=== PATIENT | male | born 1940 | race Caucasian/White ===

== ENCOUNTER 2018-11-28 15:11 | Inpatient (IN) | payer OTHER, BC ==
--- OUTSIDE RECORDS SUMMARY | 2018-11-28 15:14 | XMS REPORT ---
:1940 Author Organization [facility] Address [address] [place] [address] Care Team Providers Name Role Phone Unavailable Unavailable Unavailable Problems This patient has no known problems. Allergies, Adverse Reactions, Alerts This patient has no known allergies or adverse reactions. Medications This patient has no known medications.
--- OUTSIDE RECORDS SUMMARY | 2018-11-28 15:14 | XMS REPORT | Clinical Summary ---
:1940 Author Organization [facility] Address [address] [place] [address] Care Team Providers Name Role Phone Elliott Rain MD Primary Care Provider Allergies Active Allergy Reactions Severity Noted Date Comments Levofloxacin Rash Low 03/13/2016 Medications Medication Sig Dispensed Refills Start End Date Status Date [facility] 100-19.5-6.5 TAKE TWO 60 capsule 3 Active mg capsule CAPSULES BY 7 MOUTH DAILY carvedilol (COREG) Take 12.5 mg by 0 Active 12.5 MG tablet mouth 2 (two) times a day with meals. gabapentin Take 300 mg by 0 Active (NEURONTIN) 300 mg mouth 3 (three) capsule times a day. levothyroxine Take 50 mcg by 0 Active (SYNTHROID, LEVOXYL) mouth every 50 mcg tablet morning. aspirin (ECOTRIN) 81 Take 162 mg by 0 Active MG enteric coated mouth daily. tablet atorvastatin Take 20 mg by 0 Active (LIPITOR) 20 MG mouth daily. tablet Default OP ins traMADol (ULTRAM) 50 Take 50 mg by 0 Active mg tablet mouth every 6 (six) hours as needed for moderate pain. losartan (COZAAR) 50 Take 50 mg by 0 Active MG tablet mouth daily. multivitamin Take 1 tablet by 0 Active (THERAGRAN) tablet mouth daily. pantoprazole Take 40 mg by 0 Active (PROTONIX) 40 MG EC mouth daily tablet before breakfast. predniSONE Take 5 mg by 0 Active (DELTASONE) 5 mg mouth daily. 0.5 tablet tab alendronate Take 70 mg by 0 Active (FOSAMAX) 70 MG mouth every 7 tablet days. Take in the morning with a full glass of water on an empty stomach, do NOT take anything else by mouth or lie down for the next 30 min. levalbuterol Take 1 ampule by 0 Active (XOPENEX) 1.25 mg/3 nebulization 3 mL nebulizer (three) times a solution day. amIODarone Take 200 mg by 0 Active (PACERONE) 200 MG mouth daily. tablet VITAMIN A ORAL Take by mouth. 0 Active CALCIUM ORAL Take by mouth 2 0 Active (two) times a day. Plus Magnesium , zinc VITAMIN B COMPLEX (B Take by mouth. 0 Active COMPLEX ORAL) ZINC ORAL Take 220 mg by 0 Active mouth daily. FERROUS SULFATE Take 65 mg by 0 Active (IRON ORAL) mouth daily. budesonide-formotero Inhale 2 puffs. 0 Active l (SYMBICORT) 160-4.5 mcg/actuation inhaler ipratropium Inhale 2 puffs 2 0 Active (ATROVENT HFA) 17 (two) times a mcg/actuation day. inhaler clotrimazole Apply topically 0 Active (LOTRIMIN) 1 % cream 2 (two) times a day. cholecalciferol, Take by mouth 0 Active vitamin D3, (VITAMIN every evening. D3) 5,000 unit tablet digestive enzymes Take 1 capsule 0 Active capsule by mouth 2 (two) times a day. Bifidobacterium Take 1 capsule 0 Active infantis (ALIGN by mouth daily. ORAL) loratadine Take 10 mg by 0 Active (CLARITIN) 10 mg mouth daily. tablet nystatin Apply topically 30 g 0 09/21/19 (MYCOSTATIN) 100,000 daily. Clean 8 19 unit/gram powder affected area and apply daily to bilateral groin amoxicillin-pot Take 1 tablet 20 tablet 0 11/30/19 clavulanate (500 mg total) 8 18 (AUGMENTIN) 500-125 by mouth 2 (two) mg per tablet times a day for 10 days. cetirizine (ZyrTEC) Take 10 mg by 0 07/05/20 Discontinued 10 MG tablet mouth daily. 18 Active Problems Problem Noted Date Post-op pain 09/24/2017 Pneumonia 06/14/2017 Cellulitis of foot, right 06/14/2017 Aspiration pneumonia 03/13/2016 AF (paroxysmal atrial fibrillation) 03/13/2016 Essential hypertension 03/13/2016 GERD (gastroesophageal reflux disease) 03/13/2016 Hyperlipidemia 03/13/2016 Testicular cancer 03/13/2016 Prostate cancer 03/13/2016 PAD (peripheral artery disease) 03/13/2016 Last Assessment & Plan: E. R TMA well healed. Duplex study reviewed by me suggests bypass is patent. Plan: RTC in 6 months with R leg arterial duplex study. Encounters Date Type Specialty Care Team Description 07/05/2018 Office Visit Cardiovascular Francis Mckeon, PAD (peripheral artery MD disease) ([facility]) (Primary Dx) 01/03/2018 Office Visit Cardiovascular Mamie PAD (peripheral artery [place] disease) (Primary Dx) 12/06/2017 Office Visit Cardiovascular Mamie PAD (peripheral artery [place] disease) (Primary Dx) after 11/27/2017 Immunizations Name Dates Previously Given Next Due FLUCELVAX QUAD PF (0.5mL syringe) 06/18/2017 Family History Medical History Relation Name Comments Lung disease Father Heart disease Mother Relation Name Status Comments Father Mother Social History Tobacco Use Types Packs/Day Years Used Date Former Smoker Cigarettes 2 55 Quit: 2009 Smokeless Tobacco: Former User Alcohol Use Drinks/Week oz/Week Comments No Sex Assigned at Date Recorded Not on file Job Start Date Occupation Industry Not on file Not on file Not on file Travel History Travel Start Travel End No recent travel history available. Last Filed Vital Signs Vital Sign Reading Time Taken Blood Pressure 153/70 07/05/2018 11:49 AM CDT Pulse 67 07/05/2018 11:49 AM CDT Temperature 36.8 C (98.3 F) 07/05/2018 11:49 AM CDT Respiratory Rate 18 07/05/2018 11:49 AM CDT Oxygen Saturation 94% 07/05/2018 11:49 AM CDT Inhaled Oxygen Concentration - - Weight 73.6 kg (162 lb 4.1 oz) 07/05/2018 11:49 AM CDT Height 172.7 cm (5' 8") 07/05/2018 11:49 AM CDT Body Mass Index 24.67 07/05/2018 11:49 AM CDT Plan of Treatment Date Type Specialty Care Team Description 01/03/2019 Appointment Procedural Cardiology 01/03/2019 Office Visit Cardiovascular Francis Mckeon MD [address] [address] Health Maintenance Due Date Last Done Comments SHINGLES VACCINES (#1) 1988 65+ PNEUMOCOCCAL VACCINE (1 of 2 - PCV13) 2003 PNEUMOCOCCAL POLYSACCHARIDE VACCINE AGE 65 AND OVER 2003 INFLUENZA VACCINE 04/13/2018 06/18/2017 Implants Implanted Type Area Cork Mixer Device Shelf Model / Identifier Expiration Serial / Date Lot Catheter Angio Utilization Management Um Nurse Ii 5fr 65cm [facility] Braidd Torque Andrei - [id number] Surgical N/A: N/A [facility] PERIPHERAL [id number] / Implanted: 09/24/2017 (Quantity not on file) Implants; INTERVENTION / Expanders; VASCULAR RENETTA Extenders; Surgical Wires Evacuator Bulb Lindsey 100cc Ltxf - [id number] Surgical N/A: N/A [employer] [id number] / Implanted: Qty: 1 on 09/30/2017 by Jd Toney DPCamille Implants; DIVISION / Expanders; Extenders; Surgical Wires Drain Wnd Chnl 10fr 8in Rnd Hbls Fl-Flut W/ 8in Trocar - [id number] Surgical N/A: N/A [employer] [id number] / Implanted: Qty: 1 on 09/30/2017 by Jd Toney DPM Implants; DIVISION / Expanders; Extenders; Surgical Wires Stent Endprths Viabahn [id number] 8mm Heprn Bioactv Surf - [id number] Surgical N/ A: N/A W L GORE 06/16/2020 [id number] / Implanted: 09/24/2017 (Quantity not on file) Stents [id number] / [id number] Stent Endprths Viabahn [id number] 8mm Heprn Bioactv Surf - [id number] Surgical N/ A: N/A W L GORE 06/16/2020 [id number] / Implanted: 09/24/2017 (Quantity not on file) Stents [id number] / [id number] Patch Vasclr Perph 2x9cm Vascu-Guard - [id number] Vascular N/A: N/A HAWK 08/17/2021 [id number] / Implanted: Qty: 1 on 09/24/2017 by Francis Mckeon MD Graft BIOSCIENCE / [id number] Catheter Courtesy Driver [place] 5fr 75cm 7x40mm 0.035in H-Pres Right: [place] [id number] / Implanted: Qty: 1 on 09/24/2017 by Francis Mckeon MD Femur SCIENTIFIC/ BONNIE / PHERAL VASCULAR (MEDI-TECH) Procedures Procedure Name Priority Date/Time Associated Diagnosis Comments US ANKLE BRACHIAL Routine 07/05/2018 11:24 AM PAD (peripheral Results for this INDEX CDT artery disease) procedure are in (HCC) the results section. US DUPLEX ARTERIAL Routine 07/05/2018 11:24 AM PAD (peripheral Results for this LOWER EXTREMITY CDT artery disease) procedure are in BILATERAL (HCC) the results section. after 11/27/2017 Results Pv ankle brachial index complete (07/05/2018 11:24 AM CDT) Narrative Performed At [facility] Lower Extremity Arterial Physiologic Report [address] [place] [address] [facility].Name:Esteban NOLAN.ID:[id number] .Date: 07/05/2018Refer.MD:FRANCIS MCKEON MD Exam Time: 9:54:00 AMStudy Type:Physiologic Leg DOBAge:1940,77Y Sex: MALE Sonogrphr: Ponce Mcgrath RVT TapeVol: IV, CPT - 4: 21191 Echo Event ID:[id number] Order ID:[id number] Reason for Study:PAD; S/p right fem-peroneal bypass Race:C SUMMARY: DOPPLER SIGNALS /ANALOG WAVEFORMS: ANALOG WAVEFORMS ARTERY RIGHT LEFT Posterior Tibial Abnormal Abnormal Dorsalis Pedis Abnormal Abnormal See the same day lower extremity Duplex exam Patient seen the same day in the clinic by Dr Mckeon PHYSICIAN INTERPRETATION: 1.Resting ankle brachial indices fall within normal range on the right and mild left lower extremity arterial occlusive disease, although the wave forms are abnormal bilaterally. 2.The right great toe is amputated, the toebrachial index suggests mild disease on the left. MEASUREMENTS: PRESSURES Right Brachial Brach P114 mmHg Left Brachial Brach P124 mmHg Right Ankle PT AnklePT P138 mmHg Left Ankle PT AnklePT P 89 mmHg Right Ankle DP AnkleDP P138 mmHg Left Ankle DP AnkleDP P109 mmHg Right BRISEIDA PT BRISEIDA PT1.11 Left BRISEIDA PT BRISEIDA PT 0.718 Right BRISEIDA DP BRISEIDA DP1.11 Left BRISEIDA DP BRISEIDA DP 0.879 Left Great Toe GreatToe P55 mmHg Left TBI TBI0.444 Signed 07/08/2018 01:56 AM Lino Louis MD, RPVI Procedure Note Interface, Radiology Results In - 07/08/2018 1:56 AM CDT [facility] Lower Extremity Arterial Physiologic Report [address] [place] [address] Pat.Name: ELENA NOLAN Pat.ID: [id number] .Date: 07/05/2018 Refer.MD: FRANCIS MCKEON MD Exam Time: 9:54:00 AM Study Type:Physiologic Leg Age: 2 1940,77Y Sex: MALE Sonogrphr: Ponce Mcgrath RVT Tape Vol: IV, CPT - 4: 88898 Echo Event ID:[id number] Order ID: [id number] Reason for Study:PAD; S/p right fem-peroneal bypass Race: C SUMMARY: DOPPLER SIGNALS / ANALOG WAVEFORMS: ANALOG WAVEFORMS ARTERY RIGHT LEFT Posterior Tibial Abnormal Abnormal Dorsalis Pedis Abnormal Abnormal See the same day lower extremity Duplex exam Patient seen the same day in the clinic by Dr Mckeon PHYSICIAN INTERPRETATION: 1. Resting ankle brachial indices fall within normal range on the right and mild left lower extremity arterial occlusive disease, although the wave forms are abnormal bilaterally. 2. The right great toe is amputated, the toe brachial index suggests mild disease on the left. MEASUREMENTS: PRESSURES Right Brachial Brach P 114 mmHg Left Brachial Brach P 124 mmHg Right Ankle PT AnklePT P 138 mmHg Left Ankle PT AnklePT P 89 mmHg Right Ankle DP AnkleDP P 138 mmHg Left Ankle DP AnkleDP P 109 mmHg Right BRISEIDA PT BRISEIDA PT 1.11 Left BRISEIDA PT BRISEIDA PT 0.718 Right BRISEIDA DP BRISEIDA DP 1.11 Left BRISEIDA DP BRISEIDA DP 0.879 Left Great Toe GreatToe P 55 mmHg Left TBI TBI 0.444 Signed 07/08/2018 01:56 AM Lino Louis MD, RPVI Performing Organization Address City/State/Zipcode Phone Number [facility] [address] [place] [address] PV duplex arterial lower extremity (07/05/2018 11:24 AM CDT) Narrative Performed At [facility] Lower Extremity Arterial Duplex Report [address] [place] [address] Pat.Name:Esteban NOLAN.ID:[id number] .Date: 07/05/2018Refer.:FRANCIS MCKEON MD Exam Time: 9:53:00 AMStudy Type:LE Arterial DOBAge:1940,77Y Sex: MALE Sonogrphr: Ponce Mcgrath RVT TapeVol: IV, CPT - 4: 33626 Echo Event ID:[id number] Order ID:[id number] Reason for Study:PAD; S/p right fem-peroneal bypass graft Race:C SUMMARY: DUPLEX SCAN OBSERVATIONS: RIGHT:All the [place] blood vessels are very heavilycalcified. A patent bypass graft is visualized from the distal common femoral artery to the mid peroneal artery. The blood flow in the popliteal artery appears reconstituted via retrograde flow. The proximal and distal segment of the posterior tibial arteryare not visualized. LEFT: The blood vesels are difficult to visualize due to heavy calcifications throughout.There is a superficial femoral artery stent which appears patent without colorflow and Doppler signal disturbance. There is a colorflow disturbance and elevated velocities in the proximal anterior tibial artery. There is dampened signal and diminished flow in the posterior tibial artery. The peroneal artery is not seen. See the same day BRISEIDA Patient seen the same day in the clinic by Dr Mckeon PHYSICIAN INTERPRETATION: 1. Patent right femoral to peroneal artery bypass graft. 2. Patent left superficial femoral artery stent. 3. 50-75% stenosis left proximal anterior tibial artery. 4. The right proximal and distal segment of the posterior tibial arteryare not visualized. 5. There is dampened signal and diminished flow in the posterior tibial artery and the peroneal artery is not seen. MEASUREMENTS: GRAFT Graft Prox Thigh Graft Prox Thig76 cm/s Graft Mid Calf Graft Mid Calf 43 cm/s Graft Distal Thigh Graft Distal Th56 cm/s Prox Anastomosis Prox Anast PSV 115 cm/s At Knee Damari Vessel PSV50 cm/s Inflow Artery Damari Vessel PSV 101 cm/s Below knee Below knee PSV34 cm/s Graft Mid Thigh Graft Mid Thigh74 cm/s DOPPLER Left INSTRUMENT LENS GRINDER Prox INSTRUMENT LENS GRINDER Prox PSV15 cm/s Right INSTRUMENT LENS GRINDER Prox INSTRUMENT LENS GRINDER Prox PSV 0 cm/s Left INSTRUMENT LENS GRINDER Distal INSTRUMENT LENS GRINDER Distal PSV26 cm/s Right INSTRUMENT LENS GRINDER Distal INSTRUMENT LENS GRINDER Distal PSV 0 cm/s Left INSTRUMENT LENS GRINDER Mid INSTRUMENT LENS GRINDER Mid PSV 23 cm/s Right INSTRUMENT LENS GRINDER Mid INSTRUMENT LENS GRINDER Mid PSV 51 cm/s Right Peroneal Dist Peroneal Dist P67 cm/s Left SFA Mid SFA Mid PSV 34 cm/s Left AMERICA Prox AMERICA Prox PSV 110 cm/s AMERICA Prox AMERICA Prox PSV81.2 cm/s Left COSMETICS PRESSER Prox COSMETICS PRESSER Prox PSV89 cm/s Right COSMETICS PRESSER Prox COSMETICS PRESSER Prox PSV 106 cm/s Left AMERICA Mid AMERICA Mid PSV 24 cm/s Left AMERICA Distal AMERICA Distal PSV17 cm/s Right AMERICA Distal AMERICA Distal PSV62 cm/s Left Pop Prox Pop Prox PSV40 cm/s Right Pop Prox Pop Prox PSV29 cm/s Left COSMETICS PRESSER Dist COSMETICS PRESSER Dist PSV75 cm/s Right COSMETICS PRESSER Dist COSMETICS PRESSER Dist PSV99 cm/s Right Peroneal Mid Peroneal Mid PS70 cm/s Left EIA Dist EIA Dist PSV78 cm/s Right EIA Dist EIA Dist PSV 125 cm/s Left TP Trunk Dist TP Trunk Dist P31 cm/s Left SFA Prox SFA Prox PSV61 cm/s Right SFA Prox SFA Prox PSV 0 cm/s Left SFA Dist SFA Dist PSV44 cm/s Left Pop Dist Pop Dist PSV39 cm/s Right Pop Dist Pop Dist PSV24 cm/s Left Profunda Profunda PSV70 cm/s Profunda Profunda PSV45.1 cm/s Right AMERICA Mid AMERICA Mid PSV 90 cm/s Signed 07/08/2018 02:12 PM Lino Louis MD, RPVI Procedure Note Interface, Radiology Results In - 07/08/2018 2:12 PM CDT [facility] Lower Extremity Arterial Duplex Report [address] [facility] [address], [place] [address] Pat.Name: ELENA NOLAN Pat.ID: [id number] .Date: 07/05/2018 Refer.MD: FRANCIS MCKEON MD Exam Time: 9:53:00 AM Study Type:LE Arterial Age: 2 1940,77Y Sex: MALE Sonogrphr: Ponce Mcgrath RVT Tape Vol: IV, CPT - 4: 17962 Echo Event ID:[id number] Order ID: [id number] Reason for Study:PAD; S/p right fem-peroneal bypass graft Race: C SUMMARY: DUPLEX SCAN OBSERVATIONS: RIGHT:All the [place] blood vessels are very heavily calcified. A patent bypass graft is visualized from the distal common femoral artery to the mid peroneal artery. The blood flow in the popliteal artery appears reconstituted via retrograde flow. The proximal and distal segment of the posterior tibial artery are not visualized. LEFT: The blood vesels are difficult to visualize due to heavy calcifications throughout. There is a superficial femoral artery stent which appears patent without colorflow and Doppler signal disturbance. There is a colorflow disturbance and elevated velocities in the proximal anterior tibial artery. There is dampened signal and diminished flow in the posterior tibial artery. The peroneal artery is not seen. See the same day BRISEIDA Patient seen the same day in the clinic by Dr Mckeon PHYSICIAN INTERPRETATION: 1. Patent right femoral to peroneal artery bypass graft. 2. Patent left superficial femoral artery stent. 3. 50-75% stenosis left proximal anterior tibial artery. 4. The right proximal and distal segment of the posterior tibial artery are not visualized. 5. There is dampened signal and diminished flow in the posterior tibial artery and the peroneal artery is not seen. MEASUREMENTS: GRAFT Graft Prox Thigh Graft Prox Thig 76 cm/s Graft Mid Calf Graft Mid Calf 43 cm/s Graft Distal Thigh Graft Distal Th 56 cm/s Prox Anastomosis Prox Anast PSV 115 cm/s At Knee Damari Vessel PSV 50 cm/s Inflow Artery Damari Vessel PSV 101 cm/s Below knee Below knee PSV 34 cm/s Graft Mid Thigh Graft Mid Thigh 74 cm/s DOPPLER Left INSTRUMENT LENS GRINDER Prox INSTRUMENT LENS GRINDER Prox PSV 15 cm/s Right INSTRUMENT LENS GRINDER Prox INSTRUMENT LENS GRINDER Prox PSV 0 cm/s Left INSTRUMENT LENS GRINDER Distal INSTRUMENT LENS GRINDER Distal PSV 26 cm/s Right INSTRUMENT LENS GRINDER Distal INSTRUMENT LENS GRINDER Distal PSV 0 cm/s Left INSTRUMENT LENS GRINDER Mid INSTRUMENT LENS GRINDER Mid PSV 23 cm/s Right INSTRUMENT LENS GRINDER Mid INSTRUMENT LENS GRINDER Mid PSV 51 cm/s Right Peroneal Dist Peroneal Dist P 67 cm/s Left SFA Mid SFA Mid PSV 34 cm/s Left AMERICA Prox AMERICA Prox PSV 110 cm/s AMERICA Prox AMERICA Prox PSV 81.2 cm/s Left COSMETICS PRESSER Prox COSMETICS PRESSER Prox PSV 89 cm/s Right COSMETICS PRESSER Prox COSMETICS PRESSER Prox PSV 106 cm/s Left AMERICA Mid AMERICA Mid PSV 24 cm/s Left AMERICA Distal AMERICA Distal PSV 17 cm/s Right AMERICA Distal AMERICA Distal PSV 62 cm/s Left Pop Prox Pop Prox PSV 40 cm/s Right Pop Prox Pop Prox PSV 29 cm/s Left COSMETICS PRESSER Dist COSMETICS PRESSER Dist PSV 75 cm/s Right COSMETICS PRESSER Dist COSMETICS PRESSER Dist PSV 99 cm/s Right Peroneal Mid Peroneal Mid PS 70 cm/s Left EIA Dist EIA Dist PSV 78 cm/s Right EIA Dist EIA Dist PSV 125 cm/s Left TP Trunk Dist TP Trunk Dist P 31 cm/s Left SFA Prox SFA Prox PSV 61 cm/s Right SFA Prox SFA Prox PSV 0 cm/s Left SFA Dist SFA Dist PSV 44 cm/s Left Pop Dist Pop Dist PSV 39 cm/s Right Pop Dist Pop Dist PSV 24 cm/s Left Profunda Profunda PSV 70 cm/s Profunda Profunda PSV 45.1 cm/s Right AMERICA Mid AMERICA Mid PSV 90 cm/s Signed 07/08/2018 02:12 PM Lino Louis MD, RPVI Performing Organization Address City/State/Zipcode Phone Number [facility] [address] [place] [address] after 11/27/2017 Insurance Payer Benefit Plan / Group Subscriber ID Type Phone Address MEDICARE MEDICARE PART A AND B xxxxxxxxxx Medicare [place], [place] BCBS BCBS CHOICE PPO/FEDERAL EMPL PPO xxxxxxxxx PPO Advance Directives Patient has advance care planning documents, and code status on file. For more information, please contact:[place] [address] Code Status Date Activated Date Inactivated Comments Full Code 07/20/2017 3:29 AM 07/29/2017 9:21 PM Code Status decision reached by: Patient Full Code 06/14/2017 9:09 PM 06/19/2017 8:16 PM Code Status decision reached by: Patient Full Code 03/13/2016 10:36 PM 03/19/2016 7:27 PM Code Status decision reached by: Patient
--- NOTE | 2018-11-28 16:12 | RAD REPORT ---
EXAM DESCRIPTION: RAD - Chest Single View - 11/28/2018 3:59 pm CLINICAL HISTORY: TRAUMA Chest pain. COMPARISON: Chest Pa And Lat (2 Views) dated 06/13/2017; Chest Single View dated 06/08/2017; Chest Sin gle View dated 10/20/2016; Chest Single View dated 07/01/2016 FINDINGS: Portable technique limits examination quality. Mildly emphysematous changes are present throughout the lungs. The heart is mildly prominent size. No displaced fractures. IMPRESSION: No acute intrathoracic process suspected. COPD.
--- NOTE | 2018-11-28 16:13 | RAD REPORT ---
EXAM DESCRIPTION: RAD - Pelvis - 11/28/2018 3:59 pm CLINICAL HISTORY: TRAUMA Fall, right hip pain COMPARISON: None FINDINGS: AP pelvis and right hip - multiple projections Mildly impacted subcapital fracture of the proximal right femur is noted. No dislocation seen. Left t otal hip arthroplasty is noted.
--- NOTE | 2018-11-28 16:15 | RAD REPORT ---
EXAM DESCRIPTION: RAD - Hand Left 3 View - 11/28/2018 3:58 pm CLINICAL HISTORY: PAIN COMPARISON: Hand Left 2 View dated 09/03/2015 FINDINGS: Prominent radiocarpal arthritic changes are present. Diffuse osteopenia is seen. No acute fracture or dislocation.
--- NOTE | 2018-11-28 16:28 | RAD REPORT ---
EXAM DESCRIPTION: CT - [id number] - 11/28/2018 4:14 pm CLINICAL HISTORY: Trauma, head and neck injury. PAIN COMPARISON: No comparisons TECHNIQUE: Axial 5 mm thick images of the head were obtained. Axial 2 mm thick images of the cervical spine were obtained with sagittal and coronal reconstruction images generated and reviewed. All CT scans are performed using dose optimization technique as appropriate and may include automated exposure control or mA/KV adjustment according to patient size. FINDINGS: CT HEAD WITHOUT CONTRAST: No acute hemorrhage, hydrocephalus or extra-axial collection is identified.Moderate generalized brain atrophy is present with mild periventricular and deep white matter chronic microvascular ischemic ch anges.No areas of brain edema or midline shift. The paranasal sinuses and mastoids are clear.The calvarium is intact. CT CERVICAL SPINE WITHOUT CONTRAST: No fracture or subluxation.Prominent midcervical degenerative changes are present. 2 mm degenerative anterolisthesis of C3 on 4 is present. Disc thinning with posterior osteophyte is noted.No prevertebr al soft tissues swelling is identified. Carotid atherosclerosis bilaterally. IMPRESSION: No acute intracranial or cervical spine findings.
--- NOTE | 2018-11-28 16:31 | RAD REPORT ---
EXAM DESCRIPTION: CT - Pelvis Wo Cont - 11/28/2018 4:15 pm CLINICAL HISTORY: BLUNT TRAUMA Fall, trauma, hip pain COMPARISON: No comparisons TECHNIQUE: All CT scans are performed using dose optimization technique as appropriate and may inclu de automated exposure control or mA/KV adjustment according to patient size. FINDINGS: Diffuse osteopenia is seen. Subcapital fracture of the proximal right femur is seen with i mpaction. A left total hip arthroplasty is in place. Prominent diverticulosis of the sigmoid colon is present. Moderate compression deformity is seen affe cting the L4 vertebral body, fully detailed on dedicated CT lumbar spine. IMPRESSION: Impacted subcapital fracture proximal right femur.
--- NOTE | 2018-11-28 16:33 | ER ---
Nurse's Notes [facility] Name: Luis Burgos Age: 78 yrs Sex: Male : 1940 Arrival Date: 11/28/2018 Time: 15:02 Bed 3 Private MD: Diagnosis: Nondisplaced fracture of base of neck of right femur Presentation: 11/28 15:02 Presenting complaint: EMS states: Pt lost footing and fell, landed on R hip, c/o pain ph to hip and top of thigh, denies other injury or LOC, R leg noted to be slightly shortened and rotated outward, 50 mcg Fentanyl administered x 2. Transition of care: patient was not received from another setting of care. Onset of symptoms was November 28, 2018. Risk Assessment: Do you want to hurt yourself or someone else? Patient reports no desire to harm self or others. Initial Sepsis Screen: Does the patient meet any 2 criteria? No. Patient's initial sepsis screen is negative. Does the patient have a suspected source of infection? No. Patient's initial sepsis screen is negative. Care prior to arrival: Medication(s) given: Fentanyl 50 mcg x 2/ 100 mcg total IV initiated. 20 GA, in the left antecubital area. 15:02 Method Of Arrival: EMS: [facility] 15:02 Acuity: ERWIN 3 ph 15:02 Mechanism of Injury: Fall from standing position. Trauma event details: Injury occurred ph in the [facility], Injury occurred: at home. Trauma Activation: Not Applicable Physician: ED Physician; Name: ; Notified At: ; Arrived At: Physician: General Surgeon; Name: ; Notified At: ; Arrived At: Physician: Radiology; Name: ; Notified At: ; Arrived At: Physician: Respiratory; Name: ; Notified At: ; Arrived At: Physician: Lab; Name: ; Notified At: ; Arrived At: Historical: - Allergies: 15:06 Levaquin; ph - PMHx: 15:06 Arthritis; COPD; Prostate Cancer; testicular cancer; ph - Immunization history:: Adult Immunizations unknown. - Social history:: Smoking status: Patient/guardian denies using tobacco, Patient/guardian denies using alcohol, street drugs, The patient lives with family. - Immunization history: Last tetanus immunization: unknown. - Ebola Screening: : No symptoms or risks identified at this time. - Family history:: not pertinent. Screenin:30 Abuse screen: Denies threats or abuse. Denies injuries from another. Nutritional ph screening: No deficits noted. Tuberculosis screening: No symptoms or risk factors identified. Fall Risk Fall in past 12 months (25 points). No secondary diagnosis (0 pts). IV access (20 points). Ambulatory Aid- None/Bed Rest/Nurse Assist (0 pts). Gait- Normal/Bed Rest/Wheelchair (0 pts) Mental Status- Oriented to own ability (0 pts). Total Narayanan Fall Scale indicates High Risk Score (45 or more points). Fall prevention measures have been instituted. Side Rails Up X 2 Placed Close to Nursing Station Frequent Obs/Assessments Occuring Family Present and informed to notify staff if the need to leave the bedside As available patient and family educated on Fall Prevention Program and Strategies. Primary Survey: 15:05 NO uncontrolled hemorrhage observed. A: The patient is alert. Airway: patent, No ph supplemental oxygen in use on arrival. Oral cavity: clear, Trachea midline. Breathing/Chest: Respiratory pattern: regular, Respiratory effort: spontaneous, unlabored, Breath sounds: clear, bilaterally. Chest inspection: symmetrical rise and fall of the chest. Circulation: Pulses: Skin color: pink, Skin temperature: warm. Disability Alert. Exposure/Environment: All clothing and personal items were removed. Forensic evidence collection is not deemed to be indicated at this time. Items placed in patient belonging bag. 18:00 Reassessment Airway Airway Breathing/Chest Respiratory pattern Regular Respiratory ph effort Spontaneous Unlabored Breath sounds Clear Chest inspection Symmetrical Circulation Pulses Palpable Color Clymer Temperature Warm Disability Alert. Secondary Survey: 15:07 Musculoskeletal: R leg shortened and rotated outwards Reports pain in right hip. ph Assessment: 15:10 General: Appears in no apparent distress. comfortable, well groomed, Behavior is calm, ph cooperative, appropriate for age. Pain: Complains of pain in right quadriceps and right hip. Neuro: Level of Consciousness is awake, alert, obeys commands, Oriented to person, place, time, situation. Cardiovascular: Capillary refill < 3 seconds in bilateral fingers toes Patient's skin is warm and dry. Pulses are palpable in right dorsalis pedis artery and left dorsalis pedis artery. Respiratory: Airway is patent Respiratory effort is even, unlabored, Respiratory pattern is regular, symmetrical. GI: Patient currently denies nausea, vomiting. Derm: Skin is healthy with good turgor, Skin is pink, warm \T\ dry. Wound noted right forearm and left pinky finger. Musculoskeletal: Circulation, motion, and sensation intact. Range of motion: limited in right hip. 18:07 Reassessment: Patient appears in no apparent distress at this time. Patient and/or ph family updated on plan of care and expected duration. Pain level reassessed. Patient is alert, oriented x 3, equal unlabored respirations, skin warm/dry/pink. Pt resting quietly, medicated for pain per ERP order, awaiting sutures before going to floor. 19:30 Reassessment: Patient appears in no apparent distress at this time. Patient and family lp1 aware of pending admission. Vital Signs: 15:05 BP 141 / 85; Pulse 68; Resp 18; Temp 97.8; Pulse Ox 98% on R/A; Weight 74.84 kg; Height ph 5 ft. 8 in. (172.72 cm); 16:00 BP 152 / 78; Pulse 67; Resp 18; Pulse Ox 99% on R/A; ph 17:00 BP 170 / 74; Pulse 71; Resp 18; Pulse Ox 98% on R/A; ph 18:00 BP 162 / 78; Pulse 68; Resp 18; Pulse Ox 99% on R/A; ph 19:25 BP 164 / 78; Pulse 66; Resp 18; Pulse Ox 99% on R/A; ph 20:30 BP 162 / 73; Pulse 68; Resp 16; Pulse Ox 98% on R/A; lp1 15:05 Body Mass Index 25.09 (74.84 kg, 172.72 cm) ph [place] Coma Score: 15:05 Eye Response: spontaneous(4). Verbal Response: oriented(5). Motor Response: obeys ph commands(6). Total: 15. 16:00 Eye Response: spontaneous(4). Verbal Response: oriented(5). Motor Response: obeys ph commands(6). Total: 15. 17:00 Eye Response: spontaneous(4). Verbal Response: oriented(5). Motor Response: obeys ph commands(6). Total: 15. 18:00 Eye Response: spontaneous(4). Verbal Response: oriented(5). Motor Response: obeys ph commands(6). Total: 15. 19:25 Eye Response: spontaneous(4). Verbal Response: oriented(5). Motor Response: obeys ph commands(6). Total: 15. Trauma Score (Adult): 15:05 Eye Response: spontaneous(1); Verbal Response: oriented(1); Motor Response: obeys ph commands(2); Systolic BP: > 89 mm Hg(4); Respiratory Rate: 10 to 29 per min(4); [place] Score: 15; Trauma Score: 12 16:00 Eye Response: spontaneous(1); Verbal Response: oriented(1); Motor Response: obeys ph commands(2); Systolic BP: > 89 mm Hg(4); Respiratory Rate: 10 to 29 per min(4); [place] Score: 15; Trauma Score: 12 17:00 Eye Response: spontaneous(1); Verbal Response: oriented(1); Motor Response: obeys ph commands(2); Systolic BP: > 89 mm Hg(4); Respiratory Rate: 10 to 29 per min(4); [place] Score: 15; Trauma Score: 12 18:00 Eye Response: spontaneous(1); Verbal Response: oriented(1); Motor Response: obeys ph commands(2); Systolic BP: > 89 mm Hg(4); Respiratory Rate: 10 to 29 per min(4); Cooper Score: 15; Trauma Score: 12 19:25 Eye Response: spontaneous(1); Verbal Response: oriented(1); Motor Response: obeys ph commands(2); Systolic BP: > 89 mm Hg(4); Respiratory Rate: 10 to 29 per min(4); Cooper Score: 15; Trauma Score: 12 ED Course: 15:02 Patient arrived in ED. ph 15:03 Frank Araiza PA is PHCP. jr8 15:04 Irwin Gusman MD is Attending Physician. jr8 15:05 Triage completed. ph 15:06 Arm band placed on Patient placed in an exam room. ph 15:07 Shweta Murillo MD is Attending Physician. jr8 15:10 Patient has correct armband on for positive identification. Placed in gown. Bed in low ph position. Call light in reach. Side rails up X 1. Pulse ox on. NIBP on. Warm blanket given. 15:15 Patient maintains SpO2 saturation greater than 95% on room air. Thermoregulation: warm ph blanket given to patient. 15:28 Tashia Neely, RN is Primary Nurse. ph 15:30 Maintain EMS IV. Dressing intact. Good blood return noted. Site clean \T\ dry. Gauge \T\ ph site: 20 LAC. Patient admitted, IV remains in place. 15:59 XRAY Pelvis In Process Unspecified. EDMS 15:59 XRAY Chest (1 view) In Process Unspecified. EDMS 15:59 Femur Right XRAY In Process Unspecified. EDMS 15:59 Hand Left 3 View XRAY In Process Unspecified. EDMS 16:14 CT Head C Spine In Process Unspecified. EDMS 16:14 CT Lumbar Spine Wo Con In Process Unspecified. EDMS 16:14 CT Pelvis wo Cont In Process Unspecified. EDMS 16:31 Kyler Taylor DO is Hospitalizing Provider. ma2 18:42 Wallace cath inserted, using sterile technique, 16 Fr., by de, balloon inflated, to jb1 gravity drainage. 19:58 No provider procedures requiring assistance completed. ph Administered Medications: 18:01 Drug: fentaNYL (PF) 50 mcg Route: IVP; Site: left antecubital; ph 20:03 Follow up: Response: No adverse reaction ph 18:27 Drug: Lidocaine-Epinephrine -1%: (1:100,000) 10 ml Volume: 20 ml; Route: Infiltration; ph 20:04 Follow up: Response: No adverse reaction ph Intake: 15:05 PO: 0ml; Total: 0ml. ph 16:00 PO: 0ml; Total: 0ml. ph 17:00 PO: 0ml; Total: 0ml. ph Output: 15:05 Urine: 0ml; Total: 0ml. ph 16:00 Urine: 0ml; Total: 0ml. ph 17:00 Urine: 0ml; Total: 0ml. ph 20:30 Urine: 400ml (Wallace); Total: 400ml. lp1 Outcome: 16:32 Decision to Hospitalize by Provider. ma2 20:15 Admitted to Med/surg accompanied by tech, family with patient, via stretcher, room 231, lp1 with chart, Report called to Shannan Graham LVN 20:15 Condition: stable lp1 20:15 Patient's length of stay in the Emergency Department was greater than 2 hours. 20:43 Patient left the ED. lp1 Signatures: Dispatcher [employer] EDKhoi Nance jb1 Erica Almodovar RN RN lp1 Frank Araiza PA PA jr8 Tashia Neely RN RN Shweta Murillo MD MD ma2
--- NOTE | 2018-11-28 16:33 | EDPHYS ---
Physician Documentation [facility] Name: Luis Burgos Age: 78 yrs Sex: Male : 1940 Arrival Date: 11/28/2018 Time: 15:02 Bed 3 Private MD: ED Physician Shweta Murillo HPI: 11/28 15:20 This 78 yrs old Male presents to ER via EMS with complaints of Hip Injury. ma2 15:20 The patient or guardian reports decreased range of motion. The complaints affect the ma2 right hand, right arm and right leg. Onset: The symptoms/episode began/occurred suddenly, 1 hour(s) ago. Associated signs and symptoms: Loss of consciousness: the patient experienced no loss of consciousness, Pertinent positives: Pertinent negatives: None. abdominal pain, diarrhea, dizziness. Severity of symptoms: At their worst the symptoms were mild, in the emergency department the symptoms are unchanged. The patient has not experienced similar symptoms in the past. Historical: - Allergies: 15:06 Levaquin; ph - PMHx: 15:06 Arthritis; COPD; Prostate Cancer; testicular cancer; ph - Immunization history:: Adult Immunizations unknown. - Social history:: Smoking status: Patient/guardian denies using tobacco, Patient/guardian denies using alcohol, street drugs, The patient lives with family. - Immunization history: Last tetanus immunization: unknown. - Ebola Screening: : No symptoms or risks identified at this time. - Family history:: not pertinent. ROS: 15:21 Constitutional: Negative for fever, chills, and weight loss, Neck: Negative for injury, ma2 pain, and swelling, Cardiovascular: Negative for chest pain, palpitations, and edema. 15:21 MS/extremity: Positive for pain, Negative for paresthesias. 15:21 All other systems are negative. Exam: 15:21 Constitutional: This is a well developed, well nourished patient who is awake, alert, ma2 and in no acute distress. Neck: Trachea midline, no thyromegaly or masses palpated, and no cervical lymphadenopathy. Supple, full range of motion without nuchal rigidity, or vertebral point tenderness. No Meningismus. Chest/axilla: Normal chest wall appearance and motion. Nontender with no deformity. No lesions are appreciated. Cardiovascular: Regular rate and rhythm with a normal S1 and S2. No gallops, murmurs, or rubs. Normal PMI, no JVD. No pulse deficits. Respiratory: Lungs have equal breath sounds bilaterally, clear to auscultation and percussion. No rales, rhonchi or wheezes noted. No increased work of breathing, no retractions or nasal flaring. Abdomen/GI: Soft, non-tender, with normal bowel sounds. No distension or tympany. No guarding or rebound. No evidence of tenderness throughout. Skin: Warm, dry with normal turgor. Normal color with no rashes, no lesions, and no evidence of cellulitis. Neuro: Awake and alert, GCS 15, oriented to person, place, time, and situation. Cranial nerves II-XII grossly intact. Motor strength 5/5 in all extremities. Sensory grossly intact. Cerebellar exam normal. Normal gait. 15:21 Musculoskeletal/extremity: ROM: limited active range of motion due to pain, rigth hip, Circulation is intact in all extremities. Sensation intact. left hand laceration over medial aspect of palm . Vital Signs: 15:05 BP 141 / 85; Pulse 68; Resp 18; Temp 97.8; Pulse Ox 98% on R/A; Weight 74.84 kg; Height ph 5 ft. 8 in. (172.72 cm); 16:00 BP 152 / 78; Pulse 67; Resp 18; Pulse Ox 99% on R/A; ph 17:00 BP 170 / 74; Pulse 71; Resp 18; Pulse Ox 98% on R/A; ph 18:00 BP 162 / 78; Pulse 68; Resp 18; Pulse Ox 99% on R/A; ph 19:25 BP 164 / 78; Pulse 66; Resp 18; Pulse Ox 99% on R/A; ph 20:30 BP 162 / 73; Pulse 68; Resp 16; Pulse Ox 98% on R/A; lp1 15:05 Body Mass Index 25.09 (74.84 kg, 172.72 cm) ph Foley Coma Score: 15:05 Eye Response: spontaneous(4). Verbal Response: oriented(5). Motor Response: obeys ph commands(6). Total: 15. 16:00 Eye Response: spontaneous(4). Verbal Response: oriented(5). Motor Response: obeys ph commands(6). Total: 15. 17:00 Eye Response: spontaneous(4). Verbal Response: oriented(5). Motor Response: obeys ph commands(6). Total: 15. 18:00 Eye Response: spontaneous(4). Verbal Response: oriented(5). Motor Response: obeys ph commands(6). Total: 15. 19:25 Eye Response: spontaneous(4). Verbal Response: oriented(5). Motor Response: obeys ph commands(6). Total: 15. Trauma Score (Adult): 15:05 Eye Response: spontaneous(1); Verbal Response: oriented(1); Motor Response: obeys ph commands(2); Systolic BP: > 89 mm Hg(4); Respiratory Rate: 10 to 29 per min(4); Foley Score: 15; Trauma Score: 12 16:00 Eye Response: spontaneous(1); Verbal Response: oriented(1); Motor Response: obeys ph commands(2); Systolic BP: > 89 mm Hg(4); Respiratory Rate: 10 to 29 per min(4); Cooper Score: 15; Trauma Score: 12 17:00 Eye Response: spontaneous(1); Verbal Response: oriented(1); Motor Response: obeys ph commands(2); Systolic BP: > 89 mm Hg(4); Respiratory Rate: 10 to 29 per min(4); Foley Score: 15; Trauma Score: 12 18:00 Eye Response: spontaneous(1); Verbal Response: oriented(1); Motor Response: obeys ph commands(2); Systolic BP: > 89 mm Hg(4); Respiratory Rate: 10 to 29 per min(4); Foley Score: 15; Trauma Score: 12 19:25 Eye Response: spontaneous(1); Verbal Response: oriented(1); Motor Response: obeys ph commands(2); Systolic BP: > 89 mm Hg(4); Respiratory Rate: 10 to 29 per min(4); Cooper Score: 15; Trauma Score: 12 Laceration: 18:57 Wound Repair of 1cm ( 0.4in ) subcutaneous laceration to left hand. Distal ma2 neuro/vascular/tendon intact. Anesthesia: Local anesthetic administered with 5 mls of 1% lidocaine w/ Epi. Wound prep: Simple cleansing. Skin closed with 1 2-0 Prolene using simple sutures and sterile technique. Dressed with Bacitracin. MDM: 15:06 Patient medically screened. lina 15:21 Differential diagnosis: hip fracture, intertrochanteric fracture, femoral neck ma2 fracture, femoral shaft fracture, bursitis, arthritis, strain. 16:28 Data reviewed: vital signs, nurses notes. Counseling: I had a detailed discussion with antonio the patient and/or guardian regarding: the historical points, exam findings, and any diagnostic results supporting the discharge/admit diagnosis, the presence of at least one elevated blood pressure reading (>120/80) during this emergency department visit, the need for further work-up and treatment in the hospital. Response to treatment: the patient's symptoms have markedly improved after treatment. ED course: DISCUSSED WITH DR. Sequeira WHO RECOMMEND ADMISSION AND . 16:30 ED course: DR. CORREA AWARE . [facility] 16:41 ED course: COMPRESSION FRACTURE OF l1 IS OLD . [facility] 11/28 16:55 Order name: CBC with Diff 11/28 16:55 Order name: BMP [facility] 11/28 15:13 Order name: XRAY Pelvis; Complete Time: 16:19 [facility] 11/28 15:13 Order name: XRAY Chest (1 view); Complete Time: 16:19 tn2 11/28 15:13 Order name: CT Head C Spine; Complete Time: 16:40 tn2 11/28 15:13 Order name: Femur Right XRAY [facility] 11/28 15:13 Order name: Hand Left 3 View XRAY; Complete Time: 16:19 tn2 11/28 15:13 Order name: CT Lumbar Spine Wo Con; Complete Time: 16:40 tn2 11/28 15:13 Order name: Prolene, Sutures; Complete Time: 18:02 tn2 11/28 15:13 Order name: Dressing - Wound; Complete Time: 18:02 ma2 11/28 15:13 Order name: Gloves, Sterile; Complete Time: 18:02 tn2 11/28 15:21 Order name: CT Pelvis wo Cont; Complete Time: 16:40 tn2 11/28 15:13 Order name: Setup Suture Tray; Complete Time: 18:02 ma2 11/28 17:12 Order name: EKG - Nurse/Tech; Complete Time: 17:40 jr8 Administered Medications: 18:01 Drug: fentaNYL (PF) 50 mcg Route: IVP; Site: left antecubital; ph 20:03 Follow up: Response: No adverse reaction ph 18:27 Drug: Lidocaine-Epinephrine -1%: (1:100,000) 10 ml Volume: 20 ml; Route: Infiltration; ph 20:04 Follow up: Response: No adverse reaction ph Disposition: 11/28/18 16:32 Hospitalization ordered by Kyler Correa for Inpatient Admission. Preliminary diagnosis is Nondisplaced fracture of base of neck of right femur. - Bed requested for Telemetry/MedSurg (Inpatient). - Status is Inpatient Admission. lp1 - Condition is Stable. - Problem is new. - Symptoms are unchanged. UTI on Admission? No Signatures: Dispatcher [employer] EDMS Steffi Fragoso Corey, MD MD cha Pena, Laura, RN RN lp1 Frank Araiza PA PA jr8 Tashia Neely RN RN [facility] MD ma2 Corrections: (The following items were deleted from the chart) 17:22 16:32 Hospitalization Ordered by Kyler Correa DO for Inpatient Admission. Preliminary bd diagnosis is Nondisplaced fracture of base of neck of right femur. Bed requested for Telemetry/MedSurg (Inpatient). Status is Inpatient Admission. Condition is Stable. Problem is new. Symptoms are unchanged. UTI on Admission? No. ma2 20:43 17:22 11/28/2018 16:32 Hospitalization Ordered by Kyler Correa DO for Inpatient lp1 Admission. Preliminary diagnosis is Nondisplaced fracture of base of neck of right femur. Bed requested for Telemetry/MedSurg (Inpatient). Status is Inpatient Admission. Condition is Stable. Problem is new. Symptoms are unchanged. UTI on Admission? No. bd
--- NOTE | 2018-11-28 16:34 | RAD REPORT ---
EXAM DESCRIPTION: CT - Spine Lumbar Wo Con - 11/28/2018 4:14 pm CLINICAL HISTORY: Radiculopathy. PAIN COMPARISON: No comparisons TECHNIQUE: Axial noncontrast CT imaging of the lumbar spine was performed with coronal and sagittal re-formatted images. All CT scans are performed using dose optimization technique as appropriate and may include automated exposure control or mA/KV adjustment according to patient size. FINDINGS: A mild L1 compression fracture is present. Vertebral body height loss is estimated at 10-1 5%. Mild thickening of the paraspinal soft tissues at this level is seen. No canal compromise. Modera te sclerotic compression deformity affects the L4 vertebral body, without significant paraspinal tiss ue thickening, favored to be old. Heavy aorto iliac atherosclerosis. 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 IMPRESSION: Mild acute compression fracture affecting L1 vertebral body noted without canal compromi se. Vertebral body height loss is estimated at 10%.
[2018-11-28] MEDS ORDERED: LIDOCAINE 1% 20 ML MDV ONE (17:56)
[2018-11-28] MEDS ORDERED: FENTANYL CITR 100 MCG/2 ML ONE (17:56)
[2018-11-28 18:16] LABS: Absolute Lymphocytes (CBC) 0.7 K/uL (0.7-4.9); Absolute Monocytes 0.5 K/uL (0.1-1.3); Basophils % 0.9 % (0-1.3); Eosinophils % 0.7 % (0-4.4); Hematocrit 41.2 % (39.6-49.0); Lymphocytes % 4.7 % (15.3-44.8); MPV 9.6 fL (7.6-11.3); Monocytes % 3.7 % (3.3-12.3); RBC Red Blood Cell Count 4.28 M/uL (4.33-5.43)
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
[2018-11-28 18:41] LABS: Potassium 5.2 mmol/L (3.5-5.1)
[2018-11-28] MEDS ORDERED: ACETAMINOPHEN 500 MG TAB PO PRN (20:05)
[2018-11-28] MEDS ORDERED: ONDANSETRON 4 MG/2 ML VIAL IV PRN (20:05)
[2018-11-28] MEDS ORDERED: ACETAMINOPHEN 650MG/RECT SUPP RECT PRN (20:05)
[2018-11-28 21:16] LABS: Anisocytosis 1+; Blood Morphology Comment NOTED (NOT SEEN); Platelet Estimate INCR; Urine White Blood Cell Casts OK
[2018-11-28] MEDS: LACTOBACILLUS/ACIDOPHILUS TAB PO SCH (21:25)
[2018-11-28] MEDS: GABAPENTIN 300 MG CAP PO SCH (21:25)
[2018-11-28] MEDS: CARVEDILOL 12.5 MG TAB PO SCH (21:26)
[2018-11-28] MEDS: ATORVASTATIN 20 MG TAB PO SCH (21:26)
[2018-11-28] MEDS: HYDROCODONE/APAP 7.5/325 MG TAB PO PRN (21:26)
[2018-11-28 21:41] VITALS: BMI 25.7
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
[2018-11-28] MEDS: FENTANYL CITR 100 MCG/2 ML IV PRN (22:30)
[2018-11-29 00:28] LABS: Urine Appearance CLEAR; Urine Bilirubin NEGATIVE (NEG); Urine Color COLORLESS; Urine Urobilinogen 0.2 mg/dL (0.2-1.0)
[2018-11-29 00:30] LABS: Urine Blood NEGATIVE (NEG); Urine Glucose NEGATIVE (NEG); Urine Protein NEGATIVE (NEG)
[2018-11-29 00:31] LABS: Urine Microscopic Reflex NO UMIC
[2018-11-29] MEDS: FENTANYL CITR 100 MCG/2 ML IV PRN ×5 (02:34→21:30)
[2018-11-29] MEDS: HYDROCODONE/APAP 7.5/325 MG TAB PO PRN ×4 (03:32→23:51)
[2018-11-29 05:18] LABS: Absolute Lymphocytes (CBC) 1.1 K/uL (0.7-4.9); Absolute Monocytes 0.8 K/uL (0.1-1.3); Absolute Neutrophil 11.3 K/uL (1.8-8.0); Basophils % 0.5 % (0-1.3); Eosinophils % 1.4 % (0-4.4); Hematocrit 41.3 % (39.6-49.0); MPV 9.6 fL (7.6-11.3); Monocytes % 6.1 % (3.3-12.3); RBC Red Blood Cell Count 4.32 M/uL (4.33-5.43)
[2018-11-29 05:39] LABS: Potassium 4.3 mmol/L (3.5-5.1)
[2018-11-29] MEDS: CARVEDILOL 12.5 MG TAB PO SCH ×2 (05:40→17:25)
[2018-11-29] MEDS: LEVOTHYROXINE SOD 0.05 MG TABLET PO SCH (05:41)
--- NOTE | 2018-11-29 05:58 | EKG ---
Test Date: 2018-11-28 Test Time: 17:29:26 Syrup Blender: IVAN MEASUREMENT RESULTS: Intervals: Rate: 63 NE: 208 QRSD: 140 QT: 496 QTc: 507 [place]: P: 88 NE: 208 QRS: -41 T: 48 INTERPRETIVE STATEMENTS: Normal sinus rhythm Left axis deviation Right bundle branch block Septal infarct, age undetermined Abnormal ECG Compared to ECG 06/13/2017 09:32:27 Atrial fibrillation no longer present Ventricular premature complex(es) no longer present Myocardial infarct finding still present Electronically Signed On 11-29-18 05:57:46 CDT by Ranjith Cummings
[2018-11-29] MEDS: AMIODARONE HCL 200 MG TAB PO SCH (09:26)
[2018-11-29] MEDS: LACTOBACILLUS/ACIDOPHILUS TAB PO SCH ×2 (09:26→21:27)
[2018-11-29] MEDS: GABAPENTIN 300 MG CAP PO SCH ×3 (09:27→21:27)
[2018-11-29] MEDS: MULTIVITAMIN TAB PO SCH (09:27)
[2018-11-29] MEDS: LOSARTAN POTASSIUM 50 MG TABLET PO SCH (09:27)
[2018-11-29] MEDS: LORATADINE 10 MG TAB PO SCH (09:27)
[2018-11-29] MEDS: predniSONE 5 MG TAB PO SCH (09:27)
[2018-11-29] MEDS: ENOXAPARIN 40 MG/0.4 ML SQ SCH (09:27)
--- NOTE | 2018-11-29 10:06 | RAD REPORT ---
EXAM DESCRIPTION: RAD - Femur Right - 11/28/2018 3:58 pm CLINICAL HISTORY: TRAUMA Fall, right hip pain COMPARISON: None FINDINGS: AP pelvis and right hip - multiple projections Mildly impacted subcapital fracture of the proximal right femur is noted. No dislocation seen. Left t otal hip arthroplasty is noted.
[2018-11-29] MEDS ORDERED: DIPHENOX/ATROP SULF 1 TAB PO PRN (10:14)
--- NOTE | 2018-11-29 10:14 | P.PN ---
Subjective Date of Service: 11/29/18 Primary Care Provider: Dr. Rain; Card-Dr. Horn; Hemo-Dr. Hernandez; Urology-Dr. Nielsen Chief Complaint: Fall Subjective: Doing well Physical Examination - Vital Signs Temperature: 97.5 F Blood Pressure: 160/72 Pulse: 67 Respirations: 17 Pulse Ox (%): 92 - Physical Exam General: Alert, In no apparent distress, Oriented x3, Cooperative HEENT: Atraumatic Neck: Supple Respiratory: Clear to auscultation bilaterally, Normal air movement Cardiovascular: Normal pulses, Regular rate/rhythm Gastrointestinal: Normal bowel sounds, Soft and benign, Non-distended Musculoskeletal: No erythema, No tenderness, No warmth Integumentary: No tenderness/swelling, No erythema, No warmth, No cyanosis Neurological: Normal speech, Normal strength at 5/5 x4 extr, Normal tone - Studies Medications List Reviewed: Yes Assessment & Plan Discharge Plan: Other (Inpatient Rehab) Plan to discharge in: Greater than 2 days Physician Review Additional Text: Impression: Impacted Subcapital Proximal Right Femur Fracture after a fall Chronic atrial fibrillation not on chronic anticoagulation HTN Hypothyroidism BPH Chronic steroids for eosinophilic gastroenteritis Osteoporosis Compression fracture lumbar spine Plan: Impacted Subcapital Proximal Right Femur Fracture after a fall: Case discussed with orthopedics. Orthopedics plans for surgery tomorrow. Continue current medications until then. Will provide diet today. Continue with pain medication. Cardiology to clear patient. Patient low risk for surgery. Anticipate inpatient rehab after surgery. Chronic atrial fibrillation not on chronic anticoagulation: Continue with amiodarone. Patient not on chronic anti coagulation therapy. Continue DVT prophylaxis. HTN: Continue with home medication. Hypothyroidism: Continue home medication. BPH: Continue home medication. Chronic steroids for eosinophilic gastroenteritis: Continue chronic steroids. Osteoporosis: Will continue home medication Compression fracture lumbar spine: Will provide medication for pain. Physical therapy to follow after surgery. Will pursue inpatient rehab after surgery. Time Spent Managing Pts Care (In Minutes): 55
[2018-11-29] MEDS: PHOSPSERIN PO SCH (17:00)
[2018-11-29] MEDS: OMEGA PO SCH (17:00)
[2018-11-29] MEDS: DHA PO SCH (17:00)
[2018-11-29] MEDS: EPA PO SCH (17:00)
[2018-11-29] MEDS: VITAMIN D 5,000 UNIT CAP PO SCH (17:25)
[2018-11-29] MEDS: ASPIRIN 81 MG CHEWABLE TABLET PO SCH (17:25)
[2018-11-29] MEDS: DIGESTIVE ENZYMES PO SCH (21:00)
[2018-11-29] MEDS: ZINC SULF PO SCH (21:00)
[2018-11-29] MEDS: MAG OX PO SCH (21:00)
[2018-11-29] MEDS: CALCIUM CARB PO SCH (21:00)
[2018-11-29] MEDS: ATORVASTATIN 20 MG TAB PO SCH (21:27)
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
[2018-11-30] MEDS: FENTANYL CITR 100 MCG/2 ML IV PRN ×3 (05:14→21:01)
[2018-11-30] MEDS: LEVOTHYROXINE SOD 0.05 MG TABLET PO SCH (05:14)
[2018-11-30] MEDS: CARVEDILOL 12.5 MG TAB PO SCH ×2 (05:14→18:40)
[2018-11-30 06:06] LABS: Potassium 4.2 mmol/L (3.5-5.1)
--- NOTE | 2018-11-30 06:14 | PN ---
Date of Progress Note: 11/29/2018 The patient was seen by Dr. Cummings on 11/28/2018. I am seeing him on 11/29/2018. He has a history o f atrial fibrillation, hypertension, coronary artery disease, peripheral arterial disease, and dyslip idemia. He has been followed by Dr. Ricketts and Dr. Monge in the past and came in with his right fe mur fracture. No cardiac symptoms. An EKG, which was done as ordered by Dr. Cummings, did not reveal any significant abnormalities. We have cleared him for his right femur surgery by Dr. Simon. The s urgery is being planned for 11/30/2018. We will follow him along. Continue his present regimen for now. The patient is in sinus rhythm on amiodarone. He is not on any blood thinners at this time. RACHELL/ALISA Voice ID: [id number] Report ID: [id number]
[2018-11-30] MEDS ORDERED: PANTOPRAZOLE 40MG TABLET PO SCH (06:30)
[2018-11-30 06:33] LABS: Absolute Lymphocytes (CBC) 1.1 K/uL (0.7-4.9); Absolute Neutrophil 10.3 K/uL (1.8-8.0); Basophils % 0.4 % (0-1.3); Eosinophils % 1.6 % (0-4.4); Hematocrit 44.5 % (39.6-49.0); Lymphocytes % 8.4 % (15.3-44.8); MPV 9.7 fL (7.6-11.3); RBC Red Blood Cell Count 4.64 M/uL (4.33-5.43)
[2018-11-30] MEDS ORDERED: CEFAZOLIN/SWI 1gm 1 GM/10 ML SYR IV SCH (08:45)
[2018-11-30] MEDS ORDERED: VITAMIN B COMPLEX 1 CAP PO SCH (09:00)
[2018-11-30] MEDS: LORATADINE 10 MG TAB PO SCH (09:00)
[2018-11-30] MEDS: MAG OX PO SCH ×2 (09:00→21:00)
[2018-11-30] MEDS ORDERED: VITAMIN A 8000 UNIT PO SCH (09:00)
[2018-11-30] MEDS: LOSARTAN POTASSIUM 50 MG TABLET PO SCH (09:00)
[2018-11-30] MEDS: predniSONE 5 MG TAB PO SCH (09:00)
[2018-11-30] MEDS: ZINC SULF PO SCH ×2 (09:00→21:00)
[2018-11-30] MEDS: DIGESTIVE ENZYMES PO SCH ×2 (09:00→21:00)
[2018-11-30] MEDS ORDERED: ZINC SULFATE 220 MG CAP PO SCH (09:00)
[2018-11-30] MEDS: CALCIUM CARB PO SCH ×2 (09:00→21:00)
[2018-11-30] MEDS: LACTOBACILLUS/ACIDOPHILUS TAB PO SCH ×2 (09:00→21:00)
[2018-11-30] MEDS: GABAPENTIN 300 MG CAP PO SCH ×3 (09:00→21:00)
[2018-11-30] MEDS: MULTIVITAMIN TAB PO SCH (09:00)
[2018-11-30] MEDS: AMIODARONE HCL 200 MG TAB PO SCH (09:00)
[2018-11-30] MEDS: ENOXAPARIN 40 MG/0.4 ML SQ SCH (09:00)
--- NOTE | 2018-11-30 10:11 | P.PN ---
Subjective Date of Service: 11/30/18 Primary Care Provider: Dr. Rain; Card-Dr. Horn; Hemo-Dr. Hernandez; Urology-Dr. Nielsen Chief Complaint: Fall Subjective: Doing well Physical Examination - Vital Signs Temperature: 97.1 F Blood Pressure: 108/60 Pulse: 66 Respirations: 17 Pulse Ox (%): 96 - Physical Exam General: Alert, In no apparent distress, Oriented x3, Cooperative HEENT: Atraumatic Neck: Supple Respiratory: Clear to auscultation bilaterally, Normal air movement Cardiovascular: Normal pulses, Regular rate/rhythm Gastrointestinal: Normal bowel sounds, Soft and benign, Non-distended Musculoskeletal: No erythema, No tenderness, No warmth Integumentary: No tenderness/swelling, No erythema, No warmth, No cyanosis Neurological: Normal speech, Normal strength at 5/5 x4 extr, Normal tone, Normal affect - Studies Medications List Reviewed: Yes Assessment & Plan Discharge Plan: Other (Inpatient rehab) Plan to discharge in: Greater than 2 days Physician Review Additional Text: Impression: Impacted Subcapital Proximal Right Femur Fracture after a fall Chronic atrial fibrillation not on chronic anticoagulation HTN Hypothyroidism BPH Chronic steroids for eosinophilic gastroenteritis Osteoporosis Compression fracture lumbar spine Plan: Impacted Subcapital Proximal Right Femur Fracture after a fall: Patient currently NPO for surgery today. Pain well controlled. Patient has been cleared by cardiology. Anticipate inpatient rehab after surgery. Chronic atrial fibrillation not on chronic anticoagulation: Continue with amiodarone. Patient not on chronic anti coagulation therapy. Continue DVT prophylaxis. HTN: Continue with home medication. Hypothyroidism: Continue home medication. BPH: Continue home medication. Chronic steroids for eosinophilic gastroenteritis: Continue chronic steroids. Osteoporosis: Will continue home medication Compression fracture lumbar spine: Will provide medication for pain. Physical therapy to follow after surgery. Will pursue inpatient rehab after surgery. Time Spent Managing Pts Care (In Minutes): 55
[2018-11-30] MEDS ORDERED: BUPIVACA 0.5%/EPI 0.0005%/PF 30 ML VIAL ONE ×2 (10:35→14:34)
[2018-11-30] MEDS ORDERED: TRANEXAMIC ACID 1,000 MG in NA CHLORIDE 0.9% 50 ML IV SCH (12:00)
[2018-11-30] MEDS ORDERED: Ringers Lactate 1,000 ML IV ONE (14:44)
[2018-11-30] MEDS ORDERED: CEFAZOLIN SODIUM 1 GM/VIAL ONE (14:51)
[2018-11-30] MEDS ORDERED: FENTANYL CITR 250 MCG/5 ML ONE (15:17)
[2018-11-30] MEDS ORDERED: LIDOCAINE 2% MPF 5 ML VIAL ONE ×2 (15:17→15:37)
[2018-11-30] MEDS ORDERED: PROPOFOL 200 MG/20 ML VIAL IV ONE ×2 (15:17→15:36)
[2018-11-30] MEDS ORDERED: ROCURONIUM 50 MG/5 ML VIAL IV ONE ×2 (15:17→15:37)
[2018-11-30] MEDS ORDERED: Phenylephrine HCl 10 MG/ML 1 ML VIAL ONE (15:40)
--- NOTE | 2018-11-30 16:56 | P.DS ---
Admission Date: 11/28/18 Discharge Date: 11/30/18 Primary Care Provider: Dr. Rain; Card-Dr. Horn; Hemo-Dr. Hernandez; Urology-Dr. Nielsen Disposition: TRANSFER TO [facility] Discharge Condition: GOOD Reason for Admission: Fall Consultations: Orthopedics-Dr. Simon Cardiology-Dr. Randle/Dr. Cummings Procedures: CT scan pelvis: FINDINGS: Diffuse osteopenia is seen. Subcapital fracture of the proximal right femur is seen with impaction. A left total hip arthroplasty is in place. Prominent diverticulosis of the sigmoid colon is present. Moderate compression deformity is seen affecting the L4 vertebral body, fully detailed on dedicated CT lumbar spine. IMPRESSION: Impacted subcapital fracture proximal right femur. CT L spine: FINDINGS: A mild L1 compression fracture is present. Vertebral body height loss is estimated at 10-15%. Mild thickening of the paraspinal soft tissues at this level is seen. No canal compromise. Moderate sclerotic compression deformity affects the L4 vertebral body, without significant paraspinal tissue thickening, favored to be old. Heavy aorto iliac atherosclerosis. Fat containing right adrenal mass is present compatible with a myelolipoma. IMPRESSION: Mild acute compression fracture affecting L1 vertebral body noted without canal compromise. Vertebral body height loss is estimated at 10%. CT Scan: FINDINGS: CT HEAD WITHOUT CONTRAST: No acute hemorrhage, hydrocephalus or extra-axial collection is identified.Moderate generalized brain atrophy is present with mild periventricular and deep white matter chronic microvascular ischemic changes.No areas of brain edema or midline shift. The paranasal sinuses and mastoids are clear.The calvarium is intact. CT CERVICAL SPINE WITHOUT CONTRAST: No fracture or subluxation.Prominent midcervical degenerative changes are present. 2 mm degenerative anterolisthesis of C3 on 4 is present. Disc thinning with posterior osteophyte is noted.No prevertebral soft tissues swelling is identified. Carotid atherosclerosis bilaterally. IMPRESSION: No acute intracranial or cervical spine findings. Medical problem list: Impacted Subcapital Proximal Right Femur Fracture after traumatic fall Chronic atrial fibrillation not on chronic anticoagulation HTN Hypothyroidism Hyperlipidemia Neuropathy Chronic steroids for eosinophilic gastroenteritis Osteoporosis Compression fracture lumbar spine, L1 with estimated vertebral loss of 10% Brief History of Present Illness: 78-year-old male presented to emergency room after a mechanical fall. Patient with history of left footdrop, atrial fibrillation not on chronic anti coagulation therapy, hypothyroidism, hypertension, neuropathy, chronic steroids. In the ER patient found to have impacted subcapital proximal right femur fracture. Patient also appears to have a chronic lumbar L5 compression fracture 10%. Patient reports falling up on moving. Patient denied any syncope , chest pain, shortness of breath. Patient was admitted for treatment. When I saw the patient ER, he appeared comfortable. Patient has received medication for pain. Patient sees multiple specialists including cardiology, hematology, and urology. Patient takes multiple medications currently stable this time. Hospital Course: Patient presented with impacted subcapital proximal right femur fracture after a traumatic fall. Patient orthopedics along with cardiology. Patient has been cleared for surgery. After review of information and with current surgical/ orthopedic support, orthopedics recommends transfer to higher level of care to further address. This was addressed in detail with family. Family and patient agree with transfer. Orthopedics has made contact with surgeon-Eugene Obando as agreed to accept the patient. Transfer process in place. Patient be transferred to [facility] once approved. Patient may require inpatient rehab after surgery. Patient with chronic atrial fibrillation not on chronic anti coagulation therapy. Patient will continue with amiodarone 200 mg daily. Patient currently on DVT prophylaxis. Patient with hypertension. Patient may continue with carvedilol 12.5 mg 1 pill twice daily and losartan 50 mg daily. Patient with hypothyroidism. Patient will continue with levothyroxine 50 mcg daily. Patient with hyperlipidemia. Patient will continue with his medication-Lipitor 20 mg daily. Patient with chronic steroids for the eosinophilic gastroenteritis. Patient will continue with prednisone 5 mg daily. Vital Signs/Physical Exam: Temp Pulse Resp BP Pulse Ox 97 F 73 16 125/62 96 11/30/18 12:00 11/30/18 12:11/30/18 12:00 11/30/18 12:11/30/18 12:00 General: Alert, In no apparent distress, Oriented x3, Cooperative HEENT: Atraumatic Neck: Supple Respiratory: Clear to auscultation bilaterally, Normal air movement Cardiovascular: Normal pulses, Regular rate/rhythm Gastrointestinal: Normal bowel sounds, Soft and benign, Non-distended, No tenderness, No masses, No rebound, No guarding Musculoskeletal: No erythema, No tenderness, No warmth Integumentary: No tenderness/swelling, No erythema, No warmth, No cyanosis Neurological: Normal speech, Normal strength at 5/5 x4 extr, Normal tone, Normal affect Laboratory Data at Discharge: WBC 12.7 K/uL (4.3-10.9) H 11/30/18 05:29 Hgb 14.4 g/dL (13.6-17.9) 11/30/18 05:29 Hct 44.5 % (39.6-49.0) 11/30/18 05:29 Plt Count 398 K/uL (152-406) 11/30/18 05:29 Sodium 140 mmol/L (136-145) 11/30/18 05:29 Potassium 4.2 mmol/L (3.5-5.1) 11/30/18 05:29 BUN 27 mg/dL (7-18) H 11/30/18 05:29 Creatinine 1.02 mg/dL (0.55-1.3) 11/30/18 05:29 Glucose 91 mg/dL (74-106) 11/30/18 05:29 Magnesium 2.0 mg/dL (1.8-2.4) 11/30/18 05:29 Home Medications: Alendronate Sodium [Fosamax] 1 tab PO EVERY 7TH DAY 08/07/15 Aspirin 2 tab PO 1700 08/07/15 Calcium Carb/Mag Ox/Zinc Sulf [Jjrahuv-Itnkvpmvy-Bumn Tablet] 1 tab PO BID 08/07 Carvedilol 1 tab PO BID 08/07/15 Digestive Enzymes 1 tab PO BID 03/20/16 Diphenoxylate HCl/Atropine [Diphenoxylate-Atrop 2.5-0.025] 1 tab PO Q4HP PRN 04/28 Levothyroxine Sodium 1 tab PO DAILY 03/20/16 Multivitamin [One-Daily Multi-Vitamin] 1 tab PO DAILY 03/20/16 Phospserin/[place]-3/Dha/Epa [Vayacog Capsules] 2 cap PO 1700 03/20/16 Vit D 3 5,000 iu PO 1700 03/20/16 Vitamin A 8,000 units PO DAILY 03/20/16 Zinc Sulfate [Zinc Sulfate*] 220 mg PO DAILY 03/20/16 Atorvastatin Calcium [Lipitor*] 20 mg PO BEDTIME 06/29/16 Ferrous Fumarate/Vit Bcomp&C [Super B-Complex Caplet] 1 cap PO DAILY 06/29/16 Gabapentin [Neurontin*] 300 mg PO TID 06/29/16 Losartan Potassium [Cozaar*] 50 mg PO DAILY 06/08/17 Amiodarone HCl [Cordarone*] 200 mg PO DAILY 11/28/18 Hydrocodone 7.5/APAP 325 [Glendo 7.5/325 mg*] 1 tab PO QID PRN 11/28/18 Loratadine [Claritin*] 10 mg PO DAILY 11/28/18 Ondansetron [Zofran (Odt)*] 8 mg PO TID PRN 11/28/18 predniSONE [Prednisone*] 5 mg PO DAILY 11/28/18 Patient Discharge Instructions: Patient be transferred to [facility] for orthopedic surgery Diet: Patient NPO in anticipation for surgery Activity: Bedrest Time spent managing pt's care (in minutes): 55
[2018-11-30] MEDS: PHOSPSERIN PO SCH (17:00)
[2018-11-30] MEDS: ASPIRIN 81 MG CHEWABLE TABLET PO SCH (17:00)
[2018-11-30] MEDS: DHA PO SCH (17:00)
[2018-11-30] MEDS: OMEGA PO SCH (17:00)
[2018-11-30] MEDS: EPA PO SCH (17:00)
[2018-11-30] MEDS: VITAMIN D 5,000 UNIT CAP PO SCH (18:39)
--- NOTE | 2018-11-30 19:21 | P.PN ---
Date of Service: 11/30/18 S: This patient was admitted with a impacted femoral neck fracture on Wednesday at approximately 3 PM. I saw the patient in consultation early Wednesday morning. His medical history was more complex requiring additional clearance so this patient was scheduled for surgery to occur this afternoon, Wednesday. He was to be the second of two straight forward hemiplasty hip procedures. O: There were difficulties during the first case with entrapment of soft tissue with reduction of the prosthetic hip. Redislocation and reduction was followed by palpation and inspection of the sciatic nerve, and both suggested significant injury to the nerve. Starting the first case was delayed by > 2 hours so the second case was to start with a more limited call crew. A: Somewhat upset and shaken by the complication that had just occurred, I felt it in the patients best interest to cancel his case as I was uncertain of its outcome. P: After talking with the family and discussing issues with Dr. Taylor, I called the Dr. Prakash Gallego who agreed to accept transfer at [facility] in [facility] with full intent to work in the case for tomorrow. I again discussed issues and answered questions upstairs where the family and patient were awaiting ambulance transfer to a higher level of care.
[2018-11-30 20:58] VITALS: O2SAT 93
[2018-11-30] MEDS: ATORVASTATIN 20 MG TAB PO SCH (21:00)
[2018-11-30 21:47] VITALS: BP 106/55; TEMP 97
[2018-12-06] MEDS ORDERED: ALENDRONATE 70 MG TAB PO SCH (06:30)
== END 2018-11-30 22:50 | disposition short-term general hospital (02) | DRG 536 ==
LOC: ER 15:11 → ERHOLD 16:56 → 2ND 19:57
PROVIDERS: ADMIT Family Medicine; ATTEND Family Medicine
DX: S72.011A Unspecified intracapsular fracture of right femur, initial encounter for closed fracture (principal); S32.009A Unspecified fracture of unspecified lumbar vertebra, initial encounter for closed fracture; I48.2 Chronic atrial fibrillation; Z85.46 Personal history of malignant neoplasm of prostate; Z85.47 Personal history of malignant neoplasm of testis; K21.9 Gastro-esophageal reflux disease without esophagitis; E03.9 Hypothyroidism, unspecified; M81.0 Age-related osteoporosis without current pathological fracture; I25.10 Atherosclerotic heart disease of native coronary artery without angina pectoris; E78.5 Hyperlipidemia, unspecified; I10 Essential (primary) hypertension; K52.81 Eosinophilic gastritis or gastroenteritis; G62.9 Polyneuropathy, unspecified; W01.0XXA Fall on same level from slipping, tripping and stumbling without subsequent striking against object, initial encounter; Y92.009 Unspecified place in unspecified non-institutional (private) residence as the place of occurrence of the external cause; Z96.642 Presence of left artificial hip joint; Z79.52 Long term (current) use of systemic steroids
CPT/HCPCS: 36415; 51702; 70450; 71045; 72125; 72131; 72170; 72192; 80048; 81003; 83735; 85025; 93005; 96374; 99285; J0690; J1650; J2370; J2704; J3010; J7512

== ENCOUNTER 2018-12-06 20:13 | Inpatient (IN) | payer OTHER, BC ==
--- NOTE | 2018-12-06 14:57 | R.PREADM ---
SCREENING DATE AND TIME 12/06/2018 13:26 (CDT) ANTICIPATED REHAB ADMISSION DATE 12/08/2018 REFERRING FACILITY [facility] REFERRAL DATE AND TIME 12/06/2018 13:26 (CDT) ACUTE ADMIT DATE 12/01/2018 Previous Rehabilitation(s): No. 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 Sid Cruz M.D. MR# [id number] [id number] NAME ELENA NOLAN ADDRESS [address] PHONE [facility] [[email or web address] [id number] DATE OF 1940 AGE 78 SSN# [id number] GENDER male MARITAL STATUS RACE white ADMIT FROM 02 - [facility] PRE-HOSPITAL LIVING SETTING 01 - Home (private home/apt. board/care, assisted living, [facility]p, transitional living) HOME TYPE AND DETAILS Type of home: single family house # of steps to enter the residence: 0 # of levels in the residence: 1 # of steps within the residence: 0 PRE-HOSPITAL LIVING WITH Family/Relatives FAMILY SUPPORT Yes PRIMARY FAMILY CONTACT NAME [place] PRIMARY FAMILY CONTACT PHONE PHONE PRIMARY FAMILY CONTACT ON ADM.? no IS PRIMARY FAMILY CONTACT AUTH. REP.? no 1ST EMERGENCY CONTACT [place] 1ST CONTACT PHONE PHONE 1ST CONTACT ON ADM. no IS 1ST CONTACT AUTH. REP.? no PHONE 2ND CONTACT ON ADM.? no PATIENT EMPLOYMENT STATUS Retired (for age) PATIENT EMPLOYER No Employer PAYOR INFORMATION: 1ST PAYOR NAME Medicare 1ST PAYOR PHONE 1ST PAYOR INJURY/ILLNESS DUE TO ACCIDENT? No ANOTHER REPUBLICAN RESPONSIBLE? No PRIMARY REHAB/ACUTE DIAGNOSIS: right femur fx ONSET DATE 12/01/2018 REHAB IMPAIRMENT CATEGORY (ADARSH): 07 Fracture of LE (FracLE) MEETS 60% rule AFFECTED EXTREMITIES: RLE PRIMARY DIAGNOSIS-RELATED SURGERIES: Emergency Unilateral Hip Fracture - performed by Yaniv De La Cruz on 12/01/2018 COMORBID REHAB/ACUTE DIAGNOSES: - N/A aspiration pneumonia paroxysmal artrial fibrillation hypertension gerd hyperlipidemia testicular cancer prostate cancer PAD pneumonia cellulitus of the right foot INTERVENTIONS: - Hypertension Fluid management Medications VS - GERD Altered diet Elevation of head of bed Medications Nausea/vomiting Nighttime food/fluid restrictions Nutrition - Pneumonia Cultures Fluid management Labs Oxygen Respiratory management X-rays RISK FOR COMPLICATIONS: - Hypertension CVA Hypotension NM TIA - GERD Alteration in sleep Aspiration Dehydration Malnutrition Pain - Pneumonia Respiratory failure Sepsis SUMMARY OF ACUTE HOSPITALIZATION: Pt. is a 78 yo Right-handed white male. On 12/01/2018 he was admitted to [facility] and underwent emergency surgery for right femur fx (Unilat eral Hip Fracture) by Yaniv De La Cruz. Pre-morbidly, Pt. was independent/mod-I in Self-Care, Sphincter Control, Transfers Control, Communica tion, Social Cognition, and Locomotion; and he had good Sphincter Control. Currently, he has deficits of Self-Care, Transfers Control, Communication, Social Cognition, Enduranc e, Balance, Safety Awareness, and Locomotion. Pt. is now referred to [facility] for acute in-patient rehabilitation in order to maximize patient's functional independence in activities of daily living, strength, ROM, and mobi lity. Patient has realistic goal of being discharged at assistance level 6-Ivette to reside at Home with Fam marilia/Relatives. PAST MEDICAL HISTORY PAD aspiration pneumonia cellulitus of the right foot gerd hyperlipidemia hypertension paroxysmal artrial fibrillation pneumonia prostate cancer testicular cancer MEDICATION ALLERGIES: No Known Drug Allergies (NKDA) ENVIRONMENTAL ALLERGIES: - Substance Allergies None Known - Other Allergies None Known CODE STATUS: Full code WEIGHT/HEIGHT/BMI: WEIGHT 188 lbs HEIGHT 5' 8" BMI 28.6 DIET: - Diet Type Regular - Diet - Solid Texture Regular - Diet - Liquid Texture Regular - Tube Feed N/A SKIN DIAGRAM: Incision on Right hip; extent - small; stage - NS(Not Stageable). Treatment - Per Physician's Orders. REVIEW OF SYSTEMS: - Gen Alert and awake Lying in bed No apparent distress Oriented to: person, time, and place - Vital Signs Vital signs stable, afebrile - CVS RRR VITAL SIGNS Temperature: 96.5 F SBP/DBP: 96/48 Pulse: 62 Resp: 17 Vital signs stable, afebrile CURRENT SPHINCTER CONTROL: Pre-hospital bladder status: continent # of bladder accidents in the last 7 days prior to screenin Pre-hospital bowel status: continent # of bowel accidents in the last 7 days prior to screenin Last Bowel Movement Date: 12/06/2018 DETAILED CURRENT FUNCTIONAL STATUS: - Bladder accident frequency: Ind - No accidents in the past 7 days - Bowel accident frequency: Ind - No accidents in the past 7 days - Walking score based on distance walked: 2(5149ft) FUNCTIONAL STATUS: - Self-Care A. Eating Ind sup B. Grooming Ind sup C. Bathing Ind sup D. Dressing - Upper Ind sup E. Dressing - Lower Ind Dep F. Toileting Ind Dep - Sphincter Control G: Bladder control Dep Dep H: Bowel control Dep Dep - Transfers Control I. Bed/Chair/Wheelchair Ind modA J. Toilet Ind modA K. Tub/Shower Ind modA - Locomotion L. Walk/Wheelchair (B) Ivette maxA M. Stairs Ind ADNO - Communication N. Comprehension (B) Ind Beckie O. Expression (B) Ind Beckie - Social Cognition P. Social Interaction Ind Beckie Q. Problem Solving Ind Beckie R. Memory Ind Beckie - Endurance Poor - Balance Poor - Safety Awareness Poor CURRENT FUNC. DEFICITS: Self-Care, Transfers Control, Communication, Social Cognition, Endurance, Balance, Safety Awareness, and Locomotion THERAPY NOTES FROM ACUTE CARE: Attached. SPECIAL NEEDS: - Safety Concerns Skin breakdown precautions needed due to skin breakdown risk PRECAUTIONS: - Posterior Hip Precaution No adduction across midline No external rotation No hip flexion >90 degrees No internal rotation No wheel chair propulsion - Weight Bearing Precaution WBAT right LE PATIENT NEEDS ACTIVE AND ONGOING THERAPEUTIC INTERVENTION OF MULTIPLE THERAPY DISCIPLINES, INCLUDING: - Occupational Therapy Evaluate and Treat. - Physical Therapy Evaluate and Treat. PATIENT NEEDS CLOSE MEDICAL SUPERVISION BY A REHABILITATION PHYSICIAN FOR: Bowel and Bladder Management Coordination of Treatment Team Medical and Co-Morbidity Management Post-Op Complications Wound Care PATIENT REQUIRES 24X7 REHAB NURSING FOR MEDICAL AND FUNCTIONAL MGT. OF THE FOLLOWING DEFICITS: ADL's Ambulation Bowel and Bladder Management Cognition Communication Disease Management Medication Management Patient/Family Education Providing Safe Environment Skin Integrity Transfers PATIENT REQUIRES INTENSIVE, COORDINATED INTERDISCIPLINARY APPROACH TO REHAB: Arranging Home Equipment/Services Discharge Planning Family Intervention/Training Lead Generation Representative/Case Management PATIENT REHAB POTENTIAL: Expected level of measurable improvement will be of a practical value to patient's functional capacit y or adaptations to impairments Has a viable Discharge Plan Medically appropriate; condition is sufficiently stable to participate in intensive rehab program Patient is able and expected to receive 3 hours of individualized therapy daily on at least 5 of ever y 7 days Patient's prognosis for significant practical improvement within a reasonable period of time appears Good DISCHARGE PLAN: - Estimated Length of Stay (days) 14. - Consensus on plan Discharge plan has been discussed with primary caregiver. Patient/Family is in agreement with the toney n. Primary caregiver is in agreement with the plan. - Patient/Family Goals Return home with assistance. - Planned Living Setting Upon Discharge Home, to live with Family/Relatives. RECOMMENDED CARE LEVEL: IRF RECOMMENDATION DETAILS: Recommended Admission to Comprehensive Rehabilitation Program to Increase Functional [place] SCREENER'S COMPLETENESS CONFIRMATION: - Screening Confirmation The patient data collection on this preadmission screening form is finished PHYSICIANS REVIEW AND ADMISSION DETERMINATION Admit - Based on my review of the Pre-Admission Screening results, in my medical judgment and experie nce, I concur with the findings and recommend admission to [facility], as this patient requires an IRF level of care. SIGNATURE PANEL: Clinical Liaison - [electronically] signed by Miroslava Payan on 12/06/2018 at 13:50 (CDT) Clinical Liaison - [electronically] signed by Mayra Duarte on 12/06/2018 at 14:00 (CDT) Physician Reviewer - [electronically] signed by Dr. Sid Cruz M.D. on 12/06/2018 at 14:55 (CDT )
--- OUTSIDE RECORDS SUMMARY | 2018-12-06 20:16 | XMS REPORT ---
:1940 [facility] Address [address] [place] [address] [place] [id number] Care Team Providers Name Role Phone Unavailable Unavailable Unavailable Problems This patient has no known problems. Allergies, Adverse Reactions, Alerts This patient has no known allergies or adverse reactions. Medications This patient has no known medications.
--- OUTSIDE RECORDS SUMMARY | 2018-12-06 20:16 | XMS REPORT | Clinical Summary ---
:1940 Author Organization [facility] Address [address] [place] [address] Care Team Providers Name Role Phone Elliott Rain MD Primary Care Provider Allergies Active Allergy Reactions Severity Noted Date Comments Levofloxacin Rash Low 03/13/2016 Medications Medication Sig Dispensed Refills Start End Date Status Date carvedilol (COREG) Take 12.5 mg by 0 Active 12.5 MG tablet mouth 2 (two) times a day with meals. levothyroxine Take 50 mcg by 0 Active (SYNTHROID, LEVOXYL) mouth every 50 mcg tablet morning. aspirin (ECOTRIN) 81 Take 162 mg by 0 Active MG enteric coated mouth daily. tablet atorvastatin Take 20 mg by 0 Active (LIPITOR) 20 MG mouth daily. tablet Default OP ins losartan (COZAAR) 50 Take 50 mg by [...] by 0 Active (IRON ORAL) mouth daily. ipratropium Inhale 2 puffs 2 0 Active (ATROVENT HFA) 17 (two) times a mcg/actuation day. inhaler cholecalciferol, Take by mouth 0 Active vitamin D3, (VITAMIN every evening. D3) 5,000 unit tablet digestive enzymes Take 1 capsule 0 Active capsule by mouth 2 (two) times a day. Bifidobacterium Take 1 capsule 0 Active infantis (ALIGN by mouth daily. ORAL) loratadine Take 10 mg by 0 Active (CLARITIN) 10 mg mouth daily. tablet polyethylene glycol Take 17 g by 0 Active (MIRALAX) 17 gram mouth daily. packet hydroxyurea (HYDREA) Take by mouth. 0 Active 500 mg capsule Wednesday ondansetron ODT Take 1 tablet (4 0 01/06/20 Active (ZOFRAN-ODT) 4 MG mg total) by 9 19 disintegrating mouth every 8 tablet (eight) hours as needed for nausea or vomiting for up to 30 days. enoxaparin (LOVENOX) Inject 0.4 mL 12 mL 0 01/07/20 Active 40 mg/0.4 mL syringe (40 mg total) 9 19 under the skin daily for 30 days. docusate sodium Take 1 capsule 60 capsule 0 01/06/20 Active (COLACE) 100 MG (100 mg total) 9 19 capsule by mouth 2 (two) times a day for 30 days. bisacodyl (DULCOLAX) Insert 1 0 01/06/20 Active 10 mg suppository suppository (10 9 19 mg total) into the rectum daily as needed for constipation for up to 30 days. HYDROcodone-acetamin Take 1 tablet by 0 12/21/19 Active ophen (NORCO) 10-325 mouth every 6 9 19 mg per tablet (six) hours as needed for severe pain for up to 14 days. Max Daily Amount: 4 tablets VAYACOG 100-19.5-6.5 TAKE TWO 60 capsule 3 12/02/19 Discontinued mg capsule CAPSULES BY 7 19 MOUTH DAILY gabapentin Take 300 mg by 0 12/07/19 Discontinued (NEURONTIN) 300 mg mouth 3 (three) 19 capsule times a day. traMADol (ULTRAM) 50 Take 50 mg by 0 12/02/19 Discontinued mg tablet mouth every 6 19 (six) hours as needed for moderate pain. nystatin Apply topically 30 g 0 09/21/19 (MYCOSTATIN) 100,000 daily. Clean 8 19 unit/gram powder affected area and apply daily to bilateral groin budesonide-formotero Inhale 2 puffs. 0 12/02/19 Discontinued l (SYMBICORT) 19 160-4.5 mcg/actuation inhaler clotrimazole Apply topically 0 12/02/19 Discontinued (LOTRIMIN) 1 % cream 2 (two) times a 19 day. cetirizine (ZyrTEC) Take 10 mg by 0 07/05/20 Discontinued 10 MG tablet mouth daily. 18 HYDROcodone-acetamin Take 1 tablet by 0 12/07/19 Discontinued ophen (NORCO) mouth every 6 19 7.5-325 mg per (six) hours as tablet needed for moderate pain. Active Problems Problem Noted Date Fracture of right femur 12/01/2018 Post-op pain 09/24/2017 Pneumonia 06/14/2017 Cellulitis of [...] Encounters Date Type Specialty Care Team Description 12/02/2018 Anesthesia Event Orthopedic Surgery Ricky Martins MD 12/02/2018 Surgery Orthopedic Surgery Prakash Gallego HEMIARTHROPLASTYKellie MD HIP 12/01/2018 - Hospital Encounter Orthopedic Surgery Gabriela Garza Closed fracture of 12/06/2018 MD Kellie right femur, unspecified fracture morphology, unspecified portion of femur, initial encounter ([facility]) 11/30/2018 Intake Access N/A 07/05/2018 Office Visit Cardiovascular Francis Mckeon PAD (peripheral MD [place] artery disease) ([facility]) (Primary Dx) 01/03/2018 Office Visit Cardiovascular Coleman-Kentrell PAD (peripheral , [place], EMBEDDED CASE MANAGER artery disease) (Primary Dx) 12/06/2017 Office Visit Cardiovascular Coleman-Kentrell PAD (peripheral , [place], EMBEDDED CASE MANAGER artery disease) (Primary Dx) after 12/05/2017 Immunizations Name Dates Previously Given Next Due [...] Vital Sign Reading Time Taken Blood Pressure 148/69 12/06/2018 4:21 PM CDT Pulse 69 12/06/2018 4:21 PM CDT Temperature 37.1 C (98.8 F) 12/06/2018 4:21 PM CDT Respiratory Rate 16 12/06/2018 4:21 PM CDT Oxygen Saturation 92% 12/06/2018 4:21 PM CDT Inhaled Oxygen Concentration - - Weight 72.6 kg (160 lb) 12/01/2018 1:00 AM CDT Height 172.7 cm (5' 8") 12/01/2018 1:00 AM CDT Body Mass Index 24.33 12/01/2018 1:00 AM CDT Plan of Treatment Date Type Specialty Care Team Description 01/03/2019 Appointment Procedural Cardiology 01/03/2019 Office Visit Cardiovascular Francis Mckeon MD [address] [place] [address] Health Maintenance Due Date Last Done Comments SHINGLES VACCINES (#1) 1988 65+ PNEUMOCOCCAL VACCINE (1 of 2 - PCV13) 2003 PNEUMOCOCCAL POLYSACCHARIDE VACCINE AGE 65 AND OVER 2003 INFLUENZA VACCINE 04/13/2018 06/18/2017 Implants Implanted Type Area Java Mobile Developer Device Shelf Model / Identifier Expiration Serial / Date Lot Cup Actblr Bipolar [id number] Ringloc - [id number] Hip Joint Right: [employer] 09/09/2022 11 [id number] / Implanted: Qty: 1 on 12/02/2018 by Prakash Gallego MD Implants Hip / [id number] Head Fml Std Neck Modlr Tpr I W/O Skirt Co-Cr 28mm - [id number] Hip Joint Right: [employer] 10/29/2028 [id number] / Implanted: Qty: 1 on 12/02/2018 by Prakash Gallego MD Implants Hip / [id number] Tprlc 133 Type1 Pps Ho 15.0, Taperloc Complete Stem - [id number] IPM IMPLANT Right: KOSTA [employer] 07/19/2028 51 [id number] / Implanted: Qty: 1 on 12/02/2018 by Prakash Gallego MD DEVICES Hip / [id number] Catheter Angio Examining Chair Assembler Ii 5fr 65cm [facility] Braidd [facility] [place] - [id number] Surgical N/A: N/A [facility] PERIPHERAL [id number] / Implanted: 09/24/2017 (Quantity not on file) Implants; INTERVENTION / Expanders; VASCULAR RENETTA Extenders; Surgical Wires Evacuator Bulb Lindsey 100cc Ltxf - [id number] Surgical N/A: N/A [employer] [id number] / Implanted: Qty: 1 on 09/30/2017 by Jd Toney DPM Implants; DIVISION / Expanders; Extenders; Surgical Wires Drain Wnd Chnl 10fr 8in Rnd Hbls Fl-Flut W/ 8in Trocar - [id number] Surgical N/A: N/A [employer] [id number] / Implanted: Qty: 1 on 09/30/2017 by Jd Toney DPM Implants; DIVISION / Expanders; Extenders; Surgical Wires Stent Endprths Viabahn [id number] 8mm Heprn Bioactv Surf - [id number] Surgical N/ A: N/A W L GORE 06/16/2020 [id number] / Implanted: 09/24/2017 (Quantity not on file) Stents [id number] / [id number] Stent Endprths Viabahn [id number] 8mm Heprn Bioactv Surf - [id number] Surgical N/ A: N/A W L GORE 06/16/2020 [id number] / Implanted: 09/24/2017 (Quantity not on file) Stents [id number] / [id number] Patch Vasclr Perph 2x9cm Vascu-Guard - [id number] Vascular N/A: N/A HAWK 08/17/2021 [id number] / Implanted: Qty: 1 on 09/24/2017 by Francis Mckeon MD Graft [employer] / [id number] Catheter Urban Forester [place] 5fr 75cm 7x40mm 0.035in H-Pres Right: BOSTON [id number] / Implanted: Qty: 1 on 09/24/2017 by Francis Mckeon MD Femur SCIENTIFIC/ BONNIE / PHERAL VASCULAR (MEDI-TECH) Procedures Procedure Name Priority Date/Time Associated Diagnosis Comments ESTIMATED GFR Routine 12/04/2018 5:00 Results for this AM CDT procedure are in the results section. PHOSPHORUS LEVEL Routine 12/04/2018 5:00 Results for this AM CDT procedure are in the results section. MAGNESIUM LEVEL Routine 12/04/2018 5:00 Results for this AM CDT procedure are in the results section. BASIC METABOLIC PANEL Routine 12/04/2018 5:00 Results for this AM CDT procedure are in the results section. HC COMPLETE BLD COUNT Routine 12/04/2018 4:00 Results for this W/AUTO DIFF AM CDT procedure are in the results section. HC COMPLETE BLD COUNT Routine 12/03/2018 8:00 Results for this W/AUTO DIFF AM CDT procedure are in the results section. ESTIMATED GFR Routine 12/03/2018 4:00 Results for this AM CDT procedure are in the results section. BASIC METABOLIC PANEL Routine 12/03/2018 4:00 Results for this AM CDT procedure are in the results section. XR PELVIS 1 OR 2 VW Routine 12/02/2018 8:09 Results for this PM CDT procedure are in the results section. POC GLUCOSE Routine 12/02/2018 7:14 Results for this PM CDT procedure are in the results section. OR FL > 1 HOUR Routine 12/02/2018 6:46 Results for this PM CDT procedure are in the results section. GRAM STAIN Timed 12/02/2018 6:39 Results for this PM CDT procedure are in the results section. JOINT FLUID CULTURE Timed 12/02/2018 6:39 PM CDT AFB STAIN Timed 12/02/2018 6:39 Results for this PM CDT procedure are in the results section. FUNGUS SMEAR Timed 12/02/2018 6:39 Results for this PM CDT procedure are in the results section. AFB CULTURE Timed 12/02/2018 6:39 Closed fracture of PM CDT right femur, unspecified fracture morphology, unspecified portion of femur, initial encounter ([facility]) FUNGUS CULTURE Timed 12/02/2018 6:39 Closed fracture of PM CDT right femur, unspecified fracture morphology, unspecified portion of femur, initial encounter ([facility]) ANAEROBIC CULTURE Timed 12/02/2018 6:39 Closed fracture of Results for this PM CDT right femur, procedure are in unspecified fracture the results morphology, section. unspecified portion of femur, initial encounter ([facility]) MD AN ELECTIVE Routine 12/02/2018 6:14 ENDOTRACHEAL AIRWAY PM CDT Procedure Note - Sylvester nAdrade CRNA - 12/02/2018 6:14 PM CDT Airway Performed by: Sylvester Andrade CRNA Authorized by: Lucretia Mccurdy MD Location: OR Urgency: Elective Difficult Airway: No Preoxygenated with 100% O2: Yes C-spine Precautions Maintained Throughout: No Mask Ventilation: Easy mask Final Airway Type: Endotracheal airway Final Endotracheal Airway: ETT Technique Used: Direct laryngoscopy Blade Type: Paredes Laryngoscope Blade/Videolaryngoscope Blade Size: 2 ETT Size (mm): 8.0 Measured from: Gums ETT to Gums (cm): 22 Placement Verified by: CO2 detection and direct visualization Laryngoscopic view: Grade I - full view of glottis Rapid Sequence Induction (RSI): No Modified RSI: No Number of Attempts at Approach: 1 HEMIARTHROPLASTY, HIP 12/02/2018 3:00 Closed fracture of PM CDT right femur, unspecified fracture morphology, unspecified portion of femur, initial encounter ([facility]) POC GLUCOSE Routine 12/02/2018 1:28 Results for this PM CDT procedure are in the results section. TYPE AND SCREEN Routine 12/02/2018 4:25 Results for this AM CDT procedure are in the results section. RETICULOCYTE COUNT Routine 12/02/2018 4:25 Results for this AM CDT procedure are in the results section. PROTHROMBIN TIME WITH INR Routine 12/02/2018 4:25 Results for this AM CDT procedure are in the results section. PARTIAL THROMBOPLASTIN Routine 12/02/2018 4:25 Results for this TIME (PTT) AM CDT procedure are in the results section. CBC WITH PLATELET AND Routine 12/02/2018 4:25 Results for this DIFFERENTIAL AM CDT procedure are in the results section. ESTIMATED GFR Routine 12/02/2018 4:00 Results for this AM CDT procedure are in the results section. TOTAL IRON BINDING Routine 12/02/2018 4:00 Results for this CAPACITY AM CDT procedure are in the results section. VITAMIN B12 LEVEL Routine 12/02/2018 4:00 Results for this AM CDT procedure are in the results section. FOLATE LEVEL Routine 12/02/2018 4:00 Results for this AM CDT procedure are in the results section. COMPREHENSIVE METABOLIC Routine 12/02/2018 4:00 Results for this PANEL AM CDT procedure are in the results section. THYROID STIMULATING Routine 12/02/2018 4:00 Results for this HORMONE AM CDT procedure are in the results section. PHOSPHORUS LEVEL Routine 12/02/2018 4:00 Results for this AM CDT procedure are in the results section. MAGNESIUM LEVEL Routine 12/02/2018 4:00 Results for this AM CDT procedure are in the results section. XR PELVIS 1 OR 2 VW STAT 12/01/2018 8:46 Results for this PM CDT procedure are in the results section. XR HIP 2-3 VIEWS RIGHT STAT 12/01/2018 8:45 Results for this PM CDT procedure are in the results section. CT PELVIS WO CONTRAST STAT 12/01/2018 8:40 Results for this PM CDT procedure are in the results section. XR CHEST 1 VW PORTABLE Routine 12/01/2018 4:19 Results for this PM CDT procedure are in the results section. ECG 12-LEAD Routine 12/01/2018 4:05 Results for this PM CDT procedure are in the results section. ECHOCARDIOGRAM 2D Routine 12/01/2018 3:20 Results for this COMPLETE W MMODE SPECTRAL PM CDT procedure are in COLOR DOPPLER ([id number]) the results section. GRAM STAIN Routine 12/01/2018 1:41 Results for this PM CDT procedure are in the results section. URINE CULTURE Routine 12/01/2018 1:41 Results for this PM CDT procedure are in the results section. URINALYSIS SCREEN AND Routine 12/01/2018 12:30 Results for this MICROSCOPY, WITH REFLEX PM CDT procedure are in TO CULTURE the results section. URINALYSIS, AUTOMATED Routine 12/01/2018 3:20 Results for this WITH MICROSCOPY AM CDT procedure are in the results section. US ANKLE BRACHIAL INDEX Routine 07/05/2018 11:24 PAD (peripheral Results for this AM CDT artery disease) procedure are in (HCC) the results section. US DUPLEX ARTERIAL LOWER Routine 07/05/2018 11:24 PAD (peripheral Results for this EXTREMITY BILATERAL AM CDT artery disease) procedure are in (HCC) the results section. after 12/05/2017 Results Estimated GFR (12/04/2018 5:00 AM CDT)Only the most recent of3 resultswithin the time period is included. Estimated GFR 60 mL/min/1.73 m2 [facility] Comment: HOSPITAL CatergoryUnitsInterpretation G1 >=90 Normal or high G2 60-89Mildly decreased K6n36-93Npbnzj to moderately decreased Y2r40-52Geiwvgshiz to severely decreased G4 15-29Severely decreased G5 <15Kidney failure The eGFR was calculated using the Chronic Kidney Disease Epidemiology Collaboration (CKD-EPI) equation. Interpretation is based on recommendations of the National Kidney Foundation-Kidney Disease Outcomes Quality Initiative (NKF-KDOQI) published in 2014. Specimen Plasma specimen Performing Organization Address City/State/Zipcode Phone Number [facility] DEPARTMENT OF PATHOLOGY AND [address] [place] [phone] GENOMIC MEDICINE [address] [address] Phosphorus level (12/04/2018 5:00 AM CDT)Only the most recent of2 resultswithin the time period is included. Phosphorus 2.1 (L) 2.4 - 4.5 mg/dL [facility] Specimen Plasma specimen Performing Organization Address City/[facility]/Zipcode Phone Number [facility] DEPARTMENT OF PATHOLOGY AND [address] [place] [phone] [place] [address] Magnesium level (12/04/2018 5:00 AM CDT)Only the most recent of2 resultswithin the time period is included. Magnesium 2.5 (H) 1.6 - 2.4 mg/dL [facility] Specimen Plasma specimen Performing Organization Address City/[facility] Phone Number [facility] DEPARTMENT OF PATHOLOGY AND [address] [place] [address] Basic metabolic panel (12/04/2018 5:00 AM CDT)Only the most recent of2 resultswithin the time period is included. Sodium 139 135 - 148 mEq/L [facility] Potassium 4.4 3.5 - 5.0 mEq/L [facility] Chloride 107 98 - 112 mEq/L [facility] CO2 24 24 - 31 mEq/L [facility] Anion gap 8@ANIO 7 - 15 mEq/L [facility] BUN 28 (H) 8 - 23 mg/dL [facility] Creatinine 1.15 0.70 - 1.20 mg/dL [facility] Glucose 140 (H) 65 - 99 mg/dL [facility] Calcium 7.9 (L) 8.8 - 10.2 mg/dL [facility] Specimen Plasma specimen Performing Organization Address City/[facility] Phone Number [facility] DEPARTMENT OF PATHOLOGY AND [address] [place] [phone] [address] CBC with platelet and differential (12/04/2018 4:00 AM CDT)Only the most recent of3 resultswithin the time period is included. WBC 14.19 (H) 4.50 - 11.00 k/uL [facility] RBC 3.83 (L) 4.40 - 6.00 m/uL [facility] HGB 11.9 (L) 14.0 - 18.0 g/dL [facility] HCT 40.6 (L) 41.0 - 51.0 % [facility] MCV 106.0 (H) 82.0 - 100.0 fL [facility] MCH 31.1 27.0 - 34.0 pg [facility] MCHC 29.3 (L) 31.0 - 37.0 g/dL [facility] RDW - SD 67.3 (H) 37.0 - 55.0 fL [facility] MPV 11.4 8.8 - 13.2 fL [facility] Platelet count 340 150 - 400 k/uL [facility] Nucleated RBC 0.00 /100 WBC [facility] Neutrophils 82.6 (H) 39.0 - 69.0 % [facility] Lymphocytes 5.0 (L) 25.0 - 45.0 % [facility] Monocytes 10.0 0.0 - 10.0 % [facility] Eosinophils 1.3 0.0 - 5.0 % [facility] Basophils 0.3 0.0 - 1.0 % [facility] Immature granulocytes 0.8Comment: "Immature 0.0 - 1.0 % [facility] granulocytes" HOSPITAL (promyelocytes, myelocytes, metamyelocytes) Specimen Blood Performing Organization Address City/[facility] Phone Number [facility] DEPARTMENT OF PATHOLOGY AND [address] [place] [phone] GEN[address] [address] XR Pelvis 1 Or 2 Vw (12/02/2018 8:09 PM CDT)Only the most recent of2 resultswithin the time period is included. Narrative Performed At EXAMINATION:XR PELVIS 1 OR 2 VW [facility] CLINICAL HISTORY:Post operative COMPARISON:none. IMPRESSION: 1.Status post right hip arthroplasty. Alignment is as expected. Soft tissue gas noted. 2.Vascular calcifications and left hip replacement again seen. [facility]-[id number] Procedure Note Interface, Radiology Results Incoming - 12/02/2018 8:24 PM CDT EXAMINATION: XR PELVIS 1 OR 2 VW CLINICAL HISTORY: Post operative COMPARISON: none. IMPRESSION: 1. Status post right hip arthroplasty. Alignment is as expected. Soft tissue gas noted. 2. Vascular calcifications and left hip replacement again seen. [facility]-[id number] Performing Organization Address City/[facility] Phone Number [address] [address] POC glucose (12/02/2018 7:14 PM CDT)Only the most recent of2 resultswithin the time period is included. POC glucose 88 65 - 99 mg/dL [facility] Comment: [facility] Notified RN Meter ID: [id number] Institution Director: Андрей Ortega Performing Organization Address City/[facility] Phone Number [facility] DEPARTMENT OF PATHOLOGY AND [address] [place] [address] [address] [place] > I Hour (12/02/2018 6:46 PM CDT) Narrative Performed At EXAMINATION:OR [place] >1 HOUR [facility] C-arm fluoroscopy was requested in OR. Location:[facility] - OR Procedure: Right Hemiarthroplasty Start Time: 1654 End Time:1844 Fluoro Time: 9sec Dose (mGy): 0.62 mGy Tech(s): MC IMPRESSION: Separate operative report will be issued by the physician performing the procedure. [id number] Procedure Note Interface, Radiology Results Incoming - 12/05/2018 9:51 PM CDT EXAMINATION: OR FL > 1 HOUR C-arm fluoroscopy was requested in OR. Location: [facility] - OR Procedure: Right Hemiarthroplasty Start Time: 1654 End Time: 1844 Fluoro Time: 9sec Dose (mGy): 0.62 mGy Tech(s): MC IMPRESSION: Separate operative report will be issued by the physician performing the procedure. [id number] Performing Organization Address [facility] Phone Number [facility] [address] [place] [address] Fungus smear (12/02/2018 6:39 PM CDT) Fungus smear No fungi observed. [facility] Comment: Specimen Information Specimen Source: Joint Fluid Specimen Site: Hip right Specimen Joint fluid Performing Organization Address City/[facility] Phone Number [facility] DEPARTMENT OF PATHOLOGY AND [address] [place] [address] [address] Gram stain (12/02/2018 6:39 PM CDT)Only the most recent of2 resultswithin the time period is included. Gram stain isolate Few WBC's [facility] No organisms seen Comment: Specimen Information Specimen Source: Joint Fluid Specimen Site: Hip right Specimen Joint fluid Performing Organization Address [facility]/Zipcode Phone Number [facility] DEPARTMENT OF PATHOLOGY AND [address] [place] [address] [address] AFB stain (12/02/2018 6:39 PM CDT) AFB stain No acid fast bacilli (AFB) seen. [facility] Comment: Specimen Information Specimen Source: Joint Fluid Specimen Site: Hip right Specimen Joint fluid Performing Organization Address [facility] Phone Number [facility] DEPARTMENT OF PATHOLOGY AND [address] [place] [phone] [place] [address] Anaerobic culture (12/02/2018 6:39 PM CDT) Anaerobic culture isolate No anaerobic organisms isolated. [facility] Comment: HOSPITAL Specimen Information Specimen Source: Joint Fluid Specimen Site: Hip right Specimen Joint fluid - Hip Performing Organization Address [facility] Phone Number [facility] DEPARTMENT OF PATHOLOGY AND [address] [place] [phone] Partial thromboplastin time, activated (12/02/2018 4:25 AM CDT) PTT 35.7 23.0 - 36.0 sec [facility] Comment: PTT therapeutic range for unfractionated heparin is 61.0-112.0 seconds which corresponds to Anti-Xa 0.3-0.7 U/ml. Specimen Blood Performing Organization Address [facility] Phone Number [facility] DEPARTMENT OF PATHOLOGY AND [address] [place] [phone] [place] [address] Prothrombin time with INR (12/02/2018 4:25 AM CDT) Prothrombin time 14.9 (H) 11.5 - 14.5 sec [facility] INR 1.2 [facility] Comment: [facility] The International Normalized Ratio (INR) is a therapeutic monitoring tool for patients who are stable on oral anticoagulant therapy. An INR of 2.0-3.0 is suggested for deep vein thrombosis/pulmonary embolism. Specimen Blood Performing Organization Address City/[facility] Phone Number [facility] DEPARTMENT OF PATHOLOGY AND [address] [place] [phone] [address] Reticulocyte count (12/02/2018 4:25 AM CDT) Retic %, auto 1.4 0.5 - 2.1 % [facility] Retic absolute, auto 0.0589 0.0220 - 0.1260 m/uL [facility] Specimen Blood Performing Organization Address City/[facility] Phone Number [facility] DEPARTMENT OF PATHOLOGY AND [address] [place] [address] Type and screen (12/02/2018 4:25 AM CDT) ABO grouping O [facility] Rh type POS [facility] Antibody screen (gel) NEG [facility] Specimen Blood Performing Organization Address [facility] Phone Number [facility] DEPARTMENT OF PATHOLOGY AND [address] [place], [place] [phone] [address] [address] Total iron binding capacity (12/02/2018 4:00 AM CDT) Iron level 16 (L) 59 - 158 ug/dL [facility] Iron binding capacity 138 (L) 200 - 400 ug/dL [facility] % Saturation 11.6 (L) 20.0 - 40.0 % [facility] Specimen Plasma specimen Performing Organization Address [facility] Phone Number [facility] DEPARTMENT OF PATHOLOGY AND [address] [place] [phone] [address] Thyroid stimulating hormone (12/02/2018 4:00 AM CDT) TSH 2.30 0.27 - 4.20 uIU/mL [facility] Specimen Plasma specimen Performing Organization Address City/[facility] Phone Number [facility] DEPARTMENT OF PATHOLOGY AND [address] [place] [phone] [address] Folate level (12/02/2018 4:00 AM CDT) Folate >20.0 4.8 - 24.2 ng/mL [facility] Specimen Serum Performing Organization Address City/[facility] Phone Number [facility] DEPARTMENT OF PATHOLOGY AND [address] [place] [address] [facility] [address] [place] [address] Vitamin B12 level (12/02/2018 4:00 AM CDT) Vitamin B12 552 211 - 946 pg/mL [facility] Comment: Significant overlap exists between normal and deficiency states. However, most patients with deficiencies will have Serum B12 <200 pg/mL. Specimen Serum Performing Organization Address City/State/Zipcode Phone Number [facility] DEPARTMENT OF PATHOLOGY AND [address] [place] [address] [facility] [address] [place] [address] Comprehensive metabolic panel (12/02/2018 4:00 AM CDT) Sodium 138 135 - 148 mEq/L [facility] Potassium 4.8 3.5 - 5.0 mEq/L [facility] Chloride 103 98 - 112 mEq/L [facility] CO2 25 24 - 31 mEq/L [facility] Anion gap 10@ANIO 7 - 15 mEq/L [facility] BUN 29 (H) 8 - 23 mg/dL [facility] Creatinine 1.27 (H) 0.70 - 1.20 mg/dL [facility] Glucose 109 (H) 65 - 99 mg/dL [facility] Calcium 8.5 (L) 8.8 - 10.2 mg/dL [facility] Protein 5.9 (L) 6.3 - 8.3 g/dL [facility] Comment: HOSPITAL 4.6-7.0 g/dL 1 week 4.4-7.6 g/dL 7 months-1year5.1-7.3 g/dL 1-2 years5.6-7.5 g/dL >3 years6.0-8.0 g/dL 18-150 6.3-8.3 g/dL Albumin 2.3 (L) 3.5 - 5.0 g/dL [facility] A/G ratio 0.6 (L) 0.7 - 3.8 [facility] Alkaline phosphatase 95 40 - 129 U/L [facility] AST 18 10 - 50 U/L [facility] ALT 14 5 - 50 U/L [facility] Total bilirubin 0.8 0.0 - 1.2 mg/dL [facility] Specimen Plasma specimen Performing Organization Address City/[facility] Phone Number [facility] DEPARTMENT OF PATHOLOGY AND [address] [place] [address] GENOMIC MEDICINE [facility] [address] [place] [address] XR Hip 2-3 View Right (12/01/2018 8:45 PM CDT) Narrative Performed At EXAMINATION:XR PELVIS 1 OR 2 VW, XR HIP 2-3 VIEWS RIGHT [facility] CLINICAL HISTORY:femoral neck fracture COMPARISON:none. IMPRESSION: 1.There is an impacted right femoral neck fracture, with mild superior displacement of the distal fragment. There is also mild varus angulation. 2.Left hip prosthesis is noted. Extensive vascular calcifications and metal stents as well as surgical clips are seen. No discrete pelvic fractures are noted. [facility]-[id number] Procedure Note Hm Interface, Radiology Results Incoming - 12/01/2018 8:55 PM CDT EXAMINATION: XR PELVIS 1 OR 2 VW, XR HIP 2-3 VIEWS RIGHT CLINICAL HISTORY: femoral neck fracture COMPARISON: none. IMPRESSION: 1. There is an impacted right femoral neck fracture, with mild superior displacement of the distal fragment. There is also mild varus angulation. 2. Left hip prosthesis is noted. Extensive vascular calcifications and metal stents as well as surgical clips are seen. No discrete pelvic fractures are noted. [facility]-[id number] Performing Organization Address [facility] Phone Number [facility] [address] [place] [address] CT Pelvis Wo Contrast (12/01/2018 8:40 PM CDT) Narrative Performed At EXAMINATION:CT PELVIS WO CONTRAST [facility] CLINICAL HISTORY:femoral neck fracture TECHNIQUE:Multiple axial images of the pelvis were obtained without intravenous iodinated contrast. CT imaging was performed with iterative reconstruction technique and/or automated exposure control to reduce radiation dose. 3-D volumetric imaging of the pelvis was performed using post processing on a separate workstation. COMPARISON:Radiographs dated 12/01/2018 FINDINGS: 1.Acute impacted mid cervical femoral neck fracture with impaction and foreshortening of the femoral neck. There is anterior displacement of the distal fracture fragment by approximately 5 mm. There is lateral displacement by approximately 3 mm. 2.No additional fracture involving the pelvic ring is appreciated. Prior left hip total arthroplasty with appropriate implant alignment. There is no evidence of osteolysis or a periprosthetic fracture involving the left hip. Heterotopic ossification is noted at the level of the lesser trochanter. Bilateral sacroiliac osteoarthrosis. 3.Limited assessment of the lumbar spine demonstrates a compression fracture of L4. 4.Assessment of the soft tissues of the lower abdomen and pelvis demonstrates extensive atherosclerotic disease of the aorta and iliac vasculature. There is some ectasia of the internal iliac arteries. There is extensive atherosclerotic disease involving the femoral arteries and extensive scarring in the right groin which may be from a prior stent. No free fluid is seen in the lower abdomen or in the pelvis. Scattered colonic diverticula without evidence of diverticulitis. Limited assessment of the soft tissues of the pelvis secondary to streak artifact from the patient's left hip arthroplasty. There is a Wallace catheter in the urinary bladder. IMPRESSION: 1.Acute impacted mid cervical right femoral neck fracture with mild displacement as detailed above. 2.Compression fracture of the superior endplate of L4, indeterminate. Further assessment with bone scan or MRI is recommended. [facility]-[id number] Procedure Note [facility], Radiology Results Incoming - 12/01/2018 8:58 PM CDT EXAMINATION: CT PELVIS WO CONTRAST CLINICAL HISTORY: femoral neck fracture TECHNIQUE: Multiple axial images of the pelvis were obtained without intravenous iodinated contrast. CT imaging was performed with iterative reconstruction technique and/or automated exposure control to reduce radiation dose. 3-D volumetric imaging of the pelvis was performed using post processing on a separate workstation. COMPARISON: Radiographs dated 12/01/2018 FINDINGS: 1. Acute impacted mid cervical femoral neck fracture with impaction and foreshortening of the femoral neck. There is anterior displacement of the distal fracture fragment by approximately 5 mm. There is lateral displacement by approximately 3 mm. 2. No additional fracture involving the pelvic ring is appreciated. Prior left hip total arthroplasty with appropriate implant alignment. There is no evidence of osteolysis or a periprosthetic fracture involving the left hip. Heterotopic ossification is noted at the level of the lesser trochanter. Bilateral sacroiliac osteoarthrosis. 3. Limited assessment of the lumbar spine demonstrates a compression fracture of L4. 4. Assessment of the soft tissues of the lower abdomen and pelvis demonstrates extensive atherosclerotic disease of the aorta and iliac vasculature. There is some ectasia of the internal iliac arteries. There is extensive atherosclerotic disease involving the femoral arteries and extensive scarring in the right groin which may be from a prior stent. No free fluid is seen in the lower abdomen or in the pelvis. Scattered colonic diverticula without evidence of diverticulitis. Limited assessment of the soft tissues of the pelvis secondary to streak artifact from the patient' s left hip arthroplasty. There is a Wallace catheter in the urinary bladder. IMPRESSION: 1. Acute impacted mid cervical right femoral neck fracture with mild displacement as detailed above. 2. Compression fracture of the superior endplate of L4, indeterminate. Further assessment with bone scan or MRI is recommended. [facility]-[id number] Performing Organization Address [facility] Phone Number [facility] [address] [place] [address] XR Chest 1 Vw Portable (12/01/2018 4:19 PM CDT) Narrative Performed At EXAMINATION:XR CHEST 1 VW PORTABLE [facility] CLINICAL HISTORY:chfprostate CA COMPARISON:None. IMPRESSION: Atelectasis in the left lower lobe The heart is nonenlarged Right IJ catheter has been removed Age related changes are present throughout the bony structures without evidence of a suspicious focal lesion. Diffuse calcified atherosclerotic vascular disease throughout the arterial structures. [facility]-[id number] Procedure Note Interface, Radiology Results Incoming - 12/01/2018 4:25 PM CDT EXAMINATION: XR CHEST 1 VW PORTABLE CLINICAL HISTORY: chf prostate CA COMPARISON: None. IMPRESSION: Atelectasis in the left lower lobe The heart is nonenlarged Right IJ catheter has been removed Age related changes are present throughout the bony structures without evidence of a suspicious focal lesion. Diffuse calcified atherosclerotic vascular disease throughout the arterial structures. [facility]-[id number] Performing Organization Address [facility] Phone Number [facility] [address] [place] [address] ECG 12 lead (12/01/2018 4:05 PM CDT) Ventricular rate 72 [facility] Atrial rate 72 [facility] MD interval 184 [facility] QRSD interval 144 [facility] QT interval 466 [facility] QTC interval 510 [facility] P axis 1 84 [facility] QRS axis 1 -39 [facility] T wave axis 61 [facility] EKG impression Normal sinus rhythm-Left axis deviation-Right bundle branch block-Anteroseptal infarct , age undetermined-Abnormal ECG-In automated comparison with ECG of 27-SEP-2017 05:52,-Anteroseptal infarct is now [facility] MUSE present- Narrative Performed At Performing Organization Address City/State/Zipcode Phone Number [facility] MUSE [address] [place] [address] Echocardiogram complete w contrast and 3D if needed (12/01/2018 3:20 PM CDT) Narrative Performed At [facility] E[facility]ocardiography Report [address] [facility] [address] [place] [address] Pat.Name:Esteban NOLAN.ID:[id number] .Date: 12/01/2018 Refer.MD:GABRIELA GARZA MD Exam Time: 1:25:00 PMStudy Type:Routine Echo Height:68inWeight: 160lb BSA: 1.86 m2 DOBAge:1940,78Y Sex: MALEBP:108/60 HR:65 bpm Sonogrphr: DANIELITO Manzano/ (Student) Pat. Stat.:Inpatient Room:[facility] Study Status:Final Echo Event ID:[id number] Order ID:[id number] Reason for Study:Atrial fibrillation Procedures:2D Echo, Colorflow Doppler, Intravenous Definity Contrast Race:C SUMMARY: LV size is normal. LV EF is normal. Aortic root diameter is mildly enlarged.Mild aortic regurgitation. Diastolic dysfunction Grade II (Moderate): Impaired relaxation with elevated LV filling pressures. FINDINGS: LV: LV size is normal. LV EF is normal. Overall wall motion is normal.Estimated EF is 65-69% RV: RV size is normal. A pacemaker wire is seen in the RV. RV systolicfunction is normal. LA: LA volume is mildly enlarged. RA: RA volume is normal. A pacemaker wire is seen. AO: Aortic root diameter is mildly enlarged. BONNIE: No pericardial effusion. AV: Mild thickening and calcification of AV leaflets. Mild aorticregurgitation. MV: Moderate mitral annular calcification. PV: No structural PV abnormalities noted. TV: No structural TV abnormalities noted. Mild tricuspid regurgitation Valero: Diastolic dysfunction Grade II (Moderate): Impaired relaxationwith elevated LV filling pressures. Other:Estimated PA systolic pressure is 42 mmHg, assuming a mean RAPof 5 mmHg. MEASUREMENTS: 2D Parasternal [place] Ds3.1 cmLVPWd1.5 cm LVOT 2.2 cmAo An2.5 cm LVIDd4.4 cmIndex2.4 cm/m Ao Rtd 3.9 cm Index2.1 cm/m LVIDs1.8 cm LV Uxmw102.9 g(122-174) LV%fs 60 % LVM Ayhlh573.8 g/m2 IVSd 1.6 cmRWT0.7 LA Sng Plane LA Area 25.7 cm2(8.8-23.4) LA Vol68.5 ml Index36.9 ml/m LA LngAx 8.1 cm DOPPLER LVOT For Flow LVOT Area3.5 cm2 LVOTmnPG 2 mmHg LVOTpkVel 95.5 cm/sLVOT TVI20.5 cm LVOTpkPG 3.6 mmHgLVOT SV 71.1 ml Signed 12/01/2018 05:28 PM Hermes Roberts M.D. Procedure Note Interface, Radiology Results In - 12/01/2018 5:29 PM CDT Echocardiography Report [id number] [address] [facility].Name: ELENA NOLAN.ID: [id number] .Date: 12/01/2018 Refer.MD: GABRIELA GARZA MD Exam Time: 1:25:00 PM Study Type:Routine Echo Height: 68in Weight: 160lb BSA: 1.86 m2 Age: 2 1940,78Y Sex: MALE BP: 108/60 HR: 65 bpm Sonogrphr: DANIELITO Manzano/ (Student) Stat.:Inpatient Room: D708A Study Status:Final Echo Event ID:[id number] Order ID: [id number] Reason for Study:Atrial fibrillation Procedures:2D Echo, Colorflow Doppler, Intravenous Definity Contrast Race: C SUMMARY: LV size is normal. LV EF is normal. Aortic root diameter is mildly enlarged. Mild aortic regurgitation. Diastolic dysfunction Grade II (Moderate): Impaired relaxation with elevated LV filling pressures. FINDINGS: LV: LV size is normal. LV EF is normal. Overall wall motion is normal. Estimated EF is 65-69% RV: RV size is normal. A pacemaker wire is seen in the RV. RV systolic function is normal. LA: LA volume is mildly enlarged. RA: RA volume is normal. A pacemaker wire is seen. AO: Aortic root diameter is mildly enlarged. BONNIE: No pericardial effusion. AV: Mild thickening and calcification of AV leaflets. Mild aortic regurgitation. MV: Moderate mitral annular calcification. PV: No structural PV abnormalities noted. TV: No structural TV abnormalities noted. Mild tricuspid regurgitation Valero: Diastolic dysfunction Grade II (Moderate): Impaired relaxation with elevated LV filling pressures. Other: Estimated PA systolic pressure is 42 mmHg, assuming a mean RAP of 5 mmHg. MEASUREMENTS: 2D Parasternal Long [place] LA Ds 3.1 cm LVPWd 1.5 cm LVOT 2.2 cm Ao An 2.5 cm LVIDd 4.4 cm Index 2.4 cm/m Ao Rtd 3.9 cm Index 2.1 cm/m LVIDs 1.8 cm LV Mass 274.9 g (122-174) LV%fs 60 % LVM Index 147.8 g/m2 IVSd 1.6 cm RWT 0.7 LA Sng Plane LA Area 25.7 cm2 (8.8-23.4) LA Vol 68.5 ml Index 36.9 ml/m LA LngAx 8.1 cm DOPPLER LVOT For Flow LVOT Area 3.5 cm2 LVOTmnPG 2 mmHg LVOTpkVel 95.5 cm/s LVOT TVI 20.5 cm LVOTpkPG 3.6 mmHg LVOT SV 71.1 ml Signed 12/01/2018 05:28 PM Hermes Roberts M.D. Performing Organization Address City/[facility] Phone Number [facility] [address] [place] [address] Urine culture (12/01/2018 1:41 PM CDT) Urine culture isolate No growth after 24 hours [facility] Comment: Specimen Information Specimen Source: Urine Specimen Site: [place] Specimen Urine - [place] Performing Organization Address [facility] Phone Number [facility] DEPARTMENT OF PATHOLOGY AND [address] [place] [address] GENOMIC MEDICINE [address] [address] Urinalysis screen and microscopy, with reflex to culture (12/01/2018 12:30 PM CDT) Specimen site Wallace [facility] Color, UA Neela [facility] Appearance, UA Hazy [facility] Specific gravity, UA 1.023 1.001 - 1.035 [facility] pH, UA 5.0 5.0 - 8.5 [facility] Protein, UA 1+ (A) Negative [facility] Glucose, UA Negative Negative [facility] Ketones, UA Trace (A) Negative [facility] Bilirubin, UA Negative Negative [facility] Blood, UA Large (A) Negative [facility] Nitrite, UA Negative Negative [facility] Urobilinogen, UA 4.0 (A) <2.0 [facility] Leukocyte esterase, UA Moderate (A) Negative [facility] WBC, UA 82 (H) 0 - 1 /HPF [facility] RBC, UA 56 (H) 0 - 5 /HPF [facility] Bacteria, UA Moderate (A) None seen [facility] WBC clumps, UA Few (A) [facility] Yeast, UA None seen [facility] Yeast with pseudohyphae, UA None seen [facility] Hyaline casts, UA 6 /LPF [facility] Specimen Urine Performing Organization Address City/[facility] Phone Number [facility] DEPARTMENT OF PATHOLOGY AND [address] [place] [address] [place] [address] Urinalysis, automated with microscopy (12/01/2018 3:20 AM CDT) Color, UA Yellow [facility] Appearance, UA Clear [facility] Specific gravity, UA 1.019 1.001 - 1.035 [facility] pH, UA 5.0 5.0 - 8.5 [facility] Protein, UA Negative Negative [facility] Glucose, UA Negative Negative [facility] Ketones, UA 1+ (A) Negative [facility] Bilirubin, UA Negative Negative [facility] Blood, UA Large (A) Negative [facility] Nitrite, UA Negative Negative [facility] Urobilinogen, UA 4.0 (A) <2.0 [facility] Leukocyte esterase, UA Small (A) Negative [facility] WBC, UA 21 (H) 0 - 1 /HPF [facility] RBC, UA 58 (H) 0 - 5 /HPF [facility] Bacteria, UA Few None seen [facility] Yeast, UA None seen [facility] Yeast with pseudohyphae, UA None seen [facility] Specimen Urine Performing Organization Address City/[facility]/Zipcode Phone Number [facility] DEPARTMENT OF PATHOLOGY AND [address] [place] [address] GENOMIC MEDICINE [address] [address] Pv ankle brachial index complete (07/05/2018 11:24 AM CDT) Narrative Performed At [facility] Lower Extremity Arterial Physiologic Report [address] [place], [place] [facility].Name:Esteban NOLAN.ID:[id number] .Date: 07/05/2018Refer.MD:FRANCIS MCKEON MD Exam Time: 9:54:00 AMStudy Type:Physiologic Leg DOBAge:1940,77Y Sex: MALE Sonogrphr: Ponce Mcgrath RVT TapeVol: IV, CPT - 4: [address]804 Echo Event ID:[id number] Order ID:[id number] Reason for Study:PAD; S/p right fem-peroneal bypass [...] VASCULAR LABORATORY Lower Extremity Arterial Physiologic Report [address] [place] [address] Pat.Name: ELENA NOLAN Pat.ID: [id number] St.Date: 07/05/2018 Refer.MD: FRANCIS MCKEON MD Exam Time: 9:54:00 AM Study Type:Physiologic Leg Age: 2 1940,77Y Sex: MALE Sonogrphr: Ponce Mcgrath RVT Tape Vol: IV, CPT - 4: 57688 Echo Event ID:[id number] Order ID: [id number] Reason for Study:PAD; S/p right fem-peroneal bypass [...] Organization Address City/State/Zipcode Phone Number [facility] [address] [place] [address] PV duplex arterial lower extremity (07/05/2018 11:24 AM CDT) Narrative Performed At [facility] Lower Extremity Arterial Duplex Report [address] [facility] [address], [place], [place] Pat.Name:Esteban NOLAN.ID:[id number] .Date: 07/05/2018Refer.MD:FRANCIS MCKEON MD Exam Time: 9:53:00 AMStudy Type:LE Arterial DOBAge:1940,77Y Sex: MALE Sonogrphr: Ponce Mcgrath RVT TapeVol: IV, CPT - 4: [address] Echo Event ID:[id number] Order ID:[id number] Reason for Study:PAD; S/p right fem-peroneal bypass graft Race:C SUMMARY: DUPLEX SCAN OBSERVATIONS: RIGHT:All the cahto blood vessels are very heavilycalcified. A patent [...] Thigh Graft Mid Thigh74 cm/s DOPPLER Left MANAGER OF FINANCE Prox MANAGER OF FINANCE Prox PSV15 cm/s Right MANAGER OF FINANCE Prox MANAGER OF FINANCE Prox PSV 0 cm/s Left MANAGER OF FINANCE Distal MANAGER OF FINANCE Distal PSV26 cm/s Right MANAGER OF FINANCE Distal MANAGER OF FINANCE Distal PSV 0 cm/s Left MANAGER OF FINANCE Mid MANAGER OF FINANCE Mid PSV 23 cm/s Right MANAGER OF FINANCE Mid MANAGER OF FINANCE Mid PSV 51 cm/s Right Peroneal Dist Peroneal Dist P67 cm/s Left SFA Mid SFA Mid PSV 34 cm/s Left AMERICA Prox AMERICA Prox PSV 110 cm/s AMERICA Prox AMERICA Prox PSV81.2 cm/s Left KICKING MACHINE OPERATOR Prox KICKING MACHINE OPERATOR Prox PSV89 cm/s Right KICKING MACHINE OPERATOR Prox KICKING MACHINE OPERATOR Prox PSV 106 cm/s Left AMERICA Mid AMERICA Mid PSV 24 cm/s Left AMERICA Distal AMERICA Distal PSV17 cm/s Right AMERICA Distal AMERICA Distal PSV62 cm/s Left Pop Prox Pop Prox PSV40 cm/s Right Pop Prox Pop Prox PSV29 cm/s Left KICKING MACHINE OPERATOR Dist KICKING MACHINE OPERATOR Dist PSV75 cm/s Right KICKING MACHINE OPERATOR Dist KICKING MACHINE OPERATOR Dist PSV99 cm/s Right Peroneal Mid Peroneal [...] LABORATORY Lower Extremity Arterial Duplex Report [address] [facility] [address], [place] [address] Pat.Name: ELENA NOLAN Pat.ID: [id number] .Date: 07/05/2018 Refer.MD: FRANCIS MCKEON MD Exam Time: 9:53:00 AM Study Type:LE Arterial Age: 2 1940,77Y Sex: MALE Sonogrphr: Ponce Mcgrath RVT Tape Vol: IV, CPT - 4: 15420 Echo Event ID:[id number] Order ID: [id number] Reason for Study:PAD; S/p right fem-peroneal bypass graft Race: C SUMMARY: DUPLEX SCAN OBSERVATIONS: RIGHT:All the cahto blood vessels are very heavily calcified. A [...] Graft Mid Thigh 74 cm/s DOPPLER Left MANAGER OF FINANCE Prox MANAGER OF FINANCE Prox PSV 15 cm/s Right MANAGER OF FINANCE Prox MANAGER OF FINANCE Prox PSV 0 cm/s Left MANAGER OF FINANCE Distal MANAGER OF FINANCE Distal PSV 26 cm/s Right MANAGER OF FINANCE Distal MANAGER OF FINANCE Distal PSV 0 cm/s Left MANAGER OF FINANCE Mid MANAGER OF FINANCE Mid PSV 23 cm/s Right MANAGER OF FINANCE Mid MANAGER OF FINANCE Mid PSV 51 cm/s Right Peroneal Dist Peroneal Dist P 67 cm/s Left SFA Mid SFA Mid PSV 34 cm/s Left AMERICA Prox AMERICA Prox PSV 110 cm/s AMERICA Prox AMERICA Prox PSV 81.2 cm/s Left KICKING MACHINE OPERATOR Prox KICKING MACHINE OPERATOR Prox PSV 89 cm/s Right KICKING MACHINE OPERATOR Prox KICKING MACHINE OPERATOR Prox PSV 106 cm/s Left AMERICA Mid AMERICA Mid PSV 24 cm/s Left AMERICA Distal AMERICA Distal PSV 17 cm/s Right AMERICA Distal AMERICA Distal PSV 62 cm/s Left Pop Prox Pop Prox PSV 40 cm/s Right Pop Prox Pop Prox PSV 29 cm/s Left KICKING MACHINE OPERATOR Dist KICKING MACHINE OPERATOR Dist PSV 75 cm/s Right KICKING MACHINE OPERATOR Dist KICKING MACHINE OPERATOR Dist PSV 99 cm/s Right Peroneal Mid [...] Organization Address City/State/Zipcode Phone Number [facility] [address] [place] [address] after 12/05/2017 Insurance Payer Benefit Plan / Group Subscriber ID Type Phone Address MEDICARE MEDICARE PART A AND B xxxxxxxxxxx Medicare [place], [place] BCBS BCBS CHOICE PPO/F[employer]ERAL EMPL PPO xxxxxxxxx PPO Advance Directives Patient has advance care planning documents, and code status on file. For more information, please contact:[id number] [place] [address] Code Status Date Activated Date Inactivated Comments Full Code 12/01/2018 1:47 PM Code Status decision reached by: Patient Full Code 07/20/2017 3:29 AM 07/29/2017 9:21 PM Code Status decision reached by: Patient Full Code 06/14/2017 9:09 PM 06/19/2017 8:16 PM Code Status decision reached by: Patient Full Code 03/13/2016 10:36 PM 03/19/2016 7:27 PM Code Status decision reached by: Patient
[2018-12-06] MEDS: HYDROCODONE/APAP 10/325 TAB PO PRN (22:04)
[2018-12-06] MEDS: CARVEDILOL 6.25 MG TAB PO SCH (22:05)
[2018-12-06] MEDS ORDERED: BISACODYL 10 MG RECTAL SUPP PR PRN (22:42)
[2018-12-07 00:17] LABS: Urine Appearance CLEAR; Urine Bilirubin NEGATIVE (NEG); Urine Blood NEGATIVE (NEG); Urine Color YELLOW; Urine Glucose NEGATIVE (NEG); Urine Protein NEGATIVE (NEG)
[2018-12-07 00:44] VITALS: BMI 25.2
[2018-12-07 00:44] LABS: Urine Bacteria <20 /HPF (NONE SEEN); Urine Culture Reflex Order NOT NEEDED; Urine RBC <5 /HPF (NONE SEEN)
--- NOTE | 2018-12-07 00:56 | FAST ---
SHIFT START DATE/TIME: 12/06/2018 19:00 (CDT) SHIFT END DATE/TIME: 12/07/2018 07:00 (CDT) NAME ELENA NOLAN DATE OF : 1940 DATE OF ADMISSION: 12/06/2018 20:10 (CDT) PHONE: AGE: 78 SSN# [id number] GENDER: Male ENCOUNTER PHYSICIAN: Dr. Sid Cruz M.D. ADMISSION DIAGNOSIS: - Orthopaedic Disorders 08 - Unilateral Hip Fracture (08.11) right femur fx. EATING: Activity did not occur on this shift EATING - SCORE: 0-UNK GROOMING: Activity did not occur on this shift GROOMING - SCORE: 0-UNK BATHING: Activity did not occur on this shift BATHING - SCORE: 0-UNK DRESSING - UPPER BODY: Patient is not dressing in public clothing ARTICLES SCORE Total number of steps: 0 DRESSING - UPPER BODY - SCORE: 0-UNK DRESSING - LOWER BODY: Patient is not dressing in public clothing ARTICLES SCORE Total number of steps: 0 DRESSING - LOWER BODY - SCORE: 0-UNK TOILETING: Activity did not occur on this shift TOILETING - SCORE: 0-UNK BLADDER MANAGEMENT: [place] removes incontinent device (Depends, pull ups, etc.); cleans the patient after accident / inco ntinent episode; and, applies new incontinent device. BLADDER MANAGEMENT - SCORE: 1-DEP BOWEL MANAGEMENT: [place] removes incontinent device (depends, pull ups, etc.); cleans the patient after accident / inco ntinent episode; and, applies new device (depends, pull-ups, padding, etc.). BOWEL MANAGEMENT - SCORE: 1-DEP TRANSFERS: BED, CHAIR, WHEELCHAIR: Activity did not occur on this shift TRANSFERS: BED, CHAIR, WHEELCHAIR - SCORE: 0-UNK TRANSFERS: TOILET: Activity did not occur on this shift TRANSFERS: TOILET - SCORE: 0-UNK TRANSFERS: SHOWER: Activity did not occur on this shift TRANSFERS: SHOWER - SCORE: 0-UNK TRANSFERS: TUB: Activity did not occur on this shift TRANSFERS: TUB - SCORE: 0-UNK LOCOMOTION: WALK: Activity did not occur on this shift LOCOMOTION: WALK - SCORE: 0-UNK LOCOMOTION: WHEELCHAIR: Activity did not occur on this shift LOCOMOTION: WHEELCHAIR - SCORE: 0-UNK COMPREHENSION: COMPREHENSION: TYPE: Both COMPREHENSION - STEP 1: Does the patient require help from a person or device, or need extra time to understand complex and a bstract ideas (such as current events, finances, discharge planning, medical issues, relationships, e tc)? No. COMPREHENSION - STEP 2: Does the patient need extra time, require an assistive device (such as glasses for visual comprehensi on or a hearing aid for auditory comprehension) or does s/he have mild difficulty understanding compl ex and abstract information? Yes. COMPREHENSION - SCORE: 6-NGOC EXPRESSION EXPRESSION: TYPE: Both EXPRESSION - STEP 1: Does the patient require help from a person or device, or need extra time expressing complex and abst ract ideas (such as current events, finances, discharge planning, medical issues, relationships, etc) ? No. EXPRESSION - STEP 2: Does the patient need extra time, require an assistive device (such as augmentive communication syste m or a communication board), OR does s/he have mild difficulty expressing complex and abstract ideas (including mild dysarthria or mild word-find problems)? Yes. EXPRESSION - SCORE: 6-NGOC SOCIAL INTERACTION: SOCIAL INTERACTION - STEP 1: Does the patient require a helper to interact with others in social and therapeutic situations? No. SOCIAL INTERACTION - STEP 2: Does the patient need extra time in social situations, OR does s/he interact with staff, other patien ts, and family members ONLY in structured environments, OR does s/he require medication for social in teraction? Yes, patient needs extra time SOCIAL INTERACTION - SCORE: 6-NGOC PROBLEM SOLVING: PROBLEM SOLVING - STEP 1: Does the patient need help from a person or device, or need extra time to solve complex problems such as managing a checking account or confronting interpersonal problems? Yes. PROBLEM SOLVING - STEP 2: Does the patient solve basic routine problems half or more of the time? Yes. PROBLEM SOLVING - STEP 3: How often does the patient need help to solve basic routine problems? 10%-24% of the time PROBLEM SOLVING - SCORE: 4-MIN MEMORY: MEMORY - STEP 1: Does the patient need help from a person or device, or need extra time to remember frequently encount ered people, daily routines, and executing requests? No. MEMORY - STEP 2: Does the patient have slight difficulty recognizing frequently encountered people, daily routines, or executing requests without the need for repetition or using self-initiated or environmental cues to remember? Yes. MEMORY - SCORE: 6-NGOC SIGNATURE PANEL: The following modified sections: Eating - Score, Grooming - Score, Dressing - Upper Body - Score, Enrique ssing - Lower Body - Score, Toileting - Score, Bladder Management - Score, Bowel Management - Score, Transfers: Bed, Chair, Wheelchair - Score, Transfers: Toilet - Score, Transfers: Shower - Score, Smith sfers: Tub - Score, Locomotion: Walk - Score, Locomotion: Wheelchair - Score, Comprehension - Score, Expression - Score, Social Interaction - Score, Problem Solving - Score, Memory - Score were [electro nically] signed by Aleisha Travis CNA on WedDec 07 2018 00:55:03 GMT-0500 (Central Daylight Time)
[2018-12-07] MEDS: HYDROCODONE/APAP 10/325 TAB PO PRN ×3 (04:20→22:03)
[2018-12-07 06:36] LABS: Absolute Monocytes 0.8 K/uL (0.1-1.3); Absolute Neutrophil 8.3 K/uL (1.8-8.0); Basophils % 0.6 % (0-1.3); Eosinophils % 3.3 % (0-4.4); Hematocrit 36.3 % (39.6-49.0); Lymphocytes % 9.9 % (15.3-44.8); MPV 9.2 fL (7.6-11.3); Monocytes % 7.3 % (3.3-12.3)
[2018-12-07 06:53] LABS: BUN Blood Urea Nitrogen 26 mg/dL (7-18); Bicarbonate 28 mmol/L (21-32); Glucose Level 80 mg/dL (74-106); Potassium 4.2 mmol/L (3.5-5.1); Sodium Level 147 mmol/L (136-145)
[2018-12-07] MEDS: LEVOTHYROXINE SOD 0.05 MG TABLET PO SCH (06:54)
[2018-12-07] MEDS: PANTOPRAZOLE 40MG TABLET PO SCH (06:54)
[2018-12-07] MEDS: ALBUTEROL 2.5 MG/3 ML NEB SOL NEB SCH ×3 (07:40→20:45)
[2018-12-07] MEDS ORDERED: IPRATROPIUM 200 PUFF/12.9 GM INH IH SCH (08:00)
[2018-12-07] MEDS: D3 PO SCH ×2 (08:00→19:24)
[2018-12-07] MEDS ORDERED: ALBUTEROL 2.5 MG/3 ML NEB SOL NEB SCH (08:00)
[2018-12-07] MEDS: CAL MAG ZINC PO SCH ×2 (08:00→19:24)
[2018-12-07] MEDS ORDERED: VITAMIN D 5,000 UNIT CAP PO SCH (08:00)
[2018-12-07] MEDS: HOME MED 1 EA UNK PO SCH ×3 (08:00)
[2018-12-07] MEDS: VITAMIN B COMPLEX 1 CAP PO SCH (08:26)
[2018-12-07] MEDS: CARVEDILOL 6.25 MG TAB PO SCH ×2 (08:26→19:21)
[2018-12-07] MEDS: DOCUSATE NA 100 MG CAP PO SCH ×2 (08:26→19:20)
[2018-12-07] MEDS: ZINC SULFATE 220 MG CAP PO SCH (08:26)
[2018-12-07] MEDS: MULTIVIT W/ MINERAL TAB PO SCH (08:27)
[2018-12-07] MEDS: ASPIRIN EC 81 MG TAB PO SCH (08:28)
[2018-12-07] MEDS: ATORVASTATIN 20 MG TAB PO SCH (08:28)
[2018-12-07] MEDS: predniSONE 5 MG TAB PO SCH (08:28)
[2018-12-07] MEDS: AMIODARONE HCL 200 MG TAB PO SCH (08:28)
[2018-12-07] MEDS: LORATADINE 10 MG TAB PO SCH (08:29)
[2018-12-07] MEDS: LOSARTAN POTASSIUM 50 MG TABLET PO SCH (08:29)
[2018-12-07] MEDS: ENOXAPARIN 40 MG/0.4 ML SQ SCH (08:37)
[2018-12-07] MEDS: VITAMIN A 10,000 IU CAP PO SCH (08:40)
[2018-12-07] MEDS: ONDANSETRON 4 MG (ODT) TAB PO PRN (09:56)
--- NOTE | 2018-12-07 14:40 | FAST ---
SHIFT START DATE/TIME: 12/07/2018 07:00 (CDT) SHIFT END DATE/TIME: 12/07/2018 19:00 (CDT) NAME ELENA NOALN DATE OF : 1940 DATE OF ADMISSION: 12/06/2018 20:10 (CDT) PHONE: AGE: 78 N# [id number] GENDER: Male ENCOUNTER PHYSICIAN: Dr. Sid Crzu M.D. ADMISSION DIAGNOSIS: - Orthopaedic Disorders 08 - Unilateral Hip Fracture (08.11) right femur fx. EATING: EATING - STEP 1: Does the patient require the assistance of a person or device, or need extra time when eating? Yes. EATING - STEP 2: Does the patient require the assistance of a helper? No, patient only requires an assistive device, O R s/he takes more than reasonable time to eat, OR there is a safety concern, OR s/he requires modifie d food consistency EATING - SCORE: 6-NGOC GROOMING: Comb/brush hair Oral care GROOMING - STEP 1: Does the patient require the assistance of a person or device, or need extra time when grooming? Yes. GROOMING - STEP 2: Does the patient require the assistance of a helper? No. The patient only requires an assistive devic e, OR takes more than reasonable time to groom, OR there is a concern for safety as the patient groom s GROOMING - SCORE: 6-NGOC BATHING: Activity did not occur on this shift BATHING - SCORE: 0-UNK DRESSING - UPPER BODY: Activity did not occur on this shift ARTICLES SCORE Total number of steps: 0 DRESSING - UPPER BODY - SCORE: 0-UNK DRESSING - LOWER BODY: Activity did not occur on this shift ARTICLES SCORE Total number of steps: 0 DRESSING - LOWER BODY - SCORE: 0-UNK TOILETING: TOILETING - STEP 1: Does the patient require the assistance of a person or device, or need extra time with toileting? Yes . TOILETING - STEP 2: Does the patient require the assistance of a helper? Yes. TOILETING - STEP 3: How much assistance does the patient require from the helper? Hands-on assistance from the helper TOILETING - STEP 4: Of the 3 tasks: 1) Adjusting clothing prior to use, 2) Cleansing of perineal area, 3) Adjusting clot neyda after use; How many tasks does the patient perform WITHOUT assistance of the helper? Three tasks with steadying assistance from the helper TOILETING - SCORE: 4-MIN BLADDER MANAGEMENT: BLADDER MANAGEMENT - STEP 1: Does the patient control the bladder completely and intentionally without equipment or devices or med ications, and is always continent? No. BLADDER MANAGEMENT - STEP 2: Does the patient require the assistance of a helper? No, patient requires and independently uses an a ssistive device, such as a urinal, bedpan, bedside commode, catheter, absorbent pad, or collecting de vice BLADDER MANAGEMENT - SCORE: 6-NGOC BOWEL MANAGEMENT: Activity did not occur on this shift BOWEL MANAGEMENT - SCORE: 7-IND TRANSFERS: BED, CHAIR, WHEELCHAIR: TRANSFERS: BED, CHAIR, WHEELCHAIR - STEP 1: Does the patient require assistance of a person or device, or need extra time with bed, chair, or whe elchair transfers? Yes. TRANSFERS: BED, CHAIR, WHEELCHAIR - STEP 2: Does the patient require the assistance of a helper? Yes. TRANSFERS: BED, CHAIR, WHEELCHAIR - STEP 3: How much assistance does the patient require from the helper? Steadying/guiding assistance TRANSFERS: BED, CHAIR, WHEELCHAIR - SCORE: 4-MIN TRANSFERS: TOILET: TRANSFERS: TOILET - STEP 1: Does the patient require the assistance of a person or device, or need extra time with toilet transfe rs? Yes. TRANSFERS: TOILET - STEP 2: Does the patient require the assistance of a helper? Yes. TRANSFERS: TOILET - STEP 3: How much assistance does the patient require from the helper? Patient performs half or more of the tr ansferring tasks TRANSFERS: TOILET - STEP 4: Does the patient need only incidental help such as contact guard or steadying during toilet transfer? Yes. TRANSFERS: TOILET - SCORE: 4-MIN TRANSFERS: SHOWER: Activity did not occur on this shift TRANSFERS: SHOWER - SCORE: 0-UNK TRANSFERS: TUB: Activity did not occur on this shift TRANSFERS: TUB - SCORE: 0-UNK LOCOMOTION: WALK: Activity did not occur on this shift LOCOMOTION: WALK - SCORE: 0-UNK LOCOMOTION: WHEELCHAIR: Activity did not occur on this shift LOCOMOTION: WHEELCHAIR - SCORE: 0-UNK COMPREHENSION: COMPREHENSION: TYPE: Both COMPREHENSION - STEP 1: Does the patient require help from a person or device, or need extra time to understand complex and a bstract ideas (such as current events, finances, discharge planning, medical issues, relationships, e tc)? Yes. COMPREHENSION - STEP 2: Does the patient require help to understand questions or statements about basic needs or ideas (such as hunger, thirst, sleep, safety, daily schedule, room location, or discomfort) half or more of the t leda? No. COMPREHENSION - STEP 3: How often does the patient need help to understand directions and conversation about basic needs? Les s than 10% of the time COMPREHENSION - SCORE: 5-SUP EXPRESSION EXPRESSION: TYPE: Both EXPRESSION - STEP 1: Does the patient require help from a person or device, or need extra time expressing complex and abst ract ideas (such as current events, finances, discharge planning, medical issues, relationships, etc) ? No. EXPRESSION - STEP 2: Does the patient need extra time, require an assistive device (such as augmentive communication syste m or a communication board), OR does s/he have mild difficulty expressing complex and abstract ideas (including mild dysarthria or mild word-find problems)? Yes. EXPRESSION - SCORE: 6-NGOC SOCIAL INTERACTION: SOCIAL INTERACTION - STEP 1: Does the patient require a helper to interact with others in social and therapeutic situations? No. SOCIAL INTERACTION - STEP 2: Does the patient need extra time in social situations, OR does s/he interact with staff, other patien ts, and family members ONLY in structured environments, OR does s/he require medication for social in teraction? Yes, patient needs extra time SOCIAL INTERACTION - SCORE: 6-NGOC PROBLEM SOLVING: PROBLEM SOLVING - STEP 1: Does the patient need help from a person or device, or need extra time to solve complex problems such as managing a checking account or confronting interpersonal problems? No. PROBLEM SOLVING - STEP 2: Does the patient require extra time to make decisions or solve problems, OR does s/he have slight dif ficulty reading, initiating, or self-correcting in unfamiliar situations? Yes, patient needs extra ti me. PROBLEM SOLVING - SCORE: 6-NGOC MEMORY: MEMORY - STEP 1: Does the patient need help from a person or device, or need extra time to remember frequently encount ered people, daily routines, and executing requests? No. MEMORY - STEP 2: Does the patient have slight difficulty recognizing frequently encountered people, daily routines, or executing requests without the need for repetition or using self-initiated or environmental cues to remember? Yes. MEMORY - SCORE: 6-NGOC SIGNATURE PANEL: The following modified sections: Eating - Score, Grooming - Score, Bathing - Score, Dressing - Upper Body - Score, Dressing - Lower Body - Score, Toileting - Score, Bladder Management - Score, Bowel Man agement - Score, Transfers: Bed, Chair, Wheelchair - Score, Transfers: Toilet - Score, Transfers: Ros[place] wer - Score, Transfers: Tub - Score, Locomotion: Walk - Score, Locomotion: Wheelchair - Score, Compre hension - Score, Expression - Score, Social Interaction - Score, Problem Solving - Score, Memory - Sc ore were [electronically] signed by Anthony Reyes on WedDec 07 2018 14:40:02 GMT-0500 (Central Daylight Time)
--- NOTE | 2018-12-07 15:55 | R.HP ---
FACILITY: [facility] ENCOUNTER DATE AND TIME: 12/07/2018 15:37 (CDT) MR#: [id number] NAME ELENA NOLAN ADDRESS: [address] [place] [address]: [place] [id number] PHONE: DATE OF : 1940 AGE: 78 SSN# [id number] GENDER: Male DEXTERITY Right-handed MARITAL STATUS RACE White PRE-HOSPITAL LIVING SETTING 01 - Home (private home/apt. board/care, assisted living, [place] [facility], transitional living) PRE-HOSPITAL LIVING WITH Family/Relatives ENCOUNTER PHYSICIAN: Dr. Sid Cruz M.D. REFERRING DOCTOR: Yaniv De La Cruz DATE OF ADMISSION: 12/06/2018 20:10 (CDT) REFERRING FACILITY [facility] TYPE AND DETAILS: Type of home: single family house # of steps to enter the residence: 0 # of levels in the residence: 1 # of steps within the residence: 0 ADMISSION DIAGNOSIS: right femur fx ONSET DATE: 12/01/2018 PRIMARY DIAGNOSIS-RELATED SURGERIES: Emergency Unilateral Hip Fracture - performed by Yaniv De La Cruz on 12/01/2018 SECONDARY/COMORBID DIAGNOSES (TIERED): - N/A aspiration pneumonia paroxysmal artrial fibrillation hypertension gerd hyperlipidemia testicular cancer prostate cancer PAD pneumonia cellulitus of the right foot HISTORY OF PRESENT ILLNESS (HPI): Pt. is a 78 yo Right-handed white male. On 12/01/2018 he was admitted to [facility] and underwent emergency surgery for right femur fx (Unilat eral Hip Fracture) by Yaniv De La Cruz. Pre-morbidly, Pt. was independent/mod-I in Self-Care, Sphincter Control, Transfers Control, Communica tion, Social Cognition, and Locomotion; and he had good Sphincter Control. Currently, he has deficits of Self-Care, Transfers Control, Communication, Social Cognition, Enduranc e, Balance, Safety Awareness, and Locomotion. Pt. is now referred to [facility] for acute in-patient rehabilitation in order to maximize patient's functional independence in activities of daily living, strength, ROM, and mobi lity. Patient has realistic goal of being discharged at assistance level 6-Ivette to reside at Home with Fam marilia/Relatives. MEDICATION ALLERGIES: No Known Drug Allergies (NKDA) ENVIRONMENTAL ALLERGIES: - Substance Allergies None Known - Other Allergies None Known PAST MEDICAL HISTORY: PAD aspiration pneumonia cellulitus of the right foot gerd hyperlipidemia hypertension paroxysmal artrial fibrillation pneumonia prostate cancer testicular cancer FAMILY HISTORY: Family history is not contributory. SOCIAL HISTORY: - Home Living Family/Relatives REVIEW OF SYSTEMS: - Gen No Chills No Fatigue No Fever - Eyes No Double Vision No itchiness - ENMT No Difficulty Swallowing - CVS No Chest Discomfort No Chest Pain Fatigue No Weight Gain - Resp No Cough No Shortness of Breath - GI Continent No Abdominal Pain Constipation No Diarrhea - Continent No Kidney Pain No Painful Urination No Urinary Urgency - MSK No Joint Pain Muscle Cramps Stiffness - Skin No Itching No Rash No Suspicious Lesions - Neuro Coordination Difficulty No Difficulty with Concentration No Memory Loss No Seizures Weakness - Psych No Anxiety No Depression No HIV Exposure No Persistent Infections No Seasonal Allergies - Endo No Cold/Heat Intolerance No Excessive Hunger No Excessive Thirst No Excessive Urination PHYSICAL EXAM - Gen Alert and awake Lying in bed No apparent distress Oriented to: person, time, and place - Skin Right hip incision intact No abnormalities - Eyes No abnormalities - ENMT No abnormalities - Neck No abnormalities - CVS RRR - Chest No abnormalities - Resp Clear to auscultation - Abd +bowel sounds - GI Soft Deferred - No abnormalities - Ext Right foot transmetatarsals amputation. - MSK 4+/5 weakness in right lower extremity - Neuro 4/5 strength right lower extremity - Psych No abnormalities VITAL SIGNS Temperature: 96.5 F SBP/DBP: 147/69 Pulse: 62 Resp: 16 NURSING: - Shower allowing shower - Skin care per protocol PRECAUTIONS: - Posterior Hip Precaution No adduction across midline No external rotation No hip flexion >90 degrees No internal rotation No wheel chair propulsion - Weight Bearing Precaution WBAT right LE ACTIVITIES OOB only with supervision FUNCTIONAL STATUS: - Self-Care A. Eating Ind sup B. Grooming Ind sup C. Bathing Ind sup D. Dressing - Upper Ind sup E. Dressing - Lower Ind Dep F. Toileting Ind Dep - Sphincter Control G: Bladder control Dep Dep H: Bowel control Dep Dep - Transfers Control I. Bed/Chair/Wheelchair Ind modA J. Toilet Ind modA K. Tub/Shower Ind modA - Locomotion L. Walk/Wheelchair (B) Ivette maxA M. Stairs Ind ADNO - Communication N. Comprehension (B) Ind Beckie O. Expression (B) Ind Beckie - Social Cognition P. Social Interaction Ind Beckie Q. Problem Solving Ind Beckie R. Memory Ind Beckie - Endurance Poor - Balance Poor - Safety Awareness Poor CURRENT FUNC. DEFICITS: Self-Care, Transfers Control, Communication, Social Cognition, Endurance, Balance, Safety Awareness, and Locomotion ASSESSMENT: Pt. is a 78 yo Right-handed white male.On 12/01/2018 he was admitted to [facility] and underwent emerg ency surgery for right femur fx (Unilateral Hip Fracture) by Yaniv De La Cruz.Pre-morbidly, Pt. was indep endent/mod-I in Self-Care, Sphincter Control, Transfers Control, Communication, Social Cognition, and Locomotion; and he had good Sphincter Control.Currently, he has deficits of Self-Care, Transfers Con trol, Communication, Social Cognition, Endurance, Balance, Safety Awareness, and Locomotion.Pt. is no w referred to [facility] for acute in-patient rehabilitation in order to maxim ize patient's functional independence in activities of daily living, strength, ROM, and mobility.- Re hab Goal Patient has realistic goal of being discharged at assistance level 6-Ivette to reside at Home with Fam marilia/Relatives. REHAB PLAN: - Physical Therapy Decreased range of motion - to improve, our physical therapists will perform initial evaluation of pt 's status upon admission and devise an individualized program for increasing patient's Range of Motio n. Gait dysfunction - to improve, our physical therapists will perform initial evaluation of pt's status upon admission and devise an individualized program for Gait Training, and Wheel Chair mobility Inability to transfer - to improve, our physical therapists will perform initial evaluation of pt's s tatus upon admission and devise an individualized program for Bed mobility Need for home safety evaluation - to improve, our physical therapists will perform initial evaluation of pt's status upon admission and devise an individualized program for Home Evaluation Need in caregiver upon discharge - to improve, our physical therapists will perform initial evaluatio n of pt's status upon admission and devise an individualized program for Caregiver Training New precaution - to improve, our physical therapists will perform initial evaluation of pt's status u mickey admission and devise an individualized program for Patient precaution education Poor balance - to improve, our physical therapists will perform initial evaluation of pt's status upo n admission and devise an individualized program for Balance Training Poor endurance - to improve, our physical therapists will perform initial evaluation of pt's status u mickey admission and devise an individualized program for Endurance Training Weakness - to improve, our physical therapists will perform initial evaluation of pt's status upon ad mission and devise an individualized program for Aquatic Therapy, Neuromuscular Reeducation, and Stre ngthening Achieving independence - to improve, our physical therapists will perform initial evaluation of pt's status upon admission and devise an individualized program for Community Reintegration Activities - Occupational Therapy ADL deficits - to improve, our occupation therapists will perform initial evaluation of pt's status u mickey admission and devise an individualized program for Bathing, Bed mobility, Community Reintegration , Cooking, Dressing, Eating, Fine Motor Skills, Grooming, Homemaking, Kitchen Mobility, Laundry, Nayana ent Education, Safety Awareness, Splinting - Positioning, Transfers(Toilet, Tub, Shower), and Wheel C hair Management Cognitive deficits - to improve, our occupation therapists will perform initial evaluation of pt's st atus upon admission and devise an individualized program for Cognition - orientation Need for career development manager - to improve, our occupation therapists will perform initial evaluation of pt's s tatus upon admission and devise an individualized program for Caregiver Training Weakness - to improve, our occupation therapists will perform initial evaluation of pt's status upon admission and devise an individualized program for Aquatic Therapy, Balance, Endurance, UE ROM, and U E strengthening MEDICAL PLAN: - Anterior Hip Precaution No abduction No active extension No adduction across midline No external rotation No hip flexion >90 degrees No internal rotation - Diet - Liquid Texture Start Regular - Tube Feed Start N/A - Diet Type Start Regular - Posterior Hip Precaution No adduction across midline No external rotation No hip flexion >90 degrees No internal rotation No wheel chair propulsion - Weight Bearing Precaution WBAT right LE - Skin care per protocol - Diet - Solid Texture Regular - Shower shower DISCHARGE PLAN: - Estimated Length of Stay (days) 14. - Consensus on plan Discharge plan has been discussed with primary caregiver. Patient/Family is in agreement with the toney n. Primary caregiver is in agreement with the plan. - Patient/Family Goals Return home with assistance. - Planned Living Setting Upon Discharge Home, to live with Family/Relatives. SIGNATURE PANEL: (CDT)
--- NOTE | 2018-12-07 15:56 | PAPE ---
PATIENT: [facility] MR# [id number] REFERRING DOCTOR Yaniv De La Cruz EVALUATION DATE AND TIME 12/07/2018 15:54 (CDT) NAME ELENA NOLAN DATE OF 1940 AGE 78 PHONE N# [id number] GENDER male EVALUATING PHYSICIAN Dr. Sid Cruz M.D. ADMISSION DIAGNOSIS: right femur fx ONSET DATE 12/01/2018 SECONDARY/COMORBID DIAGNOSES TIERED: - N/A aspiration pneumonia paroxysmal artrial fibrillation hypertension gerd hyperlipidemia testicular cancer prostate cancer PAD pneumonia cellulitus of the right foot POST-ADMISSION FUNCTIONAL/MEDICAL STATUS: - Bladder Same accident frequency: Ind - No accidents in the past 7 days - Bowel Same accident frequency: Ind - No accidents in the past 7 days - Walking Same score based on distance walked: 2([id number]) STATUS CHANGE EVALUATION: No change in Functional or Medical Status is identified compared with Pre-Admission screening. PATIENT NEEDS CLOSE MEDICAL SUPERVISION BY A REHABILITATION PHYSICIAN FOR: Bowel and Bladder Management Coordination of Treatment Team Medical and Co-Morbidity Management Post-Op Complications Wound Care PATIENT REQUIRES 24X7 REHAB NURSING FOR MEDICAL AND FUNCTIONAL MGT. OF THE FOLLOWING DEFICITS: ADL's Ambulation Bowel and Bladder Management Cognition Communication Disease Management Medication Management Patient/Family Education Providing Safe Environment Skin Integrity Transfers PATIENT REQUIRES INTENSIVE, COORDINATED INTERDISCIPLINARY APPROACH TO REHAB: Arranging Home Equipment/Services Discharge Planning Family Intervention/Training Wet Machine Tender/Case Management LIST OF IDENTIFIED AND POTENTIAL PROBLEMS: Alteration in leisure activities Bladder, Incontinence Blood Pressure, Hypertension/hypotension Issues Bowel, Incontinence Infection, Actual or Potential Mobility Impaired Pain, Alteration in Comfort Self Care Deficit Skin Integrity, Actual or Potential Urinary Tract Infection (UTI), Actual or Potential RISK FOR COMPLICATIONS - Hypertension CVA. Hypotension. AK. TIA. - GERD Alteration in sleep. Aspiration. Dehydration. Malnutrition. Pain. - Pneumonia Respiratory failure. Sepsis. INTERVENTIONS - Hypertension - GERD Altered diet. Elevation of head of bed. Medications. Nausea/vomiting. Nighttime food/fluid restrictio ns. Nutrition. - Pneumonia Cultures. Fluid management. Labs. Oxygen. Respiratory management. X-rays. PATIENT COULD BE AT RISK FOR COMPLICATIONS FROM ADVERSE MEDICAL CONDITIONS DUE TO HIS/HER COMORBIDITI ES AND THE RIGORS OF THE INTENSIVE REHABILLITATION PROGRAM. METHODS OR INTERVENTIONS TO AVOID COMPLIC ATIONS INCLUDE: - Bleeding Assess lab values and manage abnormalities. Nursing to teach precautions for anti-coagulation therapy . Wound to be assessed every shift. - Infection Clinical staff to assess and manage the signs and symptoms of infection including fever, redness, war mth, etc. - Urinary Tract Infection - Falls Patient will be evaluated for Fall Precautions and will be placed on Fall Precautions as indicated pe r protocol. - Skin Breakdown Nursing will assess skin daily using assessment tool and will place on Skin Breakdown Precautions as indicated per protocol. - Pain Clinical staff may employ non-medication methods such as massage, distraction, decrease stimulus, etc . as needed. Clinical staff will assess patient's pain level every shift per protocol to assess and e nsure pain management effectiveness. Medications will be given and the pain level re-assessed. PRELIMINARY PLAN OF CARE: - Physical Therapy Patient needs Physical Therapy for a daily minimum of 1.5 hours at least 5 out of 7 days, to improve: Mobility, Strengthening, Transfers, Stretching, ROM, Endurance, Ability to manage stairs, Gait, and Balance. - Rehabilitation Nursing Patient requires 24x7 Rehabilitation Nursing for: Pain Issues, Identifying and preventing risk factor s, Monitoring and reporting current medical conditions, Assisting with ambulation and transfer, Florencio ting with all ADL-s, Teaching patients about disease process and medications, Family teaching, Provid ing safe environment, Bowel and Bladder Issues, Skin Integrity, and Medication Management. Patient needs Wet Machine Tender and/or Case Management for: Discharge Planning, Arranging Home Equipmen t or Services, and Family Interventions. - Dietary and Nutrition Services Patient needs Dietary and Nutrition Services for: Adequate Nutrition, Nutritional Supplements, and Nu tritional Education. - Occupational Therapy Patient needs Occupational Therapy for a daily minimum of 1.5 hours at least 5 out of 7 days, to impr ove Activities of Daily Living, including: Eating, Grooming, Bathing, Dressing, Toileting, Toilet Tra nsfers, Community Reintegration, Higher functional activities, Adaptive Equipment, Splinting, Househo ld Tasks, and Other activities as determined. POTENTIAL FUNCTIONAL GOALS FOR PATIENT TO ACHIEVE BY DISCHARGE: - Safety Precaution Patient will remain free from falls or injury at time of discharge. - Bed Mobility Patient will perform bed mobility at 4-Beckie level of assistance. - Transfers Patient will complete transfers from bed to chair at 4-Beckie level of assistance. - Mobility Patient will ambulate 150 ft with 4-Beckie level of assistance with RW. PATIENT REHAB POTENTIAL Expected level of measurable improvement will be of a practical value to patient's functional capacit y or adaptations to impairments Has a viable Discharge Plan Medically appropriate; condition is sufficiently stable to participate in intensive rehab program Patient is able and expected to receive 3 hours of individualized therapy daily on at least 5 of ever y 7 days Patient's prognosis for significant practical improvement within a reasonable period of time appears Good DISCHARGE PLAN: - Estimated Length of Stay (days) 14. - Consensus on plan Discharge plan has been discussed with primary caregiver. Patient/Family is in agreement with the toney n. Primary caregiver is in agreement with the plan. - Patient/Family Goals Return home with assistance. - Planned Living Setting Upon Discharge Home, to live with Family/Relatives. CONCLUSION ON REHABILITATION NECESSITY: I have evaluated patient's pre-admission functional status and, comparing it to the patient's post-ad mission functional status now, I conclude that the pre-admission assessment was accurate. Patient's c ondition on admission supports the medical necessity of admission to IRF. It is safe to proceed with patient's therapy program. SIGNATURE PANEL: (CDT)
[2018-12-07] MEDS: VITAMIN D 5,000 UNIT CAP PO SCH (17:05)
[2018-12-07] MEDS: HYDROXYUREA 500 MG CAP PO SCH (17:05)
--- NOTE | 2018-12-07 17:05 | FAST ---
ENCOUNTER DATE AND TIME: 12/07/2018 08:00 (CDT) NAME ELENA NOLAN DATE OF : 1940 DATE OF ADMISSION: 12/06/2018 20:10 (CDT) PHONE: AGE: 78 SSN# [id number] GENDER: Male ENCOUNTER PHYSICIAN: Dr. Sid Cruz M.D. ADMISSION DIAGNOSIS: - Orthopaedic Disorders 08 - Unilateral Hip Fracture (08.) right femur fx. EATING: Activity did not occur on this shift EATING - SCORE: 0-UNK GROOMING: Activity did not occur on this shift GROOMING - SCORE: 0-UNK BATHING: Activity did not occur on this shift BATHING - SCORE: 0-UNK DRESSING - UPPER BODY: Activity did not occur on this shift Patient is not dressing in public clothing ARTICLES SCORE Total number of steps: 0 DRESSING - UPPER BODY - SCORE: 0-UNK DRESSING - LOWER BODY: Activity did not occur on this shift Patient is not dressing in public clothing ARTICLES SCORE Total number of steps: 0 DRESSING - LOWER BODY - SCORE: 0-UNK TOILETING: Activity did not occur on this shift TOILETING - SCORE: 0-UNK BLADDER MANAGEMENT: Activity did not occur on this shift BLADDER MANAGEMENT - SCORE: 7-IND BOWEL MANAGEMENT: Activity did not occur on this shift BOWEL MANAGEMENT - SCORE: 7-IND TRANSFERS: BED, CHAIR, WHEELCHAIR: TRANSFERS: BED, CHAIR, WHEELCHAIR - STEP 1: Does the patient require assistance of a person or device, or need extra time with bed, chair, or whe elchair transfers? Yes. TRANSFERS: BED, CHAIR, WHEELCHAIR - STEP 2: Does the patient require the assistance of a helper? Yes. TRANSFERS: BED, CHAIR, WHEELCHAIR - STEP 3: How much assistance does the patient require from the helper? Steadying/guiding assistance TRANSFERS: BED, CHAIR, WHEELCHAIR - SCORE: 4-MIN TRANSFERS: TOILET: Activity did not occur on this shift TRANSFERS: TOILET - SCORE: 0-UNK TRANSFERS: SHOWER: Activity did not occur on this shift TRANSFERS: SHOWER - SCORE: 0-UNK TRANSFERS: TUB: Activity did not occur on this shift TRANSFERS: TUB - SCORE: 0-UNK LOCOMOTION: WALK: Patient walks less than 50 feet LOCOMOTION: WALK - SCORE: 1-DEP LOCOMOTION: WHEELCHAIR: LOCOMOTION: WHEELCHAIR - STEP 1: Does the patient need help to go 150 feet in a wheelchair? Yes. LOCOMOTION: WHEELCHAIR - STEP 2: How much assistance does the patient need from the helper? Only supervision, cuing, or coaxing LOCOMOTION: WHEELCHAIR - SCORE: 5-SUP LOCOMOTION: STAIRS: Activity did not occur on this shift LOCOMOTION: STAIRS - SCORE: 0-UNK COMPREHENSION: COMPREHENSION - SCORE: 0-UNK EXPRESSION EXPRESSION - SCORE: 0-UNK SOCIAL INTERACTION: SOCIAL INTERACTION - SCORE: 0-UNK PROBLEM SOLVING: PROBLEM SOLVING - SCORE: 0-UNK MEMORY: MEMORY - SCORE: 0-UNK SIGNATURE PANEL: The following modified sections: Transfers: Bed, Chair, Wheelchair - Score, Transfers: Toilet - Score , Locomotion: Walk - Score, Locomotion: Wheelchair - Score, Locomotion: Stairs - Score were [electron janet] signed by Baltazar Mann PT on WedDec 07 2018 17:05:16 T-0500 (Central Daylight Time)
[2018-12-07] MEDS: MAGNESIUM OXIDE 400 MG TAB PO SCH (19:20)
[2018-12-07] MEDS: JUVEN PACKET PO SCH (19:20)
[2018-12-07] MEDS: NYSTATIN PWDR 100000 UNIT/GM TOP SCH (19:26)
[2018-12-07] MEDS ORDERED: IPRATROPIUM IH SCH (20:00)
[2018-12-07] MEDS: MELATONIN 3 MG TABLET PO SCH (22:03)
--- NOTE | 2018-12-08 03:05 | FAST ---
SHIFT START DATE/TIME: 12/07/2018 19:00 (CDT) SHIFT END DATE/TIME: 12/08/2018 07:00 (CDT) NAME ELENA NOLAN DATE OF : 1940 DATE OF ADMISSION: 12/06/2018 20:10 (CDT) PHONE: AGE: 78 SSN# [id number] GENDER: Male ENCOUNTER PHYSICIAN: Dr. Sid Cruz M.D. ADMISSION DIAGNOSIS: - Orthopaedic Disorders 08 - Unilateral Hip Fracture (08.11) right femur fx. EATING: Activity did not occur on this shift EATING - SCORE: 0-UNK GROOMING: Activity did not occur on this shift GROOMING - SCORE: 0-UNK BATHING: Activity did not occur on this shift BATHING - SCORE: 0-UNK DRESSING - UPPER BODY: Activity did not occur on this shift ARTICLES SCORE Total number of steps: 0 DRESSING - UPPER BODY - SCORE: 0-UNK DRESSING - LOWER BODY: Activity did not occur on this shift ARTICLES SCORE Total number of steps: 0 DRESSING - LOWER BODY - SCORE: 0-UNK TOILETING: TOILETING - STEP 1: Does the patient require the assistance of a person or device, or need extra time with toileting? Yes . TOILETING - STEP 2: Does the patient require the assistance of a helper? Yes. TOILETING - STEP 3: How much assistance does the patient require from the helper? Hands-on assistance from the helper TOILETING - STEP 4: Of the 3 tasks: 1) Adjusting clothing prior to use, 2) Cleansing of perineal area, 3) Adjusting clot neyda after use; How many tasks does the patient perform WITHOUT assistance of the helper? Two tasks TOILETING - SCORE: 3-MOD BLADDER MANAGEMENT: BLADDER MANAGEMENT - STEP 1: Does the patient control the bladder completely and intentionally without equipment or devices or med ications, and is always continent? No. BLADDER MANAGEMENT - STEP 2: Does the patient require the assistance of a helper? Yes. BLADDER MANAGEMENT - STEP 3: How much assistance does the patient require from the helper? Patient requires contact assistance fro m the helper BLADDER MANAGEMENT - STEP 4: How much contact assistance does the patient require from the helper? Patient requires moderate abbey tance, and performs 50% to 75% of bladder management tasks - [place] positions AND holds urinal or bed jones BLADDER MANAGEMENT - SCORE: 3-MOD BOWEL MANAGEMENT: Activity did not occur on this shift BOWEL MANAGEMENT - SCORE: 7-IND TRANSFERS: BED, CHAIR, WHEELCHAIR: TRANSFERS: BED, CHAIR, WHEELCHAIR - STEP 1: Does the patient require assistance of a person or device, or need extra time with bed, chair, or whe elchair transfers? Yes. TRANSFERS: BED, CHAIR, WHEELCHAIR - STEP 2: Does the patient require the assistance of a helper? Yes. TRANSFERS: BED, CHAIR, WHEELCHAIR - STEP 3: How much assistance does the patient require from the helper? Lifting of the legs TRANSFERS: BED, CHAIR, WHEELCHAIR - STEP 4: How many legs does the patient require the helper to lift? both legs TRANSFERS: BED, CHAIR, WHEELCHAIR - SCORE: 3-MOD TRANSFERS: TOILET: TRANSFERS: TOILET - STEP 1: Does the patient require the assistance of a person or device, or need extra time with toilet transfe rs? Yes. TRANSFERS: TOILET - STEP 2: Does the patient require the assistance of a helper? Yes. TRANSFERS: TOILET - STEP 3: How much assistance does the patient require from the helper? Patient performs half or more of the tr ansferring tasks TRANSFERS: TOILET - STEP 4: Does the patient need only incidental help such as contact guard or steadying during toilet transfer? Yes. TRANSFERS: TOILET - SCORE: 4-MIN TRANSFERS: SHOWER: Activity did not occur on this shift TRANSFERS: SHOWER - SCORE: 0-UNK TRANSFERS: TUB: Activity did not occur on this shift TRANSFERS: TUB - SCORE: 0-UNK LOCOMOTION: WALK: Activity did not occur on this shift LOCOMOTION: WALK - SCORE: 0-UNK LOCOMOTION: WHEELCHAIR: Activity did not occur on this shift LOCOMOTION: WHEELCHAIR - SCORE: 0-UNK COMPREHENSION: COMPREHENSION: TYPE: Both COMPREHENSION - STEP 1: Does the patient require help from a person or device, or need extra time to understand complex and a bstract ideas (such as current events, finances, discharge planning, medical issues, relationships, e tc)? No. COMPREHENSION - STEP 2: Does the patient need extra time, require an assistive device (such as glasses for visual comprehensi on or a hearing aid for auditory comprehension) or does s/he have mild difficulty understanding compl ex and abstract information? Yes. COMPREHENSION - SCORE: 6-NGOC EXPRESSION EXPRESSION: TYPE: Both EXPRESSION - STEP 1: Does the patient require help from a person or device, or need extra time expressing complex and abst ract ideas (such as current events, finances, discharge planning, medical issues, relationships, etc) ? No. EXPRESSION - STEP 2: Does the patient need extra time, require an assistive device (such as augmentive communication syste m or a communication board), OR does s/he have mild difficulty expressing complex and abstract ideas (including mild dysarthria or mild word-find problems)? No. EXPRESSION - SCORE: 7-IND SOCIAL INTERACTION: SOCIAL INTERACTION - STEP 1: Does the patient require a helper to interact with others in social and therapeutic situations? No. SOCIAL INTERACTION - STEP 2: Does the patient need extra time in social situations, OR does s/he interact with staff, other patien ts, and family members ONLY in structured environments, OR does s/he require medication for social in teraction? No. SOCIAL INTERACTION - SCORE: 7-IND PROBLEM SOLVING: PROBLEM SOLVING - STEP 1: Does the patient need help from a person or device, or need extra time to solve complex problems such as managing a checking account or confronting interpersonal problems? No. PROBLEM SOLVING - STEP 2: Does the patient require extra time to make decisions or solve problems, OR does s/he have slight dif ficulty reading, initiating, or self-correcting in unfamiliar situations? No. PROBLEM SOLVING - SCORE: 7-IND MEMORY: MEMORY - STEP 1: Does the patient need help from a person or device, or need extra time to remember frequently encount ered people, daily routines, and executing requests? No. MEMORY - STEP 2: Does the patient have slight difficulty recognizing frequently encountered people, daily routines, or executing requests without the need for repetition or using self-initiated or environmental cues to remember? No. MEMORY - SCORE: 7-IND SIGNATURE PANEL: The following modified sections: Eating - Score, Grooming - Score, Bathing - Score, Dressing - Upper Body - Score, Dressing - Lower Body - Score, Toileting - Score, Bladder Management - Score, Bowel Man agement - Score, Transfers: Bed, Chair, Wheelchair - Score, Transfers: Toilet - Score, Transfers: Rosangela wer - Score, Transfers: Tub - Score, Locomotion: Walk - Score, Locomotion: Wheelchair - Score, Compre hension - Score, Expression - Score, Social Interaction - Score, Problem Solving - Score, Memory - Sc ore were [electronically] signed by Asepn Ching CNA on WedDec 08 2018 03:04:15 T-0500 ([place] Da ylight Time)
[2018-12-08] MEDS: LEVOTHYROXINE SOD 0.05 MG TABLET PO SCH (06:24)
[2018-12-08] MEDS: PANTOPRAZOLE 40MG TABLET PO SCH (06:24)
[2018-12-08] MEDS: ALBUTEROL 2.5 MG/3 ML NEB SOL NEB SCH ×3 (07:50→20:00)
[2018-12-08] MEDS: NYSTATIN PWDR 100000 UNIT/GM TOP SCH ×2 (08:00→19:52)
[2018-12-08] MEDS: ENOXAPARIN 40 MG/0.4 ML SQ SCH (08:00)
[2018-12-08] MEDS: D3 PO SCH ×2 (08:00→19:54)
[2018-12-08] MEDS: HOME MED 1 EA UNK PO SCH ×3 (08:00)
[2018-12-08] MEDS: CAL MAG ZINC PO SCH ×2 (08:00→19:54)
[2018-12-08] MEDS: ZINC SULFATE 220 MG CAP PO SCH (08:29)
[2018-12-08] MEDS: MULTIVIT W/ MINERAL TAB PO SCH (08:29)
[2018-12-08] MEDS: LORATADINE 10 MG TAB PO SCH (08:29)
[2018-12-08] MEDS: VITAMIN B COMPLEX 1 CAP PO SCH (08:29)
[2018-12-08] MEDS: DOCUSATE NA 100 MG CAP PO SCH ×2 (08:29→19:54)
[2018-12-08] MEDS: predniSONE 5 MG TAB PO SCH (08:29)
[2018-12-08] MEDS: MAGNESIUM OXIDE 400 MG TAB PO SCH ×2 (08:29→19:53)
[2018-12-08] MEDS: ASPIRIN EC 81 MG TAB PO SCH (08:29)
[2018-12-08] MEDS: LOSARTAN POTASSIUM 50 MG TABLET PO SCH (08:30)
[2018-12-08] MEDS: AMIODARONE HCL 200 MG TAB PO SCH (08:30)
[2018-12-08] MEDS: ATORVASTATIN 20 MG TAB PO SCH (08:30)
[2018-12-08] MEDS: VITAMIN A 10,000 IU CAP PO SCH (08:30)
[2018-12-08] MEDS: CARVEDILOL 6.25 MG TAB PO SCH ×2 (08:31→19:52)
[2018-12-08] MEDS: JUVEN PACKET PO SCH ×2 (08:32→19:54)
[2018-12-08] MEDS: HYDROCODONE/APAP 10/325 TAB PO PRN ×3 (08:34→21:59)
[2018-12-08] MEDS: ONDANSETRON 4 MG (ODT) TAB PO PRN (08:36)
[2018-12-08] MEDS: LIDOCAINE 5% PATCH TOP SCH (09:44)
--- NOTE | 2018-12-08 13:12 | FAST ---
SHIFT START DATE/TIME: 12/08/2018 07:00 (CDT) SHIFT END DATE/TIME: 12/08/2018 19:00 (CDT) NAME ELENA NOLAN DATE OF : 1940 DATE OF ADMISSION: 12/06/2018 20:10 (CDT) PHONE: AGE: 78 N# [id number] GENDER: Male ENCOUNTER PHYSICIAN: Dr. Sid Cruz M.D. ADMISSION DIAGNOSIS: - Orthopaedic Disorders 08 - Unilateral Hip Fracture (08.11) right femur fx. EATING: EATING - STEP 1: Does the patient require the assistance of a person or device, or need extra time when eating? Yes. EATING - STEP 2: Does the patient require the assistance of a helper? No, patient only requires an assistive device, O R s/he takes more than reasonable time to eat, OR there is a safety concern, OR s/he requires modifie d food consistency EATING - SCORE: 6-NGOC GROOMING: Comb/brush hair Oral care Wash, rinse, and dry face Wash, rinse, and dry hands GROOMING - STEP 1: Does the patient require the assistance of a person or device, or need extra time when grooming? Yes. GROOMING - STEP 2: Does the patient require the assistance of a helper? Yes. GROOMING - STEP 3: How much assistance does the patient require from the helper? Only prior equipment preparation/set up from the helper GROOMING - SCORE: 5-SUP BATHING: Activity did not occur on this shift BATHING - SCORE: 0-UNK DRESSING - UPPER BODY: Activity did not occur on this shift ARTICLES SCORE Total number of steps: 0 DRESSING - UPPER BODY - SCORE: 0-UNK DRESSING - LOWER BODY: ARTICLES SCORE Total number of steps: 10 DRESSING - LOWER BODY - STEP 1: Does the patient require help from a person or device, or need extra time when dressing below the noreen st? Yes. DRESSING - LOWER BODY - STEP 2: Does the patient require the assistance of a helper? Yes. DRESSING - LOWER BODY - STEP 3: Does the helper touch the patient while dressing? Yes. DRESSING - LOWER BODY - STEP 4: How many of the total steps does the patient complete on his/her own? 5 DRESSING - LOWER BODY - SCORE: 3-MOD TOILETING: TOILETING - STEP 1: Does the patient require the assistance of a person or device, or need extra time with toileting? Yes . TOILETING - STEP 2: Does the patient require the assistance of a helper? Yes. TOILETING - STEP 3: How much assistance does the patient require from the helper? Hands-on assistance from the helper TOILETING - STEP 4: Of the 3 tasks: 1) Adjusting clothing prior to use, 2) Cleansing of perineal area, 3) Adjusting clot neyda after use; How many tasks does the patient perform WITHOUT assistance of the helper? Three tasks with steadying assistance from the helper TOILETING - SCORE: 4-MIN BLADDER MANAGEMENT: BLADDER MANAGEMENT - STEP 1: Does the patient control the bladder completely and intentionally without equipment or devices or med ications, and is always continent? No. BLADDER MANAGEMENT - STEP 2: Does the patient require the assistance of a helper? No, patient requires and independently uses an a ssistive device, such as a urinal, bedpan, bedside commode, catheter, absorbent pad, or collecting de vice BLADDER MANAGEMENT - SCORE: 6-NGOC BLADDER MANAGEMENT - FREQUENCY OF ACCIDENTS: BLADDER MANAGEMENT(FA) - STEP 1: How many accidents has the patient had during the current shift? 1 BOWEL MANAGEMENT: [place] removes incontinent device (depends, pull ups, etc.); cleans the patient after accident / inco ntinent episode; and, applies new device (depends, pull-ups, padding, etc.). BOWEL MANAGEMENT - SCORE: 1-DEP BOWEL MANAGEMENT - FREQUENCY OF ACCIDENTS: BOWEL MANAGEMENT(FA) - STEP 1: How many accidents has the patient had during the current shift? 1 TRANSFERS: BED, CHAIR, WHEELCHAIR: TRANSFERS: BED, CHAIR, WHEELCHAIR - STEP 1: Does the patient require assistance of a person or device, or need extra time with bed, chair, or whe elchair transfers? Yes. TRANSFERS: BED, CHAIR, WHEELCHAIR - STEP 2: Does the patient require the assistance of a helper? Yes. TRANSFERS: BED, CHAIR, WHEELCHAIR - STEP 3: How much assistance does the patient require from the helper? Steadying/guiding assistance TRANSFERS: BED, CHAIR, WHEELCHAIR - SCORE: 4-MIN TRANSFERS: TOILET: TRANSFERS: TOILET - STEP 1: Does the patient require the assistance of a person or device, or need extra time with toilet transfe rs? Yes. TRANSFERS: TOILET - STEP 2: Does the patient require the assistance of a helper? Yes. TRANSFERS: TOILET - STEP 3: How much assistance does the patient require from the helper? Patient performs half or more of the tr ansferring tasks TRANSFERS: TOILET - STEP 4: Does the patient need only incidental help such as contact guard or steadying during toilet transfer? No. Patient needs more than incidental help TRANSFERS: TOILET - SCORE: 3-MOD TRANSFERS: SHOWER: Activity did not occur on this shift TRANSFERS: SHOWER - SCORE: 0-UNK TRANSFERS: TUB: Activity did not occur on this shift TRANSFERS: TUB - SCORE: 0-UNK LOCOMOTION: WALK: Activity did not occur on this shift LOCOMOTION: WALK - SCORE: 0-UNK LOCOMOTION: WHEELCHAIR: Activity did not occur on this shift LOCOMOTION: WHEELCHAIR - SCORE: 0-UNK COMPREHENSION: COMPREHENSION: TYPE: Both COMPREHENSION - STEP 1: Does the patient require help from a person or device, or need extra time to understand complex and a bstract ideas (such as current events, finances, discharge planning, medical issues, relationships, e tc)? Yes. COMPREHENSION - STEP 2: Does the patient require help to understand questions or statements about basic needs or ideas (such as hunger, thirst, sleep, safety, daily schedule, room location, or discomfort) half or more of the t leda? No. COMPREHENSION - STEP 3: How often does the patient need help to understand directions and conversation about basic needs? Les s than 10% of the time COMPREHENSION - SCORE: 5-SUP EXPRESSION EXPRESSION: TYPE: Both EXPRESSION - STEP 1: Does the patient require help from a person or device, or need extra time expressing complex and abst ract ideas (such as current events, finances, discharge planning, medical issues, relationships, etc) ? No. EXPRESSION - STEP 2: Does the patient need extra time, require an assistive device (such as augmentive communication syste m or a communication board), OR does s/he have mild difficulty expressing complex and abstract ideas (including mild dysarthria or mild word-find problems)? Yes. EXPRESSION - SCORE: 6-NGOC SOCIAL INTERACTION: SOCIAL INTERACTION - STEP 1: Does the patient require a helper to interact with others in social and therapeutic situations? No. SOCIAL INTERACTION - STEP 2: Does the patient need extra time in social situations, OR does s/he interact with staff, other patien ts, and family members ONLY in structured environments, OR does s/he require medication for social in teraction? Yes, patient needs extra time SOCIAL INTERACTION - SCORE: 6-NGOC PROBLEM SOLVING: PROBLEM SOLVING - STEP 1: Does the patient need help from a person or device, or need extra time to solve complex problems such as managing a checking account or confronting interpersonal problems? No. PROBLEM SOLVING - STEP 2: Does the patient require extra time to make decisions or solve problems, OR does s/he have slight dif ficulty reading, initiating, or self-correcting in unfamiliar situations? Yes, patient needs extra ti me. PROBLEM SOLVING - SCORE: 6-NGOC MEMORY: MEMORY - STEP 1: Does the patient need help from a person or device, or need extra time to remember frequently encount ered people, daily routines, and executing requests? No. MEMORY - STEP 2: Does the patient have slight difficulty recognizing frequently encountered people, daily routines, or executing requests without the need for repetition or using self-initiated or environmental cues to remember? Yes. MEMORY - SCORE: 6-NGOC SIGNATURE PANEL: The following modified sections: Eating - Score, Grooming - Score, Bathing - Score, Dressing - Upper Body - Score, Dressing - Lower Body - Score, Toileting - Score, Bladder Management - Score, Bowel Man agement - Score, Transfers: Bed, Chair, Wheelchair - Score, Transfers: Toilet - Score, Transfers: [place]ang[place] wer - Score, Transfers: Tub - Score, Locomotion: Walk - Score, Locomotion: Wheelchair - Score, Compre hension - Score, Expression - Score, Social Interaction - Score, Problem Solving - Score, Memory - Sc ore were [electronically] signed by Anthony Reyes on WedDec 08 2018 13:10:58 T-0500 (Central Daylight Time)
--- NOTE | 2018-12-08 16:17 | FAST ---
ENCOUNTER DATE AND TIME: 12/08/2018 08:00 (CDT) NAME ELENA NOLAN DATE OF : 1940 DATE OF ADMISSION: 12/06/2018 20:10 (CDT) PHONE: AGE: 78 SSN# [id number] GENDER: Male ENCOUNTER PHYSICIAN: Dr. Sid Cruz M.D. ADMISSION DIAGNOSIS: - Orthopaedic Disorders 08 - Unilateral Hip Fracture (08.) right femur fx. EATING: Activity did not occur on this shift EATING - SCORE: 0-UNK GROOMING: Activity did not occur on this shift GROOMING - SCORE: 0-UNK BATHING: Activity did not occur on this shift BATHING - SCORE: 0-UNK DRESSING - UPPER BODY: Activity did not occur on this shift Patient is not dressing in public clothing ARTICLES SCORE Total number of steps: 0 DRESSING - UPPER BODY - SCORE: 0-UNK DRESSING - LOWER BODY: Activity did not occur on this shift Patient is not dressing in public clothing ARTICLES SCORE Total number of steps: 0 DRESSING - LOWER BODY - SCORE: 0-UNK TOILETING: Activity did not occur on this shift TOILETING - SCORE: 0-UNK BLADDER MANAGEMENT: Activity did not occur on this shift BLADDER MANAGEMENT - SCORE: 7-IND BOWEL MANAGEMENT: Activity did not occur on this shift BOWEL MANAGEMENT - SCORE: 7-IND TRANSFERS: BED, CHAIR, WHEELCHAIR: TRANSFERS: BED, CHAIR, WHEELCHAIR - STEP 1: Does the patient require assistance of a person or device, or need extra time with bed, chair, or whe elchair transfers? Yes. TRANSFERS: BED, CHAIR, WHEELCHAIR - STEP 2: Does the patient require the assistance of a helper? Yes. TRANSFERS: BED, CHAIR, WHEELCHAIR - STEP 3: How much assistance does the patient require from the helper? Steadying/guiding assistance TRANSFERS: BED, CHAIR, WHEELCHAIR - SCORE: 4-MIN TRANSFERS: TOILET: Activity did not occur on this shift TRANSFERS: TOILET - SCORE: 0-UNK TRANSFERS: SHOWER: Activity did not occur on this shift TRANSFERS: SHOWER - SCORE: 0-UNK TRANSFERS: TUB: Activity did not occur on this shift TRANSFERS: TUB - SCORE: 0-UNK LOCOMOTION: WALK: Patient walks less than 50 feet LOCOMOTION: WALK - SCORE: 1-DEP LOCOMOTION: WHEELCHAIR: LOCOMOTION: WHEELCHAIR - STEP 1: Does the patient need help to go 150 feet in a wheelchair? Yes. LOCOMOTION: WHEELCHAIR - STEP 2: How much assistance does the patient need from the helper? Only supervision, cuing, or coaxing LOCOMOTION: WHEELCHAIR - SCORE: 5-SUP LOCOMOTION: STAIRS: Activity did not occur on this shift LOCOMOTION: STAIRS - SCORE: 0-UNK COMPREHENSION: COMPREHENSION - SCORE: 0-UNK EXPRESSION EXPRESSION - SCORE: 0-UNK SOCIAL INTERACTION: SOCIAL INTERACTION - SCORE: 0-UNK PROBLEM SOLVING: PROBLEM SOLVING - SCORE: 0-UNK MEMORY: MEMORY - SCORE: 0-UNK SIGNATURE PANEL: The following modified sections: Transfers: Bed, Chair, Wheelchair - Score, Transfers: Toilet - Score , Locomotion: Walk - Score, Locomotion: Wheelchair - Score, Locomotion: Stairs - Score were [electron janet] signed by Baltazar Mann PT on WedDec 08 2018 16:16:56 T-0500 (Central Daylight Time)
[2018-12-08] MEDS: VITAMIN D 5,000 UNIT CAP PO SCH (16:30)
--- NOTE | 2018-12-08 17:09 | FAST ---
ENCOUNTER DATE AND TIME: 12/07/2018 08:00 (CDT) NAME ELENA NOLAN DATE OF : 1940 DATE OF ADMISSION: 12/06/2018 20:10 (CDT) PHONE: AGE: 78 N# [id number] GENDER: Male ENCOUNTER PHYSICIAN: Dr. Sid Cruz M.D. ADMISSION DIAGNOSIS: - Orthopaedic Disorders 08 - Unilateral Hip Fracture (08.11) right femur fx. EATING: EATING - STEP 1: Does the patient require the assistance of a person or device, or need extra time when eating? No. EATING - SCORE: 7-IND GROOMING: Comb/brush hair Oral care Wash, rinse, and dry face Wash, rinse, and dry hands GROOMING - STEP 1: Does the patient require the assistance of a person or device, or need extra time when grooming? No. GROOMING - SCORE: 7-IND BATHING: Abdomen Buttocks Chest Left arm Left lower leg and foot Left upper leg Perineal area Right arm Right lower leg and foot Right upper leg BATHING - STEP 1: Does the patient require the assistance of a person or device, or need extra time when bathing? Yes. BATHING - STEP 2: Does the patient require the assistance of a helper? Yes. BATHING - STEP 3: How much assistance does the patient require from the helper? More than just incidental help BATHING - STEP 4: What percent of the body parts did the patient bathe WITHOUT the helper? Half or more of the body par ts BATHING - SCORE: 3-MOD DRESSING - UPPER BODY: T-shirt/pullover shirt (four steps) ARTICLES SCORE Total number of steps: 4 DRESSING - UPPER BODY - STEP 1: Does the patient require help from a person or device, or need extra time when dressing above the n[address] st? Yes. DRESSING - UPPER BODY - STEP 2: Does the patient require the assistance of a helper? Yes. DRESSING - UPPER BODY - STEP 3: Does the helper touch the patient while dressing? No. DRESSING - UPPER BODY - SCORE: 5-SUP DRESSING - LOWER BODY: Elastic waist pants (three steps) Sock - Left foot (one step) Sock - Right foot (one step) Underwear (three steps) ARTICLES SCORE Total number of steps: 8 DRESSING - LOWER BODY - STEP 1: Does the patient require help from a person or device, or need extra time when dressing below the nore[address] st? Yes. DRESSING - LOWER BODY - STEP 2: Does the patient require the assistance of a helper? Yes. DRESSING - LOWER BODY - STEP 3: Does the helper touch the patient while dressing? Yes. DRESSING - LOWER BODY - STEP 4: How many of the total steps does the patient complete on his/her own? 0 DRESSING - LOWER BODY - STEP 5: Does patient require total assistance for dressing below the waist such as the helper holding clothin g and performing basically all the activities? Yes. DRESSING - LOWER BODY - SCORE: 1-DEP TOILETING: Activity did not occur on this shift TOILETING - SCORE: 0-UNK BLADDER MANAGEMENT: Activity did not occur on this shift BLADDER MANAGEMENT - SCORE: 7-IND BOWEL MANAGEMENT: Activity did not occur on this shift BOWEL MANAGEMENT - SCORE: 7-IND TRANSFERS: BED, CHAIR, WHEELCHAIR: Activity did not occur on this shift TRANSFERS: BED, CHAIR, WHEELCHAIR - SCORE: 0-UNK TRANSFERS: TOILET: Activity did not occur on this shift TRANSFERS: TOILET - SCORE: 0-UNK TRANSFERS: SHOWER: TRANSFERS: SHOWER - STEP 1: Does the patient require the assistance of a person or device, or need extra time with shower transfe rs? Yes. TRANSFERS: SHOWER - STEP 2: Does the patient require the assistance of a helper? Yes. TRANSFERS: SHOWER - STEP 3: How much assistance does the patient require from the helper? More than incidental help TRANSFERS: SHOWER - STEP 4: How much more help does the patient require from the helper? Lifting the patient up AND down from the wheelchair onto the shower chair TRANSFERS: SHOWER - SCORE: 2-MAX TRANSFERS: TUB: Activity did not occur on this shift TRANSFERS: TUB - SCORE: 0-UNK LOCOMOTION: WALK: Activity did not occur on this shift LOCOMOTION: WALK - SCORE: 0-UNK LOCOMOTION: WHEELCHAIR: Activity did not occur on this shift LOCOMOTION: WHEELCHAIR - SCORE: 0-UNK LOCOMOTION: STAIRS: Activity did not occur on this shift LOCOMOTION: STAIRS - SCORE: 0-UNK COMPREHENSION: COMPREHENSION: TYPE: Both COMPREHENSION - STEP 1: Does the patient require help from a person or device, or need extra time to understand complex and a bstract ideas (such as current events, finances, discharge planning, medical issues, relationships, e tc)? No. COMPREHENSION - STEP 2: Does the patient need extra time, require an assistive device (such as glasses for visual comprehensi on or a hearing aid for auditory comprehension) or does s/he have mild difficulty understanding compl ex and abstract information? Yes. COMPREHENSION - SCORE: 6-NGOC EXPRESSION EXPRESSION: TYPE: Both EXPRESSION - STEP 1: Does the patient require help from a person or device, or need extra time expressing complex and abst ract ideas (such as current events, finances, discharge planning, medical issues, relationships, etc) ? No. EXPRESSION - STEP 2: Does the patient need extra time, require an assistive device (such as augmentive communication syste m or a communication board), OR does s/he have mild difficulty expressing complex and abstract ideas (including mild dysarthria or mild word-find problems)? Yes. EXPRESSION - SCORE: 6-NGOC SOCIAL INTERACTION: SOCIAL INTERACTION - STEP 1: Does the patient require a helper to interact with others in social and therapeutic situations? No. SOCIAL INTERACTION - STEP 2: Does the patient need extra time in social situations, OR does s/he interact with staff, other patien ts, and family members ONLY in structured environments, OR does s/he require medication for social in teraction? Yes, patient needs extra time SOCIAL INTERACTION - SCORE: 6-NGOC PROBLEM SOLVING: PROBLEM SOLVING - STEP 1: Does the patient need help from a person or device, or need extra time to solve complex problems such as managing a checking account or confronting interpersonal problems? Yes. PROBLEM SOLVING - STEP 2: Does the patient solve basic routine problems half or more of the time? Yes. PROBLEM SOLVING - STEP 3: How often does the patient need help to solve basic routine problems? 10%-24% of the time PROBLEM SOLVING - SCORE: 4-MIN MEMORY: MEMORY - STEP 1: Does the patient need help from a person or device, or need extra time to remember frequently encount ered people, daily routines, and executing requests? Yes. MEMORY - STEP 2: How often does the patient need help to remember frequently encountered people, daily routines, and e xecuting requests? Less than 10% of the time MEMORY - SCORE: 5-SUP SIGNATURE PANEL: The following modified sections: Eating - Score, Grooming - Score, Bathing - Score, Dressing - Upper Body - Score, Dressing - Lower Body - Score, Toileting - Score, Transfers: Bed, Chair, Wheelchair - S core, Transfers: Toilet - Score, Transfers: Tub - Score, Transfers: Shower - Score, Comprehension - S core, Expression - Score, Social Interaction - Score, Problem Solving - Score, Memory - Score were [e lectronically] signed by Meena Degroot OT on WedDec 08 2018 17:09:31 T-0500 (Central Daylight T led[place])
[2018-12-08] MEDS: PROMOD 30 ML DOSE PO SCH (19:54)
[2018-12-08] MEDS: MELATONIN 3 MG TABLET PO SCH (21:59)
--- NOTE | 2018-12-09 02:51 | FAST ---
SHIFT START DATE/TIME: 12/08/2018 19:00 (CDT) SHIFT END DATE/TIME: 12/09/2018 07:00 (CDT) NAME ELENA NOLAN DATE OF : 1940 DATE OF ADMISSION: 12/06/2018 20:10 (CDT) PHONE: AGE: 78 SSN# [id number] GENDER: Male ENCOUNTER PHYSICIAN: Dr. Sid Cruz M.D. ADMISSION DIAGNOSIS: - Orthopaedic Disorders 08 - Unilateral Hip Fracture (08.11) right femur fx. EATING: Activity did not occur on this shift EATING - SCORE: 0-UNK GROOMING: Activity did not occur on this shift GROOMING - SCORE: 0-UNK BATHING: Activity did not occur on this shift BATHING - SCORE: 0-UNK DRESSING - UPPER BODY: Activity did not occur on this shift ARTICLES SCORE Total number of steps: 0 DRESSING - UPPER BODY - SCORE: 0-UNK DRESSING - LOWER BODY: Activity did not occur on this shift ARTICLES SCORE Total number of steps: 0 DRESSING - LOWER BODY - SCORE: 0-UNK TOILETING: TOILETING - STEP 1: Does the patient require the assistance of a person or device, or need extra time with toileting? Yes . TOILETING - STEP 2: Does the patient require the assistance of a helper? Yes. TOILETING - STEP 3: How much assistance does the patient require from the helper? Hands-on assistance from the helper TOILETING - STEP 4: Of the 3 tasks: 1) Adjusting clothing prior to use, 2) Cleansing of perineal area, 3) Adjusting clot neyda after use; How many tasks does the patient perform WITHOUT assistance of the helper? Three tasks with steadying assistance from the helper TOILETING - SCORE: 4-MIN BLADDER MANAGEMENT: [place] removes incontinent device (Depends, pull ups, etc.); cleans the patient after accident / inco ntinent episode; and, applies new incontinent device. BLADDER MANAGEMENT - SCORE: 1-DEP BOWEL MANAGEMENT: Activity did not occur on this shift BOWEL MANAGEMENT - SCORE: 7-IND TRANSFERS: BED, CHAIR, WHEELCHAIR: TRANSFERS: BED, CHAIR, WHEELCHAIR - STEP 1: Does the patient require assistance of a person or device, or need extra time with bed, chair, or whe elchair transfers? Yes. TRANSFERS: BED, CHAIR, WHEELCHAIR - STEP 2: Does the patient require the assistance of a helper? Yes. TRANSFERS: BED, CHAIR, WHEELCHAIR - STEP 3: How much assistance does the patient require from the helper? Lifting of the legs TRANSFERS: BED, CHAIR, WHEELCHAIR - STEP 4: How many legs does the patient require the helper to lift? both legs TRANSFERS: BED, CHAIR, WHEELCHAIR - SCORE: 3-MOD TRANSFERS: TOILET: TRANSFERS: TOILET - STEP 1: Does the patient require the assistance of a person or device, or need extra time with toilet transfe rs? Yes. TRANSFERS: TOILET - STEP 2: Does the patient require the assistance of a helper? Yes. TRANSFERS: TOILET - STEP 3: How much assistance does the patient require from the helper? Patient performs half or more of the tr ansferring tasks TRANSFERS: TOILET - STEP 4: Does the patient need only incidental help such as contact guard or steadying during toilet transfer? Yes. TRANSFERS: TOILET - SCORE: 4-MIN TRANSFERS: SHOWER: Activity did not occur on this shift TRANSFERS: SHOWER - SCORE: 0-UNK TRANSFERS: TUB: Activity did not occur on this shift TRANSFERS: TUB - SCORE: 0-UNK LOCOMOTION: WALK: Activity did not occur on this shift LOCOMOTION: WALK - SCORE: 0-UNK LOCOMOTION: WHEELCHAIR: Activity did not occur on this shift LOCOMOTION: WHEELCHAIR - SCORE: 0-UNK COMPREHENSION: COMPREHENSION: TYPE: Both COMPREHENSION - STEP 1: Does the patient require help from a person or device, or need extra time to understand complex and a bstract ideas (such as current events, finances, discharge planning, medical issues, relationships, e tc)? No. COMPREHENSION - STEP 2: Does the patient need extra time, require an assistive device (such as glasses for visual comprehensi on or a hearing aid for auditory comprehension) or does s/he have mild difficulty understanding compl ex and abstract information? Yes. COMPREHENSION - SCORE: 6-NGOC EXPRESSION EXPRESSION: TYPE: Both EXPRESSION - STEP 1: Does the patient require help from a person or device, or need extra time expressing complex and abst ract ideas (such as current events, finances, discharge planning, medical issues, relationships, etc) ? No. EXPRESSION - STEP 2: Does the patient need extra time, require an assistive device (such as augmentive communication syste m or a communication board), OR does s/he have mild difficulty expressing complex and abstract ideas (including mild dysarthria or mild word-find problems)? No. EXPRESSION - SCORE: 7-IND SOCIAL INTERACTION: SOCIAL INTERACTION - STEP 1: Does the patient require a helper to interact with others in social and therapeutic situations? No. SOCIAL INTERACTION - STEP 2: Does the patient need extra time in social situations, OR does s/he interact with staff, other patien ts, and family members ONLY in structured environments, OR does s/he require medication for social in teraction? No. SOCIAL INTERACTION - SCORE: 7-IND PROBLEM SOLVING: PROBLEM SOLVING - STEP 1: Does the patient need help from a person or device, or need extra time to solve complex problems such as managing a checking account or confronting interpersonal problems? No. PROBLEM SOLVING - STEP 2: Does the patient require extra time to make decisions or solve problems, OR does s/he have slight dif ficulty reading, initiating, or self-correcting in unfamiliar situations? No. PROBLEM SOLVING - SCORE: 7-IND MEMORY: MEMORY - STEP 1: Does the patient need help from a person or device, or need extra time to remember frequently encount ered people, daily routines, and executing requests? No. MEMORY - STEP 2: Does the patient have slight difficulty recognizing frequently encountered people, daily routines, or executing requests without the need for repetition or using self-initiated or environmental cues to remember? No. MEMORY - SCORE: 7-IND SIGNATURE PANEL: The following modified sections: Eating - Score, Grooming - Score, Bathing - Score, Dressing - Upper Body - Score, Dressing - Lower Body - Score, Toileting - Score, Bladder Management - Score, Bowel Man agement - Score, Transfers: Bed, Chair, Wheelchair - Score, Transfers: Toilet - Score, Transfers: Rosangela wer - Score, Transfers: Tub - Score, Locomotion: Walk - Score, Locomotion: Wheelchair - Score, Compre hension - Score, Expression - Score, Social Interaction - Score, Problem Solving - Score, Memory - Sc ore were [electronically] signed by Aspen Ching CNA on WedDec 09 2018 02:50:58 T-0500 ([facility] Time)
[2018-12-09] MEDS: PANTOPRAZOLE 40MG TABLET PO SCH (06:53)
[2018-12-09] MEDS: LEVOTHYROXINE SOD 0.05 MG TABLET PO SCH (06:53)
[2018-12-09] MEDS: ALBUTEROL 2.5 MG/3 ML NEB SOL NEB SCH ×3 (07:30→20:00)
[2018-12-09] MEDS: ENOXAPARIN 40 MG/0.4 ML SQ SCH (07:59)
[2018-12-09] MEDS: CAL MAG ZINC PO SCH ×2 (08:00→20:00)
[2018-12-09] MEDS: NYSTATIN PWDR 100000 UNIT/GM TOP SCH ×2 (08:00→20:00)
[2018-12-09] MEDS: PROMOD 30 ML DOSE PO SCH ×2 (08:00→20:00)
[2018-12-09] MEDS: MEDIHONEY 44 ML TOPICAL TUBE TOP SCH (08:00)
[2018-12-09] MEDS: HOME MED 1 EA UNK PO SCH (08:00)
[2018-12-09] MEDS: JUVEN PACKET PO SCH ×2 (08:00→20:00)
[2018-12-09] MEDS: D3 PO SCH ×2 (08:00→20:00)
[2018-12-09] MEDS: FE SULF/FA/VIT B COMP & C TAB PO SCH (08:43)
[2018-12-09] MEDS: ATORVASTATIN 20 MG TAB PO SCH (08:43)
[2018-12-09] MEDS: ZINC SULFATE 220 MG CAP PO SCH (08:43)
[2018-12-09] MEDS: LIDOCAINE 5% PATCH TOP SCH (08:43)
[2018-12-09] MEDS: CARVEDILOL 6.25 MG TAB PO SCH ×2 (08:44→20:00)
[2018-12-09] MEDS: VITAMIN A 10,000 IU CAP PO SCH (08:44)
[2018-12-09] MEDS: DOCUSATE NA 100 MG CAP PO SCH ×2 (08:44→20:00)
[2018-12-09] MEDS: HYDROCODONE/APAP 10/325 TAB PO PRN ×2 (08:44→20:30)
[2018-12-09] MEDS: VITAMIN B COMPLEX 1 CAP PO SCH (08:44)
[2018-12-09] MEDS: MAGNESIUM OXIDE 400 MG TAB PO SCH ×2 (08:44→20:00)
[2018-12-09] MEDS: MULTIVIT W/ MINERAL TAB PO SCH (08:44)
[2018-12-09] MEDS: LOSARTAN POTASSIUM 50 MG TABLET PO SCH (08:44)
[2018-12-09] MEDS: ASPIRIN EC 81 MG TAB PO SCH (08:45)
[2018-12-09] MEDS: FERROUS SULFATE 325 MG TAB PO SCH (08:45)
[2018-12-09] MEDS: LORATADINE 10 MG TAB PO SCH (08:45)
[2018-12-09] MEDS: predniSONE 5 MG TAB PO SCH (08:45)
[2018-12-09] MEDS: AMIODARONE HCL 200 MG TAB PO SCH (08:45)
[2018-12-09] MEDS: LACTOBACILLUS/ACIDOPHILUS TAB PO SCH (08:46)
[2018-12-09] MEDS: ONDANSETRON 4 MG (ODT) TAB PO PRN (09:27)
--- NOTE | 2018-12-09 09:40 | P.RH.PN ---
Estimated Length of Stay: 14 Expected Discharge Date: 12/19/18 Discharge Disposition Plan: Home Family Support: Yes Snf Goal: Mobility, Transfers, Self Care Vital Signs: Last Vital Signs Temp 97.2 F 12/09/18 07:30 Pulse 69 12/09/18 08:44 Resp 18 12/09/18 07:30 BP 138/65 12/09/18 08:44 Pulse Ox 92 12/09/18 07:30 Laboratory: Laboratory Last Values WBC 10.5 K/uL (4.3-10.9) D 12/07/18 06:03 RBC 3.80 M/uL (4.33-5.43) L 12/07/18 06:03 Hgb 12.0 g/dL (13.6-17.9) L 12/07/18 06:03 Hct 36.3 % (39.6-49.0) L D 12/07/18 06:03 MCV 95.4 fL (80-100) 12/07/18 06:03 MCH 31.5 pg (27.0-35.0) 12/07/18 06:03 MCHC 33.0 g/dL (32.0-36.0) 12/07/18 06:03 RDW 17.1 % (12.1-15.2) H 12/07/18 06:03 Plt Count 419 K/uL (152-406) H 12/07/18 06:03 MPV 9.2 fL (7.6-11.3) 12/07/18 06:03 Neutrophils % 78.9 % (41.7-73.7) H 12/07/18 06:03 Lymphocytes % 9.9 % (15.3-44.8) L 12/07/18 06:03 Monocytes % 7.3 % (3.3-12.3) 12/07/18 06:03 Eosinophils % 3.3 % (0-4.4) 12/07/18 06:03 Basophils % 0.6 % (0-1.3) 12/07/18 06:03 Absolute Neutrophils 8.3 K/uL (1.8-8.0) H 12/07/18 06:03 Absolute Lymphocytes 1.0 K/uL (0.7-4.9) 12/07/18 06:03 Absolute Monocytes 0.8 K/uL (0.1-1.3) 12/07/18 06:03 Absolute Eosinophils 0.3 K/uL (0-0.5) 12/07/18 06:03 Absolute Basophils 0.1 K/uL (0-0.5) 12/07/18 06:03 Sodium 147 mmol/L (136-145) H 12/07/18 06:03 Potassium 4.2 mmol/L (3.5-5.1) 12/07/18 06:03 Chloride 113 mmol/L (98-107) H 12/07/18 06:03 Carbon Dioxide 28 mmol/L (21-32) 12/07/18 06:03 BUN 26 mg/dL (7-18) H 12/07/18 06:03 Creatinine 0.74 mg/dL (0.55-1.3) 12/07/18 06:03 Estimated GFR > 90 mL/min (=/>90) 12/07/18 06:03 Glucose 80 mg/dL (74-106) 12/07/18 06:03 Calcium 8.0 mg/dL (8.5-10.1) L 12/07/18 06:03 Magnesium 2.0 mg/dL (1.8-2.4) 12/07/18 06:03 Albumin 2.0 g/dL (3.4-5.0) L 12/07/18 06:03 Prealbumin 8.0 mg/dL (20-40) L 12/07/18 06:03 Urine Color Yellow 12/06/18 22:00 Urine Appearance Clear 12/06/18 22:00 Urine pH 7.0 (5.0-7.0) 12/06/18 22:00 Ur Specific [place] 1.010 (1.005-1.030) 12/06/18 22:00 Urine Ketones Negative (NEG) 12/06/18 22:00 Urine Blood Negative (NEG) 12/06/18 22:00 Urine Nitrite Negative (NEG) 12/06/18 22:00 Urine Bilirubin Negative (NEG) 12/06/18 22:00 Urine Urobilinogen 1.0 mg/dL (0.2-1.0) 12/06/18 22:00 Ur Leukocyte Esterase Negative (NEG) 12/06/18 22:00 Urine RBC <5 /HPF (NONE SEEN) 12/06/18 22:00 Urine WBC <5 /HPF (<5) 12/06/18 22:00 Ur Squamous Epith Cells PSYCHIATRIC ORDERLY 12/06/18 22:00 Ur Urothelial Cells <5 /HPF (NONE SEEN) 12/06/18 22:00 Urine Bacteria <20 /HPF (NONE SEEN) 12/06/18 22:00 Urine Culture Reflexed Not needed 12/06/18 22:00 Urine Glucose Negative (NEG) 12/06/18 22:00 Urine Total Protein Negative (NEG) 12/06/18 22:00 Weight: 166 lb 3 oz Wound Present: Yes Closed Surgical Incision Present: Yes Physician Update: His labs have been reviewed. His Hgb is stable at 12. His prealbumin is low at 8. He is on promod and andrew. He is deconditioned and has moderate pain with ambulation. He walks about 30' at a time. Will continue with PT,OT with mild cognitive impairment and requires hearing aids. Pain Issues: [place] 10/325mg Q6H PRN. Lidoderm patch 5% Daily Comment: right arm wound occurred from hitting wall while using w/c. laceration over left 5th finger that occurred during fall. left lower back wound from sleeping on heating pad- occurred a week ago as stated by patient Functional Improvement: pt has demonstrated a willingness to participate in therapy; however, his progress is being slowed at this time due to pain. Functional Improvement Occupational Therapy: pt can benifit with further therapy to address pt's overall weakness, cont to educate and instruct on safety with following hip precautions and training on using A/E as needed for adl tasks. Cont to educate and train the pt on energy conservation techniques for adl tasks and for functional transfers. Cont with the POC and the goals by the supervising OTR. Speech Therapy Update: Patient is at [facility] for Auditory Comprehension, [facility] for Verbal Expression, and [facility] for Social Interaction, Problem Solving, and Memory. Summary: Patient's care plan and [facility] goals have been reviewed and revised as necessary. Please see the Rehabilitation Signature page for all necessary signatures.
--- NOTE | 2018-12-09 15:20 | FAST ---
ENCOUNTER DATE AND TIME: 12/09/2018 08:00 (CDT) NAME ELENA NOLAN DATE OF : 1940 DATE OF ADMISSION: 12/06/2018 20:10 (CDT) PHONE: AGE: 78 SSN# [id number] GENDER: Male ENCOUNTER PHYSICIAN: Dr. Sid Cruz M.D. ADMISSION DIAGNOSIS: - Orthopaedic Disorders 08 - Unilateral Hip Fracture (08.) right femur fx. EATING: Activity did not occur on this shift EATING - SCORE: 0-UNK GROOMING: Activity did not occur on this shift GROOMING - SCORE: 0-UNK BATHING: Activity did not occur on this shift BATHING - SCORE: 0-UNK DRESSING - UPPER BODY: Activity did not occur on this shift Patient is not dressing in public clothing ARTICLES SCORE Total number of steps: 0 DRESSING - UPPER BODY - SCORE: 0-UNK DRESSING - LOWER BODY: Activity did not occur on this shift Patient is not dressing in public clothing ARTICLES SCORE Total number of steps: 0 DRESSING - LOWER BODY - SCORE: 0-UNK TOILETING: Activity did not occur on this shift TOILETING - SCORE: 0-UNK BLADDER MANAGEMENT: Activity did not occur on this shift BLADDER MANAGEMENT - SCORE: 7-IND BOWEL MANAGEMENT: Activity did not occur on this shift BOWEL MANAGEMENT - SCORE: 7-IND TRANSFERS: BED, CHAIR, WHEELCHAIR: TRANSFERS: BED, CHAIR, WHEELCHAIR - STEP 1: Does the patient require assistance of a person or device, or need extra time with bed, chair, or whe elchair transfers? Yes. TRANSFERS: BED, CHAIR, WHEELCHAIR - STEP 2: Does the patient require the assistance of a helper? Yes. TRANSFERS: BED, CHAIR, WHEELCHAIR - STEP 3: How much assistance does the patient require from the helper? Only supervision TRANSFERS: BED, CHAIR, WHEELCHAIR - SCORE: 5-SUP TRANSFERS: TOILET: TRANSFERS: TOILET - STEP 1: Does the patient require the assistance of a person or device, or need extra time with toilet transfe rs? Yes. TRANSFERS: TOILET - STEP 2: Does the patient require the assistance of a helper? Yes. TRANSFERS: TOILET - STEP 3: How much assistance does the patient require from the helper? Patient performs half or more of the tr ansferring tasks TRANSFERS: TOILET - STEP 4: Does the patient need only incidental help such as contact guard or steadying during toilet transfer? Yes. TRANSFERS: TOILET - SCORE: 4-MIN TRANSFERS: SHOWER: Activity did not occur on this shift TRANSFERS: SHOWER - SCORE: 0-UNK TRANSFERS: TUB: Activity did not occur on this shift TRANSFERS: TUB - SCORE: 0-UNK LOCOMOTION: WALK: Patient walks less than 50 feet LOCOMOTION: WALK - SCORE: 1-DEP LOCOMOTION: WHEELCHAIR: LOCOMOTION: WHEELCHAIR - STEP 1: Does the patient need help to go 150 feet in a wheelchair? Yes. LOCOMOTION: WHEELCHAIR - STEP 2: How much assistance does the patient need from the helper? Only supervision, cuing, or coaxing LOCOMOTION: WHEELCHAIR - SCORE: 5-SUP LOCOMOTION: STAIRS: Activity did not occur on this shift LOCOMOTION: STAIRS - SCORE: 0-UNK COMPREHENSION: COMPREHENSION - SCORE: 0-UNK EXPRESSION EXPRESSION - SCORE: 0-UNK SOCIAL INTERACTION: SOCIAL INTERACTION - SCORE: 0-UNK PROBLEM SOLVING: PROBLEM SOLVING - SCORE: 0-UNK MEMORY: MEMORY - SCORE: 0-UNK SIGNATURE PANEL: The following modified sections: Transfers: Bed, Chair, Wheelchair - Score, Transfers: Toilet - Score , Locomotion: Walk - Score, Locomotion: Wheelchair - Score, Locomotion: Stairs - Score were [electron janet] signed by Liliam Calderon PTA on WedDec 09 2018 15:19:59 GMT-0500 (Central Daylight Time)
--- NOTE | 2018-12-09 16:31 | FAST ---
SHIFT START DATE/TIME: 12/09/2018 07:00 (CDT) SHIFT END DATE/TIME: 12/09/2018 19:00 (CDT) NAME ELENA NOLAN DATE OF : 1940 DATE OF ADMISSION: 12/06/2018 20:10 (CDT) PHONE: AGE: 78 N# [id number] GENDER: Male ENCOUNTER PHYSICIAN: Dr. Sid Cruz M.D. ADMISSION DIAGNOSIS: - Orthopaedic Disorders 08 - Unilateral Hip Fracture (08.11) right femur fx. EATING: EATING - STEP 1: Does the patient require the assistance of a person or device, or need extra time when eating? No. EATING - SCORE: 7-IND GROOMING: Activity did not occur on this shift GROOMING - SCORE: 0-UNK BATHING: Activity did not occur on this shift BATHING - SCORE: 0-UNK DRESSING - UPPER BODY: Activity did not occur on this shift ARTICLES SCORE Total number of steps: 0 DRESSING - UPPER BODY - SCORE: 0-UNK DRESSING - LOWER BODY: Activity did not occur on this shift ARTICLES SCORE Total number of steps: 0 DRESSING - LOWER BODY - SCORE: 0-UNK TOILETING: TOILETING - STEP 1: Does the patient require the assistance of a person or device, or need extra time with toileting? Yes . TOILETING - STEP 2: Does the patient require the assistance of a helper? Yes. TOILETING - STEP 3: How much assistance does the patient require from the helper? Hands-on assistance from the helper TOILETING - STEP 4: Of the 3 tasks: 1) Adjusting clothing prior to use, 2) Cleansing of perineal area, 3) Adjusting clot neyda after use; How many tasks does the patient perform WITHOUT assistance of the helper? Three tasks with steadying assistance from the helper TOILETING - SCORE: 4-MIN BLADDER MANAGEMENT: BLADDER MANAGEMENT - STEP 1: Does the patient control the bladder completely and intentionally without equipment or devices or med ications, and is always continent? Yes. BLADDER MANAGEMENT - SCORE: 7-IND BLADDER MANAGEMENT - FREQUENCY OF ACCIDENTS: BLADDER MANAGEMENT(FA) - STEP 1: How many accidents has the patient had during the current shift? 0 BOWEL MANAGEMENT: BOWEL MANAGEMENT - STEP 1: Does the patient control bowels completely and intentionally without equipment devices or medications AND is always continent? Yes. BOWEL MANAGEMENT - SCORE: 7-IND BOWEL MANAGEMENT - FREQUENCY OF ACCIDENTS: BOWEL MANAGEMENT(FA) - STEP 1: How many accidents has the patient had during the current shift? 0 TRANSFERS: BED, CHAIR, WHEELCHAIR: TRANSFERS: BED, CHAIR, WHEELCHAIR - STEP 1: Does the patient require assistance of a person or device, or need extra time with bed, chair, or whe elchair transfers? Yes. TRANSFERS: BED, CHAIR, WHEELCHAIR - STEP 2: Does the patient require the assistance of a helper? Yes. TRANSFERS: BED, CHAIR, WHEELCHAIR - STEP 3: How much assistance does the patient require from the helper? Steadying/guiding assistance TRANSFERS: BED, CHAIR, WHEELCHAIR - SCORE: 4-MIN TRANSFERS: TOILET: TRANSFERS: TOILET - STEP 1: Does the patient require the assistance of a person or device, or need extra time with toilet transfe rs? Yes. TRANSFERS: TOILET - STEP 2: Does the patient require the assistance of a helper? Yes. TRANSFERS: TOILET - STEP 3: How much assistance does the patient require from the helper? Patient performs half or more of the tr ansferring tasks TRANSFERS: TOILET - STEP 4: Does the patient need only incidental help such as contact guard or steadying during toilet transfer? Yes. TRANSFERS: TOILET - SCORE: 4-MIN TRANSFERS: SHOWER: Activity did not occur on this shift TRANSFERS: SHOWER - SCORE: 0-UNK TRANSFERS: TUB: Activity did not occur on this shift TRANSFERS: TUB - SCORE: 0-UNK LOCOMOTION: WALK: Activity did not occur on this shift LOCOMOTION: WALK - SCORE: 0-UNK LOCOMOTION: WHEELCHAIR: Activity did not occur on this shift LOCOMOTION: WHEELCHAIR - SCORE: 0-UNK COMPREHENSION: COMPREHENSION - SCORE: 0-UNK EXPRESSION EXPRESSION - SCORE: 0-UNK SOCIAL INTERACTION: SOCIAL INTERACTION - SCORE: 0-UNK PROBLEM SOLVING: PROBLEM SOLVING - SCORE: 0-UNK MEMORY: MEMORY - SCORE: 0-UNK SIGNATURE PANEL: The following modified sections: Eating - Score, Grooming - Score, Bathing - Score, Dressing - Upper Body - Score, Dressing - Lower Body - Score, Toileting - Score, Bladder Management - Score, Bowel Man agement - Score, Transfers: Bed, Chair, Wheelchair - Score, Transfers: Toilet - Score, Transfers: Rosangela wer - Score, Transfers: Tub - Score, Locomotion: Walk - Score, Locomotion: Wheelchair - Score, Compre hension - Score, Expression - Score, Social Interaction - Score, Problem Solving - Score, Memory - Sc ore were [electronically] signed by Nissa Moreland CNA on WedDec 09 2018 16:30:20 GMT-0500 ([facility])
[2018-12-09] MEDS: HYDROXYUREA 500 MG CAP PO SCH (16:43)
[2018-12-09] MEDS: VITAMIN D 5,000 UNIT CAP PO SCH (16:43)
[2018-12-09] MEDS ORDERED: MAGNES/ALUMIN/SIMET 30ML UCUP PO PRN (19:55)
[2018-12-09] MEDS: MELATONIN 3 MG TABLET PO SCH (21:00)
[2018-12-10] MEDS: LEVOTHYROXINE SOD 0.05 MG TABLET PO SCH (06:53)
[2018-12-10] MEDS: PANTOPRAZOLE 40MG TABLET PO SCH (06:53)
[2018-12-10] MEDS: ENOXAPARIN 40 MG/0.4 ML SQ SCH (06:53)
[2018-12-10] MEDS: ALBUTEROL 2.5 MG/3 ML NEB SOL NEB SCH ×3 (07:18→20:00)
[2018-12-10] MEDS: PROMOD 30 ML DOSE PO SCH ×2 (08:00→20:00)
[2018-12-10] MEDS: HOME MED 1 EA UNK PO SCH (08:00)
[2018-12-10] MEDS: CAL MAG ZINC PO SCH ×2 (08:00→20:00)
[2018-12-10] MEDS: MEDIHONEY 44 ML TOPICAL TUBE TOP SCH (08:00)
[2018-12-10] MEDS: NYSTATIN PWDR 100000 UNIT/GM TOP SCH ×2 (08:00→20:00)
[2018-12-10] MEDS: JUVEN PACKET PO SCH ×2 (08:00→20:00)
[2018-12-10] MEDS: D3 PO SCH ×2 (08:00→20:00)
[2018-12-10] MEDS: ONDANSETRON 4 MG (ODT) TAB PO PRN (08:22)
[2018-12-10] MEDS: LIDOCAINE 5% PATCH TOP SCH (08:33)
[2018-12-10] MEDS: CARVEDILOL 6.25 MG TAB PO SCH ×2 (08:33→20:00)
[2018-12-10] MEDS: ZINC SULFATE 220 MG CAP PO SCH (08:34)
[2018-12-10] MEDS: LORATADINE 10 MG TAB PO SCH (08:34)
[2018-12-10] MEDS: LOSARTAN POTASSIUM 50 MG TABLET PO SCH (08:34)
[2018-12-10] MEDS: MULTIVIT W/ MINERAL TAB PO SCH (08:34)
[2018-12-10] MEDS: FE SULF/FA/VIT B COMP & C TAB PO SCH (08:34)
[2018-12-10] MEDS: MAGNESIUM OXIDE 400 MG TAB PO SCH ×2 (08:34→21:52)
[2018-12-10] MEDS: HYDROCODONE/APAP 10/325 TAB PO PRN ×2 (08:34→14:24)
[2018-12-10] MEDS: FERROUS SULFATE 325 MG TAB PO SCH (08:34)
[2018-12-10] MEDS: AMIODARONE HCL 200 MG TAB PO SCH (08:34)
[2018-12-10] MEDS: ASPIRIN EC 81 MG TAB PO SCH (08:34)
[2018-12-10] MEDS: LACTOBACILLUS/ACIDOPHILUS TAB PO SCH (08:34)
[2018-12-10] MEDS: ATORVASTATIN 20 MG TAB PO SCH (08:35)
[2018-12-10] MEDS: VITAMIN A 10,000 IU CAP PO SCH (08:35)
[2018-12-10] MEDS: predniSONE 5 MG TAB PO SCH (08:35)
[2018-12-10] MEDS: VITAMIN B COMPLEX 1 CAP PO SCH (08:35)
[2018-12-10] MEDS: DOCUSATE NA 100 MG CAP PO SCH ×2 (08:41→20:00)
--- NOTE | 2018-12-10 14:57 | FAST ---
SHIFT START DATE/TIME: 12/10/2018 07:00 (CDT) SHIFT END DATE/TIME: 12/10/2018 19:00 (CDT) NAME ELENA NOLAN DATE OF : 1940 DATE OF ADMISSION: 12/06/2018 20:10 (CDT) PHONE: AGE: 78 N# [id number] GENDER: Male ENCOUNTER PHYSICIAN: Dr. Sid Cruz M.D. ADMISSION DIAGNOSIS: - Orthopaedic Disorders 08 - Unilateral Hip Fracture (08.11) right femur fx. EATING: EATING - STEP 1: Does the patient require the assistance of a person or device, or need extra time when eating? Yes. EATING - STEP 2: Does the patient require the assistance of a helper? No, patient only requires an assistive device, O R s/he takes more than reasonable time to eat, OR there is a safety concern, OR s/he requires modifie d food consistency EATING - SCORE: 6-NGOC GROOMING: Comb/brush hair Oral care Wash, rinse, and dry face Wash, rinse, and dry hands GROOMING - STEP 1: Does the patient require the assistance of a person or device, or need extra time when grooming? Yes. GROOMING - STEP 2: Does the patient require the assistance of a helper? Yes. GROOMING - STEP 3: How much assistance does the patient require from the helper? Only prior equipment preparation/set up from the helper GROOMING - SCORE: 5-SUP BATHING: Activity did not occur on this shift BATHING - SCORE: 0-UNK DRESSING - UPPER BODY: Activity did not occur on this shift ARTICLES SCORE Total number of steps: 0 DRESSING - UPPER BODY - SCORE: 0-UNK DRESSING - LOWER BODY: Activity did not occur on this shift ARTICLES SCORE Total number of steps: 0 DRESSING - LOWER BODY - SCORE: 0-UNK TOILETING: TOILETING - STEP 1: Does the patient require the assistance of a person or device, or need extra time with toileting? Yes . TOILETING - STEP 2: Does the patient require the assistance of a helper? Yes. TOILETING - STEP 3: How much assistance does the patient require from the helper? Hands-on assistance from the helper TOILETING - STEP 4: Of the 3 tasks: 1) Adjusting clothing prior to use, 2) Cleansing of perineal area, 3) Adjusting clot neyda after use; How many tasks does the patient perform WITHOUT assistance of the helper? Three tasks with steadying assistance from the helper TOILETING - SCORE: 4-MIN BLADDER MANAGEMENT: BLADDER MANAGEMENT - STEP 1: Does the patient control the bladder completely and intentionally without equipment or devices or med ications, and is always continent? No. BLADDER MANAGEMENT - STEP 2: Does the patient require the assistance of a helper? No, patient requires and independently uses an a ssistive device, such as a urinal, bedpan, bedside commode, catheter, absorbent pad, or collecting de vice BLADDER MANAGEMENT - SCORE: 6-NGOC BLADDER MANAGEMENT - FREQUENCY OF ACCIDENTS: BLADDER MANAGEMENT(FA) - STEP 1: How many accidents has the patient had during the current shift? 0 BOWEL MANAGEMENT: Activity did not occur on this shift BOWEL MANAGEMENT - SCORE: 7-IND BOWEL MANAGEMENT - FREQUENCY OF ACCIDENTS: BOWEL MANAGEMENT(FA) - STEP 1: How many accidents has the patient had during the current shift? 0 TRANSFERS: BED, CHAIR, WHEELCHAIR: TRANSFERS: BED, CHAIR, WHEELCHAIR - STEP 1: Does the patient require assistance of a person or device, or need extra time with bed, chair, or whe elchair transfers? Yes. TRANSFERS: BED, CHAIR, WHEELCHAIR - STEP 2: Does the patient require the assistance of a helper? Yes. TRANSFERS: BED, CHAIR, WHEELCHAIR - STEP 3: How much assistance does the patient require from the helper? Steadying/guiding assistance TRANSFERS: BED, CHAIR, WHEELCHAIR - SCORE: 4-MIN TRANSFERS: TOILET: TRANSFERS: TOILET - STEP 1: Does the patient require the assistance of a person or device, or need extra time with toilet transfe rs? Yes. TRANSFERS: TOILET - STEP 2: Does the patient require the assistance of a helper? Yes. TRANSFERS: TOILET - STEP 3: How much assistance does the patient require from the helper? Patient performs half or more of the tr ansferring tasks TRANSFERS: TOILET - STEP 4: Does the patient need only incidental help such as contact guard or steadying during toilet transfer? No. Patient needs more than incidental help TRANSFERS: TOILET - SCORE: 3-MOD TRANSFERS: SHOWER: Activity did not occur on this shift TRANSFERS: SHOWER - SCORE: 0-UNK TRANSFERS: TUB: Activity did not occur on this shift TRANSFERS: TUB - SCORE: 0-UNK LOCOMOTION: WALK: LOCOMOTION: WALK - STEP 1: Does the patient need help from a person or device, or need extra time to walk 150 feet? Yes. LOCOMOTION: WALK - STEP 2: How much assistance does the patient require to walk a minimum of 150 feet? Only incidental help such as contact guarding or steadying LOCOMOTION: WALK - SCORE: 4-MIN LOCOMOTION: WHEELCHAIR: Activity did not occur on this shift LOCOMOTION: WHEELCHAIR - SCORE: 0-UNK COMPREHENSION: COMPREHENSION: TYPE: Both COMPREHENSION - STEP 1: Does the patient require help from a person or device, or need extra time to understand complex and a bstract ideas (such as current events, finances, discharge planning, medical issues, relationships, e tc)? Yes. COMPREHENSION - STEP 2: Does the patient require help to understand questions or statements about basic needs or ideas (such as hunger, thirst, sleep, safety, daily schedule, room location, or discomfort) half or more of the t leda? No. COMPREHENSION - STEP 3: How often does the patient need help to understand directions and conversation about basic needs? Les s than 10% of the time COMPREHENSION - SCORE: 5-SUP EXPRESSION EXPRESSION: TYPE: Both EXPRESSION - STEP 1: Does the patient require help from a person or device, or need extra time expressing complex and abst ract ideas (such as current events, finances, discharge planning, medical issues, relationships, etc) ? No. EXPRESSION - STEP 2: Does the patient need extra time, require an assistive device (such as augmentive communication syste m or a communication board), OR does s/he have mild difficulty expressing complex and abstract ideas (including mild dysarthria or mild word-find problems)? Yes. EXPRESSION - SCORE: 6-NGOC SOCIAL INTERACTION: SOCIAL INTERACTION - STEP 1: Does the patient require a helper to interact with others in social and therapeutic situations? No. SOCIAL INTERACTION - STEP 2: Does the patient need extra time in social situations, OR does s/he interact with staff, other patien ts, and family members ONLY in structured environments, OR does s/he require medication for social in teraction? Yes, patient needs extra time SOCIAL INTERACTION - SCORE: 6-NGOC PROBLEM SOLVING: PROBLEM SOLVING - STEP 1: Does the patient need help from a person or device, or need extra time to solve complex problems such as managing a checking account or confronting interpersonal problems? No. PROBLEM SOLVING - STEP 2: Does the patient require extra time to make decisions or solve problems, OR does s/he have slight dif ficulty reading, initiating, or self-correcting in unfamiliar situations? Yes, patient needs extra ti me. PROBLEM SOLVING - SCORE: 6-NGOC MEMORY: MEMORY - STEP 1: Does the patient need help from a person or device, or need extra time to remember frequently encount ered people, daily routines, and executing requests? No. MEMORY - STEP 2: Does the patient have slight difficulty recognizing frequently encountered people, daily routines, or executing requests without the need for repetition or using self-initiated or environmental cues to remember? Yes. MEMORY - SCORE: 6-NGOC SIGNATURE PANEL: The following modified sections: Eating - Score, Grooming - Score, Bathing - Score, Dressing - Upper Body - Score, Dressing - Lower Body - Score, Toileting - Score, Bladder Management - Score, Bowel Man agement - Score, Transfers: Bed, Chair, Wheelchair - Score, Transfers: Toilet - Score, Transfers: Rosangela wer - Score, Transfers: Tub - Score, Locomotion: Walk - Score, Locomotion: Wheelchair - Score, Compre hension - Score, Expression - Score, Social Interaction - Score, Problem Solving - Score, Memory - Sc ore were [electronically] signed by Isaura Holland C.N.A. on Sat Dec 10 2018 14:56:22 T-0500 (Centra [place] Daylight Time)
[2018-12-10] MEDS: VITAMIN D 5,000 UNIT CAP PO SCH (17:17)
[2018-12-10] MEDS: MELATONIN 3 MG TABLET PO SCH (21:52)
--- NOTE | 2018-12-11 00:50 | FAST ---
SHIFT START DATE/TIME: 12/10/2018 19:00 (CDT) SHIFT END DATE/TIME: 12/11/2018 07:00 (CDT) NAME ELENA NOLAN DATE OF : 1940 DATE OF ADMISSION: 12/06/2018 20:10 (CDT) PHONE: AGE: 78 N# [id number] GENDER: Male ENCOUNTER PHYSICIAN: Dr. Sid Cruz M.D. ADMISSION DIAGNOSIS: - Orthopaedic Disorders 08 - Unilateral Hip Fracture (08.11) right femur fx. EATING: Activity did not occur on this shift EATING - SCORE: 0-UNK GROOMING: Oral care Wash, rinse, and dry face Wash, rinse, and dry hands GROOMING - STEP 1: Does the patient require the assistance of a person or device, or need extra time when grooming? Yes. GROOMING - STEP 2: Does the patient require the assistance of a helper? Yes. GROOMING - STEP 3: How much assistance does the patient require from the helper? Only prior equipment preparation/set up from the helper GROOMING - SCORE: 5-SUP BATHING: Activity did not occur on this shift BATHING - SCORE: 0-UNK DRESSING - UPPER BODY: Patient is not dressing in public clothing ARTICLES SCORE Total number of steps: 0 DRESSING - UPPER BODY - SCORE: 0-UNK DRESSING - LOWER BODY: Patient is not dressing in public clothing ARTICLES SCORE Total number of steps: 0 DRESSING - LOWER BODY - SCORE: 0-UNK TOILETING: TOILETING - STEP 1: Does the patient require the assistance of a person or device, or need extra time with toileting? Yes . TOILETING - STEP 2: Does the patient require the assistance of a helper? Yes. TOILETING - STEP 3: How much assistance does the patient require from the helper? Hands-on assistance from the helper TOILETING - STEP 4: Of the 3 tasks: 1) Adjusting clothing prior to use, 2) Cleansing of perineal area, 3) Adjusting clot neyda after use; How many tasks does the patient perform WITHOUT assistance of the helper? Two tasks TOILETING - SCORE: 3-MOD BLADDER MANAGEMENT: [place] removes incontinent device (Depends, pull ups, etc.); cleans the patient after accident / inco ntinent episode; and, applies new incontinent device. BLADDER MANAGEMENT - SCORE: 1-DEP BOWEL MANAGEMENT: BOWEL MANAGEMENT - STEP 1: Does the patient control bowels completely and intentionally without equipment devices or medications AND is always continent? No. BOWEL MANAGEMENT - STEP 2: Does the patient require the assistance of a helper? No, patient requires medication for control such as stool softeners, suppositories, laxatives, enemas, or OTC medications BOWEL MANAGEMENT - SCORE: 6-NGOC TRANSFERS: BED, CHAIR, WHEELCHAIR: TRANSFERS: BED, CHAIR, WHEELCHAIR - STEP 1: Does the patient require assistance of a person or device, or need extra time with bed, chair, or whe elchair transfers? Yes. TRANSFERS: BED, CHAIR, WHEELCHAIR - STEP 2: Does the patient require the assistance of a helper? Yes. TRANSFERS: BED, CHAIR, WHEELCHAIR - STEP 3: How much assistance does the patient require from the helper? Lifting of the legs TRANSFERS: BED, CHAIR, WHEELCHAIR - STEP 4: How many legs does the patient require the helper to lift? both legs TRANSFERS: BED, CHAIR, WHEELCHAIR - SCORE: 3-MOD TRANSFERS: TOILET: TRANSFERS: TOILET - STEP 1: Does the patient require the assistance of a person or device, or need extra time with toilet transfe rs? Yes. TRANSFERS: TOILET - STEP 2: Does the patient require the assistance of a helper? Yes. TRANSFERS: TOILET - STEP 3: How much assistance does the patient require from the helper? Only supervision, cuing, coaxing, OR he lp to set out transfer equipment or to lock brakes and/or lift foot rests TRANSFERS: TOILET - SCORE: 5-SUP TRANSFERS: SHOWER: Activity did not occur on this shift TRANSFERS: SHOWER - SCORE: 0-UNK TRANSFERS: TUB: Activity did not occur on this shift TRANSFERS: TUB - SCORE: 0-UNK LOCOMOTION: WALK: Activity did not occur on this shift LOCOMOTION: WALK - SCORE: 0-UNK LOCOMOTION: WHEELCHAIR: Activity did not occur on this shift LOCOMOTION: WHEELCHAIR - SCORE: 0-UNK COMPREHENSION: COMPREHENSION: TYPE: Both COMPREHENSION - STEP 1: Does the patient require help from a person or device, or need extra time to understand complex and a bstract ideas (such as current events, finances, discharge planning, medical issues, relationships, e tc)? No. COMPREHENSION - STEP 2: Does the patient need extra time, require an assistive device (such as glasses for visual comprehensi on or a hearing aid for auditory comprehension) or does s/he have mild difficulty understanding compl ex and abstract information? Yes. COMPREHENSION - SCORE: 6-NGOC EXPRESSION EXPRESSION: TYPE: Both EXPRESSION - STEP 1: Does the patient require help from a person or device, or need extra time expressing complex and abst ract ideas (such as current events, finances, discharge planning, medical issues, relationships, etc) ? No. EXPRESSION - STEP 2: Does the patient need extra time, require an assistive device (such as augmentive communication syste m or a communication board), OR does s/he have mild difficulty expressing complex and abstract ideas (including mild dysarthria or mild word-find problems)? Yes. EXPRESSION - SCORE: 6-NGOC SOCIAL INTERACTION: SOCIAL INTERACTION - STEP 1: Does the patient require a helper to interact with others in social and therapeutic situations? No. SOCIAL INTERACTION - STEP 2: Does the patient need extra time in social situations, OR does s/he interact with staff, other patien ts, and family members ONLY in structured environments, OR does s/he require medication for social in teraction? Yes, patient needs extra time SOCIAL INTERACTION - SCORE: 6-NGOC PROBLEM SOLVING: PROBLEM SOLVING - STEP 1: Does the patient need help from a person or device, or need extra time to solve complex problems such as managing a checking account or confronting interpersonal problems? No. PROBLEM SOLVING - STEP 2: Does the patient require extra time to make decisions or solve problems, OR does s/he have slight dif ficulty reading, initiating, or self-correcting in unfamiliar situations? Yes, patient needs extra ti me. PROBLEM SOLVING - SCORE: 6-NGOC MEMORY: MEMORY - STEP 1: Does the patient need help from a person or device, or need extra time to remember frequently encount ered people, daily routines, and executing requests? No. MEMORY - STEP 2: Does the patient have slight difficulty recognizing frequently encountered people, daily routines, or executing requests without the need for repetition or using self-initiated or environmental cues to remember? Yes. MEMORY - SCORE: 6-NGOC SIGNATURE PANEL: The following modified sections: Eating - Score, Grooming - Score, Dressing - Upper Body - Score, Enrique ssing - Lower Body - Score, Toileting - Score, Bladder Management - Score, Bowel Management - Score, Transfers: Bed, Chair, Wheelchair - Score, Transfers: Toilet - Score, Transfers: Shower - Score, Smith sfers: Tub - Score, Locomotion: Walk - Score, Locomotion: Wheelchair - Score, Comprehension - Score, Expression - Score, Social Interaction - Score, Problem Solving - Score, Memory - Score were [electro nically] signed by Aleisha Travis CNA on WedDec 11 2018 00:49:03 GMT-0500 (Central Daylight Time)
[2018-12-11] MEDS: ALBUTEROL 2.5 MG/3 ML NEB SOL NEB SCH ×3 (07:20→20:00)
[2018-12-11] MEDS: PANTOPRAZOLE 40MG TABLET PO SCH (07:55)
[2018-12-11] MEDS: LEVOTHYROXINE SOD 0.05 MG TABLET PO SCH (07:56)
[2018-12-11] MEDS: LACTOBACILLUS/ACIDOPHILUS TAB PO SCH (07:56)
[2018-12-11] MEDS: MULTIVIT W/ MINERAL TAB PO SCH (07:57)
[2018-12-11] MEDS: CARVEDILOL 6.25 MG TAB PO SCH ×2 (07:57→20:00)
[2018-12-11] MEDS: FERROUS SULFATE 325 MG TAB PO SCH (07:57)
[2018-12-11] MEDS: VITAMIN B COMPLEX 1 CAP PO SCH (07:58)
[2018-12-11] MEDS: LORATADINE 10 MG TAB PO SCH (07:58)
[2018-12-11] MEDS: DOCUSATE NA 100 MG CAP PO SCH ×2 (07:58→20:00)
[2018-12-11] MEDS: AMIODARONE HCL 200 MG TAB PO SCH (07:58)
[2018-12-11] MEDS: FE SULF/FA/VIT B COMP & C TAB PO SCH (07:58)
[2018-12-11] MEDS: MAGNESIUM OXIDE 400 MG TAB PO SCH ×2 (07:59→20:18)
[2018-12-11] MEDS: NYSTATIN PWDR 100000 UNIT/GM TOP SCH ×2 (08:00→20:19)
[2018-12-11] MEDS: HOME MED 1 EA UNK PO SCH (08:00)
[2018-12-11] MEDS: MEDIHONEY 44 ML TOPICAL TUBE TOP SCH (08:00)
[2018-12-11] MEDS: D3 PO SCH ×2 (08:00→20:00)
[2018-12-11] MEDS: CAL MAG ZINC PO SCH ×2 (08:00→20:00)
[2018-12-11] MEDS: predniSONE 5 MG TAB PO SCH (08:08)
[2018-12-11] MEDS: LOSARTAN POTASSIUM 50 MG TABLET PO SCH (08:09)
[2018-12-11] MEDS: VITAMIN A 10,000 IU CAP PO SCH (08:09)
[2018-12-11] MEDS: ASPIRIN EC 81 MG TAB PO SCH (08:09)
[2018-12-11] MEDS: PROMOD 30 ML DOSE PO SCH ×2 (08:12→20:00)
[2018-12-11] MEDS: JUVEN PACKET PO SCH ×2 (08:15→20:00)
[2018-12-11] MEDS: ATORVASTATIN 20 MG TAB PO SCH (09:35)
[2018-12-11] MEDS: ENOXAPARIN 40 MG/0.4 ML SQ SCH (09:35)
[2018-12-11] MEDS: ONDANSETRON 4 MG (ODT) TAB PO PRN ×2 (09:35→18:33)
[2018-12-11] MEDS: LIDOCAINE 5% PATCH TOP SCH (09:36)
[2018-12-11] MEDS: ZINC SULFATE 220 MG CAP PO SCH (12:10)
--- NOTE | 2018-12-11 13:56 | FAST ---
SHIFT START DATE/TIME: 12/11/2018 07:00 (CDT) SHIFT END DATE/TIME: 12/11/2018 19:00 (CDT) NAME ELENA NOLAN DATE OF : 1940 DATE OF ADMISSION: 12/06/2018 20:10 (CDT) PHONE: AGE: 78 N# [id number] GENDER: Male ENCOUNTER PHYSICIAN: Dr. Sid Cruz M.D. ADMISSION DIAGNOSIS: - Orthopaedic Disorders 08 - Unilateral Hip Fracture (08.11) right femur fx. EATING: EATING - STEP 1: Does the patient require the assistance of a person or device, or need extra time when eating? Yes. EATING - STEP 2: Does the patient require the assistance of a helper? No, patient only requires an assistive device, O R s/he takes more than reasonable time to eat, OR there is a safety concern, OR s/he requires modifie d food consistency EATING - SCORE: 6-NGOC GROOMING: Comb/brush hair Patient shaved Wash, rinse, and dry face Wash, rinse, and dry hands GROOMING - STEP 1: Does the patient require the assistance of a person or device, or need extra time when grooming? Yes. GROOMING - STEP 2: Does the patient require the assistance of a helper? Yes. GROOMING - STEP 3: How much assistance does the patient require from the helper? Only prior equipment preparation/set up from the helper GROOMING - SCORE: 5-SUP BATHING: Activity did not occur on this shift BATHING - SCORE: 0-UNK DRESSING - UPPER BODY: Activity did not occur on this shift ARTICLES SCORE Total number of steps: 0 DRESSING - UPPER BODY - SCORE: 0-UNK DRESSING - LOWER BODY: Activity did not occur on this shift ARTICLES SCORE Total number of steps: 0 DRESSING - LOWER BODY - SCORE: 0-UNK TOILETING: TOILETING - STEP 1: Does the patient require the assistance of a person or device, or need extra time with toileting? Yes . TOILETING - STEP 2: Does the patient require the assistance of a helper? Yes. TOILETING - STEP 3: How much assistance does the patient require from the helper? Hands-on assistance from the helper TOILETING - STEP 4: Of the 3 tasks: 1) Adjusting clothing prior to use, 2) Cleansing of perineal area, 3) Adjusting clot neyda after use; How many tasks does the patient perform WITHOUT assistance of the helper? Three tasks with steadying assistance from the helper TOILETING - SCORE: 4-MIN BLADDER MANAGEMENT: BLADDER MANAGEMENT - STEP 1: Does the patient control the bladder completely and intentionally without equipment or devices or med ications, and is always continent? No. BLADDER MANAGEMENT - STEP 2: Does the patient require the assistance of a helper? Yes. BLADDER MANAGEMENT - STEP 3: How much assistance does the patient require from the helper? Only supervision, stand-by, cuing, or c oaxing BLADDER MANAGEMENT - SCORE: 5-SUP BLADDER MANAGEMENT - FREQUENCY OF ACCIDENTS: BLADDER MANAGEMENT(FA) - STEP 1: How many accidents has the patient had during the current shift? 0 BOWEL MANAGEMENT: BOWEL MANAGEMENT - STEP 1: Does the patient control bowels completely and intentionally without equipment devices or medications AND is always continent? No. BOWEL MANAGEMENT - STEP 2: Does the patient require the assistance of a helper? No, patient requires medication for control such as stool softeners, suppositories, laxatives, enemas, or OTC medications BOWEL MANAGEMENT - SCORE: 6-NGOC BOWEL MANAGEMENT - FREQUENCY OF ACCIDENTS: BOWEL MANAGEMENT(FA) - STEP 1: How many accidents has the patient had during the current shift? 0 TRANSFERS: BED, CHAIR, WHEELCHAIR: TRANSFERS: BED, CHAIR, WHEELCHAIR - STEP 1: Does the patient require assistance of a person or device, or need extra time with bed, chair, or whe elchair transfers? Yes. TRANSFERS: BED, CHAIR, WHEELCHAIR - STEP 2: Does the patient require the assistance of a helper? Yes. TRANSFERS: BED, CHAIR, WHEELCHAIR - STEP 3: How much assistance does the patient require from the helper? Lifting of the legs TRANSFERS: BED, CHAIR, WHEELCHAIR - STEP 4: How many legs does the patient require the helper to lift? one leg TRANSFERS: BED, CHAIR, WHEELCHAIR - SCORE: 4-MIN TRANSFERS: TOILET: TRANSFERS: TOILET - STEP 1: Does the patient require the assistance of a person or device, or need extra time with toilet transfe rs? Yes. TRANSFERS: TOILET - STEP 2: Does the patient require the assistance of a helper? Yes. TRANSFERS: TOILET - STEP 3: How much assistance does the patient require from the helper? Patient performs half or more of the tr ansferring tasks TRANSFERS: TOILET - STEP 4: Does the patient need only incidental help such as contact guard or steadying during toilet transfer? Yes. TRANSFERS: TOILET - SCORE: 4-MIN TRANSFERS: SHOWER: Activity did not occur on this shift TRANSFERS: SHOWER - SCORE: 0-UNK TRANSFERS: TUB: Activity did not occur on this shift TRANSFERS: TUB - SCORE: 0-UNK LOCOMOTION: WALK: Activity did not occur on this shift LOCOMOTION: WALK - SCORE: 0-UNK LOCOMOTION: WHEELCHAIR: LOCOMOTION: WHEELCHAIR - STEP 1: Does the patient need help to go 150 feet in a wheelchair? Yes. LOCOMOTION: WHEELCHAIR - STEP 2: How much assistance does the patient need from the helper? Only supervision, cuing, or coaxing LOCOMOTION: WHEELCHAIR - SCORE: 5-SUP COMPREHENSION: COMPREHENSION: TYPE: Both COMPREHENSION - STEP 1: Does the patient require help from a person or device, or need extra time to understand complex and a bstract ideas (such as current events, finances, discharge planning, medical issues, relationships, e tc)? Yes. COMPREHENSION - STEP 2: Does the patient require help to understand questions or statements about basic needs or ideas (such as hunger, thirst, sleep, safety, daily schedule, room location, or discomfort) half or more of the t leda? No. COMPREHENSION - STEP 3: How often does the patient need help to understand directions and conversation about basic needs? Les s than 10% of the time COMPREHENSION - SCORE: 5-SUP EXPRESSION EXPRESSION: TYPE: Both EXPRESSION - STEP 1: Does the patient require help from a person or device, or need extra time expressing complex and abst ract ideas (such as current events, finances, discharge planning, medical issues, relationships, etc) ? Yes. EXPRESSION - STEP 2: Does the patient require help to express basic necessities or ideas (such as hunger, thirst, sleep, s afety, daily schedule, room location, or discomfort) half or more of the time? No. EXPRESSION - STEP 3: How often does the patient need help to express directions and conversation about basic needs? Less t esquivel 10% of the time EXPRESSION - SCORE: 5-SUP SOCIAL INTERACTION: SOCIAL INTERACTION - STEP 1: Does the patient require a helper to interact with others in social and therapeutic situations? No. SOCIAL INTERACTION - STEP 2: Does the patient need extra time in social situations, OR does s/he interact with staff, other patien ts, and family members ONLY in structured environments, OR does s/he require medication for social in teraction? Yes, patient needs extra time SOCIAL INTERACTION - SCORE: 6-NGOC PROBLEM SOLVING: PROBLEM SOLVING - STEP 1: Does the patient need help from a person or device, or need extra time to solve complex problems such as managing a checking account or confronting interpersonal problems? No. PROBLEM SOLVING - STEP 2: Does the patient require extra time to make decisions or solve problems, OR does s/he have slight dif ficulty reading, initiating, or self-correcting in unfamiliar situations? Yes, patient needs extra ti me. PROBLEM SOLVING - SCORE: 6-NGOC MEMORY: MEMORY - STEP 1: Does the patient need help from a person or device, or need extra time to remember frequently encount ered people, daily routines, and executing requests? No. MEMORY - STEP 2: Does the patient have slight difficulty recognizing frequently encountered people, daily routines, or executing requests without the need for repetition or using self-initiated or environmental cues to remember? Yes. MEMORY - SCORE: 6-NGOC SIGNATURE PANEL: The following modified sections: Eating - Score, Grooming - Score, Bathing - Score, Dressing - Upper Body - Score, Dressing - Lower Body - Score, Toileting - Score, Bladder Management - Score, Bowel Man agement - Score, Transfers: Bed, Chair, Wheelchair - Score, Transfers: Toilet - Score, Transfers: Rosangela wer - Score, Transfers: Tub - Score, Locomotion: Walk - Score, Locomotion: Wheelchair - Score, Compre hension - Score, Expression - Score, Social Interaction - Score, Problem Solving - Score, Memory - Sc ore were [electronically] signed by Isaura Holland C.N.A. on WedDec 11 2018 13:55:30 GMT-0500 (Centra l Daylight Time)
[2018-12-11] MEDS ORDERED: LOPERAMIDE HCL 2 MG CAPSULE PO PRN (16:33)
[2018-12-11] MEDS: VITAMIN D 5,000 UNIT CAP PO SCH (16:54)
[2018-12-11] MEDS: MELATONIN 3 MG TABLET PO SCH (22:05)
[2018-12-12] MEDS: LEVOTHYROXINE SOD 0.05 MG TABLET PO SCH (07:14)
[2018-12-12] MEDS: ENOXAPARIN 40 MG/0.4 ML SQ SCH (07:14)
[2018-12-12] MEDS: PANTOPRAZOLE 40MG TABLET PO SCH (07:14)
[2018-12-12] MEDS: ALBUTEROL 2.5 MG/3 ML NEB SOL NEB SCH ×3 (07:36→20:00)
[2018-12-12] MEDS: CAL MAG ZINC PO SCH ×2 (08:00→20:00)
[2018-12-12] MEDS: MEDIHONEY 44 ML TOPICAL TUBE TOP SCH (08:00)
[2018-12-12] MEDS: D3 PO SCH ×2 (08:00→20:00)
[2018-12-12] MEDS: HOME MED 1 EA UNK PO SCH (08:00)
[2018-12-12] MEDS: JUVEN PACKET PO SCH ×2 (08:00→20:00)
[2018-12-12] MEDS: NYSTATIN PWDR 100000 UNIT/GM TOP SCH ×2 (08:00→20:15)
[2018-12-12] MEDS: PROMOD 30 ML DOSE PO SCH ×2 (08:00→20:15)
[2018-12-12] MEDS: LIDOCAINE 5% PATCH TOP SCH (08:33)
[2018-12-12] MEDS: predniSONE 5 MG TAB PO SCH (08:35)
[2018-12-12] MEDS: CARVEDILOL 6.25 MG TAB PO SCH ×2 (08:35→20:13)
[2018-12-12] MEDS: ATORVASTATIN 20 MG TAB PO SCH (08:35)
[2018-12-12] MEDS: LORATADINE 10 MG TAB PO SCH (08:35)
[2018-12-12] MEDS: HYDROCODONE/APAP 10/325 TAB PO PRN (08:35)
[2018-12-12] MEDS: DOCUSATE NA 100 MG CAP PO SCH ×2 (08:35→20:13)
[2018-12-12] MEDS: LOSARTAN POTASSIUM 50 MG TABLET PO SCH (08:35)
[2018-12-12] MEDS: AMIODARONE HCL 200 MG TAB PO SCH (08:35)
[2018-12-12] MEDS: MAGNESIUM OXIDE 400 MG TAB PO SCH ×2 (08:36→20:14)
[2018-12-12] MEDS: ASPIRIN EC 81 MG TAB PO SCH (08:36)
[2018-12-12] MEDS: FERROUS SULFATE 325 MG TAB PO SCH (11:58)
[2018-12-12] MEDS: LACTOBACILLUS/ACIDOPHILUS TAB PO SCH (11:58)
[2018-12-12] MEDS: VITAMIN A 10,000 IU CAP PO SCH (11:58)
[2018-12-12] MEDS: ZINC SULFATE 220 MG CAP PO SCH (11:58)
[2018-12-12] MEDS: VITAMIN B COMPLEX 1 CAP PO SCH (11:58)
[2018-12-12] MEDS: FE SULF/FA/VIT B COMP & C TAB PO SCH (11:58)
[2018-12-12] MEDS: MULTIVIT W/ MINERAL TAB PO SCH (11:58)
--- NOTE | 2018-12-12 14:49 | FAST ---
ENCOUNTER DATE AND TIME: 12/12/2018 08:00 (CDT) NAME ELENA NOLAN DATE OF : 1940 DATE OF ADMISSION: 12/06/2018 20:10 (CDT) PHONE: AGE: 78 N# [id number] GENDER: Male ENCOUNTER PHYSICIAN: Dr. Sid Cruz M.D. ADMISSION DIAGNOSIS: - Orthopaedic Disorders 08 - Unilateral Hip Fracture (08.11) right femur fx. EATING: EATING - STEP 1: Does the patient require the assistance of a person or device, or need extra time when eating? No. EATING - SCORE: 7-IND GROOMING: Comb/brush hair Wash, rinse, and dry face Wash, rinse, and dry hands GROOMING - STEP 1: Does the patient require the assistance of a person or device, or need extra time when grooming? No. GROOMING - SCORE: 7-IND BATHING: Abdomen Buttocks Chest Left arm Left lower leg and foot Left upper leg Perineal area Right arm Right lower leg and foot Right upper leg BATHING - STEP 1: Does the patient require the assistance of a person or device, or need extra time when bathing? Yes. BATHING - STEP 2: Does the patient require the assistance of a helper? Yes. BATHING - STEP 3: How much assistance does the patient require from the helper? Only supervision, cuing, coaxing, instr uctions, encouragement BATHING - SCORE: 5-SUP DRESSING - UPPER BODY: T-shirt/pullover shirt (four steps) ARTICLES SCORE Total number of steps: 4 DRESSING - UPPER BODY - STEP 1: Does the patient require help from a person or device, or need extra time when dressing above the [address]? No. DRESSING - UPPER BODY - SCORE: 7-IND DRESSING - LOWER BODY: Elastic waist pants (three steps) Slip-on shoe - Left foot (one step) Slip-on shoe - Right foot (one step) Sock - Left foot (one step) Sock - Right foot (one step) Underwear (three steps) ARTICLES SCORE Total number of steps: 10 DRESSING - LOWER BODY - STEP 1: Does the patient require help from a person or device, or need extra time when dressing below the [address]? Yes. DRESSING - LOWER BODY - STEP 2: Does the patient require the assistance of a helper? Yes. DRESSING - LOWER BODY - STEP 3: Does the helper touch the patient while dressing? Yes. DRESSING - LOWER BODY - STEP 4: How many of the total steps does the patient complete on his/her own? 8 DRESSING - LOWER BODY - SCORE: 4-MIN TOILETING: TOILETING - STEP 1: Does the patient require the assistance of a person or device, or need extra time with toileting? Yes . TOILETING - STEP 2: Does the patient require the assistance of a helper? Yes. TOILETING - STEP 3: How much assistance does the patient require from the helper? Only supervision TOILETING - SCORE: 5-SUP BLADDER MANAGEMENT: Activity did not occur on this shift BLADDER MANAGEMENT - SCORE: 7-IND BOWEL MANAGEMENT: Activity did not occur on this shift BOWEL MANAGEMENT - SCORE: 7-IND TRANSFERS: BED, CHAIR, WHEELCHAIR: Activity did not occur on this shift TRANSFERS: BED, CHAIR, WHEELCHAIR - SCORE: 0-UNK TRANSFERS: TOILET: TRANSFERS: TOILET - STEP 1: Does the patient require the assistance of a person or device, or need extra time with toilet transfe rs? Yes. TRANSFERS: TOILET - STEP 2: Does the patient require the assistance of a helper? Yes. TRANSFERS: TOILET - STEP 3: How much assistance does the patient require from the helper? Only supervision, cuing, coaxing, OR he lp to set out transfer equipment or to lock brakes and/or lift foot rests TRANSFERS: TOILET - SCORE: 5-SUP TRANSFERS: SHOWER: TRANSFERS: SHOWER - STEP 1: Does the patient require the assistance of a person or device, or need extra time with shower transfe rs? Yes. TRANSFERS: SHOWER - STEP 2: Does the patient require the assistance of a helper? Yes. TRANSFERS: SHOWER - STEP 3: How much assistance does the patient require from the helper? Only supervision, cuing, coaxing, or he lp to set out transfer equipment or to lock brakes and/or lift foot rests TRANSFERS: SHOWER - SCORE: 5-SUP TRANSFERS: TUB: Activity did not occur on this shift TRANSFERS: TUB - SCORE: 0-UNK LOCOMOTION: WALK: Activity did not occur on this shift LOCOMOTION: WALK - SCORE: 0-UNK LOCOMOTION: WHEELCHAIR: Activity did not occur on this shift LOCOMOTION: WHEELCHAIR - SCORE: 0-UNK LOCOMOTION: STAIRS: Activity did not occur on this shift LOCOMOTION: STAIRS - SCORE: 0-UNK COMPREHENSION: COMPREHENSION: TYPE: Both COMPREHENSION - STEP 1: Does the patient require help from a person or device, or need extra time to understand complex and a bstract ideas (such as current events, finances, discharge planning, medical issues, relationships, e tc)? No. COMPREHENSION - STEP 2: Does the patient need extra time, require an assistive device (such as glasses for visual comprehensi on or a hearing aid for auditory comprehension) or does s/he have mild difficulty understanding compl ex and abstract information? Yes. COMPREHENSION - SCORE: 6-NGOC EXPRESSION EXPRESSION: TYPE: Both EXPRESSION - STEP 1: Does the patient require help from a person or device, or need extra time expressing complex and abst ract ideas (such as current events, finances, discharge planning, medical issues, relationships, etc) ? No. EXPRESSION - STEP 2: Does the patient need extra time, require an assistive device (such as augmentive communication syste m or a communication board), OR does s/he have mild difficulty expressing complex and abstract ideas (including mild dysarthria or mild word-find problems)? Yes. EXPRESSION - SCORE: 6-NGOC SOCIAL INTERACTION: SOCIAL INTERACTION - STEP 1: Does the patient require a helper to interact with others in social and therapeutic situations? No. SOCIAL INTERACTION - STEP 2: Does the patient need extra time in social situations, OR does s/he interact with staff, other patien ts, and family members ONLY in structured environments, OR does s/he require medication for social in teraction? Yes, patient needs extra time SOCIAL INTERACTION - SCORE: 6-NGOC PROBLEM SOLVING: PROBLEM SOLVING - STEP 1: Does the patient need help from a person or device, or need extra time to solve complex problems such as managing a checking account or confronting interpersonal problems? Yes. PROBLEM SOLVING - STEP 2: Does the patient solve basic routine problems half or more of the time? Yes. PROBLEM SOLVING - STEP 3: How often does the patient need help to solve basic routine problems? Less than 10% of the time PROBLEM SOLVING - SCORE: 5-SUP MEMORY: MEMORY - STEP 1: Does the patient need help from a person or device, or need extra time to remember frequently encount ered people, daily routines, and executing requests? Yes. MEMORY - STEP 2: How often does the patient need help to remember frequently encountered people, daily routines, and e xecuting requests? Less than 10% of the time MEMORY - SCORE: 5-SUP SIGNATURE PANEL: The following modified sections: Eating - Score, Grooming - Score, Bathing - Score, Dressing - Upper Body - Score, Dressing - Lower Body - Score, Toileting - Score, Transfers: Bed, Chair, Wheelchair - S core, Transfers: Toilet - Score, Transfers: Tub - Score, Transfers: Shower - Score, Comprehension - S core, Expression - Score, Social Interaction - Score, Problem Solving - Score, Memory - Score were [e lectronically] signed by Meena Degroot OT on WedDec 12 2018 14:48:50 T-0500 ([facility])
--- NOTE | 2018-12-12 15:12 | FAST ---
SHIFT START DATE/TIME: 12/12/2018 07:00 (CDT) SHIFT END DATE/TIME: 12/12/2018 19:00 (CDT) NAME ELENA NOLAN DATE OF : 1940 DATE OF ADMISSION: 12/06/2018 20:10 (CDT) PHONE: AGE: 78 N# [id number] GENDER: Male ENCOUNTER PHYSICIAN: Dr. Sid Cruz M.D. ADMISSION DIAGNOSIS: - Orthopaedic Disorders 08 - Unilateral Hip Fracture (08.11) right femur fx. EATING: EATING - STEP 1: Does the patient require the assistance of a person or device, or need extra time when eating? Yes. EATING - STEP 2: Does the patient require the assistance of a helper? No, patient only requires an assistive device, O R s/he takes more than reasonable time to eat, OR there is a safety concern, OR s/he requires modifie d food consistency EATING - SCORE: 6-NGOC GROOMING: Comb/brush hair Oral care Wash, rinse, and dry face Wash, rinse, and dry hands GROOMING - STEP 1: Does the patient require the assistance of a person or device, or need extra time when grooming? Yes. GROOMING - STEP 2: Does the patient require the assistance of a helper? No. The patient only requires an assistive devic e, OR takes more than reasonable time to groom, OR there is a concern for safety as the patient groom s GROOMING - SCORE: 6-NGOC BATHING: Activity did not occur on this shift BATHING - SCORE: 0-UNK DRESSING - UPPER BODY: Activity did not occur on this shift ARTICLES SCORE Total number of steps: 0 DRESSING - UPPER BODY - SCORE: 0-UNK DRESSING - LOWER BODY: Activity did not occur on this shift ARTICLES SCORE Total number of steps: 0 DRESSING - LOWER BODY - SCORE: 0-UNK TOILETING: TOILETING - STEP 1: Does the patient require the assistance of a person or device, or need extra time with toileting? Yes . TOILETING - STEP 2: Does the patient require the assistance of a helper? Yes. TOILETING - STEP 3: How much assistance does the patient require from the helper? Hands-on assistance from the helper TOILETING - STEP 4: Of the 3 tasks: 1) Adjusting clothing prior to use, 2) Cleansing of perineal area, 3) Adjusting clot neyda after use; How many tasks does the patient perform WITHOUT assistance of the helper? Three tasks with steadying assistance from the helper TOILETING - SCORE: 4-MIN BLADDER MANAGEMENT: BLADDER MANAGEMENT - STEP 1: Does the patient control the bladder completely and intentionally without equipment or devices or med ications, and is always continent? No. BLADDER MANAGEMENT - STEP 2: Does the patient require the assistance of a helper? No, patient requires and independently uses an a ssistive device, such as a urinal, bedpan, bedside commode, catheter, absorbent pad, or collecting de vice BLADDER MANAGEMENT - SCORE: 6-NGOC BOWEL MANAGEMENT: Activity did not occur on this shift BOWEL MANAGEMENT - SCORE: 7-IND TRANSFERS: BED, CHAIR, WHEELCHAIR: TRANSFERS: BED, CHAIR, WHEELCHAIR - STEP 1: Does the patient require assistance of a person or device, or need extra time with bed, chair, or whe elchair transfers? Yes. TRANSFERS: BED, CHAIR, WHEELCHAIR - STEP 2: Does the patient require the assistance of a helper? Yes. TRANSFERS: BED, CHAIR, WHEELCHAIR - STEP 3: How much assistance does the patient require from the helper? Steadying/guiding assistance TRANSFERS: BED, CHAIR, WHEELCHAIR - SCORE: 4-MIN TRANSFERS: TOILET: TRANSFERS: TOILET - STEP 1: Does the patient require the assistance of a person or device, or need extra time with toilet transfe rs? Yes. TRANSFERS: TOILET - STEP 2: Does the patient require the assistance of a helper? Yes. TRANSFERS: TOILET - STEP 3: How much assistance does the patient require from the helper? Only supervision, cuing, coaxing, OR he lp to set out transfer equipment or to lock brakes and/or lift foot rests TRANSFERS: TOILET - SCORE: 5-SUP TRANSFERS: SHOWER: Activity did not occur on this shift TRANSFERS: SHOWER - SCORE: 0-UNK TRANSFERS: TUB: Activity did not occur on this shift TRANSFERS: TUB - SCORE: 0-UNK LOCOMOTION: WALK: Activity did not occur on this shift LOCOMOTION: WALK - SCORE: 0-UNK LOCOMOTION: WHEELCHAIR: Activity did not occur on this shift LOCOMOTION: WHEELCHAIR - SCORE: 0-UNK COMPREHENSION: COMPREHENSION: TYPE: Both COMPREHENSION - STEP 1: Does the patient require help from a person or device, or need extra time to understand complex and a bstract ideas (such as current events, finances, discharge planning, medical issues, relationships, e tc)? No. COMPREHENSION - STEP 2: Does the patient need extra time, require an assistive device (such as glasses for visual comprehensi on or a hearing aid for auditory comprehension) or does s/he have mild difficulty understanding compl ex and abstract information? Yes. COMPREHENSION - SCORE: 6-NGOC EXPRESSION EXPRESSION: TYPE: Both EXPRESSION - STEP 1: Does the patient require help from a person or device, or need extra time expressing complex and abst ract ideas (such as current events, finances, discharge planning, medical issues, relationships, etc) ? No. EXPRESSION - STEP 2: Does the patient need extra time, require an assistive device (such as augmentive communication syste m or a communication board), OR does s/he have mild difficulty expressing complex and abstract ideas (including mild dysarthria or mild word-find problems)? Yes. EXPRESSION - SCORE: 6-NGOC SOCIAL INTERACTION: SOCIAL INTERACTION - STEP 1: Does the patient require a helper to interact with others in social and therapeutic situations? No. SOCIAL INTERACTION - STEP 2: Does the patient need extra time in social situations, OR does s/he interact with staff, other patien ts, and family members ONLY in structured environments, OR does s/he require medication for social in teraction? Yes, patient needs extra time SOCIAL INTERACTION - SCORE: 6-NGOC PROBLEM SOLVING: PROBLEM SOLVING - STEP 1: Does the patient need help from a person or device, or need extra time to solve complex problems such as managing a checking account or confronting interpersonal problems? No. PROBLEM SOLVING - STEP 2: Does the patient require extra time to make decisions or solve problems, OR does s/he have slight dif ficulty reading, initiating, or self-correcting in unfamiliar situations? Yes, patient needs extra ti me. PROBLEM SOLVING - SCORE: 6-NGOC MEMORY: MEMORY - STEP 1: Does the patient need help from a person or device, or need extra time to remember frequently encount ered people, daily routines, and executing requests? No. MEMORY - STEP 2: Does the patient have slight difficulty recognizing frequently encountered people, daily routines, or executing requests without the need for repetition or using self-initiated or environmental cues to remember? Yes. MEMORY - SCORE: 6-NGOC SIGNATURE PANEL: The following modified sections: Eating - Score, Grooming - Score, Bathing - Score, Dressing - Upper Body - Score, Dressing - Lower Body - Score, Toileting - Score, Bladder Management - Score, Bowel Man agement - Score, Transfers: Bed, Chair, Wheelchair - Score, Transfers: Toilet - Score, Transfers: Rosangela wer - Score, Transfers: Tub - Score, Locomotion: Walk - Score, Locomotion: Wheelchair - Score, Compre hension - Score, Expression - Score, Social Interaction - Score, Problem Solving - Score, Memory - Sc ore were [electronically] signed by Anthony Reyes on WedDec 12 2018 15:11:48 GMT-0500 ([facility] Day[facility])
--- NOTE | 2018-12-12 16:35 | FAST ---
ENCOUNTER DATE AND TIME: 12/12/2018 08:00 (CDT) NAME ELENA NOLAN DATE OF : 1940 DATE OF ADMISSION: 12/06/2018 20:10 (CDT) PHONE: AGE: 78 SSN# [id number] GENDER: Male ENCOUNTER PHYSICIAN: Dr. Sid Cruz M.D. ADMISSION DIAGNOSIS: - Orthopaedic Disorders 08 - Unilateral Hip Fracture (08.) right femur fx. EATING: Activity did not occur on this shift EATING - SCORE: 0-UNK GROOMING: Activity did not occur on this shift GROOMING - SCORE: 0-UNK BATHING: Activity did not occur on this shift BATHING - SCORE: 0-UNK DRESSING - UPPER BODY: Activity did not occur on this shift Patient is not dressing in public clothing ARTICLES SCORE Total number of steps: 0 DRESSING - UPPER BODY - SCORE: 0-UNK DRESSING - LOWER BODY: Activity did not occur on this shift Patient is not dressing in public clothing ARTICLES SCORE Total number of steps: 0 DRESSING - LOWER BODY - SCORE: 0-UNK TOILETING: Activity did not occur on this shift TOILETING - SCORE: 0-UNK BLADDER MANAGEMENT: Activity did not occur on this shift BLADDER MANAGEMENT - SCORE: 7-IND BOWEL MANAGEMENT: Activity did not occur on this shift BOWEL MANAGEMENT - SCORE: 7-IND TRANSFERS: BED, CHAIR, WHEELCHAIR: TRANSFERS: BED, CHAIR, WHEELCHAIR - STEP 1: Does the patient require assistance of a person or device, or need extra time with bed, chair, or whe elchair transfers? Yes. TRANSFERS: BED, CHAIR, WHEELCHAIR - STEP 2: Does the patient require the assistance of a helper? Yes. TRANSFERS: BED, CHAIR, WHEELCHAIR - STEP 3: How much assistance does the patient require from the helper? Only supervision TRANSFERS: BED, CHAIR, WHEELCHAIR - SCORE: 5-SUP TRANSFERS: TOILET: Activity did not occur on this shift TRANSFERS: TOILET - SCORE: 0-UNK TRANSFERS: SHOWER: Activity did not occur on this shift TRANSFERS: SHOWER - SCORE: 0-UNK TRANSFERS: TUB: Activity did not occur on this shift TRANSFERS: TUB - SCORE: 0-UNK LOCOMOTION: WALK: LOCOMOTION: WALK - STEP 1: Does the patient need help from a person or device, or need extra time to walk 150 feet? Yes. LOCOMOTION: WALK - STEP 2: How much assistance does the patient require to walk a minimum of 150 feet? Only incidental help such as contact guarding or steadying LOCOMOTION: WALK - SCORE: 4-MIN LOCOMOTION: WHEELCHAIR: LOCOMOTION: WHEELCHAIR - STEP 1: Does the patient need help to go 150 feet in a wheelchair? No. LOCOMOTION: WHEELCHAIR - SCORE: 6-NGOC LOCOMOTION: STAIRS: Activity did not occur on this shift LOCOMOTION: STAIRS - SCORE: 0-UNK COMPREHENSION: COMPREHENSION - SCORE: 0-UNK EXPRESSION EXPRESSION - SCORE: 0-UNK SOCIAL INTERACTION: SOCIAL INTERACTION - SCORE: 0-UNK PROBLEM SOLVING: PROBLEM SOLVING - SCORE: 0-UNK MEMORY: MEMORY - SCORE: 0-UNK SIGNATURE PANEL: The following modified sections: Transfers: Bed, Chair, Wheelchair - Score, Transfers: Toilet - Score , Locomotion: Walk - Score, Locomotion: Wheelchair - Score, Locomotion: Stairs - Score were [electron ically] signed by Liliam Calderon PTA on WedDec 12 2018 16:33:52 T-0500 ([facility] Day[facility] Time)
[2018-12-12] MEDS: HYDROXYUREA 500 MG CAP PO SCH (17:14)
[2018-12-12] MEDS: VITAMIN D 5,000 UNIT CAP PO SCH (17:14)
[2018-12-12] MEDS: MELATONIN 3 MG TABLET PO SCH (20:14)
--- NOTE | 2018-12-12 21:55 | R.PN ---
ENCOUNTER DATE AND TIME: 12/12/2018 21:52 (CDT) NAME ELENA NOLAN DATE OF : 1940 DATE OF ADMISSION: 12/06/2018 20:10 (CDT) right femur fxCHIEF COMPLAINT: Right hip fracture SUBJECTIVE: Pt denied any depression. Pt denied any Shortness of Breath. Self-propelled wheelchair 1000' with modified independence. VITAL SIGNS Temperature: 97.6 F SBP/DBP: 106/54 Pulse: 68 Resp: 16 MEDICATION ALLERGIES: No Known Drug Allergies (NKDA) ENVIRONMENTAL ALLERGIES: - Substance Allergies None Known - Other Allergies None Known NURSING: - Shower allowing shower - Skin care per protocol PRECAUTIONS: - Posterior Hip Precaution No adduction across midline No external rotation No hip flexion >90 degrees No internal rotation No wheel chair propulsion - Weight Bearing Precaution WBAT right LE ACTIVITIES OOB only with supervision THERAPIES: - Occupational Therapy Evaluate and Treat. - Physical Therapy Evaluate and Treat. PHYSICAL EXAM - Gen Alert and awake Lying in bed No apparent distress Oriented to: person, time, and place - Skin Right hip incision intact No abnormalities - Eyes No abnormalities - ENMT No abnormalities - Neck No abnormalities - CVS RRR - Chest No abnormalities - Resp Clear to auscultation - Abd +bowel sounds - GI Soft Deferred - No abnormalities - Ext Right foot transmetatarsals amputation. - MSK 4+/5 weakness in right lower extremity - Neuro 4/5 strength right lower extremity - Psych No abnormalities ASSESSMENT: Pt. is a 78 yo Right-handed white male.On 12/01/2018 he was admitted to [facility] and underwent emerg ency surgery for right femur fx (Unilateral Hip Fracture) by Yaniv De La Cruz.Pre-morbidly, Pt. was indep endent/mod-I in Self-Care, Sphincter Control, Transfers Control, Communication, Social Cognition, and Locomotion; and he had good Sphincter Control.Currently, he has deficits of Self-Care, Transfers Con trol, Communication, Social Cognition, Endurance, Balance, Safety Awareness, and Locomotion.Pt. is no w referred to [facility] for acute in-patient rehabilitation in order to maxim ize patient's functional independence in activities of daily living, strength, ROM, and mobility.- Re hab Goal Patient has realistic goal of being discharged at assistance level 6-Ivette to reside at Home with Fam marilia/Relatives. MDM/PLAN: - Physical Therapy Decreased range of motion - to improve, our physical therapists will perform initial evaluation of p t's status upon admission and devise an individualized program for increasing patient's Range of Remy on. Gait dysfunction - to improve, our physical therapists will perform initial evaluation of pt's statu s upon admission and devise an individualized program for Gait Training, and Wheel Chair mobility Inability to transfer - to improve, our physical therapists will perform initial evaluation of pt's status upon admission and devise an individualized program for Bed mobility Need for home safety evaluation - to improve, our physical therapists will perform initial evaluatio n of pt's status upon admission and devise an individualized program for Home Evaluation Need in caregiver upon discharge - to improve, our physical therapists will perform initial evaluati on of pt's status upon admission and devise an individualized program for Caregiver Training New precaution - to improve, our physical therapists will perform initial evaluation of pt's status upon admission and devise an individualized program for Patient precaution education Poor balance - to improve, our physical therapists will perform initial evaluation of pt's status up on admission and devise an individualized program for Balance Training Poor endurance - to improve, our physical therapists will perform initial evaluation of pt's status upon admission and devise an individualized program for Endurance Training Weakness - to improve, our physical therapists will perform initial evaluation of pt's status upon a dmission and devise an individualized program for Aquatic Therapy, Neuromuscular Reeducation, and Str engthening Achieving independence - to improve, our physical therapists will perform initial evaluation of pt's status upon admission and devise an individualized program for Community Reintegration Activities - Occupational Therapy ADL deficits - to improve, our occupation therapists will perform initial evaluation of pt's status upon admission and devise an individualized program for Bathing, Bed mobility, Community Reintegratio n, Cooking, Dressing, Eating, Fine Motor Skills, Grooming, Homemaking, Kitchen Mobility, Laundry, Pat ient Education, Safety Awareness, Splinting - Positioning, Transfers(Toilet, Tub, Shower), and Wheel Chair Management Cognitive deficits - to improve, our occupation therapists will perform initial evaluation of pt's s tatus upon admission and devise an individualized program for Cognition - orientation Need for pharmacist critical care - to improve, our occupation therapists will perform initial evaluation of pt's status upon admission and devise an individualized program for Caregiver Training Weakness - to improve, our occupation therapists will perform initial evaluation of pt's status upon admission and devise an individualized program for Aquatic Therapy, Balance, Endurance, UE ROM, and UE strengthening - Anterior Hip Precaution No abduction No active extension No adduction across midline No external rotation No hip flexion >90 degrees No internal rotation - Diet - Liquid Texture Continue Regular - Tube Feed Continue N/A - Diet Type Continue Regular - Posterior Hip Precaution No adduction across midline No external rotation No hip flexion >90 degrees No internal rotation No wheel chair propulsion - Weight Bearing Precaution WBAT right LE - Skin care per protocol - Diet - Solid Texture Continue Regular - Shower allowing shower FUNCTIONAL STATUS: UPDATED AT WEEKLY TEAM CONFERENCE - Bladder Same accident frequency: 7-Ind - No accidents in the past 7 days - Bowel Same accident frequency: 7-Ind - No accidents in the past 7 days - Walking Same score based on distance walked: 2(50-149ft) FUNCTIONAL STATUS: - Self-Care A. Eating sup B. Grooming sup C. Bathing sup D. Dressing - Upper sup E. Dressing - Lower Dep F. Toileting Dep - Sphincter Control G: Bladder control Dep H: Bowel control Dep - Transfers Control I. Bed/Chair/Wheelchair modA J. Toilet modA K. Tub/Shower modA - Locomotion L. Walk/Wheelchair (B) maxA M. Stairs ADNO - Communication N. Comprehension (B) Beckie O. Expression (B) Beckie - Social Cognition P. Social Interaction Beckie Q. Problem Solving Beckie R. Memory Beckie - Endurance Poor - Balance Poor - Safety Awareness Poor CURRENT FUNC. DEFICITS: Self-Care, Transfers Control, Communication, Social Cognition, Endurance, Balance, Safety Awareness, and Locomotion SIGNATURE PANEL: (CDT)
--- NOTE | 2018-12-13 02:51 | FAST ---
SHIFT START DATE/TIME: 12/12/2018 19:00 (CDT) SHIFT END DATE/TIME: 12/13/2018 07:00 (CDT) NAME ELENA NOLAN DATE OF : 1940 DATE OF ADMISSION: 12/06/2018 20:10 (CDT) PHONE: AGE: 78 SSN# [id number] GENDER: Male ENCOUNTER PHYSICIAN: Dr. Sid Cruz M.D. ADMISSION DIAGNOSIS: - Orthopaedic Disorders 08 - Unilateral Hip Fracture (08.11) right femur fx. EATING: Activity did not occur on this shift EATING - SCORE: 0-UNK GROOMING: Activity did not occur on this shift GROOMING - SCORE: 0-UNK BATHING: Activity did not occur on this shift BATHING - SCORE: 0-UNK DRESSING - UPPER BODY: Activity did not occur on this shift ARTICLES SCORE Total number of steps: 0 DRESSING - UPPER BODY - SCORE: 0-UNK DRESSING - LOWER BODY: Activity did not occur on this shift ARTICLES SCORE Total number of steps: 0 DRESSING - LOWER BODY - SCORE: 0-UNK TOILETING: TOILETING - STEP 1: Does the patient require the assistance of a person or device, or need extra time with toileting? Yes . TOILETING - STEP 2: Does the patient require the assistance of a helper? Yes. TOILETING - STEP 3: How much assistance does the patient require from the helper? Hands-on assistance from the helper TOILETING - STEP 4: Of the 3 tasks: 1) Adjusting clothing prior to use, 2) Cleansing of perineal area, 3) Adjusting clot neyda after use; How many tasks does the patient perform WITHOUT assistance of the helper? Three tasks with steadying assistance from the helper TOILETING - SCORE: 4-MIN BLADDER MANAGEMENT: BLADDER MANAGEMENT - STEP 1: Does the patient control the bladder completely and intentionally without equipment or devices or med ications, and is always continent? No. BLADDER MANAGEMENT - STEP 2: Does the patient require the assistance of a helper? Yes. BLADDER MANAGEMENT - STEP 3: How much assistance does the patient require from the helper? Patient requires contact assistance fro m the helper BLADDER MANAGEMENT - STEP 4: How much contact assistance does the patient require from the helper? Patient requires moderate abbey tance, and performs 50% to 75% of bladder management tasks - [place] positions AND holds urinal or bed jones BLADDER MANAGEMENT - SCORE: 3-MOD BOWEL MANAGEMENT: Activity did not occur on this shift BOWEL MANAGEMENT - SCORE: 7-IND TRANSFERS: BED, CHAIR, WHEELCHAIR: TRANSFERS: BED, CHAIR, WHEELCHAIR - STEP 1: Does the patient require assistance of a person or device, or need extra time with bed, chair, or whe elchair transfers? Yes. TRANSFERS: BED, CHAIR, WHEELCHAIR - STEP 2: Does the patient require the assistance of a helper? Yes. TRANSFERS: BED, CHAIR, WHEELCHAIR - STEP 3: How much assistance does the patient require from the helper? Lifting of the legs TRANSFERS: BED, CHAIR, WHEELCHAIR - STEP 4: How many legs does the patient require the helper to lift? both legs TRANSFERS: BED, CHAIR, WHEELCHAIR - SCORE: 3-MOD TRANSFERS: TOILET: TRANSFERS: TOILET - STEP 1: Does the patient require the assistance of a person or device, or need extra time with toilet transfe rs? Yes. TRANSFERS: TOILET - STEP 2: Does the patient require the assistance of a helper? Yes. TRANSFERS: TOILET - STEP 3: How much assistance does the patient require from the helper? Patient performs half or more of the tr ansferring tasks TRANSFERS: TOILET - STEP 4: Does the patient need only incidental help such as contact guard or steadying during toilet transfer? Yes. TRANSFERS: TOILET - SCORE: 4-MIN TRANSFERS: SHOWER: Activity did not occur on this shift TRANSFERS: SHOWER - SCORE: 0-UNK TRANSFERS: TUB: Activity did not occur on this shift TRANSFERS: TUB - SCORE: 0-UNK LOCOMOTION: WALK: Activity did not occur on this shift LOCOMOTION: WALK - SCORE: 0-UNK LOCOMOTION: WHEELCHAIR: Activity did not occur on this shift LOCOMOTION: WHEELCHAIR - SCORE: 0-UNK COMPREHENSION: COMPREHENSION: TYPE: Both COMPREHENSION - STEP 1: Does the patient require help from a person or device, or need extra time to understand complex and a bstract ideas (such as current events, finances, discharge planning, medical issues, relationships, e tc)? No. COMPREHENSION - STEP 2: Does the patient need extra time, require an assistive device (such as glasses for visual comprehensi on or a hearing aid for auditory comprehension) or does s/he have mild difficulty understanding compl ex and abstract information? Yes. COMPREHENSION - SCORE: 6-NGOC EXPRESSION EXPRESSION: TYPE: Both EXPRESSION - STEP 1: Does the patient require help from a person or device, or need extra time expressing complex and abst ract ideas (such as current events, finances, discharge planning, medical issues, relationships, etc) ? No. EXPRESSION - STEP 2: Does the patient need extra time, require an assistive device (such as augmentive communication syste m or a communication board), OR does s/he have mild difficulty expressing complex and abstract ideas (including mild dysarthria or mild word-find problems)? No. EXPRESSION - SCORE: 7-IND SOCIAL INTERACTION: SOCIAL INTERACTION - STEP 1: Does the patient require a helper to interact with others in social and therapeutic situations? No. SOCIAL INTERACTION - STEP 2: Does the patient need extra time in social situations, OR does s/he interact with staff, other patien ts, and family members ONLY in structured environments, OR does s/he require medication for social in teraction? No. SOCIAL INTERACTION - SCORE: 7-IND PROBLEM SOLVING: PROBLEM SOLVING - STEP 1: Does the patient need help from a person or device, or need extra time to solve complex problems such as managing a checking account or confronting interpersonal problems? No. PROBLEM SOLVING - STEP 2: Does the patient require extra time to make decisions or solve problems, OR does s/he have slight dif ficulty reading, initiating, or self-correcting in unfamiliar situations? No. PROBLEM SOLVING - SCORE: 7-IND MEMORY: MEMORY - STEP 1: Does the patient need help from a person or device, or need extra time to remember frequently encount ered people, daily routines, and executing requests? No. MEMORY - STEP 2: Does the patient have slight difficulty recognizing frequently encountered people, daily routines, or executing requests without the need for repetition or using self-initiated or environmental cues to remember? No. MEMORY - SCORE: 7-IND SIGNATURE PANEL: The following modified sections: Eating - Score, Grooming - Score, Bathing - Score, Dressing - Upper Body - Score, Dressing - Lower Body - Score, Toileting - Score, Bladder Management - Score, Bowel Man agement - Score, Transfers: Bed, Chair, Wheelchair - Score, Transfers: Shower - Score, Transfers: Tub - Score, Locomotion: Walk - Score, Locomotion: Wheelchair - Score, Comprehension - Score, Expression - Score, Social Interaction - Score, Problem Solving - Score, Memory - Score, Transfers: Toilet - Sc ore were [electronically] signed by Aspen Ching CNA on WedDec 13 2018 02:50:00 T-0500 ([place] Da ylight Time)
[2018-12-13] MEDS: ALENDRONATE 70 MG TAB PO SCH (05:34)
[2018-12-13] MEDS: LEVOTHYROXINE SOD 0.05 MG TABLET PO SCH (05:34)
[2018-12-13] MEDS: PANTOPRAZOLE 40MG TABLET PO SCH (05:34)
[2018-12-13 07:04] LABS: Urine Appearance CLEAR; Urine Bilirubin NEGATIVE (NEG); Urine Blood TRACE (NEG); Urine Color YELLOW; Urine Glucose NEGATIVE (NEG); Urine Protein NEGATIVE (NEG); Urine Specific Gravity 1.015 (1.005-1.030); Urine pH 7.5 (5.0-7.0)
[2018-12-13] MEDS: LIDOCAINE 5% PATCH TOP SCH (07:24)
[2018-12-13] MEDS: ENOXAPARIN 40 MG/0.4 ML SQ SCH (07:25)
[2018-12-13] MEDS: CARVEDILOL 6.25 MG TAB PO SCH ×2 (07:26→20:00)
[2018-12-13] MEDS: AMIODARONE HCL 200 MG TAB PO SCH (07:26)
[2018-12-13] MEDS: MAGNESIUM OXIDE 400 MG TAB PO SCH ×2 (07:26→20:05)
[2018-12-13] MEDS: LORATADINE 10 MG TAB PO SCH (07:27)
[2018-12-13] MEDS: DOCUSATE NA 100 MG CAP PO SCH ×2 (07:27→20:05)
[2018-12-13] MEDS: ASPIRIN EC 81 MG TAB PO SCH (07:27)
[2018-12-13] MEDS: predniSONE 5 MG TAB PO SCH (07:27)
[2018-12-13] MEDS: LOSARTAN POTASSIUM 50 MG TABLET PO SCH (07:27)
[2018-12-13] MEDS: ATORVASTATIN 20 MG TAB PO SCH (07:28)
[2018-12-13] MEDS: JUVEN PACKET PO SCH ×3 (07:28→20:00)
[2018-12-13] MEDS: D3 PO SCH ×2 (07:29→20:00)
[2018-12-13] MEDS: CAL MAG ZINC PO SCH ×2 (07:29→20:00)
[2018-12-13] MEDS: HOME MED 1 EA UNK PO SCH (07:29)
[2018-12-13] MEDS: PROMOD 30 ML DOSE PO SCH ×2 (07:30→20:06)
[2018-12-13] MEDS: ALBUTEROL 2.5 MG/3 ML NEB SOL NEB SCH ×3 (07:46→20:13)
[2018-12-13] MEDS: ONDANSETRON 4 MG (ODT) TAB PO PRN ×2 (09:00→13:21)
[2018-12-13] MEDS: NYSTATIN PWDR 100000 UNIT/GM TOP SCH ×2 (09:02→20:00)
--- NOTE | 2018-12-13 10:30 | FAST ---
SHIFT START DATE/TIME: 12/13/2018 07:00 (CDT) SHIFT END DATE/TIME: 12/13/2018 19:00 (CDT) NAME ELENA NOLAN DATE OF : 1940 DATE OF ADMISSION: 12/06/2018 20:10 (CDT) PHONE: AGE: 78 N# [id number] GENDER: Male ENCOUNTER PHYSICIAN: Dr. Sid Cruz M.D. ADMISSION DIAGNOSIS: - Orthopaedic Disorders 08 - Unilateral Hip Fracture (08.11) right femur fx. EATING: EATING - STEP 1: Does the patient require the assistance of a person or device, or need extra time when eating? Yes. EATING - STEP 2: Does the patient require the assistance of a helper? No, patient only requires an assistive device, O R s/he takes more than reasonable time to eat, OR there is a safety concern, OR s/he requires modifie d food consistency EATING - SCORE: 6-NGOC GROOMING: Comb/brush hair Oral care GROOMING - STEP 1: Does the patient require the assistance of a person or device, or need extra time when grooming? Yes. GROOMING - STEP 2: Does the patient require the assistance of a helper? No. The patient only requires an assistive devic e, OR takes more than reasonable time to groom, OR there is a concern for safety as the patient groom s GROOMING - SCORE: 6-NGOC BATHING: Activity did not occur on this shift BATHING - SCORE: 0-UNK DRESSING - UPPER BODY: Activity did not occur on this shift ARTICLES SCORE Total number of steps: 0 DRESSING - UPPER BODY - SCORE: 0-UNK DRESSING - LOWER BODY: Activity did not occur on this shift ARTICLES SCORE Total number of steps: 0 DRESSING - LOWER BODY - SCORE: 0-UNK TOILETING: TOILETING - STEP 1: Does the patient require the assistance of a person or device, or need extra time with toileting? Yes . TOILETING - STEP 2: Does the patient require the assistance of a helper? Yes. TOILETING - STEP 3: How much assistance does the patient require from the helper? Only supervision TOILETING - SCORE: 5-SUP BLADDER MANAGEMENT: BLADDER MANAGEMENT - STEP 1: Does the patient control the bladder completely and intentionally without equipment or devices or med ications, and is always continent? No. BLADDER MANAGEMENT - STEP 2: Does the patient require the assistance of a helper? No, patient requires and independently uses an a ssistive device, such as a urinal, bedpan, bedside commode, catheter, absorbent pad, or collecting de vice BLADDER MANAGEMENT - SCORE: 6-NGOC BOWEL MANAGEMENT: Activity did not occur on this shift BOWEL MANAGEMENT - SCORE: 7-IND TRANSFERS: BED, CHAIR, WHEELCHAIR: TRANSFERS: BED, CHAIR, WHEELCHAIR - STEP 1: Does the patient require assistance of a person or device, or need extra time with bed, chair, or whe elchair transfers? Yes. TRANSFERS: BED, CHAIR, WHEELCHAIR - STEP 2: Does the patient require the assistance of a helper? Yes. TRANSFERS: BED, CHAIR, WHEELCHAIR - STEP 3: How much assistance does the patient require from the helper? Only supervision TRANSFERS: BED, CHAIR, WHEELCHAIR - SCORE: 5-SUP TRANSFERS: TOILET: TRANSFERS: TOILET - STEP 1: Does the patient require the assistance of a person or device, or need extra time with toilet transfe rs? Yes. TRANSFERS: TOILET - STEP 2: Does the patient require the assistance of a helper? Yes. TRANSFERS: TOILET - STEP 3: How much assistance does the patient require from the helper? Only supervision, cuing, coaxing, OR he lp to set out transfer equipment or to lock brakes and/or lift foot rests TRANSFERS: TOILET - SCORE: 5-SUP TRANSFERS: SHOWER: Activity did not occur on this shift TRANSFERS: SHOWER - SCORE: 0-UNK TRANSFERS: TUB: Activity did not occur on this shift TRANSFERS: TUB - SCORE: 0-UNK LOCOMOTION: WALK: Activity did not occur on this shift LOCOMOTION: WALK - SCORE: 0-UNK LOCOMOTION: WHEELCHAIR: Activity did not occur on this shift LOCOMOTION: WHEELCHAIR - SCORE: 0-UNK COMPREHENSION: COMPREHENSION: TYPE: Both COMPREHENSION - STEP 1: Does the patient require help from a person or device, or need extra time to understand complex and a bstract ideas (such as current events, finances, discharge planning, medical issues, relationships, e tc)? No. COMPREHENSION - STEP 2: Does the patient need extra time, require an assistive device (such as glasses for visual comprehensi on or a hearing aid for auditory comprehension) or does s/he have mild difficulty understanding compl ex and abstract information? Yes. COMPREHENSION - SCORE: 6-NGOC EXPRESSION EXPRESSION: TYPE: Both EXPRESSION - STEP 1: Does the patient require help from a person or device, or need extra time expressing complex and abst ract ideas (such as current events, finances, discharge planning, medical issues, relationships, etc) ? No. EXPRESSION - STEP 2: Does the patient need extra time, require an assistive device (such as augmentive communication syste m or a communication board), OR does s/he have mild difficulty expressing complex and abstract ideas (including mild dysarthria or mild word-find problems)? Yes. EXPRESSION - SCORE: 6-NGOC SOCIAL INTERACTION: SOCIAL INTERACTION - STEP 1: Does the patient require a helper to interact with others in social and therapeutic situations? No. SOCIAL INTERACTION - STEP 2: Does the patient need extra time in social situations, OR does s/he interact with staff, other patien ts, and family members ONLY in structured environments, OR does s/he require medication for social in teraction? Yes, patient needs extra time SOCIAL INTERACTION - SCORE: 6-NGOC PROBLEM SOLVING: PROBLEM SOLVING - STEP 1: Does the patient need help from a person or device, or need extra time to solve complex problems such as managing a checking account or confronting interpersonal problems? No. PROBLEM SOLVING - STEP 2: Does the patient require extra time to make decisions or solve problems, OR does s/he have slight dif ficulty reading, initiating, or self-correcting in unfamiliar situations? Yes, patient needs extra ti me. PROBLEM SOLVING - SCORE: 6-NGOC MEMORY: MEMORY - STEP 1: Does the patient need help from a person or device, or need extra time to remember frequently encount ered people, daily routines, and executing requests? No. MEMORY - STEP 2: Does the patient have slight difficulty recognizing frequently encountered people, daily routines, or executing requests without the need for repetition or using self-initiated or environmental cues to remember? Yes. MEMORY - SCORE: 6-NGOC SIGNATURE PANEL: The following modified sections: Eating - Score, Grooming - Score, Bathing - Score, Dressing - Upper Body - Score, Dressing - Lower Body - Score, Toileting - Score, Bladder Management - Score, Bowel Man agement - Score, Transfers: Bed, Chair, Wheelchair - Score, Transfers: Toilet - Score, Transfers: Rosangela wer - Score, Transfers: Tub - Score, Locomotion: Walk - Score, Locomotion: Wheelchair - Score, Compre hension - Score, Expression - Score, Social Interaction - Score, Problem Solving - Score, Memory - Sc ore were [electronically] signed by Anthony Reyes on WedDec 13 2018 10:29:37 T-0500 ([place] Daylight Time)
[2018-12-13] MEDS: MEDIHONEY 44 ML TOPICAL TUBE TOP SCH (11:04)
[2018-12-13] MEDS: HYDROCODONE/APAP 10/325 TAB PO PRN (12:26)
[2018-12-13] MEDS: FE SULF/FA/VIT B COMP & C TAB PO SCH (12:27)
[2018-12-13] MEDS: MULTIVIT W/ MINERAL TAB PO SCH (12:27)
[2018-12-13] MEDS: FERROUS SULFATE 325 MG TAB PO SCH (12:27)
[2018-12-13] MEDS: LACTOBACILLUS/ACIDOPHILUS TAB PO SCH (12:27)
[2018-12-13] MEDS: VITAMIN B COMPLEX 1 CAP PO SCH (12:27)
[2018-12-13] MEDS: ZINC SULFATE 220 MG CAP PO SCH (12:29)
[2018-12-13] MEDS: VITAMIN A 10,000 IU CAP PO SCH (12:29)
--- NOTE | 2018-12-13 14:10 | FAST ---
ENCOUNTER DATE AND TIME: 12/13/2018 08:00 (CDT) NAME ELENA NOLAN DATE OF : 1940 DATE OF ADMISSION: 12/06/2018 20:10 (CDT) PHONE: AGE: 78 SSN# [id number] GENDER: Male ENCOUNTER PHYSICIAN: Dr. Sid Cruz M.D. ADMISSION DIAGNOSIS: - Orthopaedic Disorders 08 - Unilateral Hip Fracture (08.) right femur fx. EATING: Activity did not occur on this shift EATING - SCORE: 0-UNK GROOMING: Activity did not occur on this shift GROOMING - SCORE: 0-UNK BATHING: Activity did not occur on this shift BATHING - SCORE: 0-UNK DRESSING - UPPER BODY: Activity did not occur on this shift Patient is not dressing in public clothing ARTICLES SCORE Total number of steps: 0 DRESSING - UPPER BODY - SCORE: 0-UNK DRESSING - LOWER BODY: Activity did not occur on this shift Patient is not dressing in public clothing ARTICLES SCORE Total number of steps: 0 DRESSING - LOWER BODY - SCORE: 0-UNK TOILETING: Activity did not occur on this shift TOILETING - SCORE: 0-UNK BLADDER MANAGEMENT: Activity did not occur on this shift BLADDER MANAGEMENT - SCORE: 7-IND BOWEL MANAGEMENT: Activity did not occur on this shift BOWEL MANAGEMENT - SCORE: 7-IND TRANSFERS: BED, CHAIR, WHEELCHAIR: TRANSFERS: BED, CHAIR, WHEELCHAIR - STEP 1: Does the patient require assistance of a person or device, or need extra time with bed, chair, or whe elchair transfers? Yes. TRANSFERS: BED, CHAIR, WHEELCHAIR - STEP 2: Does the patient require the assistance of a helper? Yes. TRANSFERS: BED, CHAIR, WHEELCHAIR - STEP 3: How much assistance does the patient require from the helper? Only supervision TRANSFERS: BED, CHAIR, WHEELCHAIR - SCORE: 5-SUP TRANSFERS: TOILET: TRANSFERS: TOILET - STEP 1: Does the patient require the assistance of a person or device, or need extra time with toilet transfe rs? Yes. TRANSFERS: TOILET - STEP 2: Does the patient require the assistance of a helper? Yes. TRANSFERS: TOILET - STEP 3: How much assistance does the patient require from the helper? Only supervision, cuing, coaxing, OR he lp to set out transfer equipment or to lock brakes and/or lift foot rests TRANSFERS: TOILET - SCORE: 5-SUP TRANSFERS: SHOWER: Activity did not occur on this shift TRANSFERS: SHOWER - SCORE: 0-UNK TRANSFERS: TUB: Activity did not occur on this shift TRANSFERS: TUB - SCORE: 0-UNK LOCOMOTION: WALK: LOCOMOTION: WALK - STEP 1: Does the patient need help from a person or device, or need extra time to walk 150 feet? Yes. LOCOMOTION: WALK - STEP 2: How much assistance does the patient require to walk a minimum of 150 feet? Only supervision, cuing, or coaxing LOCOMOTION: WALK - SCORE: 5-SUP LOCOMOTION: WHEELCHAIR: LOCOMOTION: WHEELCHAIR - STEP 1: Does the patient need help to go 150 feet in a wheelchair? No. LOCOMOTION: WHEELCHAIR - SCORE: 6-NGOC LOCOMOTION: STAIRS: Activity did not occur on this shift LOCOMOTION: STAIRS - SCORE: 0-UNK COMPREHENSION: COMPREHENSION - SCORE: 0-UNK EXPRESSION EXPRESSION - SCORE: 0-UNK SOCIAL INTERACTION: SOCIAL INTERACTION - SCORE: 0-UNK PROBLEM SOLVING: PROBLEM SOLVING - SCORE: 0-UNK MEMORY: MEMORY - SCORE: 0-UNK SIGNATURE PANEL: The following modified sections: Transfers: Bed, Chair, Wheelchair - Score, Transfers: Toilet - Score , Locomotion: Walk - Score, Locomotion: Wheelchair - Score, Locomotion: Stairs - Score were [nallely [email or web address]] signed by Baltazar Mann PT on WedDec 13 2018 14:09:54 GMT-0500 (Central Daylight Time)
[2018-12-13 14:21] LABS: Urine Microscopic Reflex ORDER UMIC
[2018-12-13 14:29] LABS: Urine Bacteria NONE SEEN /HPF (NONE SEEN); Urine Culture Reflex Order NOT NEEDED
[2018-12-13] MEDS: VITAMIN D 5,000 UNIT CAP PO SCH (16:56)
--- NOTE | 2018-12-13 18:30 | R.PN ---
ENCOUNTER DATE AND TIME: 12/13/2018 18:27 (CDT) NAME ELENA NOLAN DATE OF : 1940 DATE OF ADMISSION: 12/06/2018 20:10 (CDT) right femur fxCHIEF COMPLAINT: Right hip fracture SUBJECTIVE: Pt denied any depression. Pt denied any Shortness of Breath. Self-propelled wheelchair 1000' with modified independence. Ambulated 400' with standby assistance using a rolling walker. Ambulated 750 feet and 500 feet with standby assistance and a single prong cane. Ascended 15 steps, b ilateral handrails with modified independence VITAL SIGNS Temperature: 97.6 F SBP/DBP: 135/63 Pulse: 63 Resp: 14 MEDICATION ALLERGIES: No Known Drug Allergies (NKDA) ENVIRONMENTAL ALLERGIES: - Substance Allergies None Known - Other Allergies None Known NURSING: - Shower allowing shower - Skin care per protocol PRECAUTIONS: - Posterior Hip Precaution No adduction across midline No external rotation No hip flexion >90 degrees No internal rotation No wheel chair propulsion - Weight Bearing Precaution WBAT right LE ACTIVITIES OOB only with supervision THERAPIES: - Occupational Therapy Evaluate and Treat. - Physical Therapy Evaluate and Treat. PHYSICAL EXAM - Gen Alert and awake Lying in bed No apparent distress Oriented to: person, time, and place - Skin Right hip incision intact No abnormalities - Eyes No abnormalities - ENMT No abnormalities - Neck No abnormalities - CVS RRR - Chest No abnormalities - Resp Clear to auscultation - Abd +bowel sounds - GI Soft Deferred - No abnormalities - Ext Right foot transmetatarsals amputation. - MSK 4+/5 weakness in right lower extremity - Neuro 4/5 strength right lower extremity - Psych No abnormalities ASSESSMENT: Pt. is a 78 yo Right-handed white male.On 12/01/2018 he was admitted to [facility] and underwent emerg ency surgery for right femur fx (Unilateral Hip Fracture) by Yaniv De La Cruz.Pre-morbidly, Pt. was indep endent/mod-I in Self-Care, Sphincter Control, Transfers Control, Communication, Social Cognition, and Locomotion; and he had good Sphincter Control.Currently, he has deficits of Self-Care, Transfers Con trol, Communication, Social Cognition, Endurance, Balance, Safety Awareness, and Locomotion.Pt. is no w referred to [facility] for acute in-patient rehabilitation in order to maxim ize patient's functional independence in activities of daily living, strength, ROM, and mobility.- Re hab Goal Patient has realistic goal of being discharged at assistance level 6-Ivette to reside at Home with Fam marilia/Relatives. MDM/PLAN: - Physical Therapy Decreased range of motion - to improve, our physical therapists will perform initial evaluation of p t's status upon admission and devise an individualized program for increasing patient's Range of Remy on. Gait dysfunction - to improve, our physical therapists will perform initial evaluation of pt's statu s upon admission and devise an individualized program for Gait Training, and Wheel Chair mobility Inability to transfer - to improve, our physical therapists will perform initial evaluation of pt's status upon admission and devise an individualized program for Bed mobility Need for home safety evaluation - to improve, our physical therapists will perform initial evaluatio n of pt's status upon admission and devise an individualized program for Home Evaluation Need in caregiver upon discharge - to improve, our physical therapists will perform initial evaluati on of pt's status upon admission and devise an individualized program for Caregiver Training New precaution - to improve, our physical therapists will perform initial evaluation of pt's status upon admission and devise an individualized program for Patient precaution education Poor balance - to improve, our physical therapists will perform initial evaluation of pt's status up on admission and devise an individualized program for Balance Training Poor endurance - to improve, our physical therapists will perform initial evaluation of pt's status upon admission and devise an individualized program for Endurance Training Weakness - to improve, our physical therapists will perform initial evaluation of pt's status upon a dmission and devise an individualized program for Aquatic Therapy, Neuromuscular Reeducation, and Str engthening Achieving independence - to improve, our physical therapists will perform initial evaluation of pt's status upon admission and devise an individualized program for Community Reintegration Activities - Occupational Therapy ADL deficits - to improve, our occupation therapists will perform initial evaluation of pt's status upon admission and devise an individualized program for Bathing, Bed mobility, Community Reintegratio n, Cooking, Dressing, Eating, Fine Motor Skills, Grooming, Homemaking, Kitchen Mobility, Laundry, Pat ient Education, Safety Awareness, Splinting - Positioning, Transfers(Toilet, Tub, Shower), and Wheel Chair Management Cognitive deficits - to improve, our occupation therapists will perform initial evaluation of pt's s tatus upon admission and devise an individualized program for Cognition - orientation Need for primary care md - to improve, our occupation therapists will perform initial evaluation of pt's status upon admission and devise an individualized program for Caregiver Training Weakness - to improve, our occupation therapists will perform initial evaluation of pt's status upon admission and devise an individualized program for Aquatic Therapy, Balance, Endurance, UE ROM, and UE strengthening - Anterior Hip Precaution No abduction No active extension No adduction across midline No external rotation No hip flexion >90 degrees No internal rotation - Diet - Liquid Texture Continue Regular - Tube Feed Continue N/A - Diet Type Continue Regular - Posterior Hip Precaution No adduction across midline No external rotation No hip flexion >90 degrees No internal rotation No wheel chair propulsion - Weight Bearing Precaution WBAT right LE - Skin care per protocol - Diet - Solid Texture Continue Regular - Shower allowing shower FUNCTIONAL STATUS: UPDATED AT WEEKLY TEAM CONFERENCE - Bladder Same accident frequency: 7-Ind - No accidents in the past 7 days - Bowel Same accident frequency: 7-Ind - No accidents in the past 7 days - Walking Same score based on distance walked: 2(50-149ft) FUNCTIONAL STATUS: - Self-Care A. Eating sup B. Grooming sup C. Bathing sup D. Dressing - Upper sup E. Dressing - Lower Dep F. Toileting Dep - Sphincter Control G: Bladder control Dep H: Bowel control Dep - Transfers Control I. Bed/Chair/Wheelchair modA J. Toilet modA K. Tub/Shower modA - Locomotion L. Walk/Wheelchair (B) maxA M. Stairs ADNO - Communication N. Comprehension (B) Beckie O. Expression (B) Beckie - Social Cognition P. Social Interaction Beckie Q. Problem Solving Beckie R. Memory Beckie - Endurance Poor - Balance Poor - Safety Awareness Poor CURRENT FUNC. DEFICITS: Self-Care, Transfers Control, Communication, Social Cognition, Endurance, Balance, Safety Awareness, and Locomotion SIGNATURE PANEL: (CDT)
[2018-12-13] MEDS: MELATONIN 3 MG TABLET PO SCH (20:05)
--- NOTE | 2018-12-14 02:26 | FAST ---
SHIFT START DATE/TIME: 12/13/2018 19:00 (CDT) SHIFT END DATE/TIME: 12/14/2018 07:00 (CDT) NAME ELENA NOLAN DATE OF : 1940 DATE OF ADMISSION: 12/06/2018 20:10 (CDT) PHONE: AGE: 78 SSN# [id number] GENDER: Male ENCOUNTER PHYSICIAN: Dr. Sid Cruz M.D. ADMISSION DIAGNOSIS: - Orthopaedic Disorders 08 - Unilateral Hip Fracture (08.11) right femur fx. EATING: Activity did not occur on this shift EATING - SCORE: 0-UNK GROOMING: Activity did not occur on this shift GROOMING - SCORE: 0-UNK BATHING: Activity did not occur on this shift BATHING - SCORE: 0-UNK DRESSING - UPPER BODY: Activity did not occur on this shift ARTICLES SCORE Total number of steps: 0 DRESSING - UPPER BODY - SCORE: 0-UNK DRESSING - LOWER BODY: Activity did not occur on this shift ARTICLES SCORE Total number of steps: 0 DRESSING - LOWER BODY - SCORE: 0-UNK TOILETING: TOILETING - STEP 1: Does the patient require the assistance of a person or device, or need extra time with toileting? Yes . TOILETING - STEP 2: Does the patient require the assistance of a helper? Yes. TOILETING - STEP 3: How much assistance does the patient require from the helper? Only supervision TOILETING - SCORE: 5-SUP BLADDER MANAGEMENT: BLADDER MANAGEMENT - STEP 1: Does the patient control the bladder completely and intentionally without equipment or devices or med ications, and is always continent? No. BLADDER MANAGEMENT - STEP 2: Does the patient require the assistance of a helper? Yes. BLADDER MANAGEMENT - STEP 3: How much assistance does the patient require from the helper? Patient requires contact assistance fro m the helper BLADDER MANAGEMENT - STEP 4: How much contact assistance does the patient require from the helper? Patient requires moderate abbey tance, and performs 50% to 75% of bladder management tasks - [place] positions AND holds urinal or bed jones BLADDER MANAGEMENT - SCORE: 3-MOD BOWEL MANAGEMENT: Activity did not occur on this shift BOWEL MANAGEMENT - SCORE: 7-IND TRANSFERS: BED, CHAIR, WHEELCHAIR: TRANSFERS: BED, CHAIR, WHEELCHAIR - STEP 1: Does the patient require assistance of a person or device, or need extra time with bed, chair, or whe elchair transfers? Yes. TRANSFERS: BED, CHAIR, WHEELCHAIR - STEP 2: Does the patient require the assistance of a helper? Yes. TRANSFERS: BED, CHAIR, WHEELCHAIR - STEP 3: How much assistance does the patient require from the helper? Lifting of the legs TRANSFERS: BED, CHAIR, WHEELCHAIR - STEP 4: How many legs does the patient require the helper to lift? both legs TRANSFERS: BED, CHAIR, WHEELCHAIR - SCORE: 3-MOD TRANSFERS: TOILET: TRANSFERS: TOILET - STEP 1: Does the patient require the assistance of a person or device, or need extra time with toilet transfe rs? Yes. TRANSFERS: TOILET - STEP 2: Does the patient require the assistance of a helper? Yes. TRANSFERS: TOILET - STEP 3: How much assistance does the patient require from the helper? Patient performs half or more of the tr ansferring tasks TRANSFERS: TOILET - STEP 4: Does the patient need only incidental help such as contact guard or steadying during toilet transfer? Yes. TRANSFERS: TOILET - SCORE: 4-MIN TRANSFERS: SHOWER: Activity did not occur on this shift TRANSFERS: SHOWER - SCORE: 0-UNK TRANSFERS: TUB: Activity did not occur on this shift TRANSFERS: TUB - SCORE: 0-UNK LOCOMOTION: WALK: Activity did not occur on this shift LOCOMOTION: WALK - SCORE: 0-UNK LOCOMOTION: WHEELCHAIR: Activity did not occur on this shift LOCOMOTION: WHEELCHAIR - SCORE: 0-UNK COMPREHENSION: COMPREHENSION: TYPE: Both COMPREHENSION - STEP 1: Does the patient require help from a person or device, or need extra time to understand complex and a bstract ideas (such as current events, finances, discharge planning, medical issues, relationships, e tc)? No. COMPREHENSION - STEP 2: Does the patient need extra time, require an assistive device (such as glasses for visual comprehensi on or a hearing aid for auditory comprehension) or does s/he have mild difficulty understanding compl ex and abstract information? Yes. COMPREHENSION - SCORE: 6-NGOC EXPRESSION EXPRESSION: TYPE: Both EXPRESSION - STEP 1: Does the patient require help from a person or device, or need extra time expressing complex and abst ract ideas (such as current events, finances, discharge planning, medical issues, relationships, etc) ? No. EXPRESSION - STEP 2: Does the patient need extra time, require an assistive device (such as augmentive communication syste m or a communication board), OR does s/he have mild difficulty expressing complex and abstract ideas (including mild dysarthria or mild word-find problems)? No. EXPRESSION - SCORE: 7-IND SOCIAL INTERACTION: SOCIAL INTERACTION - STEP 1: Does the patient require a helper to interact with others in social and therapeutic situations? No. SOCIAL INTERACTION - STEP 2: Does the patient need extra time in social situations, OR does s/he interact with staff, other patien ts, and family members ONLY in structured environments, OR does s/he require medication for social in teraction? No. SOCIAL INTERACTION - SCORE: 7-IND PROBLEM SOLVING: PROBLEM SOLVING - STEP 1: Does the patient need help from a person or device, or need extra time to solve complex problems such as managing a checking account or confronting interpersonal problems? No. PROBLEM SOLVING - STEP 2: Does the patient require extra time to make decisions or solve problems, OR does s/he have slight dif ficulty reading, initiating, or self-correcting in unfamiliar situations? No. PROBLEM SOLVING - SCORE: 7-IND MEMORY: MEMORY - STEP 1: Does the patient need help from a person or device, or need extra time to remember frequently encount ered people, daily routines, and executing requests? No. MEMORY - STEP 2: Does the patient have slight difficulty recognizing frequently encountered people, daily routines, or executing requests without the need for repetition or using self-initiated or environmental cues to remember? No. MEMORY - SCORE: 7-IND SIGNATURE PANEL: The following modified sections: Eating - Score, Grooming - Score, Bathing - Score, Dressing - Upper Body - Score, Dressing - Lower Body - Score, Toileting - Score, Bladder Management - Score, Bowel Man agement - Score, Transfers: Bed, Chair, Wheelchair - Score, Transfers: Toilet - Score, Transfers: Rosangela wer - Score, Transfers: Tub - Score, Locomotion: Walk - Score, Locomotion: Wheelchair - Score, Compre hension - Score, Expression - Score, Social Interaction - Score, Problem Solving - Score, Memory - Sc ore were [electronically] signed by Aspen Ching CNA on WedDec 14 2018 02:25:14 T-0500 (Central Da ylight Time)
[2018-12-14] MEDS: ENOXAPARIN 40 MG/0.4 ML SQ SCH (06:36)
[2018-12-14] MEDS: PANTOPRAZOLE 40MG TABLET PO SCH (06:36)
[2018-12-14] MEDS: LEVOTHYROXINE SOD 0.05 MG TABLET PO SCH (06:36)
[2018-12-14] MEDS: ALBUTEROL 2.5 MG/3 ML NEB SOL NEB SCH ×3 (07:36→20:00)
[2018-12-14] MEDS: JUVEN PACKET PO SCH ×2 (08:00→20:00)
[2018-12-14] MEDS: HOME MED 1 EA UNK PO SCH (08:00)
[2018-12-14] MEDS: CAL MAG ZINC PO SCH ×2 (08:00→20:00)
[2018-12-14] MEDS: NYSTATIN PWDR 100000 UNIT/GM TOP SCH ×2 (08:00→20:00)
[2018-12-14] MEDS: PROMOD 30 ML DOSE PO SCH ×2 (08:00→20:00)
[2018-12-14] MEDS: MEDIHONEY 44 ML TOPICAL TUBE TOP SCH (08:00)
[2018-12-14] MEDS: D3 PO SCH ×2 (08:00→20:00)
[2018-12-14] MEDS: LIDOCAINE 5% PATCH TOP SCH (08:21)
[2018-12-14] MEDS: LOSARTAN POTASSIUM 50 MG TABLET PO SCH (08:22)
[2018-12-14] MEDS: DOCUSATE NA 100 MG CAP PO SCH ×2 (08:22→20:00)
[2018-12-14] MEDS: HYDROCODONE/APAP 10/325 TAB PO PRN ×2 (08:22→21:52)
[2018-12-14] MEDS: CARVEDILOL 6.25 MG TAB PO SCH ×2 (08:22→20:27)
[2018-12-14] MEDS: predniSONE 5 MG TAB PO SCH (08:22)
[2018-12-14] MEDS: AMIODARONE HCL 200 MG TAB PO SCH (08:22)
[2018-12-14] MEDS: ATORVASTATIN 20 MG TAB PO SCH (08:22)
[2018-12-14] MEDS: ASPIRIN EC 81 MG TAB PO SCH (08:23)
[2018-12-14] MEDS: MAGNESIUM OXIDE 400 MG TAB PO SCH ×2 (08:23→20:27)
[2018-12-14] MEDS: LORATADINE 10 MG TAB PO SCH (08:23)
[2018-12-14] MEDS: ONDANSETRON 4 MG (ODT) TAB PO PRN ×2 (08:28→18:54)
[2018-12-14] MEDS: FERROUS SULFATE 325 MG TAB PO SCH (12:00)
[2018-12-14] MEDS: MULTIVIT W/ MINERAL TAB PO SCH (12:00)
[2018-12-14] MEDS: FE SULF/FA/VIT B COMP & C TAB PO SCH (12:00)
[2018-12-14] MEDS: VITAMIN B COMPLEX 1 CAP PO SCH (12:00)
[2018-12-14] MEDS: LACTOBACILLUS/ACIDOPHILUS TAB PO SCH (12:00)
[2018-12-14] MEDS: VITAMIN A 10,000 IU CAP PO SCH (12:00)
[2018-12-14] MEDS: ZINC SULFATE 220 MG CAP PO SCH (12:00)
--- NOTE | 2018-12-14 14:21 | FAST ---
SHIFT START DATE/TIME: 12/14/2018 07:00 (CDT) SHIFT END DATE/TIME: 12/14/2018 19:00 (CDT) NAME ELENA NOLAN DATE OF : 1940 DATE OF ADMISSION: 12/06/2018 20:10 (CDT) PHONE: AGE: 78 N# [id number] GENDER: Male ENCOUNTER PHYSICIAN: Dr. Sid Cruz M.D. ADMISSION DIAGNOSIS: - Orthopaedic Disorders 08 - Unilateral Hip Fracture (08.11) right femur fx. EATING: EATING - STEP 1: Does the patient require the assistance of a person or device, or need extra time when eating? Yes. EATING - STEP 2: Does the patient require the assistance of a helper? No, patient only requires an assistive device, O R s/he takes more than reasonable time to eat, OR there is a safety concern, OR s/he requires modifie d food consistency EATING - SCORE: 6-NGOC GROOMING: Comb/brush hair Wash, rinse, and dry face Wash, rinse, and dry hands GROOMING - STEP 1: Does the patient require the assistance of a person or device, or need extra time when grooming? Yes. GROOMING - STEP 2: Does the patient require the assistance of a helper? Yes. GROOMING - STEP 3: How much assistance does the patient require from the helper? Only prior equipment preparation/set up from the helper GROOMING - SCORE: 5-SUP BATHING: Activity did not occur on this shift BATHING - SCORE: 0-UNK DRESSING - UPPER BODY: Activity did not occur on this shift ARTICLES SCORE Total number of steps: 0 DRESSING - UPPER BODY - SCORE: 0-UNK DRESSING - LOWER BODY: Activity did not occur on this shift ARTICLES SCORE Total number of steps: 0 DRESSING - LOWER BODY - SCORE: 0-UNK TOILETING: TOILETING - STEP 1: Does the patient require the assistance of a person or device, or need extra time with toileting? Yes . TOILETING - STEP 2: Does the patient require the assistance of a helper? Yes. TOILETING - STEP 3: How much assistance does the patient require from the helper? Hands-on assistance from the helper TOILETING - STEP 4: Of the 3 tasks: 1) Adjusting clothing prior to use, 2) Cleansing of perineal area, 3) Adjusting clot neyda after use; How many tasks does the patient perform WITHOUT assistance of the helper? Three tasks with steadying assistance from the helper TOILETING - SCORE: 4-MIN BLADDER MANAGEMENT: BLADDER MANAGEMENT - STEP 1: Does the patient control the bladder completely and intentionally without equipment or devices or med ications, and is always continent? No. BLADDER MANAGEMENT - STEP 2: Does the patient require the assistance of a helper? No, patient only requires extra time BLADDER MANAGEMENT - SCORE: 6-NGOC BLADDER MANAGEMENT - FREQUENCY OF ACCIDENTS: BLADDER MANAGEMENT(FA) - STEP 1: How many accidents has the patient had during the current shift? 0 BOWEL MANAGEMENT: BOWEL MANAGEMENT - STEP 1: Does the patient control bowels completely and intentionally without equipment devices or medications AND is always continent? No. BOWEL MANAGEMENT - STEP 2: Does the patient require the assistance of a helper? No, patient requires medication for control such as stool softeners, suppositories, laxatives, enemas, or OTC medications BOWEL MANAGEMENT - SCORE: 6-NGOC BOWEL MANAGEMENT - FREQUENCY OF ACCIDENTS: BOWEL MANAGEMENT(FA) - STEP 1: How many accidents has the patient had during the current shift? 0 TRANSFERS: BED, CHAIR, WHEELCHAIR: TRANSFERS: BED, CHAIR, WHEELCHAIR - STEP 1: Does the patient require assistance of a person or device, or need extra time with bed, chair, or whe elchair transfers? Yes. TRANSFERS: BED, CHAIR, WHEELCHAIR - STEP 2: Does the patient require the assistance of a helper? Yes. TRANSFERS: BED, CHAIR, WHEELCHAIR - STEP 3: How much assistance does the patient require from the helper? Steadying/guiding assistance TRANSFERS: BED, CHAIR, WHEELCHAIR - SCORE: 4-MIN TRANSFERS: TOILET: TRANSFERS: TOILET - STEP 1: Does the patient require the assistance of a person or device, or need extra time with toilet transfe rs? Yes. TRANSFERS: TOILET - STEP 2: Does the patient require the assistance of a helper? Yes. TRANSFERS: TOILET - STEP 3: How much assistance does the patient require from the helper? Patient performs half or more of the tr ansferring tasks TRANSFERS: TOILET - STEP 4: Does the patient need only incidental help such as contact guard or steadying during toilet transfer? Yes. TRANSFERS: TOILET - SCORE: 4-MIN TRANSFERS: SHOWER: Activity did not occur on this shift TRANSFERS: SHOWER - SCORE: 0-UNK TRANSFERS: TUB: Activity did not occur on this shift TRANSFERS: TUB - SCORE: 0-UNK LOCOMOTION: WALK: Activity did not occur on this shift LOCOMOTION: WALK - SCORE: 0-UNK LOCOMOTION: WHEELCHAIR: LOCOMOTION: WHEELCHAIR - STEP 1: Does the patient need help to go 150 feet in a wheelchair? Yes. LOCOMOTION: WHEELCHAIR - STEP 2: How much assistance does the patient need from the helper? Only supervision, cuing, or coaxing LOCOMOTION: WHEELCHAIR - SCORE: 5-SUP COMPREHENSION: COMPREHENSION: TYPE: Both COMPREHENSION - STEP 1: Does the patient require help from a person or device, or need extra time to understand complex and a bstract ideas (such as current events, finances, discharge planning, medical issues, relationships, e tc)? Yes. COMPREHENSION - STEP 2: Does the patient require help to understand questions or statements about basic needs or ideas (such as hunger, thirst, sleep, safety, daily schedule, room location, or discomfort) half or more of the t leda? No. COMPREHENSION - STEP 3: How often does the patient need help to understand directions and conversation about basic needs? Les s than 10% of the time COMPREHENSION - SCORE: 5-SUP EXPRESSION EXPRESSION: TYPE: Both EXPRESSION - STEP 1: Does the patient require help from a person or device, or need extra time expressing complex and abst ract ideas (such as current events, finances, discharge planning, medical issues, relationships, etc) ? Yes. EXPRESSION - STEP 2: Does the patient require help to express basic necessities or ideas (such as hunger, thirst, sleep, s afety, daily schedule, room location, or discomfort) half or more of the time? No. EXPRESSION - STEP 3: How often does the patient need help to express directions and conversation about basic needs? Less t esquivel 10% of the time EXPRESSION - SCORE: 5-SUP SOCIAL INTERACTION: SOCIAL INTERACTION - STEP 1: Does the patient require a helper to interact with others in social and therapeutic situations? No. SOCIAL INTERACTION - STEP 2: Does the patient need extra time in social situations, OR does s/he interact with staff, other patien ts, and family members ONLY in structured environments, OR does s/he require medication for social in teraction? Yes, patient needs extra time SOCIAL INTERACTION - SCORE: 6-NGOC PROBLEM SOLVING: PROBLEM SOLVING - STEP 1: Does the patient need help from a person or device, or need extra time to solve complex problems such as managing a checking account or confronting interpersonal problems? No. PROBLEM SOLVING - STEP 2: Does the patient require extra time to make decisions or solve problems, OR does s/he have slight dif ficulty reading, initiating, or self-correcting in unfamiliar situations? Yes, patient needs extra ti me. PROBLEM SOLVING - SCORE: 6-NGOC MEMORY: MEMORY - STEP 1: Does the patient need help from a person or device, or need extra time to remember frequently encount ered people, daily routines, and executing requests? No. MEMORY - STEP 2: Does the patient have slight difficulty recognizing frequently encountered people, daily routines, or executing requests without the need for repetition or using self-initiated or environmental cues to remember? Yes. MEMORY - SCORE: 6-NGOC SIGNATURE PANEL: The following modified sections: Eating - Score, Grooming - Score, Bathing - Score, Dressing - Upper Body - Score, Dressing - Lower Body - Score, Toileting - Score, Bladder Management - Score, Bowel Man agement - Score, Transfers: Bed, Chair, Wheelchair - Score, Transfers: Toilet - Score, Transfers: Rosangela wer - Score, Transfers: Tub - Score, Locomotion: Walk - Score, Locomotion: Wheelchair - Score, Compre hension - Score, Expression - Score, Social Interaction - Score, Problem Solving - Score, Memory - Sc ore were [electronically] signed by Isaura Holland C.N.A. on WedDec 14 2018 14:19:48 T-0500 (Centra l Daylight Time)
[2018-12-14] MEDS: VITAMIN D 5,000 UNIT CAP PO SCH (20:37)
[2018-12-14] MEDS: HYDROXYUREA 500 MG CAP PO SCH (20:37)
[2018-12-14] MEDS: MELATONIN 3 MG TABLET PO SCH (21:52)
[2018-12-15 06:15] LABS: Absolute Lymphocytes (CBC) 1.4 K/uL (0.7-4.9); Absolute Monocytes 0.9 K/uL (0.1-1.3); Absolute Neutrophil 9.5 K/uL (1.8-8.0); Basophils % 0.7 % (0-1.3); Eosinophils % 2.9 % (0-4.4); Hematocrit 35.5 % (39.6-49.0); Lymphocytes % 11.2 % (15.3-44.8); MPV 9.7 fL (7.6-11.3); Monocytes % 7.6 % (3.3-12.3); RBC Red Blood Cell Count 3.73 M/uL (4.33-5.43)
[2018-12-15 06:36] LABS: Albumin 2.4 g/dL (3.4-5.0); Potassium 4.3 mmol/L (3.5-5.1); Prealbumin 13.3 mg/dL (20-40)
[2018-12-15] MEDS: LEVOTHYROXINE SOD 0.05 MG TABLET PO SCH (06:39)
[2018-12-15] MEDS: PANTOPRAZOLE 40MG TABLET PO SCH (06:39)
[2018-12-15] MEDS: ENOXAPARIN 40 MG/0.4 ML SQ SCH (06:39)
[2018-12-15] MEDS: ALBUTEROL 2.5 MG/3 ML NEB SOL NEB SCH ×3 (07:38→20:00)
[2018-12-15] MEDS: JUVEN PACKET PO SCH ×2 (08:00→19:54)
[2018-12-15] MEDS: HOME MED 1 EA UNK PO SCH (08:00)
[2018-12-15] MEDS: LIDOCAINE 5% PATCH TOP SCH (08:00)
[2018-12-15] MEDS: PROMOD 30 ML DOSE PO SCH ×2 (08:00→19:57)
[2018-12-15] MEDS: CAL MAG ZINC PO SCH ×2 (08:00→19:55)
[2018-12-15] MEDS: D3 PO SCH ×2 (08:00→19:55)
[2018-12-15] MEDS: MEDIHONEY 44 ML TOPICAL TUBE TOP SCH (08:00)
[2018-12-15] MEDS: NYSTATIN PWDR 100000 UNIT/GM TOP SCH ×2 (08:00→19:54)
[2018-12-15] MEDS: HYDROCODONE/APAP 10/325 TAB PO PRN ×2 (08:15→14:26)
[2018-12-15] MEDS: MAGNESIUM OXIDE 400 MG TAB PO SCH ×2 (08:15→21:15)
[2018-12-15] MEDS: CARVEDILOL 6.25 MG TAB PO SCH ×2 (08:16→19:56)
[2018-12-15] MEDS: predniSONE 5 MG TAB PO SCH (08:16)
[2018-12-15] MEDS: ASPIRIN EC 81 MG TAB PO SCH (08:16)
[2018-12-15] MEDS: LORATADINE 10 MG TAB PO SCH (08:17)
[2018-12-15] MEDS: DOCUSATE NA 100 MG CAP PO SCH ×2 (08:17→21:15)
[2018-12-15] MEDS: ATORVASTATIN 20 MG TAB PO SCH (08:17)
[2018-12-15] MEDS: LOSARTAN POTASSIUM 50 MG TABLET PO SCH (08:17)
[2018-12-15] MEDS: AMIODARONE HCL 200 MG TAB PO SCH (08:17)
[2018-12-15] MEDS: ONDANSETRON 4 MG (ODT) TAB PO PRN ×2 (09:18→17:30)
[2018-12-15] MEDS: VITAMIN A 10,000 IU CAP PO SCH (12:07)
[2018-12-15] MEDS: FERROUS SULFATE 325 MG TAB PO SCH (12:08)
[2018-12-15] MEDS: VITAMIN B COMPLEX 1 CAP PO SCH (12:08)
[2018-12-15] MEDS: ZINC SULFATE 220 MG CAP PO SCH (12:08)
[2018-12-15] MEDS: MULTIVIT W/ MINERAL TAB PO SCH (12:08)
[2018-12-15] MEDS: FE SULF/FA/VIT B COMP & C TAB PO SCH (12:08)
[2018-12-15] MEDS: LACTOBACILLUS/ACIDOPHILUS TAB PO SCH (12:08)
--- NOTE | 2018-12-15 14:53 | FAST ---
ENCOUNTER DATE AND TIME: 12/15/2018 08:00 (CDT) NAME ELENA NOLAN DATE OF : 1940 DATE OF ADMISSION: 12/06/2018 20:10 (CDT) PHONE: AGE: 78 SSN# [id number] GENDER: Male ENCOUNTER PHYSICIAN: Dr. Sid Cruz M.D. ADMISSION DIAGNOSIS: - Orthopaedic Disorders 08 - Unilateral Hip Fracture (.) right femur fx. EATING: Activity did not occur on this shift EATING - SCORE: 0-UNK GROOMING: Activity did not occur on this shift GROOMING - SCORE: 0-UNK BATHING: Activity did not occur on this shift BATHING - SCORE: 0-UNK DRESSING - UPPER BODY: Activity did not occur on this shift Patient is not dressing in public clothing ARTICLES SCORE Total number of steps: 0 DRESSING - UPPER BODY - SCORE: 0-UNK DRESSING - LOWER BODY: Activity did not occur on this shift Patient is not dressing in public clothing ARTICLES SCORE Total number of steps: 0 DRESSING - LOWER BODY - SCORE: 0-UNK TOILETING: Activity did not occur on this shift TOILETING - SCORE: 0-UNK BLADDER MANAGEMENT: Activity did not occur on this shift BLADDER MANAGEMENT - SCORE: 7-IND BOWEL MANAGEMENT: Activity did not occur on this shift BOWEL MANAGEMENT - SCORE: 7-IND TRANSFERS: BED, CHAIR, WHEELCHAIR: TRANSFERS: BED, CHAIR, WHEELCHAIR - STEP 1: Does the patient require assistance of a person or device, or need extra time with bed, chair, or whe elchair transfers? Yes. TRANSFERS: BED, CHAIR, WHEELCHAIR - STEP 2: Does the patient require the assistance of a helper? Yes. TRANSFERS: BED, CHAIR, WHEELCHAIR - STEP 3: How much assistance does the patient require from the helper? Only supervision TRANSFERS: BED, CHAIR, WHEELCHAIR - SCORE: 5-SUP TRANSFERS: TOILET: Activity did not occur on this shift TRANSFERS: TOILET - SCORE: 0-UNK TRANSFERS: SHOWER: Activity did not occur on this shift TRANSFERS: SHOWER - SCORE: 0-UNK TRANSFERS: TUB: Activity did not occur on this shift TRANSFERS: TUB - SCORE: 0-UNK LOCOMOTION: WALK: LOCOMOTION: WALK - STEP 1: Does the patient need help from a person or device, or need extra time to walk 150 feet? Yes. LOCOMOTION: WALK - STEP 2: How much assistance does the patient require to walk a minimum of 150 feet? Only supervision, cuing, or coaxing LOCOMOTION: WALK - SCORE: 5-SUP LOCOMOTION: WHEELCHAIR: LOCOMOTION: WHEELCHAIR - STEP 1: Does the patient need help to go 150 feet in a wheelchair? No. LOCOMOTION: WHEELCHAIR - SCORE: 6-NGOC LOCOMOTION: STAIRS: LOCOMOTION: STAIRS - STEP 1: Does the patient need help to go up and down 12 to 14 stairs? Yes. LOCOMOTION: STAIRS - STEP 2: How much assistance does the patient need from the helper to go a minimum of 12 to 14 stairs? The pat ient goes less than 12 stairs, but at least 4 stairs LOCOMOTION: STAIRS - SCORE: 2-MAX COMPREHENSION: COMPREHENSION - SCORE: 0-UNK EXPRESSION EXPRESSION - SCORE: 0-UNK SOCIAL INTERACTION: SOCIAL INTERACTION - SCORE: 0-UNK PROBLEM SOLVING: PROBLEM SOLVING - SCORE: 0-UNK MEMORY: MEMORY - SCORE: 0-UNK SIGNATURE PANEL: The following modified sections: Transfers: Bed, Chair, Wheelchair - Score, Transfers: Toilet - Score , Locomotion: Walk - Score, Locomotion: Wheelchair - Score, Locomotion: Stairs - Score were [electron ically] signed by Andriy Tavarez PTA on WedDec 15 2018 14:51:47 GMT-0500 (Central Daylight Time)
--- NOTE | 2018-12-15 14:55 | FAST ---
ENCOUNTER DATE AND TIME: 12/14/2018 08:00 (CDT) NAME ELENA NOLAN DATE OF : 1940 DATE OF ADMISSION: 12/06/2018 20:10 (CDT) PHONE: AGE: 78 SSN# [id number] GENDER: Male ENCOUNTER PHYSICIAN: Dr. Sid Cruz M.D. ADMISSION DIAGNOSIS: - Orthopaedic Disorders 08 - Unilateral Hip Fracture (08.) right femur fx. EATING: Activity did not occur on this shift EATING - SCORE: 0-UNK GROOMING: Activity did not occur on this shift GROOMING - SCORE: 0-UNK BATHING: Activity did not occur on this shift BATHING - SCORE: 0-UNK DRESSING - UPPER BODY: Activity did not occur on this shift Patient is not dressing in public clothing ARTICLES SCORE Total number of steps: 0 DRESSING - UPPER BODY - SCORE: 0-UNK DRESSING - LOWER BODY: Activity did not occur on this shift Patient is not dressing in public clothing ARTICLES SCORE Total number of steps: 0 DRESSING - LOWER BODY - SCORE: 0-UNK TOILETING: Activity did not occur on this shift TOILETING - SCORE: 0-UNK BLADDER MANAGEMENT: Activity did not occur on this shift BLADDER MANAGEMENT - SCORE: 7-IND BOWEL MANAGEMENT: Activity did not occur on this shift BOWEL MANAGEMENT - SCORE: 7-IND TRANSFERS: BED, CHAIR, WHEELCHAIR: TRANSFERS: BED, CHAIR, WHEELCHAIR - STEP 1: Does the patient require assistance of a person or device, or need extra time with bed, chair, or whe elchair transfers? Yes. TRANSFERS: BED, CHAIR, WHEELCHAIR - STEP 2: Does the patient require the assistance of a helper? Yes. TRANSFERS: BED, CHAIR, WHEELCHAIR - STEP 3: How much assistance does the patient require from the helper? Only supervision TRANSFERS: BED, CHAIR, WHEELCHAIR - SCORE: 5-SUP TRANSFERS: TOILET: Activity did not occur on this shift TRANSFERS: TOILET - SCORE: 0-UNK TRANSFERS: SHOWER: Activity did not occur on this shift TRANSFERS: SHOWER - SCORE: 0-UNK TRANSFERS: TUB: Activity did not occur on this shift TRANSFERS: TUB - SCORE: 0-UNK LOCOMOTION: WALK: LOCOMOTION: WALK - STEP 1: Does the patient need help from a person or device, or need extra time to walk 150 feet? Yes. LOCOMOTION: WALK - STEP 2: How much assistance does the patient require to walk a minimum of 150 feet? Only supervision, cuing, or coaxing LOCOMOTION: WALK - SCORE: 5-SUP LOCOMOTION: WHEELCHAIR: LOCOMOTION: WHEELCHAIR - STEP 1: Does the patient need help to go 150 feet in a wheelchair? No. LOCOMOTION: WHEELCHAIR - SCORE: 6-NGOC LOCOMOTION: STAIRS: Activity did not occur on this shift LOCOMOTION: STAIRS - SCORE: 0-UNK COMPREHENSION: COMPREHENSION - SCORE: 0-UNK EXPRESSION EXPRESSION - SCORE: 0-UNK SOCIAL INTERACTION: SOCIAL INTERACTION - SCORE: 0-UNK PROBLEM SOLVING: PROBLEM SOLVING - SCORE: 0-UNK MEMORY: MEMORY - SCORE: 0-UNK SIGNATURE PANEL: The following modified sections: Transfers: Bed, Chair, Wheelchair - Score, Transfers: Toilet - Score , Locomotion: Walk - Score, Locomotion: Wheelchair - Score, Locomotion: Stairs - Score were [electron ically] signed by Andriy Tavarez PTA on WedDec 15 2018 14:54:56 GMT-0500 (Central Daylight Time)
--- NOTE | 2018-12-15 15:34 | FAST ---
SHIFT START DATE/TIME: 12/15/2018 07:00 (CDT) SHIFT END DATE/TIME: 12/15/2018 19:00 (CDT) NAME ELENA NOLAN DATE OF : 1940 DATE OF ADMISSION: 12/06/2018 20:10 (CDT) PHONE: AGE: 78 N# [id number] GENDER: Male ENCOUNTER PHYSICIAN: Dr. Sid Cruz M.D. ADMISSION DIAGNOSIS: - Orthopaedic Disorders 08 - Unilateral Hip Fracture (08.11) right femur fx. EATING: EATING - STEP 1: Does the patient require the assistance of a person or device, or need extra time when eating? Yes. EATING - STEP 2: Does the patient require the assistance of a helper? No, patient only requires an assistive device, O R s/he takes more than reasonable time to eat, OR there is a safety concern, OR s/he requires modifie d food consistency EATING - SCORE: 6-NGOC GROOMING: Comb/brush hair Oral care Wash, rinse, and dry face Wash, rinse, and dry hands GROOMING - STEP 1: Does the patient require the assistance of a person or device, or need extra time when grooming? Yes. GROOMING - STEP 2: Does the patient require the assistance of a helper? No. The patient only requires an assistive devic e, OR takes more than reasonable time to groom, OR there is a concern for safety as the patient groom s GROOMING - SCORE: 6-NGOC BATHING: Activity did not occur on this shift BATHING - SCORE: 0-UNK DRESSING - UPPER BODY: Activity did not occur on this shift ARTICLES SCORE Total number of steps: 0 DRESSING - UPPER BODY - SCORE: 0-UNK DRESSING - LOWER BODY: Activity did not occur on this shift ARTICLES SCORE Total number of steps: 0 DRESSING - LOWER BODY - SCORE: 0-UNK TOILETING: TOILETING - STEP 1: Does the patient require the assistance of a person or device, or need extra time with toileting? Yes . TOILETING - STEP 2: Does the patient require the assistance of a helper? Yes. TOILETING - STEP 3: How much assistance does the patient require from the helper? Only supervision TOILETING - SCORE: 5-SUP BLADDER MANAGEMENT: BLADDER MANAGEMENT - STEP 1: Does the patient control the bladder completely and intentionally without equipment or devices or med ications, and is always continent? Yes. BLADDER MANAGEMENT - SCORE: 7-IND BLADDER MANAGEMENT - FREQUENCY OF ACCIDENTS: BLADDER MANAGEMENT(FA) - STEP 1: How many accidents has the patient had during the current shift? 0 BOWEL MANAGEMENT: Activity did not occur on this shift BOWEL MANAGEMENT - SCORE: 7-IND BOWEL MANAGEMENT - FREQUENCY OF ACCIDENTS: BOWEL MANAGEMENT(FA) - STEP 1: How many accidents has the patient had during the current shift? 0 TRANSFERS: BED, CHAIR, WHEELCHAIR: TRANSFERS: BED, CHAIR, WHEELCHAIR - STEP 1: Does the patient require assistance of a person or device, or need extra time with bed, chair, or whe elchair transfers? Yes. TRANSFERS: BED, CHAIR, WHEELCHAIR - STEP 2: Does the patient require the assistance of a helper? Yes. TRANSFERS: BED, CHAIR, WHEELCHAIR - STEP 3: How much assistance does the patient require from the helper? Lifting of the legs TRANSFERS: BED, CHAIR, WHEELCHAIR - STEP 4: How many legs does the patient require the helper to lift? both legs TRANSFERS: BED, CHAIR, WHEELCHAIR - SCORE: 3-MOD TRANSFERS: TOILET: TRANSFERS: TOILET - STEP 1: Does the patient require the assistance of a person or device, or need extra time with toilet transfe rs? Yes. TRANSFERS: TOILET - STEP 2: Does the patient require the assistance of a helper? Yes. TRANSFERS: TOILET - STEP 3: How much assistance does the patient require from the helper? Patient performs half or more of the tr ansferring tasks TRANSFERS: TOILET - STEP 4: Does the patient need only incidental help such as contact guard or steadying during toilet transfer? Yes. TRANSFERS: TOILET - SCORE: 4-MIN TRANSFERS: SHOWER: Activity did not occur on this shift TRANSFERS: SHOWER - SCORE: 0-UNK TRANSFERS: TUB: Activity did not occur on this shift TRANSFERS: TUB - SCORE: 0-UNK LOCOMOTION: WALK: Activity did not occur on this shift LOCOMOTION: WALK - SCORE: 0-UNK LOCOMOTION: WHEELCHAIR: LOCOMOTION: WHEELCHAIR - STEP 1: Does the patient need help to go 150 feet in a wheelchair? Yes. LOCOMOTION: WHEELCHAIR - STEP 2: How much assistance does the patient need from the helper? Only supervision, cuing, or coaxing LOCOMOTION: WHEELCHAIR - SCORE: 5-SUP COMPREHENSION: COMPREHENSION: TYPE: Both COMPREHENSION - STEP 1: Does the patient require help from a person or device, or need extra time to understand complex and a bstract ideas (such as current events, finances, discharge planning, medical issues, relationships, e tc)? No. COMPREHENSION - STEP 2: Does the patient need extra time, require an assistive device (such as glasses for visual comprehensi on or a hearing aid for auditory comprehension) or does s/he have mild difficulty understanding compl ex and abstract information? Yes. COMPREHENSION - SCORE: 6-NGOC EXPRESSION EXPRESSION: TYPE: Both EXPRESSION - STEP 1: Does the patient require help from a person or device, or need extra time expressing complex and abst ract ideas (such as current events, finances, discharge planning, medical issues, relationships, etc) ? Yes. EXPRESSION - STEP 2: Does the patient require help to express basic necessities or ideas (such as hunger, thirst, sleep, s afety, daily schedule, room location, or discomfort) half or more of the time? No. EXPRESSION - STEP 3: How often does the patient need help to express directions and conversation about basic needs? Less t esquivel 10% of the time EXPRESSION - SCORE: 5-SUP SOCIAL INTERACTION: SOCIAL INTERACTION - STEP 1: Does the patient require a helper to interact with others in social and therapeutic situations? No. SOCIAL INTERACTION - STEP 2: Does the patient need extra time in social situations, OR does s/he interact with staff, other patien ts, and family members ONLY in structured environments, OR does s/he require medication for social in teraction? No. SOCIAL INTERACTION - SCORE: 7-IND PROBLEM SOLVING: PROBLEM SOLVING - STEP 1: Does the patient need help from a person or device, or need extra time to solve complex problems such as managing a checking account or confronting interpersonal problems? No. PROBLEM SOLVING - STEP 2: Does the patient require extra time to make decisions or solve problems, OR does s/he have slight dif ficulty reading, initiating, or self-correcting in unfamiliar situations? Yes, patient needs extra ti me. PROBLEM SOLVING - SCORE: 6-NGOC MEMORY: MEMORY - STEP 1: Does the patient need help from a person or device, or need extra time to remember frequently encount ered people, daily routines, and executing requests? No. MEMORY - STEP 2: Does the patient have slight difficulty recognizing frequently encountered people, daily routines, or executing requests without the need for repetition or using self-initiated or environmental cues to remember? Yes. MEMORY - SCORE: 6-NGOC SIGNATURE PANEL: The following modified sections: Eating - Score, Grooming - Score, Bathing - Score, Dressing - Upper Body - Score, Dressing - Lower Body - Score, Toileting - Score, Bladder Management - Score, Bowel Man agement - Score, Transfers: Bed, Chair, Wheelchair - Score, Transfers: Toilet - Score, Transfers: Rosangela wer - Score, Transfers: Tub - Score, Locomotion: Walk - Score, Locomotion: Wheelchair - Score, Compre hension - Score, Expression - Score, Social Interaction - Score, Problem Solving - Score, Memory - Sc ore were [electronically] signed by Nora DavilaNFeliz on WedDec 15 2018 15:33:32 T-0500 (Centra [place] Daylight Time)
[2018-12-15] MEDS: VITAMIN D 5,000 UNIT CAP PO SCH (16:58)
[2018-12-15 20:27] LABS: Urine Appearance CLEAR; Urine Bilirubin NEGATIVE (NEG); Urine Blood NEGATIVE (NEG); Urine Color YELLOW; Urine Glucose NEGATIVE (NEG); Urine Protein NEGATIVE (NEG); Urine Specific Gravity 1.015 (1.005-1.030); Urine pH 6.5 (5.0-7.0)
[2018-12-15 20:43] LABS: Urine Microscopic Reflex NO UMIC
[2018-12-15] MEDS: MELATONIN 3 MG TABLET PO SCH (21:15)
[2018-12-15] MEDS: CRANBERRY FRUIT EXTRACT 200 MG CAP PO SCH (21:15)
--- NOTE | 2018-12-16 01:07 | FAST ---
SHIFT START DATE/TIME: 12/15/2018 19:00 (CDT) SHIFT END DATE/TIME: 12/16/2018 07:00 (CDT) NAME ELENA NOLAN DATE OF : 1940 DATE OF ADMISSION: 12/06/2018 20:10 (CDT) PHONE: AGE: 78 N# [id number] GENDER: Male ENCOUNTER PHYSICIAN: Dr. Sid Cruz M.D. ADMISSION DIAGNOSIS: - Orthopaedic Disorders 08 - Unilateral Hip Fracture (08.11) right femur fx. EATING: Activity did not occur on this shift EATING - SCORE: 0-UNK GROOMING: Oral care Wash, rinse, and dry hands GROOMING - STEP 1: Does the patient require the assistance of a person or device, or need extra time when grooming? Yes. GROOMING - STEP 2: Does the patient require the assistance of a helper? Yes. GROOMING - STEP 3: How much assistance does the patient require from the helper? Only prior equipment preparation/set up from the helper GROOMING - SCORE: 5-SUP BATHING: Activity did not occur on this shift BATHING - SCORE: 0-UNK DRESSING - UPPER BODY: Patient is not dressing in public clothing ARTICLES SCORE Total number of steps: 0 DRESSING - UPPER BODY - SCORE: 0-UNK DRESSING - LOWER BODY: Patient is not dressing in public clothing ARTICLES SCORE Total number of steps: 0 DRESSING - LOWER BODY - SCORE: 0-UNK TOILETING: TOILETING - STEP 1: Does the patient require the assistance of a person or device, or need extra time with toileting? Yes . TOILETING - STEP 2: Does the patient require the assistance of a helper? Yes. TOILETING - STEP 3: How much assistance does the patient require from the helper? Only supervision TOILETING - SCORE: 5-SUP BLADDER MANAGEMENT: BLADDER MANAGEMENT - STEP 1: Does the patient control the bladder completely and intentionally without equipment or devices or med ications, and is always continent? No. BLADDER MANAGEMENT - STEP 2: Does the patient require the assistance of a helper? Yes. BLADDER MANAGEMENT - STEP 3: How much assistance does the patient require from the helper? Only supervision, stand-by, cuing, or c oaxing BLADDER MANAGEMENT - SCORE: 5-SUP BOWEL MANAGEMENT: BOWEL MANAGEMENT - STEP 1: Does the patient control bowels completely and intentionally without equipment devices or medications AND is always continent? No. BOWEL MANAGEMENT - STEP 2: Does the patient require the assistance of a helper? No, patient requires medication for control such as stool softeners, suppositories, laxatives, enemas, or OTC medications BOWEL MANAGEMENT - SCORE: 6-NGOC TRANSFERS: BED, CHAIR, WHEELCHAIR: TRANSFERS: BED, CHAIR, WHEELCHAIR - STEP 1: Does the patient require assistance of a person or device, or need extra time with bed, chair, or whe elchair transfers? Yes. TRANSFERS: BED, CHAIR, WHEELCHAIR - STEP 2: Does the patient require the assistance of a helper? Yes. TRANSFERS: BED, CHAIR, WHEELCHAIR - STEP 3: How much assistance does the patient require from the helper? Lifting of the legs TRANSFERS: BED, CHAIR, WHEELCHAIR - STEP 4: How many legs does the patient require the helper to lift? both legs TRANSFERS: BED, CHAIR, WHEELCHAIR - SCORE: 3-MOD TRANSFERS: TOILET: TRANSFERS: TOILET - STEP 1: Does the patient require the assistance of a person or device, or need extra time with toilet transfe rs? Yes. TRANSFERS: TOILET - STEP 2: Does the patient require the assistance of a helper? Yes. TRANSFERS: TOILET - STEP 3: How much assistance does the patient require from the helper? Only supervision, cuing, coaxing, OR he lp to set out transfer equipment or to lock brakes and/or lift foot rests TRANSFERS: TOILET - SCORE: 5-SUP TRANSFERS: SHOWER: Activity did not occur on this shift TRANSFERS: SHOWER - SCORE: 0-UNK TRANSFERS: TUB: Activity did not occur on this shift TRANSFERS: TUB - SCORE: 0-UNK LOCOMOTION: WALK: Activity did not occur on this shift LOCOMOTION: WALK - SCORE: 0-UNK LOCOMOTION: WHEELCHAIR: Activity did not occur on this shift LOCOMOTION: WHEELCHAIR - SCORE: 0-UNK COMPREHENSION: COMPREHENSION: TYPE: Both COMPREHENSION - STEP 1: Does the patient require help from a person or device, or need extra time to understand complex and a bstract ideas (such as current events, finances, discharge planning, medical issues, relationships, e tc)? No. COMPREHENSION - STEP 2: Does the patient need extra time, require an assistive device (such as glasses for visual comprehensi on or a hearing aid for auditory comprehension) or does s/he have mild difficulty understanding compl ex and abstract information? Yes. COMPREHENSION - SCORE: 6-NGOC EXPRESSION EXPRESSION: TYPE: Both EXPRESSION - STEP 1: Does the patient require help from a person or device, or need extra time expressing complex and abst ract ideas (such as current events, finances, discharge planning, medical issues, relationships, etc) ? No. EXPRESSION - STEP 2: Does the patient need extra time, require an assistive device (such as augmentive communication syste m or a communication board), OR does s/he have mild difficulty expressing complex and abstract ideas (including mild dysarthria or mild word-find problems)? No. EXPRESSION - SCORE: 7-IND SOCIAL INTERACTION: SOCIAL INTERACTION - STEP 1: Does the patient require a helper to interact with others in social and therapeutic situations? No. SOCIAL INTERACTION - STEP 2: Does the patient need extra time in social situations, OR does s/he interact with staff, other patien ts, and family members ONLY in structured environments, OR does s/he require medication for social in teraction? Yes, patient needs extra time SOCIAL INTERACTION - SCORE: 6-NGOC PROBLEM SOLVING: PROBLEM SOLVING - STEP 1: Does the patient need help from a person or device, or need extra time to solve complex problems such as managing a checking account or confronting interpersonal problems? Yes. PROBLEM SOLVING - STEP 2: Does the patient solve basic routine problems half or more of the time? Yes. PROBLEM SOLVING - STEP 3: How often does the patient need help to solve basic routine problems? 10%-24% of the time PROBLEM SOLVING - SCORE: 4-MIN MEMORY: MEMORY - STEP 1: Does the patient need help from a person or device, or need extra time to remember frequently encount ered people, daily routines, and executing requests? No. MEMORY - STEP 2: Does the patient have slight difficulty recognizing frequently encountered people, daily routines, or executing requests without the need for repetition or using self-initiated or environmental cues to remember? Yes. MEMORY - SCORE: 6-NGOC SIGNATURE PANEL: The following modified sections: Eating - Score, Grooming - Score, Dressing - Upper Body - Score, Enrique ssing - Lower Body - Score, Toileting - Score, Bladder Management - Score, Bowel Management - Score, Transfers: Bed, Chair, Wheelchair - Score, Transfers: Toilet - Score, Transfers: Shower - Score, Smith sfers: Tub - Score, Locomotion: Walk - Score, Locomotion: Wheelchair - Score, Comprehension - Score, Expression - Score, Social Interaction - Score, Problem Solving - Score, Memory - Score were [electro nically] signed by Aleisha Travis CNA on WedDec 16 2018 01:06:42 GMT-0500 (Central Daylight Time)
[2018-12-16 06:12] LABS: Absolute Lymphocytes (CBC) 1.3 K/uL (0.7-4.9); Absolute Monocytes 0.7 K/uL (0.1-1.3); Absolute Neutrophil 9.4 K/uL (1.8-8.0); Basophils % 0.8 % (0-1.3); Eosinophils % 2.6 % (0-4.4); Hematocrit 36.7 % (39.6-49.0); Lymphocytes % 10.9 % (15.3-44.8); Monocytes % 6.1 % (3.3-12.3); RBC Red Blood Cell Count 3.85 M/uL (4.33-5.43)
[2018-12-16] MEDS: LEVOTHYROXINE SOD 0.05 MG TABLET PO SCH (07:03)
[2018-12-16] MEDS: PANTOPRAZOLE 40MG TABLET PO SCH (07:03)
[2018-12-16] MEDS: ENOXAPARIN 40 MG/0.4 ML SQ SCH (07:04)
[2018-12-16] MEDS: D3 PO SCH ×2 (08:00→20:00)
[2018-12-16] MEDS: CARVEDILOL 6.25 MG TAB PO SCH ×2 (08:00→20:00)
[2018-12-16] MEDS: CAL MAG ZINC PO SCH ×2 (08:00→20:00)
[2018-12-16] MEDS: JUVEN PACKET PO SCH ×2 (08:00→20:00)
[2018-12-16] MEDS: HOME MED 1 EA UNK PO SCH (08:00)
[2018-12-16] MEDS: CRANBERRY FRUIT EXTRACT 200 MG CAP PO SCH ×2 (08:40→20:45)
[2018-12-16] MEDS: LOSARTAN POTASSIUM 50 MG TABLET PO SCH (08:40)
[2018-12-16] MEDS: MAGNESIUM OXIDE 400 MG TAB PO SCH ×2 (08:40→20:46)
[2018-12-16] MEDS: DOCUSATE NA 100 MG CAP PO SCH ×2 (08:41→20:00)
[2018-12-16] MEDS: ATORVASTATIN 20 MG TAB PO SCH (08:41)
[2018-12-16] MEDS: LORATADINE 10 MG TAB PO SCH (08:41)
[2018-12-16] MEDS: ASPIRIN EC 81 MG TAB PO SCH (08:41)
[2018-12-16] MEDS: AMIODARONE HCL 200 MG TAB PO SCH (08:41)
[2018-12-16] MEDS: predniSONE 5 MG TAB PO SCH (08:41)
[2018-12-16] MEDS: ONDANSETRON 4 MG (ODT) TAB PO PRN (08:42)
[2018-12-16] MEDS: LIDOCAINE 5% PATCH TOP SCH (08:42)
[2018-12-16] MEDS: PROMOD 30 ML DOSE PO SCH ×2 (08:46→20:00)
[2018-12-16] MEDS: ALBUTEROL 2.5 MG/3 ML NEB SOL NEB SCH ×3 (08:52→22:00)
[2018-12-16] MEDS: NYSTATIN PWDR 100000 UNIT/GM TOP SCH ×2 (09:25→20:00)
--- NOTE | 2018-12-16 09:38 | P.RH.PN ---
Estimated Length of Stay: 17 Expected Discharge Date: 12/22/18 Discharge Disposition Plan: Home Family Support: Yes [facility] Goal: Mobility, Transfers, Self Care Vital Signs: Last Vital Signs Temp 97.4 F 12/16/18 09:09 Pulse 71 12/16/18 09:09 Resp 16 12/16/18 09:09 BP 117/57 L 12/16/18 09:09 Pulse Ox 94 12/16/18 09:09 Laboratory: Laboratory Last Values WBC 11.8 K/uL (4.3-10.9) H 12/16/18 05:50 RBC 3.85 M/uL (4.33-5.43) L 12/16/18 05:50 Hgb 11.9 g/dL (13.6-17.9) L 12/16/18 05:50 Hct 36.7 % (39.6-49.0) L 12/16/18 05:50 MCV 95.2 fL (80-100) 12/16/18 05:50 MCH 30.8 pg (27.0-35.0) 12/16/18 05:50 MCHC 32.4 g/dL (32.0-36.0) 12/16/18 05:50 RDW 17.3 % (12.1-15.2) H 12/16/18 05:50 Plt Count 470 K/uL (152-406) H 12/16/18 05:50 MPV 10.0 fL (7.6-11.3) 12/16/18 05:50 Neutrophils % 79.6 % (41.7-73.7) H 12/16/18 05:50 Lymphocytes % 10.9 % (15.3-44.8) L 12/16/18 05:50 Monocytes % 6.1 % (3.3-12.3) 12/16/18 05:50 Eosinophils % 2.6 % (0-4.4) 12/16/18 05:50 Basophils % 0.8 % (0-1.3) 12/16/18 05:50 Absolute Neutrophils 9.4 K/uL (1.8-8.0) H 12/16/18 05:50 Absolute Lymphocytes 1.3 K/uL (0.7-4.9) 12/16/18 05:50 Absolute Monocytes 0.7 K/uL (0.1-1.3) 12/16/18 05:50 Absolute Eosinophils 0.3 K/uL (0-0.5) 12/16/18 05:50 Absolute Basophils 0.1 K/uL (0-0.5) 12/16/18 05:50 Sodium 142 mmol/L (136-145) 12/15/18 05:54 Potassium 4.3 mmol/L (3.5-5.1) 12/15/18 05:54 Chloride 110 mmol/L (98-107) H 12/15/18 05:54 Carbon Dioxide 27 mmol/L (21-32) 12/15/18 05:54 BUN 36 mg/dL (7-18) H 12/15/18 05:54 Creatinine 1.08 mg/dL (0.55-1.3) 12/15/18 05:54 Estimated GFR 66 mL/min (=/>90) L 12/15/18 05:54 Glucose 86 mg/dL (74-106) 12/15/18 05:54 Calcium 7.5 mg/dL (8.5-10.1) L 12/15/18 05:54 Magnesium 2.0 mg/dL (1.8-2.4) 12/15/18 05:54 Albumin 2.4 g/dL (3.4-5.0) L 12/15/18 05:54 Prealbumin 13.3 mg/dL (20-40) L 12/15/18 05:54 Urine Color Yellow 12/15/18 19:40 Urine Appearance Clear 12/15/18 19:40 Urine pH 6.5 (5.0-7.0) 12/15/18 19:40 Ur Specific [place] 1.015 (1.005-1.030) 12/15/18 19:40 Urine Ketones Negative (NEG) 12/15/18 19:40 Urine Blood Negative (NEG) 12/15/18 19:40 Urine Nitrite Negative (NEG) 12/15/18 19:40 Urine Bilirubin Negative (NEG) 12/15/18 19:40 Urine Urobilinogen 1.0 mg/dL (0.2-1.0) 12/15/18 19:40 Ur Leukocyte Esterase Negative (NEG) 12/15/18 19:40 Urine RBC 5-10 /HPF (NONE SEEN) H 12/13/18 05:55 Urine WBC <5 /HPF (<5) 12/13/18 05:55 Ur Squamous Epith Cells <5 /HPF (NONE SEEN) 12/13/18 05:55 Ur Urothelial Cells <5 /HPF (NONE SEEN) 12/06/18 22:00 Urine Bacteria None seen /HPF (NONE SEEN) 12/13/18 05:55 Urine Culture Reflexed Not needed 12/13/18 05:55 Urine Glucose Negative (NEG) 12/15/18 19:40 Urine Total Protein Negative (NEG) 12/15/18 19:40 Weight: 161 lb 12.8 oz Wound Present: Yes Closed Surgical Incision Present: Yes Negative Pressure Wound Therapy Present: No Physician Update: Labs have been reviewed. His Hgb is 11.9 and WBC is stable at 11.8. His prealbumin improved to 13.3. His is at standby assistance with ambulation, transfers and ADLs he is close to modified independence. Pain Issues: [place] 10/325mg Q6H PRN. Lidoderm patch 5% Daily Comment: laceration over left 5th finger that occurred during fall- stitch off. left lower back wound- 2nd degree burn using heating pad- as stated by patient at home Functional Improvement: Patient has met all short-term goals at this time and is progressing well toward long-term goals. Patient presents w/ good overall work ethic and safety awareness. Functional Improvement Occupational Therapy: pt can benifit with further therapy to address safety and energy conservation when completing LB dressing using A/E as need and for safety for bed transfers and all functional transfers. Cont to strengthen pt's UB strength and pt's static standing balance for adl tasks. Cont with the POC and the goals by the supervising OTR. Speech Therapy Update: Patient is at MOD I for Auditory Comprehension (due to hearing impairment), MOD I for Verbal Expression, MOD I for Social Interaction, SUPV for Problem Solving and SUPV for Memory. 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 Please see the Rehabilitation Signature page for all necessary signatures.
[2018-12-16] MEDS: HYDROCODONE/APAP 10/325 TAB PO PRN (10:46)
[2018-12-16] MEDS: MULTIVIT W/ MINERAL TAB PO SCH (12:09)
[2018-12-16] MEDS: VITAMIN A 10,000 IU CAP PO SCH (12:09)
[2018-12-16] MEDS: ZINC SULFATE 220 MG CAP PO SCH (12:09)
[2018-12-16] MEDS: VITAMIN B COMPLEX 1 CAP PO SCH (12:09)
[2018-12-16] MEDS: LACTOBACILLUS/ACIDOPHILUS TAB PO SCH (12:09)
[2018-12-16] MEDS: FE SULF/FA/VIT B COMP & C TAB PO SCH (12:10)
[2018-12-16] MEDS: FERROUS SULFATE 325 MG TAB PO SCH (12:10)
[2018-12-16] MEDS: MEDIHONEY 44 ML TOPICAL TUBE TOP SCH (15:08)
[2018-12-16] MEDS: POLYETHYL GLY 3350 17 GM/DOSE PO PRN (16:58)
[2018-12-16] MEDS: VITAMIN D 5,000 UNIT CAP PO SCH (16:58)
[2018-12-16] MEDS: HYDROXYUREA 500 MG CAP PO SCH (16:58)
[2018-12-16] MEDS ORDERED: [UNRECOGNIZED DRUG - OTHER] PO SCH (20:00)
[2018-12-16] MEDS: [UNRECOGNIZED DRUG - OTHER] PO SCH (21:00)
[2018-12-16] MEDS: MELATONIN 3 MG TABLET PO SCH (22:13)
--- NOTE | 2018-12-17 02:53 | FAST ---
SHIFT START DATE/TIME: 12/16/2018 19:00 (CDT) SHIFT END DATE/TIME: 12/17/2018 07:00 (CDT) NAME ELENA NOLAN DATE OF : 1940 DATE OF ADMISSION: 12/06/2018 20:10 (CDT) PHONE: AGE: 78 SSN# [id number] GENDER: Male ENCOUNTER PHYSICIAN: Dr. Sid Cruz M.D. ADMISSION DIAGNOSIS: - Orthopaedic Disorders 08 - Unilateral Hip Fracture (08.11) right femur fx. EATING: Activity did not occur on this shift EATING - SCORE: 0-UNK GROOMING: Activity did not occur on this shift GROOMING - SCORE: 0-UNK BATHING: Activity did not occur on this shift BATHING - SCORE: 0-UNK DRESSING - UPPER BODY: Patient is not dressing in public clothing ARTICLES SCORE Total number of steps: 0 DRESSING - UPPER BODY - SCORE: 0-UNK DRESSING - LOWER BODY: Patient is not dressing in public clothing ARTICLES SCORE Total number of steps: 0 DRESSING - LOWER BODY - SCORE: 0-UNK TOILETING: TOILETING - STEP 1: Does the patient require the assistance of a person or device, or need extra time with toileting? Yes . TOILETING - STEP 2: Does the patient require the assistance of a helper? Yes. TOILETING - STEP 3: How much assistance does the patient require from the helper? Hands-on assistance from the helper TOILETING - STEP 4: Of the 3 tasks: 1) Adjusting clothing prior to use, 2) Cleansing of perineal area, 3) Adjusting clot neyda after use; How many tasks does the patient perform WITHOUT assistance of the helper? Three tasks with steadying assistance from the helper TOILETING - SCORE: 4-MIN BLADDER MANAGEMENT: BLADDER MANAGEMENT - STEP 1: Does the patient control the bladder completely and intentionally without equipment or devices or med ications, and is always continent? No. BLADDER MANAGEMENT - STEP 2: Does the patient require the assistance of a helper? Yes. BLADDER MANAGEMENT - STEP 3: How much assistance does the patient require from the helper? Patient requires contact assistance fro m the helper BLADDER MANAGEMENT - STEP 4: How much contact assistance does the patient require from the helper? Patient requires minimal assist ance to maintain an external device - by positioning, and the patient performs 75% or more of bladder management tasks, while the helper provides less than 25% of the assistance to position patient on / off bedpan BLADDER MANAGEMENT - SCORE: 4-MIN BOWEL MANAGEMENT: Activity did not occur on this shift BOWEL MANAGEMENT - SCORE: 7-IND TRANSFERS: BED, CHAIR, WHEELCHAIR: TRANSFERS: BED, CHAIR, WHEELCHAIR - STEP 1: Does the patient require assistance of a person or device, or need extra time with bed, chair, or whe elchair transfers? Yes. TRANSFERS: BED, CHAIR, WHEELCHAIR - STEP 2: Does the patient require the assistance of a helper? Yes. TRANSFERS: BED, CHAIR, WHEELCHAIR - STEP 3: How much assistance does the patient require from the helper? Lifting of the legs TRANSFERS: BED, CHAIR, WHEELCHAIR - STEP 4: How many legs does the patient require the helper to lift? both legs TRANSFERS: BED, CHAIR, WHEELCHAIR - SCORE: 3-MOD TRANSFERS: TOILET: TRANSFERS: TOILET - STEP 1: Does the patient require the assistance of a person or device, or need extra time with toilet transfe rs? Yes. TRANSFERS: TOILET - STEP 2: Does the patient require the assistance of a helper? Yes. TRANSFERS: TOILET - STEP 3: How much assistance does the patient require from the helper? Patient performs half or more of the tr ansferring tasks TRANSFERS: TOILET - STEP 4: Does the patient need only incidental help such as contact guard or steadying during toilet transfer? Yes. TRANSFERS: TOILET - SCORE: 4-MIN TRANSFERS: SHOWER: Activity did not occur on this shift TRANSFERS: SHOWER - SCORE: 0-UNK TRANSFERS: TUB: Activity did not occur on this shift TRANSFERS: TUB - SCORE: 0-UNK LOCOMOTION: WALK: Activity did not occur on this shift LOCOMOTION: WALK - SCORE: 0-UNK LOCOMOTION: WHEELCHAIR: Activity did not occur on this shift LOCOMOTION: WHEELCHAIR - SCORE: 0-UNK COMPREHENSION: COMPREHENSION: TYPE: Both COMPREHENSION - STEP 1: Does the patient require help from a person or device, or need extra time to understand complex and a bstract ideas (such as current events, finances, discharge planning, medical issues, relationships, e tc)? No. COMPREHENSION - STEP 2: Does the patient need extra time, require an assistive device (such as glasses for visual comprehensi on or a hearing aid for auditory comprehension) or does s/he have mild difficulty understanding compl ex and abstract information? Yes. COMPREHENSION - SCORE: 6-NGOC EXPRESSION EXPRESSION: TYPE: Both EXPRESSION - STEP 1: Does the patient require help from a person or device, or need extra time expressing complex and abst ract ideas (such as current events, finances, discharge planning, medical issues, relationships, etc) ? No. EXPRESSION - STEP 2: Does the patient need extra time, require an assistive device (such as augmentive communication syste m or a communication board), OR does s/he have mild difficulty expressing complex and abstract ideas (including mild dysarthria or mild word-find problems)? Yes. EXPRESSION - SCORE: 6-NGOC SOCIAL INTERACTION: SOCIAL INTERACTION - STEP 1: Does the patient require a helper to interact with others in social and therapeutic situations? No. SOCIAL INTERACTION - STEP 2: Does the patient need extra time in social situations, OR does s/he interact with staff, other patien ts, and family members ONLY in structured environments, OR does s/he require medication for social in teraction? Yes, patient needs extra time SOCIAL INTERACTION - SCORE: 6-NGOC PROBLEM SOLVING: PROBLEM SOLVING - STEP 1: Does the patient need help from a person or device, or need extra time to solve complex problems such as managing a checking account or confronting interpersonal problems? No. PROBLEM SOLVING - STEP 2: Does the patient require extra time to make decisions or solve problems, OR does s/he have slight dif ficulty reading, initiating, or self-correcting in unfamiliar situations? Yes, patient needs extra ti me. PROBLEM SOLVING - SCORE: 6-NGOC MEMORY: MEMORY - STEP 1: Does the patient need help from a person or device, or need extra time to remember frequently encount ered people, daily routines, and executing requests? No. MEMORY - STEP 2: Does the patient have slight difficulty recognizing frequently encountered people, daily routines, or executing requests without the need for repetition or using self-initiated or environmental cues to remember? Yes. MEMORY - SCORE: 6-NGOC
[2018-12-17] MEDS: ENOXAPARIN 40 MG/0.4 ML SQ SCH (06:58)
[2018-12-17] MEDS: LIDOCAINE 5% PATCH TOP SCH (06:59)
[2018-12-17] MEDS: LEVOTHYROXINE SOD 0.05 MG TABLET PO SCH (06:59)
[2018-12-17] MEDS: PANTOPRAZOLE 40MG TABLET PO SCH (06:59)
[2018-12-17] MEDS: NYSTATIN PWDR 100000 UNIT/GM TOP SCH ×2 (07:00→20:00)
[2018-12-17] MEDS: D3 PO SCH ×2 (08:00→20:34)
[2018-12-17] MEDS: CARVEDILOL 6.25 MG TAB PO SCH ×2 (08:00→20:33)
[2018-12-17] MEDS: CAL MAG ZINC PO SCH ×2 (08:00→20:34)
[2018-12-17] MEDS: ATORVASTATIN 20 MG TAB PO SCH (08:27)
[2018-12-17] MEDS: CRANBERRY FRUIT EXTRACT 200 MG CAP PO SCH ×2 (08:27→20:33)
[2018-12-17] MEDS: DOCUSATE NA 100 MG CAP PO SCH ×2 (08:27→20:33)
[2018-12-17] MEDS: AMIODARONE HCL 200 MG TAB PO SCH (08:28)
[2018-12-17] MEDS: ASPIRIN EC 81 MG TAB PO SCH (08:28)
[2018-12-17] MEDS: LOSARTAN POTASSIUM 50 MG TABLET PO SCH (08:28)
[2018-12-17] MEDS: MAGNESIUM OXIDE 400 MG TAB PO SCH ×2 (08:28→20:33)
[2018-12-17] MEDS: LORATADINE 10 MG TAB PO SCH (08:28)
[2018-12-17] MEDS: predniSONE 5 MG TAB PO SCH (08:28)
[2018-12-17] MEDS: JUVEN PACKET PO SCH ×2 (08:29→20:00)
[2018-12-17] MEDS: PROMOD 30 ML DOSE PO SCH ×3 (08:30→20:35)
[2018-12-17] MEDS: TRAMADOL HCL 50 MG TAB PO PRN ×2 (09:07→22:09)
[2018-12-17] MEDS: ONDANSETRON 4 MG (ODT) TAB PO PRN (09:07)
--- NOTE | 2018-12-17 10:07 | FAST ---
SHIFT START DATE/TIME: 12/17/2018 07:00 (CDT) SHIFT END DATE/TIME: 12/17/2018 19:00 (CDT) NAME ELENA NOLAN DATE OF : 1940 DATE OF ADMISSION: 12/06/2018 20:10 (CDT) PHONE: AGE: 78 N# [id number] GENDER: Male ENCOUNTER PHYSICIAN: Dr. Sid Cruz M.D. ADMISSION DIAGNOSIS: - Orthopaedic Disorders 08 - Unilateral Hip Fracture (08.11) right femur fx. EATING: EATING - STEP 1: Does the patient require the assistance of a person or device, or need extra time when eating? Yes. EATING - STEP 2: Does the patient require the assistance of a helper? No, patient only requires an assistive device, O R s/he takes more than reasonable time to eat, OR there is a safety concern, OR s/he requires modifie d food consistency EATING - SCORE: 6-NGOC GROOMING: Comb/brush hair Oral care Wash, rinse, and dry face Wash, rinse, and dry hands GROOMING - STEP 1: Does the patient require the assistance of a person or device, or need extra time when grooming? Yes. GROOMING - STEP 2: Does the patient require the assistance of a helper? Yes. GROOMING - STEP 3: How much assistance does the patient require from the helper? Only prior equipment preparation/set up from the helper GROOMING - SCORE: 5-SUP BATHING: Activity did not occur on this shift BATHING - SCORE: 0-UNK DRESSING - UPPER BODY: Activity did not occur on this shift ARTICLES SCORE Total number of steps: 0 DRESSING - UPPER BODY - SCORE: 0-UNK DRESSING - LOWER BODY: Activity did not occur on this shift ARTICLES SCORE Total number of steps: 0 DRESSING - LOWER BODY - SCORE: 0-UNK TOILETING: TOILETING - STEP 1: Does the patient require the assistance of a person or device, or need extra time with toileting? Yes . TOILETING - STEP 2: Does the patient require the assistance of a helper? Yes. TOILETING - STEP 3: How much assistance does the patient require from the helper? Only supervision TOILETING - SCORE: 5-SUP BLADDER MANAGEMENT: BLADDER MANAGEMENT - STEP 1: Does the patient control the bladder completely and intentionally without equipment or devices or med ications, and is always continent? No. BLADDER MANAGEMENT - STEP 2: Does the patient require the assistance of a helper? No, patient requires and independently uses an a ssistive device, such as a urinal, bedpan, bedside commode, catheter, absorbent pad, or collecting de vice BLADDER MANAGEMENT - SCORE: 6-NGOC BOWEL MANAGEMENT: BOWEL MANAGEMENT - STEP 1: Does the patient control bowels completely and intentionally without equipment devices or medications AND is always continent? No. BOWEL MANAGEMENT - STEP 2: Does the patient require the assistance of a helper? No, patient requires and manages independently a n assistive device such as a bedpan, bedside commode, absorbent pad, incontinent device, or collectin g device BOWEL MANAGEMENT - SCORE: 6-NGOC TRANSFERS: BED, CHAIR, WHEELCHAIR: TRANSFERS: BED, CHAIR, WHEELCHAIR - STEP 1: Does the patient require assistance of a person or device, or need extra time with bed, chair, or whe elchair transfers? Yes. TRANSFERS: BED, CHAIR, WHEELCHAIR - STEP 2: Does the patient require the assistance of a helper? Yes. TRANSFERS: BED, CHAIR, WHEELCHAIR - STEP 3: How much assistance does the patient require from the helper? Steadying/guiding assistance TRANSFERS: BED, CHAIR, WHEELCHAIR - SCORE: 4-MIN TRANSFERS: TOILET: TRANSFERS: TOILET - STEP 1: Does the patient require the assistance of a person or device, or need extra time with toilet transfe rs? Yes. TRANSFERS: TOILET - STEP 2: Does the patient require the assistance of a helper? Yes. TRANSFERS: TOILET - STEP 3: How much assistance does the patient require from the helper? Patient performs half or more of the tr ansferring tasks TRANSFERS: TOILET - STEP 4: Does the patient need only incidental help such as contact guard or steadying during toilet transfer? Yes. TRANSFERS: TOILET - SCORE: 4-MIN TRANSFERS: SHOWER: Activity did not occur on this shift TRANSFERS: SHOWER - SCORE: 0-UNK TRANSFERS: TUB: Activity did not occur on this shift TRANSFERS: TUB - SCORE: 0-UNK LOCOMOTION: WALK: Activity did not occur on this shift LOCOMOTION: WALK - SCORE: 0-UNK LOCOMOTION: WHEELCHAIR: Activity did not occur on this shift LOCOMOTION: WHEELCHAIR - SCORE: 0-UNK COMPREHENSION: COMPREHENSION: TYPE: Both COMPREHENSION - STEP 1: Does the patient require help from a person or device, or need extra time to understand complex and a bstract ideas (such as current events, finances, discharge planning, medical issues, relationships, e tc)? No. COMPREHENSION - STEP 2: Does the patient need extra time, require an assistive device (such as glasses for visual comprehensi on or a hearing aid for auditory comprehension) or does s/he have mild difficulty understanding compl ex and abstract information? Yes. COMPREHENSION - SCORE: 6-NGOC EXPRESSION EXPRESSION: TYPE: Both EXPRESSION - STEP 1: Does the patient require help from a person or device, or need extra time expressing complex and abst ract ideas (such as current events, finances, discharge planning, medical issues, relationships, etc) ? No. EXPRESSION - STEP 2: Does the patient need extra time, require an assistive device (such as augmentive communication syste m or a communication board), OR does s/he have mild difficulty expressing complex and abstract ideas (including mild dysarthria or mild word-find problems)? Yes. EXPRESSION - SCORE: 6-NGOC SOCIAL INTERACTION: SOCIAL INTERACTION - STEP 1: Does the patient require a helper to interact with others in social and therapeutic situations? No. SOCIAL INTERACTION - STEP 2: Does the patient need extra time in social situations, OR does s/he interact with staff, other patien ts, and family members ONLY in structured environments, OR does s/he require medication for social in teraction? Yes, patient needs extra time SOCIAL INTERACTION - SCORE: 6-NGOC PROBLEM SOLVING: PROBLEM SOLVING - STEP 1: Does the patient need help from a person or device, or need extra time to solve complex problems such as managing a checking account or confronting interpersonal problems? No. PROBLEM SOLVING - STEP 2: Does the patient require extra time to make decisions or solve problems, OR does s/he have slight dif ficulty reading, initiating, or self-correcting in unfamiliar situations? Yes, patient needs extra ti me. PROBLEM SOLVING - SCORE: 6-NGOC MEMORY: MEMORY - STEP 1: Does the patient need help from a person or device, or need extra time to remember frequently encount ered people, daily routines, and executing requests? No. MEMORY - STEP 2: Does the patient have slight difficulty recognizing frequently encountered people, daily routines, or executing requests without the need for repetition or using self-initiated or environmental cues to remember? Yes. MEMORY - SCORE: 6-NGOC SIGNATURE PANEL: The following modified sections: Eating - Score, Grooming - Score, Bathing - Score, Dressing - Upper Body - Score, Dressing - Lower Body - Score, Toileting - Score, Bladder Management - Score, Bowel Man agement - Score, Transfers: Bed, Chair, Wheelchair - Score, Transfers: Toilet - Score, Transfers: Rosangela wer - Score, Transfers: Tub - Score, Locomotion: Walk - Score, Locomotion: Wheelchair - Score, Compre hension - Score, Expression - Score, Social Interaction - Score, Problem Solving - Score, Memory - Sc ore were [electronically] signed by Anthony Reyes on WedDec 17 2018 10:06:40 GMT-0500 (Central Daylight Time)
[2018-12-17] MEDS: MEDIHONEY 44 ML TOPICAL TUBE TOP SCH (10:21)
[2018-12-17] MEDS: ALBUTEROL 2.5 MG/3 ML NEB SOL NEB SCH ×3 (10:33→18:23)
[2018-12-17] MEDS: LACTOBACILLUS/ACIDOPHILUS TAB PO SCH (11:29)
[2018-12-17] MEDS: MULTIVIT W/ MINERAL TAB PO SCH (11:30)
[2018-12-17] MEDS: VITAMIN B COMPLEX 1 CAP PO SCH (11:30)
[2018-12-17] MEDS: HYDROCODONE/APAP 10/325 TAB PO PRN (11:30)
[2018-12-17] MEDS: FE SULF/FA/VIT B COMP & C TAB PO SCH (11:30)
[2018-12-17] MEDS: ZINC SULFATE 220 MG CAP PO SCH (11:30)
[2018-12-17] MEDS: FERROUS SULFATE 325 MG TAB PO SCH (11:30)
[2018-12-17] MEDS: [UNRECOGNIZED DRUG - OTHER] PO SCH ×2 (11:31→20:34)
[2018-12-17] MEDS: VITAMIN A 10,000 IU CAP PO SCH (11:43)
[2018-12-17] MEDS: VITAMIN D 5,000 UNIT CAP PO SCH (16:59)
[2018-12-17] MEDS: MELATONIN 3 MG TABLET PO SCH (20:36)
--- NOTE | 2018-12-18 03:26 | FAST ---
SHIFT START DATE/TIME: 12/17/2018 19:00 (CDT) SHIFT END DATE/TIME: 12/18/2018 07:00 (CDT) NAME ELENA NOLAN DATE OF : 1940 DATE OF ADMISSION: 12/06/2018 20:10 (CDT) PHONE: AGE: 78 SSN# [id number] GENDER: Male ENCOUNTER PHYSICIAN: Dr. Sid Cruz M.D. ADMISSION DIAGNOSIS: - Orthopaedic Disorders 08 - Unilateral Hip Fracture (08.11) right femur fx. EATING: Activity did not occur on this shift EATING - SCORE: 0-UNK GROOMING: Activity did not occur on this shift GROOMING - SCORE: 0-UNK BATHING: Activity did not occur on this shift BATHING - SCORE: 0-UNK DRESSING - UPPER BODY: Activity did not occur on this shift ARTICLES SCORE Total number of steps: 0 DRESSING - UPPER BODY - SCORE: 0-UNK DRESSING - LOWER BODY: Activity did not occur on this shift ARTICLES SCORE Total number of steps: 0 DRESSING - LOWER BODY - SCORE: 0-UNK TOILETING: TOILETING - STEP 1: Does the patient require the assistance of a person or device, or need extra time with toileting? Yes . TOILETING - STEP 2: Does the patient require the assistance of a helper? Yes. TOILETING - STEP 3: How much assistance does the patient require from the helper? Only supervision TOILETING - SCORE: 5-SUP BLADDER MANAGEMENT: BLADDER MANAGEMENT - STEP 1: Does the patient control the bladder completely and intentionally without equipment or devices or med ications, and is always continent? No. BLADDER MANAGEMENT - STEP 2: Does the patient require the assistance of a helper? Yes. BLADDER MANAGEMENT - STEP 3: How much assistance does the patient require from the helper? Only supervision, stand-by, cuing, or c oaxing BLADDER MANAGEMENT - SCORE: 5-SUP BOWEL MANAGEMENT: Activity did not occur on this shift BOWEL MANAGEMENT - SCORE: 7-IND TRANSFERS: BED, CHAIR, WHEELCHAIR: TRANSFERS: BED, CHAIR, WHEELCHAIR - STEP 1: Does the patient require assistance of a person or device, or need extra time with bed, chair, or whe elchair transfers? Yes. TRANSFERS: BED, CHAIR, WHEELCHAIR - STEP 2: Does the patient require the assistance of a helper? Yes. TRANSFERS: BED, CHAIR, WHEELCHAIR - STEP 3: How much assistance does the patient require from the helper? Only supervision TRANSFERS: BED, CHAIR, WHEELCHAIR - SCORE: 5-SUP TRANSFERS: TOILET: TRANSFERS: TOILET - STEP 1: Does the patient require the assistance of a person or device, or need extra time with toilet transfe rs? Yes. TRANSFERS: TOILET - STEP 2: Does the patient require the assistance of a helper? Yes. TRANSFERS: TOILET - STEP 3: How much assistance does the patient require from the helper? Only supervision, cuing, coaxing, OR he lp to set out transfer equipment or to lock brakes and/or lift foot rests TRANSFERS: TOILET - SCORE: 5-SUP TRANSFERS: SHOWER: Activity did not occur on this shift TRANSFERS: SHOWER - SCORE: 0-UNK TRANSFERS: TUB: Activity did not occur on this shift TRANSFERS: TUB - SCORE: 0-UNK LOCOMOTION: WALK: Activity did not occur on this shift LOCOMOTION: WALK - SCORE: 0-UNK LOCOMOTION: WHEELCHAIR: Activity did not occur on this shift LOCOMOTION: WHEELCHAIR - SCORE: 0-UNK COMPREHENSION: COMPREHENSION: TYPE: Both COMPREHENSION - STEP 1: Does the patient require help from a person or device, or need extra time to understand complex and a bstract ideas (such as current events, finances, discharge planning, medical issues, relationships, e tc)? No. COMPREHENSION - STEP 2: Does the patient need extra time, require an assistive device (such as glasses for visual comprehensi on or a hearing aid for auditory comprehension) or does s/he have mild difficulty understanding compl ex and abstract information? Yes. COMPREHENSION - SCORE: 6-NGOC EXPRESSION EXPRESSION: TYPE: Both EXPRESSION - STEP 1: Does the patient require help from a person or device, or need extra time expressing complex and abst ract ideas (such as current events, finances, discharge planning, medical issues, relationships, etc) ? No. EXPRESSION - STEP 2: Does the patient need extra time, require an assistive device (such as augmentive communication syste m or a communication board), OR does s/he have mild difficulty expressing complex and abstract ideas (including mild dysarthria or mild word-find problems)? No. EXPRESSION - SCORE: 7-IND SOCIAL INTERACTION: SOCIAL INTERACTION - STEP 1: Does the patient require a helper to interact with others in social and therapeutic situations? No. SOCIAL INTERACTION - STEP 2: Does the patient need extra time in social situations, OR does s/he interact with staff, other patien ts, and family members ONLY in structured environments, OR does s/he require medication for social in teraction? No. SOCIAL INTERACTION - SCORE: 7-IND PROBLEM SOLVING: PROBLEM SOLVING - STEP 1: Does the patient need help from a person or device, or need extra time to solve complex problems such as managing a checking account or confronting interpersonal problems? No. PROBLEM SOLVING - STEP 2: Does the patient require extra time to make decisions or solve problems, OR does s/he have slight dif ficulty reading, initiating, or self-correcting in unfamiliar situations? No. PROBLEM SOLVING - SCORE: 7-IND MEMORY: MEMORY - STEP 1: Does the patient need help from a person or device, or need extra time to remember frequently encount ered people, daily routines, and executing requests? No. MEMORY - STEP 2: Does the patient have slight difficulty recognizing frequently encountered people, daily routines, or executing requests without the need for repetition or using self-initiated or environmental cues to remember? No. MEMORY - SCORE: 7-IND SIGNATURE PANEL: The following modified sections: Eating - Score, Grooming - Score, Bathing - Score, Dressing - Upper Body - Score, Dressing - Lower Body - Score, Toileting - Score, Bladder Management - Score, Bowel Man agement - Score, Transfers: Bed, Chair, Wheelchair - Score, Transfers: Toilet - Score, Transfers: Rosangela wer - Score, Transfers: Tub - Score, Locomotion: Walk - Score, Locomotion: Wheelchair - Score, Compre hension - Score, Expression - Score, Social Interaction - Score, Problem Solving - Score, Memory - Sc ore were [electronically] signed by Aspen Ching CNA on WedDec 18 2018 03:26:14 T-0500 ([place] Da [place]light Time)
[2018-12-18] MEDS: LEVOTHYROXINE SOD 0.05 MG TABLET PO SCH (06:35)
[2018-12-18] MEDS: ENOXAPARIN 40 MG/0.4 ML SQ SCH (06:36)
[2018-12-18] MEDS: MEDIHONEY 44 ML TOPICAL TUBE TOP SCH (06:36)
[2018-12-18] MEDS: PANTOPRAZOLE 40MG TABLET PO SCH (06:36)
[2018-12-18] MEDS: LIDOCAINE 5% PATCH TOP SCH (06:36)
[2018-12-18] MEDS: ONDANSETRON 4 MG (ODT) TAB PO PRN ×2 (06:36→18:30)
[2018-12-18] MEDS: NYSTATIN PWDR 100000 UNIT/GM TOP SCH ×2 (06:37→20:00)
[2018-12-18] MEDS: LOSARTAN POTASSIUM 50 MG TABLET PO SCH (08:00)
[2018-12-18] MEDS: CARVEDILOL 6.25 MG TAB PO SCH ×2 (08:00→20:00)
[2018-12-18] MEDS: JUVEN PACKET PO SCH ×2 (08:00→20:00)
[2018-12-18] MEDS: ATORVASTATIN 20 MG TAB PO SCH (08:21)
[2018-12-18] MEDS: CRANBERRY FRUIT EXTRACT 200 MG CAP PO SCH ×2 (08:22→20:03)
[2018-12-18] MEDS: predniSONE 5 MG TAB PO SCH (08:22)
[2018-12-18] MEDS: MAGNESIUM OXIDE 400 MG TAB PO SCH ×2 (08:22→20:03)
[2018-12-18] MEDS: AMIODARONE HCL 200 MG TAB PO SCH (08:23)
[2018-12-18] MEDS: DOCUSATE NA 100 MG CAP PO SCH ×2 (08:23→20:03)
[2018-12-18] MEDS: LORATADINE 10 MG TAB PO SCH (08:23)
[2018-12-18] MEDS: ASPIRIN EC 81 MG TAB PO SCH (08:23)
[2018-12-18] MEDS: PROMOD 30 ML DOSE PO SCH ×2 (08:24→20:00)
[2018-12-18] MEDS: D3 PO SCH ×2 (08:24→20:04)
[2018-12-18] MEDS: CAL MAG ZINC PO SCH ×2 (08:24→20:04)
[2018-12-18] MEDS: ALBUTEROL 2.5 MG/3 ML NEB SOL NEB SCH ×3 (09:25→20:50)
--- NOTE | 2018-12-18 09:32 | FAST ---
SHIFT START DATE/TIME: 12/18/2018 07:00 (CDT) SHIFT END DATE/TIME: 12/18/2018 19:00 (CDT) NAME ELENA NOLAN DATE OF : 1940 DATE OF ADMISSION: 12/06/2018 20:10 (CDT) PHONE: AGE: 78 N# [id number] GENDER: Male ENCOUNTER PHYSICIAN: Dr. Sid Cruz M.D. ADMISSION DIAGNOSIS: - Orthopaedic Disorders 08 - Unilateral Hip Fracture (08.11) right femur fx. EATING: EATING - STEP 1: Does the patient require the assistance of a person or device, or need extra time when eating? Yes. EATING - STEP 2: Does the patient require the assistance of a helper? No, patient only requires an assistive device, O R s/he takes more than reasonable time to eat, OR there is a safety concern, OR s/he requires modifie d food consistency EATING - SCORE: 6-NGOC GROOMING: Comb/brush hair Oral care Wash, rinse, and dry face Wash, rinse, and dry hands GROOMING - STEP 1: Does the patient require the assistance of a person or device, or need extra time when grooming? Yes. GROOMING - STEP 2: Does the patient require the assistance of a helper? No. The patient only requires an assistive devic e, OR takes more than reasonable time to groom, OR there is a concern for safety as the patient groom s GROOMING - SCORE: 6-NGOC BATHING: Activity did not occur on this shift BATHING - SCORE: 0-UNK DRESSING - UPPER BODY: Patient is not dressing in public clothing ARTICLES SCORE Total number of steps: 0 DRESSING - UPPER BODY - SCORE: 0-UNK DRESSING - LOWER BODY: Patient is not dressing in public clothing ARTICLES SCORE Total number of steps: 0 DRESSING - LOWER BODY - SCORE: 0-UNK TOILETING: TOILETING - STEP 1: Does the patient require the assistance of a person or device, or need extra time with toileting? Yes . TOILETING - STEP 2: Does the patient require the assistance of a helper? Yes. TOILETING - STEP 3: How much assistance does the patient require from the helper? Only supervision TOILETING - SCORE: 5-SUP BLADDER MANAGEMENT: BLADDER MANAGEMENT - STEP 1: Does the patient control the bladder completely and intentionally without equipment or devices or med ications, and is always continent? No. BLADDER MANAGEMENT - STEP 2: Does the patient require the assistance of a helper? No, patient requires and independently uses an a ssistive device, such as a urinal, bedpan, bedside commode, catheter, absorbent pad, or collecting de vice BLADDER MANAGEMENT - SCORE: 6-NGOC BOWEL MANAGEMENT: Activity did not occur on this shift BOWEL MANAGEMENT - SCORE: 7-IND TRANSFERS: BED, CHAIR, WHEELCHAIR: TRANSFERS: BED, CHAIR, WHEELCHAIR - STEP 1: Does the patient require assistance of a person or device, or need extra time with bed, chair, or whe elchair transfers? Yes. TRANSFERS: BED, CHAIR, WHEELCHAIR - STEP 2: Does the patient require the assistance of a helper? No. Patient only requires an assistive device fo r bed, chair, wheelchair transfers such as a sliding board, grab bar, or brace, OR s/he takes more th an reasonable time, OR there is a safety concern when s/he performs the transfers TRANSFERS: BED, CHAIR, WHEELCHAIR - SCORE: 6-NGOC TRANSFERS: TOILET: TRANSFERS: TOILET - STEP 1: Does the patient require the assistance of a person or device, or need extra time with toilet transfe rs? Yes. TRANSFERS: TOILET - STEP 2: Does the patient require the assistance of a helper? Yes. TRANSFERS: TOILET - STEP 3: How much assistance does the patient require from the helper? Only supervision, cuing, coaxing, OR he lp to set out transfer equipment or to lock brakes and/or lift foot rests TRANSFERS: TOILET - SCORE: 5-SUP TRANSFERS: SHOWER: Activity did not occur on this shift TRANSFERS: SHOWER - SCORE: 0-UNK TRANSFERS: TUB: Activity did not occur on this shift TRANSFERS: TUB - SCORE: 0-UNK LOCOMOTION: WALK: Activity did not occur on this shift LOCOMOTION: WALK - SCORE: 0-UNK LOCOMOTION: WHEELCHAIR: Activity did not occur on this shift LOCOMOTION: WHEELCHAIR - SCORE: 0-UNK COMPREHENSION: COMPREHENSION: TYPE: Both COMPREHENSION - STEP 1: Does the patient require help from a person or device, or need extra time to understand complex and a bstract ideas (such as current events, finances, discharge planning, medical issues, relationships, e tc)? No. COMPREHENSION - STEP 2: Does the patient need extra time, require an assistive device (such as glasses for visual comprehensi on or a hearing aid for auditory comprehension) or does s/he have mild difficulty understanding compl ex and abstract information? Yes. COMPREHENSION - SCORE: 6-NGOC EXPRESSION EXPRESSION: TYPE: Both EXPRESSION - STEP 1: Does the patient require help from a person or device, or need extra time expressing complex and abst ract ideas (such as current events, finances, discharge planning, medical issues, relationships, etc) ? No. EXPRESSION - STEP 2: Does the patient need extra time, require an assistive device (such as augmentive communication syste m or a communication board), OR does s/he have mild difficulty expressing complex and abstract ideas (including mild dysarthria or mild word-find problems)? Yes. EXPRESSION - SCORE: 6-NGOC SOCIAL INTERACTION: SOCIAL INTERACTION - STEP 1: Does the patient require a helper to interact with others in social and therapeutic situations? No. SOCIAL INTERACTION - STEP 2: Does the patient need extra time in social situations, OR does s/he interact with staff, other patien ts, and family members ONLY in structured environments, OR does s/he require medication for social in teraction? Yes, patient needs extra time SOCIAL INTERACTION - SCORE: 6-NGOC PROBLEM SOLVING: PROBLEM SOLVING - STEP 1: Does the patient need help from a person or device, or need extra time to solve complex problems such as managing a checking account or confronting interpersonal problems? No. PROBLEM SOLVING - STEP 2: Does the patient require extra time to make decisions or solve problems, OR does s/he have slight dif ficulty reading, initiating, or self-correcting in unfamiliar situations? Yes, patient needs extra ti me. PROBLEM SOLVING - SCORE: 6-NGOC MEMORY: MEMORY - STEP 1: Does the patient need help from a person or device, or need extra time to remember frequently encount ered people, daily routines, and executing requests? No. MEMORY - STEP 2: Does the patient have slight difficulty recognizing frequently encountered people, daily routines, or executing requests without the need for repetition or using self-initiated or environmental cues to remember? Yes. MEMORY - SCORE: 6-NGOC SIGNATURE PANEL: The following modified sections: Eating - Score, Grooming - Score, Bathing - Score, Dressing - Upper Body - Score, Dressing - Lower Body - Score, Toileting - Score, Bladder Management - Score, Bowel Man agement - Score, Transfers: Bed, Chair, Wheelchair - Score, Transfers: Toilet - Score, Transfers: Rosangela wer - Score, Transfers: Tub - Score, Locomotion: Walk - Score, Locomotion: Wheelchair - Score, Compre hension - Score, Expression - Score, Social Interaction - Score, Problem Solving - Score, Memory - Sc ore were [electronically] signed by Anthony Reyes on WedDec 18 2018 09:31:34 GMT-0500 (Central Daylight Time)
[2018-12-18] MEDS: HYDROCODONE/APAP 10/325 TAB PO PRN (11:12)
[2018-12-18] MEDS: [UNRECOGNIZED DRUG - OTHER] PO SCH ×2 (11:14→20:04)
[2018-12-18] MEDS: VITAMIN A 10,000 IU CAP PO SCH (11:15)
[2018-12-18] MEDS: FERROUS SULFATE 325 MG TAB PO SCH (11:15)
[2018-12-18] MEDS: ZINC SULFATE 220 MG CAP PO SCH (11:15)
[2018-12-18] MEDS: MULTIVIT W/ MINERAL TAB PO SCH (11:15)
[2018-12-18] MEDS: VITAMIN B COMPLEX 1 CAP PO SCH (11:15)
[2018-12-18] MEDS: FE SULF/FA/VIT B COMP & C TAB PO SCH (11:15)
[2018-12-18] MEDS: LACTOBACILLUS/ACIDOPHILUS TAB PO SCH (11:15)
[2018-12-18] MEDS: VITAMIN D 5,000 UNIT CAP PO SCH (17:04)
[2018-12-18] MEDS: MELATONIN 3 MG TABLET PO SCH (21:23)
--- NOTE | 2018-12-19 02:25 | FAST ---
SHIFT START DATE/TIME: 12/18/2018 19:00 (CDT) SHIFT END DATE/TIME: 12/19/2018 07:00 (CDT) NAME ELENA NOLAN DATE OF : 1940 DATE OF ADMISSION: 12/06/2018 20:10 (CDT) PHONE: AGE: 78 N# [id number] GENDER: Male ENCOUNTER PHYSICIAN: Dr. Sid Cruz M.D. ADMISSION DIAGNOSIS: - Orthopaedic Disorders 08 - Unilateral Hip Fracture (08.) right femur fx. EATING: Activity did not occur on this shift EATING - SCORE: 0-UNK GROOMING: Activity did not occur on this shift GROOMING - SCORE: 0-UNK BATHING: Activity did not occur on this shift BATHING - SCORE: 0-UNK DRESSING - UPPER BODY: Activity did not occur on this shift ARTICLES SCORE Total number of steps: 0 DRESSING - UPPER BODY - SCORE: 0-UNK DRESSING - LOWER BODY: Activity did not occur on this shift ARTICLES SCORE Total number of steps: 0 DRESSING - LOWER BODY - SCORE: 0-UNK TOILETING: TOILETING - STEP 1: Does the patient require the assistance of a person or device, or need extra time with toileting? Yes . TOILETING - STEP 2: Does the patient require the assistance of a helper? Yes. TOILETING - STEP 3: How much assistance does the patient require from the helper? Only supervision TOILETING - SCORE: 5-SUP BLADDER MANAGEMENT: BLADDER MANAGEMENT - STEP 1: Does the patient control the bladder completely and intentionally without equipment or devices or med ications, and is always continent? Yes. BLADDER MANAGEMENT - SCORE: 7-IND BOWEL MANAGEMENT: BOWEL MANAGEMENT - STEP 1: Does the patient control bowels completely and intentionally without equipment devices or medications AND is always continent? Yes. BOWEL MANAGEMENT - SCORE: 7-IND TRANSFERS: BED, CHAIR, WHEELCHAIR: TRANSFERS: BED, CHAIR, WHEELCHAIR - STEP 1: Does the patient require assistance of a person or device, or need extra time with bed, chair, or whe elchair transfers? Yes. TRANSFERS: BED, CHAIR, WHEELCHAIR - STEP 2: Does the patient require the assistance of a helper? Yes. TRANSFERS: BED, CHAIR, WHEELCHAIR - STEP 3: How much assistance does the patient require from the helper? Only supervision TRANSFERS: BED, CHAIR, WHEELCHAIR - SCORE: 5-SUP TRANSFERS: TOILET: TRANSFERS: TOILET - STEP 1: Does the patient require the assistance of a person or device, or need extra time with toilet transfe rs? Yes. TRANSFERS: TOILET - STEP 2: Does the patient require the assistance of a helper? Yes. TRANSFERS: TOILET - STEP 3: How much assistance does the patient require from the helper? Only supervision, cuing, coaxing, OR he lp to set out transfer equipment or to lock brakes and/or lift foot rests TRANSFERS: TOILET - SCORE: 5-SUP TRANSFERS: SHOWER: Activity did not occur on this shift TRANSFERS: SHOWER - SCORE: 0-UNK TRANSFERS: TUB: Activity did not occur on this shift TRANSFERS: TUB - SCORE: 0-UNK LOCOMOTION: WALK: Activity did not occur on this shift LOCOMOTION: WALK - SCORE: 0-UNK LOCOMOTION: WHEELCHAIR: Activity did not occur on this shift LOCOMOTION: WHEELCHAIR - SCORE: 0-UNK COMPREHENSION: COMPREHENSION: TYPE: Both COMPREHENSION - STEP 1: Does the patient require help from a person or device, or need extra time to understand complex and a bstract ideas (such as current events, finances, discharge planning, medical issues, relationships, e tc)? No. COMPREHENSION - STEP 2: Does the patient need extra time, require an assistive device (such as glasses for visual comprehensi on or a hearing aid for auditory comprehension) or does s/he have mild difficulty understanding compl ex and abstract information? Yes. COMPREHENSION - SCORE: 6-NGOC EXPRESSION EXPRESSION: TYPE: Both EXPRESSION - STEP 1: Does the patient require help from a person or device, or need extra time expressing complex and abst ract ideas (such as current events, finances, discharge planning, medical issues, relationships, etc) ? No. EXPRESSION - STEP 2: Does the patient need extra time, require an assistive device (such as augmentive communication syste m or a communication board), OR does s/he have mild difficulty expressing complex and abstract ideas (including mild dysarthria or mild word-find problems)? No. EXPRESSION - SCORE: 7-IND SOCIAL INTERACTION: SOCIAL INTERACTION - STEP 1: Does the patient require a helper to interact with others in social and therapeutic situations? No. SOCIAL INTERACTION - STEP 2: Does the patient need extra time in social situations, OR does s/he interact with staff, other patien ts, and family members ONLY in structured environments, OR does s/he require medication for social in teraction? No. SOCIAL INTERACTION - SCORE: 7-IND PROBLEM SOLVING: PROBLEM SOLVING - STEP 1: Does the patient need help from a person or device, or need extra time to solve complex problems such as managing a checking account or confronting interpersonal problems? No. PROBLEM SOLVING - STEP 2: Does the patient require extra time to make decisions or solve problems, OR does s/he have slight dif ficulty reading, initiating, or self-correcting in unfamiliar situations? No. PROBLEM SOLVING - SCORE: 7-IND MEMORY: MEMORY - STEP 1: Does the patient need help from a person or device, or need extra time to remember frequently encount ered people, daily routines, and executing requests? No. MEMORY - STEP 2: Does the patient have slight difficulty recognizing frequently encountered people, daily routines, or executing requests without the need for repetition or using self-initiated or environmental cues to remember? No. MEMORY - SCORE: 7-IND SIGNATURE PANEL: The following modified sections: Eating - Score, Grooming - Score, Bathing - Score, Dressing - Upper Body - Score, Dressing - Lower Body - Score, Toileting - Score, Bladder Management - Score, Bowel Man agement - Score, Transfers: Bed, Chair, Wheelchair - Score, Transfers: Toilet - Score, Transfers: Rosangela wer - Score, Transfers: Tub - Score, Locomotion: Walk - Score, Locomotion: Wheelchair - Score, Compre hension - Score, Expression - Score, Social Interaction - Score, Problem Solving - Score, Memory - Sc ore were [electronically] signed by Aspen Ching CNA on WedDec 19 2018 02:24:50 GMT-0500 ([place] Da ylight Time)
[2018-12-19] MEDS: PANTOPRAZOLE 40MG TABLET PO SCH (06:29)
[2018-12-19] MEDS: ENOXAPARIN 40 MG/0.4 ML SQ SCH (06:29)
[2018-12-19] MEDS: LEVOTHYROXINE SOD 0.05 MG TABLET PO SCH (06:29)
[2018-12-19] MEDS: MEDIHONEY 44 ML TOPICAL TUBE TOP SCH (08:00)
[2018-12-19] MEDS: NYSTATIN PWDR 100000 UNIT/GM TOP SCH ×2 (08:00→20:00)
[2018-12-19] MEDS: PROMOD 30 ML DOSE PO SCH ×2 (08:00→20:00)
[2018-12-19] MEDS: JUVEN PACKET PO SCH ×2 (08:00→20:00)
[2018-12-19] MEDS: ALBUTEROL 2.5 MG/3 ML NEB SOL NEB SCH ×3 (08:05→20:00)
[2018-12-19] MEDS: LIDOCAINE 5% PATCH TOP SCH (08:30)
[2018-12-19] MEDS: ONDANSETRON 4 MG (ODT) TAB PO PRN (08:31)
[2018-12-19] MEDS: D3 PO SCH (08:31)
[2018-12-19] MEDS: HYDROCODONE/APAP 10/325 TAB PO PRN ×2 (08:31→22:16)
[2018-12-19] MEDS: CRANBERRY FRUIT EXTRACT 200 MG CAP PO SCH ×2 (08:31→20:47)
[2018-12-19] MEDS: ATORVASTATIN 20 MG TAB PO SCH (08:31)
[2018-12-19] MEDS: CAL MAG ZINC PO SCH (08:31)
[2018-12-19] MEDS: CARVEDILOL 6.25 MG TAB PO SCH ×2 (08:32→20:46)
[2018-12-19] MEDS: ASPIRIN EC 81 MG TAB PO SCH (08:32)
[2018-12-19] MEDS: DOCUSATE NA 100 MG CAP PO SCH ×2 (08:32→20:00)
[2018-12-19] MEDS: AMIODARONE HCL 200 MG TAB PO SCH (08:32)
[2018-12-19] MEDS: MAGNESIUM OXIDE 400 MG TAB PO SCH ×2 (08:32→20:47)
[2018-12-19] MEDS: LOSARTAN POTASSIUM 50 MG TABLET PO SCH (08:32)
[2018-12-19] MEDS: LORATADINE 10 MG TAB PO SCH (08:32)
[2018-12-19] MEDS: predniSONE 5 MG TAB PO SCH (08:32)
[2018-12-19] MEDS: [UNRECOGNIZED DRUG - OTHER] PO SCH (12:00)
[2018-12-19] MEDS: ZINC SULFATE 220 MG CAP PO SCH (12:11)
[2018-12-19] MEDS: LACTOBACILLUS/ACIDOPHILUS TAB PO SCH (12:11)
[2018-12-19] MEDS: FE SULF/FA/VIT B COMP & C TAB PO SCH (12:11)
[2018-12-19] MEDS: VITAMIN B COMPLEX 1 CAP PO SCH (12:11)
[2018-12-19] MEDS: VITAMIN A 10,000 IU CAP PO SCH (12:11)
[2018-12-19] MEDS: FERROUS SULFATE 325 MG TAB PO SCH (12:11)
[2018-12-19] MEDS: MULTIVIT W/ MINERAL TAB PO SCH (12:11)
--- NOTE | 2018-12-19 15:24 | FAST ---
SHIFT START DATE/TIME: 12/19/2018 07:00 (CDT) SHIFT END DATE/TIME: 12/19/2018 19:00 (CDT) NAME ELENA NOLAN DATE OF : 1940 DATE OF ADMISSION: 12/06/2018 20:10 (CDT) PHONE: AGE: 78 N# [id number] GENDER: Male ENCOUNTER PHYSICIAN: Dr. Sid Cruz M.D. ADMISSION DIAGNOSIS: - Orthopaedic Disorders 08 - Unilateral Hip Fracture (08.11) right femur fx. EATING: EATING - STEP 1: Does the patient require the assistance of a person or device, or need extra time when eating? Yes. EATING - STEP 2: Does the patient require the assistance of a helper? No, patient only requires an assistive device, O R s/he takes more than reasonable time to eat, OR there is a safety concern, OR s/he requires modifie d food consistency EATING - SCORE: 6-NGOC GROOMING: Comb/brush hair Oral care Wash, rinse, and dry face Wash, rinse, and dry hands GROOMING - STEP 1: Does the patient require the assistance of a person or device, or need extra time when grooming? Yes. GROOMING - STEP 2: Does the patient require the assistance of a helper? No. The patient only requires an assistive devic e, OR takes more than reasonable time to groom, OR there is a concern for safety as the patient groom s GROOMING - SCORE: 6-NGOC BATHING: Activity did not occur on this shift BATHING - SCORE: 0-UNK DRESSING - UPPER BODY: Activity did not occur on this shift ARTICLES SCORE Total number of steps: 0 DRESSING - UPPER BODY - SCORE: 0-UNK DRESSING - LOWER BODY: Activity did not occur on this shift ARTICLES SCORE Total number of steps: 0 DRESSING - LOWER BODY - SCORE: 0-UNK TOILETING: TOILETING - STEP 1: Does the patient require the assistance of a person or device, or need extra time with toileting? Yes . TOILETING - STEP 2: Does the patient require the assistance of a helper? Yes. TOILETING - STEP 3: How much assistance does the patient require from the helper? Only supervision TOILETING - SCORE: 5-SUP BLADDER MANAGEMENT: BLADDER MANAGEMENT - STEP 1: Does the patient control the bladder completely and intentionally without equipment or devices or med ications, and is always continent? Yes. BLADDER MANAGEMENT - SCORE: 7-IND BLADDER MANAGEMENT - FREQUENCY OF ACCIDENTS: BLADDER MANAGEMENT(FA) - STEP 1: How many accidents has the patient had during the current shift? 0 BOWEL MANAGEMENT: BOWEL MANAGEMENT - STEP 1: Does the patient control bowels completely and intentionally without equipment devices or medications AND is always continent? No. BOWEL MANAGEMENT - STEP 2: Does the patient require the assistance of a helper? No, patient requires medication for control such as stool softeners, suppositories, laxatives, enemas, or OTC medications BOWEL MANAGEMENT - SCORE: 6-NGOC BOWEL MANAGEMENT - FREQUENCY OF ACCIDENTS: BOWEL MANAGEMENT(FA) - STEP 1: How many accidents has the patient had during the current shift? 0 TRANSFERS: BED, CHAIR, WHEELCHAIR: TRANSFERS: BED, CHAIR, WHEELCHAIR - STEP 1: Does the patient require assistance of a person or device, or need extra time with bed, chair, or whe elchair transfers? Yes. TRANSFERS: BED, CHAIR, WHEELCHAIR - STEP 2: Does the patient require the assistance of a helper? Yes. TRANSFERS: BED, CHAIR, WHEELCHAIR - STEP 3: How much assistance does the patient require from the helper? Steadying/guiding assistance TRANSFERS: BED, CHAIR, WHEELCHAIR - SCORE: 4-MIN TRANSFERS: TOILET: TRANSFERS: TOILET - STEP 1: Does the patient require the assistance of a person or device, or need extra time with toilet transfe rs? Yes. TRANSFERS: TOILET - STEP 2: Does the patient require the assistance of a helper? Yes. TRANSFERS: TOILET - STEP 3: How much assistance does the patient require from the helper? Patient performs half or more of the tr ansferring tasks TRANSFERS: TOILET - STEP 4: Does the patient need only incidental help such as contact guard or steadying during toilet transfer? Yes. TRANSFERS: TOILET - SCORE: 4-MIN TRANSFERS: SHOWER: Activity did not occur on this shift TRANSFERS: SHOWER - SCORE: 0-UNK TRANSFERS: TUB: Activity did not occur on this shift TRANSFERS: TUB - SCORE: 0-UNK LOCOMOTION: WALK: Activity did not occur on this shift LOCOMOTION: WALK - SCORE: 0-UNK LOCOMOTION: WHEELCHAIR: LOCOMOTION: WHEELCHAIR - STEP 1: Does the patient need help to go 150 feet in a wheelchair? Yes. LOCOMOTION: WHEELCHAIR - STEP 2: How much assistance does the patient need from the helper? Only supervision, cuing, or coaxing LOCOMOTION: WHEELCHAIR - SCORE: 5-SUP COMPREHENSION: COMPREHENSION: TYPE: Both COMPREHENSION - STEP 1: Does the patient require help from a person or device, or need extra time to understand complex and a bstract ideas (such as current events, finances, discharge planning, medical issues, relationships, e tc)? Yes. COMPREHENSION - STEP 2: Does the patient require help to understand questions or statements about basic needs or ideas (such as hunger, thirst, sleep, safety, daily schedule, room location, or discomfort) half or more of the t leda? No. COMPREHENSION - STEP 3: How often does the patient need help to understand directions and conversation about basic needs? 10% - 24% of the time COMPREHENSION - SCORE: 4-MIN EXPRESSION EXPRESSION: TYPE: Both EXPRESSION - STEP 1: Does the patient require help from a person or device, or need extra time expressing complex and abst ract ideas (such as current events, finances, discharge planning, medical issues, relationships, etc) ? Yes. EXPRESSION - STEP 2: Does the patient require help to express basic necessities or ideas (such as hunger, thirst, sleep, s afety, daily schedule, room location, or discomfort) half or more of the time? No. EXPRESSION - STEP 3: How often does the patient need help to express directions and conversation about basic needs? 10-24% of the time EXPRESSION - SCORE: 4-MIN SOCIAL INTERACTION: SOCIAL INTERACTION - STEP 1: Does the patient require a helper to interact with others in social and therapeutic situations? No. SOCIAL INTERACTION - STEP 2: Does the patient need extra time in social situations, OR does s/he interact with staff, other patien ts, and family members ONLY in structured environments, OR does s/he require medication for social in teraction? No. SOCIAL INTERACTION - SCORE: 7-IND PROBLEM SOLVING: PROBLEM SOLVING - STEP 1: Does the patient need help from a person or device, or need extra time to solve complex problems such as managing a checking account or confronting interpersonal problems? Yes. PROBLEM SOLVING - STEP 2: Does the patient solve basic routine problems half or more of the time? Yes. PROBLEM SOLVING - STEP 3: How often does the patient need help to solve basic routine problems? 10%-24% of the time PROBLEM SOLVING - SCORE: 4-MIN MEMORY: MEMORY - STEP 1: Does the patient need help from a person or device, or need extra time to remember frequently encount ered people, daily routines, and executing requests? No. MEMORY - STEP 2: Does the patient have slight difficulty recognizing frequently encountered people, daily routines, or executing requests without the need for repetition or using self-initiated or environmental cues to remember? Yes. MEMORY - SCORE: 6-NGOC SIGNATURE PANEL: The following modified sections: Eating - Score, Grooming - Score, Bathing - Score, Dressing - Upper Body - Score, Dressing - Lower Body - Score, Toileting - Score, Bladder Management - Score, Bowel Man agement - Score, Transfers: Bed, Chair, Wheelchair - Score, Transfers: Toilet - Score, Transfers: Rosangela wer - Score, Transfers: Tub - Score, Locomotion: Walk - Score, Locomotion: Wheelchair - Score, Compre hension - Score, Expression - Score, Social Interaction - Score, Problem Solving - Score, Memory - Sc ore were [electronically] signed by Isaura Holland C.N.A. on WedDec 19 2018 15:23:23 T-0500 ([place])
[2018-12-19] MEDS: HYDROXYUREA 500 MG CAP PO SCH (17:18)
[2018-12-19] MEDS: HOME MED 1 EA UNK PO SCH ×2 (17:19)
[2018-12-19] MEDS: VITAMIN D 5,000 UNIT CAP PO SCH (17:23)
--- NOTE | 2018-12-19 17:45 | R.PN ---
ENCOUNTER DATE AND TIME: 12/19/2018 17:42 (CDT) NAME ELENA NOLAN DATE OF : 1940 DATE OF ADMISSION: 12/06/2018 20:10 (CDT) right femur fxCHIEF COMPLAINT: Right hip fracture SUBJECTIVE: Pt denied any depression. Pt denied any Shortness of Breath. Self-propelled wheelchair 500' with modified independence. Ambulated 450' with modified independence using a rolling walker. Ascended 10 steps, bilateral handra ils with modified independence VITAL SIGNS Temperature: 97.6 F SBP/DBP: 133/74 Pulse: 90 Resp: 16 MEDICATION ALLERGIES: No Known Drug Allergies (NKDA) ENVIRONMENTAL ALLERGIES: - Substance Allergies None Known - Other Allergies None Known NURSING: - Shower allowing shower - Skin care per protocol PRECAUTIONS: - Posterior Hip Precaution No adduction across midline No external rotation No hip flexion >90 degrees No internal rotation No wheel chair propulsion - Weight Bearing Precaution WBAT right LE ACTIVITIES OOB only with supervision THERAPIES: - Occupational Therapy Evaluate and Treat. - Physical Therapy Evaluate and Treat. PHYSICAL EXAM - Gen Alert and awake Lying in bed No apparent distress Oriented to: person, time, and place - Skin Right hip incision intact No abnormalities - Eyes No abnormalities - ENMT No abnormalities - Neck No abnormalities - CVS RRR - Chest No abnormalities - Resp Clear to auscultation - Abd +bowel sounds - GI Soft Deferred - No abnormalities - Ext Right foot transmetatarsals amputation. - MSK 4+/5 weakness in right lower extremity - Neuro 4/5 strength right lower extremity - Psych No abnormalities ASSESSMENT: Pt. is a 78 yo Right-handed white male.On 12/01/2018 he was admitted to [facility] and underwent emerg ency surgery for right femur fx (Unilateral Hip Fracture) by Yaniv De La Cruz.Pre-morbidly, Pt. was indep endent/mod-I in Self-Care, Sphincter Control, Transfers Control, Communication, Social Cognition, and Locomotion; and he had good Sphincter Control.Currently, he has deficits of Self-Care, Transfers Con trol, Communication, Social Cognition, Endurance, Balance, Safety Awareness, and Locomotion.Pt. is no w referred to [facility] for acute in-patient rehabilitation in order to maxim ize patient's functional independence in activities of daily living, strength, ROM, and mobility.- Re hab Goal Patient has realistic goal of being discharged at assistance level 6-Ivette to reside at Home with Fam marilia/Relatives. MDM/PLAN: - Physical Therapy Decreased range of motion - to improve, our physical therapists will perform initial evaluation of p t's status upon admission and devise an individualized program for increasing patient's Range of Remy on. Gait dysfunction - to improve, our physical therapists will perform initial evaluation of pt's statu s upon admission and devise an individualized program for Gait Training, and Wheel Chair mobility Inability to transfer - to improve, our physical therapists will perform initial evaluation of pt's status upon admission and devise an individualized program for Bed mobility Need for home safety evaluation - to improve, our physical therapists will perform initial evaluatio n of pt's status upon admission and devise an individualized program for Home Evaluation Need in caregiver upon discharge - to improve, our physical therapists will perform initial evaluati on of pt's status upon admission and devise an individualized program for Caregiver Training New precaution - to improve, our physical therapists will perform initial evaluation of pt's status upon admission and devise an individualized program for Patient precaution education Poor balance - to improve, our physical therapists will perform initial evaluation of pt's status up on admission and devise an individualized program for Balance Training Poor endurance - to improve, our physical therapists will perform initial evaluation of pt's status upon admission and devise an individualized program for Endurance Training Weakness - to improve, our physical therapists will perform initial evaluation of pt's status upon a dmission and devise an individualized program for Aquatic Therapy, Neuromuscular Reeducation, and Str engthening Achieving independence - to improve, our physical therapists will perform initial evaluation of pt's status upon admission and devise an individualized program for Community Reintegration Activities - Occupational Therapy ADL deficits - to improve, our occupation therapists will perform initial evaluation of pt's status upon admission and devise an individualized program for Bathing, Bed mobility, Community Reintegratio n, Cooking, Dressing, Eating, Fine Motor Skills, Grooming, Homemaking, Kitchen Mobility, Laundry, Pat ient Education, Safety Awareness, Splinting - Positioning, Transfers(Toilet, Tub, Shower), and Wheel Chair Management Cognitive deficits - to improve, our occupation therapists will perform initial evaluation of pt's s tatus upon admission and devise an individualized program for Cognition - orientation Need for rn palliative care - to improve, our occupation therapists will perform initial evaluation of pt's status upon admission and devise an individualized program for Caregiver Training Weakness - to improve, our occupation therapists will perform initial evaluation of pt's status upon admission and devise an individualized program for Aquatic Therapy, Balance, Endurance, UE ROM, and UE strengthening - Anterior Hip Precaution No abduction No active extension No adduction across midline No external rotation No hip flexion >90 degrees No internal rotation - Diet - Liquid Texture Continue Regular - Tube Feed Continue N/A - Diet Type Continue Regular - Posterior Hip Precaution No adduction across midline No external rotation No hip flexion >90 degrees No internal rotation No wheel chair propulsion - Weight Bearing Precaution WBAT right LE - Skin care per protocol - Diet - Solid Texture Continue Regular - Shower allowing shower FUNCTIONAL STATUS: UPDATED AT WEEKLY TEAM CONFERENCE - Bladder Same accident frequency: 7-Ind - No accidents in the past 7 days - Bowel Same accident frequency: 7-Ind - No accidents in the past 7 days - Walking Same score based on distance walked: 2(50-149ft) FUNCTIONAL STATUS: - Self-Care A. Eating sup B. Grooming sup C. Bathing sup D. Dressing - Upper sup E. Dressing - Lower Dep F. Toileting Dep - Sphincter Control G: Bladder control Dep H: Bowel control Dep - Transfers Control I. Bed/Chair/Wheelchair modA J. Toilet modA K. Tub/Shower modA - Locomotion L. Walk/Wheelchair (B) maxA M. Stairs ADNO - Communication N. Comprehension (B) Beckie O. Expression (B) Beckie - Social Cognition P. Social Interaction Beckie Q. Problem Solving Beckie R. Memory Beckie - Endurance Poor - Balance Poor - Safety Awareness Poor CURRENT FUNC. DEFICITS: Self-Care, Transfers Control, Communication, Social Cognition, Endurance, Balance, Safety Awareness, and Locomotion SIGNATURE PANEL: (CDT)
[2018-12-19] MEDS: MELATONIN 3 MG TABLET PO SCH (22:16)
--- NOTE | 2018-12-20 01:59 | FAST ---
SHIFT START DATE/TIME: 12/19/2018 19:00 (CDT) SHIFT END DATE/TIME: 12/20/2018 07:00 (CDT) NAME ELENA NOLAN DATE OF : 1940 DATE OF ADMISSION: 12/06/2018 20:10 (CDT) PHONE: AGE: 78 N# [id number] GENDER: Male ENCOUNTER PHYSICIAN: Dr. Sid Cruz M.D. ADMISSION DIAGNOSIS: - Orthopaedic Disorders 08 - Unilateral Hip Fracture (08.) right femur fx. EATING: Activity did not occur on this shift EATING - SCORE: 0-UNK GROOMING: Oral care Wash, rinse, and dry hands GROOMING - STEP 1: Does the patient require the assistance of a person or device, or need extra time when grooming? Yes. GROOMING - STEP 2: Does the patient require the assistance of a helper? Yes. GROOMING - STEP 3: How much assistance does the patient require from the helper? Only prior equipment preparation/set up from the helper GROOMING - SCORE: 5-SUP BATHING: Activity did not occur on this shift BATHING - SCORE: 0-UNK DRESSING - UPPER BODY: Patient is not dressing in public clothing ARTICLES SCORE Total number of steps: 0 DRESSING - UPPER BODY - SCORE: 0-UNK DRESSING - LOWER BODY: Patient is not dressing in public clothing ARTICLES SCORE Total number of steps: 0 DRESSING - LOWER BODY - SCORE: 0-UNK TOILETING: TOILETING - STEP 1: Does the patient require the assistance of a person or device, or need extra time with toileting? Yes . TOILETING - STEP 2: Does the patient require the assistance of a helper? Yes. TOILETING - STEP 3: How much assistance does the patient require from the helper? Only supervision TOILETING - SCORE: 5-SUP BLADDER MANAGEMENT: BLADDER MANAGEMENT - STEP 1: Does the patient control the bladder completely and intentionally without equipment or devices or med ications, and is always continent? No. BLADDER MANAGEMENT - STEP 2: Does the patient require the assistance of a helper? No, patient only requires extra time BLADDER MANAGEMENT - SCORE: 6-NGOC BOWEL MANAGEMENT: BOWEL MANAGEMENT - STEP 1: Does the patient control bowels completely and intentionally without equipment devices or medications AND is always continent? No. BOWEL MANAGEMENT - STEP 2: Does the patient require the assistance of a helper? No, patient requires medication for control such as stool softeners, suppositories, laxatives, enemas, or OTC medications BOWEL MANAGEMENT - SCORE: 6-NGOC TRANSFERS: BED, CHAIR, WHEELCHAIR: TRANSFERS: BED, CHAIR, WHEELCHAIR - STEP 1: Does the patient require assistance of a person or device, or need extra time with bed, chair, or whe elchair transfers? Yes. TRANSFERS: BED, CHAIR, WHEELCHAIR - STEP 2: Does the patient require the assistance of a helper? Yes. TRANSFERS: BED, CHAIR, WHEELCHAIR - STEP 3: How much assistance does the patient require from the helper? Steadying/guiding assistance TRANSFERS: BED, CHAIR, WHEELCHAIR - SCORE: 4-MIN TRANSFERS: TOILET: TRANSFERS: TOILET - STEP 1: Does the patient require the assistance of a person or device, or need extra time with toilet transfe rs? Yes. TRANSFERS: TOILET - STEP 2: Does the patient require the assistance of a helper? Yes. TRANSFERS: TOILET - STEP 3: How much assistance does the patient require from the helper? Only supervision, cuing, coaxing, OR he lp to set out transfer equipment or to lock brakes and/or lift foot rests TRANSFERS: TOILET - SCORE: 5-SUP TRANSFERS: SHOWER: Activity did not occur on this shift TRANSFERS: SHOWER - SCORE: 0-UNK TRANSFERS: TUB: Activity did not occur on this shift TRANSFERS: TUB - SCORE: 0-UNK LOCOMOTION: WALK: Activity did not occur on this shift LOCOMOTION: WALK - SCORE: 0-UNK LOCOMOTION: WHEELCHAIR: Activity did not occur on this shift LOCOMOTION: WHEELCHAIR - SCORE: 0-UNK COMPREHENSION: COMPREHENSION: TYPE: Both COMPREHENSION - STEP 1: Does the patient require help from a person or device, or need extra time to understand complex and a bstract ideas (such as current events, finances, discharge planning, medical issues, relationships, e tc)? No. COMPREHENSION - STEP 2: Does the patient need extra time, require an assistive device (such as glasses for visual comprehensi on or a hearing aid for auditory comprehension) or does s/he have mild difficulty understanding compl ex and abstract information? Yes. COMPREHENSION - SCORE: 6-NGOC EXPRESSION EXPRESSION: TYPE: Both EXPRESSION - STEP 1: Does the patient require help from a person or device, or need extra time expressing complex and abst ract ideas (such as current events, finances, discharge planning, medical issues, relationships, etc) ? No. EXPRESSION - STEP 2: Does the patient need extra time, require an assistive device (such as augmentive communication syste m or a communication board), OR does s/he have mild difficulty expressing complex and abstract ideas (including mild dysarthria or mild word-find problems)? No. EXPRESSION - SCORE: 7-IND SOCIAL INTERACTION: SOCIAL INTERACTION - STEP 1: Does the patient require a helper to interact with others in social and therapeutic situations? No. SOCIAL INTERACTION - STEP 2: Does the patient need extra time in social situations, OR does s/he interact with staff, other patien ts, and family members ONLY in structured environments, OR does s/he require medication for social in teraction? Yes, patient needs extra time SOCIAL INTERACTION - SCORE: 6-NGOC PROBLEM SOLVING: PROBLEM SOLVING - STEP 1: Does the patient need help from a person or device, or need extra time to solve complex problems such as managing a checking account or confronting interpersonal problems? Yes. PROBLEM SOLVING - STEP 2: Does the patient solve basic routine problems half or more of the time? Yes. PROBLEM SOLVING - STEP 3: How often does the patient need help to solve basic routine problems? Less than 10% of the time PROBLEM SOLVING - SCORE: 5-SUP MEMORY: MEMORY - STEP 1: Does the patient need help from a person or device, or need extra time to remember frequently encount ered people, daily routines, and executing requests? No. MEMORY - STEP 2: Does the patient have slight difficulty recognizing frequently encountered people, daily routines, or executing requests without the need for repetition or using self-initiated or environmental cues to remember? Yes. MEMORY - SCORE: 6-NGOC SIGNATURE PANEL: The following modified sections: Eating - Score, Grooming - Score, Dressing - Upper Body - Score, Enrique ssing - Lower Body - Score, Toileting - Score, Bladder Management - Score, Bowel Management - Score, Transfers: Bed, Chair, Wheelchair - Score, Transfers: Toilet - Score, Transfers: Shower - Score, Smith sfers: Tub - Score, Locomotion: Walk - Score, Locomotion: Wheelchair - Score, Comprehension - Score, Expression - Score, Social Interaction - Score, Problem Solving - Score, Memory - Score were [electro nically] signed by Aleisha Travis CNA on WedDec 20 2018 01:32:00 GMT-0500 (Central Daylight Time)
[2018-12-20] MEDS: ALENDRONATE 70 MG TAB PO SCH (05:27)
[2018-12-20] MEDS: HOME MED 1 EA UNK PO SCH ×4 (07:00→17:00)
[2018-12-20] MEDS: PANTOPRAZOLE 40MG TABLET PO SCH (07:32)
[2018-12-20] MEDS: ENOXAPARIN 40 MG/0.4 ML SQ SCH (07:32)
[2018-12-20] MEDS: LEVOTHYROXINE SOD 0.05 MG TABLET PO SCH (07:32)
[2018-12-20] MEDS: ONDANSETRON 4 MG (ODT) TAB PO PRN ×2 (07:34→11:40)
[2018-12-20] MEDS: NYSTATIN PWDR 100000 UNIT/GM TOP SCH ×2 (08:00→19:58)
[2018-12-20] MEDS: PROMOD 30 ML DOSE PO SCH ×2 (08:00→19:59)
[2018-12-20] MEDS: MEDIHONEY 44 ML TOPICAL TUBE TOP SCH (08:00)
[2018-12-20] MEDS: JUVEN PACKET PO SCH ×2 (08:00→19:58)
[2018-12-20] MEDS: ALBUTEROL 2.5 MG/3 ML NEB SOL NEB SCH ×3 (08:00→20:00)
[2018-12-20] MEDS: LORATADINE 10 MG TAB PO SCH (08:48)
[2018-12-20] MEDS: CRANBERRY FRUIT EXTRACT 200 MG CAP PO SCH ×2 (08:48→19:58)
[2018-12-20] MEDS: predniSONE 5 MG TAB PO SCH (08:48)
[2018-12-20] MEDS: ATORVASTATIN 20 MG TAB PO SCH (08:48)
[2018-12-20] MEDS: DOCUSATE NA 100 MG CAP PO SCH ×2 (08:48→19:58)
[2018-12-20] MEDS: MAGNESIUM OXIDE 400 MG TAB PO SCH ×2 (08:48→19:58)
[2018-12-20] MEDS: LIDOCAINE 5% PATCH TOP SCH (08:48)
[2018-12-20] MEDS: ASPIRIN EC 81 MG TAB PO SCH (08:48)
[2018-12-20] MEDS: HYDROCODONE/APAP 10/325 TAB PO PRN ×2 (08:48→22:03)
[2018-12-20] MEDS: AMIODARONE HCL 200 MG TAB PO SCH (08:49)
[2018-12-20] MEDS: BACLOFEN 10 MG TAB PO SCH (08:49)
[2018-12-20] MEDS: CARVEDILOL 6.25 MG TAB PO SCH ×2 (08:49→19:58)
[2018-12-20] MEDS: LOSARTAN POTASSIUM 50 MG TABLET PO SCH (08:49)
[2018-12-20] MEDS: LACTOBACILLUS/ACIDOPHILUS TAB PO SCH (11:39)
[2018-12-20] MEDS: FERROUS SULFATE 325 MG TAB PO SCH (11:39)
[2018-12-20] MEDS: VITAMIN A 10,000 IU CAP PO SCH (11:39)
[2018-12-20] MEDS: ZINC SULFATE 220 MG CAP PO SCH (11:39)
[2018-12-20] MEDS: TRAMADOL HCL 50 MG TAB PO PRN (11:39)
[2018-12-20] MEDS: FE SULF/FA/VIT B COMP & C TAB PO SCH (11:39)
[2018-12-20] MEDS: VITAMIN B COMPLEX 1 CAP PO SCH (11:39)
[2018-12-20] MEDS: MULTIVIT W/ MINERAL TAB PO SCH (11:39)
--- NOTE | 2018-12-20 14:39 | FAST ---
SHIFT START DATE/TIME: 12/20/2018 07:00 (CDT) SHIFT END DATE/TIME: 12/20/2018 19:00 (CDT) NAME ELENA NOLAN DATE OF : 1940 DATE OF ADMISSION: 12/06/2018 20:10 (CDT) PHONE: AGE: 78 N# [id number] GENDER: Male ENCOUNTER PHYSICIAN: Dr. Sid Cruz M.D. ADMISSION DIAGNOSIS: - Orthopaedic Disorders 08 - Unilateral Hip Fracture (08.11) right femur fx. EATING: EATING - STEP 1: Does the patient require the assistance of a person or device, or need extra time when eating? Yes. EATING - STEP 2: Does the patient require the assistance of a helper? No, patient only requires an assistive device, O R s/he takes more than reasonable time to eat, OR there is a safety concern, OR s/he requires modifie d food consistency EATING - SCORE: 6-NGOC GROOMING: Comb/brush hair Oral care Wash, rinse, and dry face Wash, rinse, and dry hands GROOMING - STEP 1: Does the patient require the assistance of a person or device, or need extra time when grooming? Yes. GROOMING - STEP 2: Does the patient require the assistance of a helper? No. The patient only requires an assistive devic e, OR takes more than reasonable time to groom, OR there is a concern for safety as the patient groom s GROOMING - SCORE: 6-NGOC BATHING: Activity did not occur on this shift BATHING - SCORE: 0-UNK DRESSING - UPPER BODY: Activity did not occur on this shift ARTICLES SCORE Total number of steps: 0 DRESSING - UPPER BODY - SCORE: 0-UNK DRESSING - LOWER BODY: Activity did not occur on this shift ARTICLES SCORE Total number of steps: 0 DRESSING - LOWER BODY - SCORE: 0-UNK TOILETING: TOILETING - STEP 1: Does the patient require the assistance of a person or device, or need extra time with toileting? Yes . TOILETING - STEP 2: Does the patient require the assistance of a helper? Yes. TOILETING - STEP 3: How much assistance does the patient require from the helper? Only supervision TOILETING - SCORE: 5-SUP BLADDER MANAGEMENT: BLADDER MANAGEMENT - STEP 1: Does the patient control the bladder completely and intentionally without equipment or devices or med ications, and is always continent? Yes. BLADDER MANAGEMENT - SCORE: 7-IND BLADDER MANAGEMENT - FREQUENCY OF ACCIDENTS: BLADDER MANAGEMENT(FA) - STEP 1: How many accidents has the patient had during the current shift? 0 BOWEL MANAGEMENT: BOWEL MANAGEMENT - STEP 1: Does the patient control bowels completely and intentionally without equipment devices or medications AND is always continent? No. BOWEL MANAGEMENT - STEP 2: Does the patient require the assistance of a helper? No, patient requires medication for control such as stool softeners, suppositories, laxatives, enemas, or OTC medications BOWEL MANAGEMENT - SCORE: 6-NGOC BOWEL MANAGEMENT - FREQUENCY OF ACCIDENTS: BOWEL MANAGEMENT(FA) - STEP 1: How many accidents has the patient had during the current shift? 0 TRANSFERS: BED, CHAIR, WHEELCHAIR: TRANSFERS: BED, CHAIR, WHEELCHAIR - STEP 1: Does the patient require assistance of a person or device, or need extra time with bed, chair, or whe elchair transfers? Yes. TRANSFERS: BED, CHAIR, WHEELCHAIR - STEP 2: Does the patient require the assistance of a helper? Yes. TRANSFERS: BED, CHAIR, WHEELCHAIR - STEP 3: How much assistance does the patient require from the helper? Only supervision TRANSFERS: BED, CHAIR, WHEELCHAIR - SCORE: 5-SUP TRANSFERS: TOILET: TRANSFERS: TOILET - STEP 1: Does the patient require the assistance of a person or device, or need extra time with toilet transfe rs? Yes. TRANSFERS: TOILET - STEP 2: Does the patient require the assistance of a helper? Yes. TRANSFERS: TOILET - STEP 3: How much assistance does the patient require from the helper? Only supervision, cuing, coaxing, OR he lp to set out transfer equipment or to lock brakes and/or lift foot rests TRANSFERS: TOILET - SCORE: 5-SUP TRANSFERS: SHOWER: Activity did not occur on this shift TRANSFERS: SHOWER - SCORE: 0-UNK TRANSFERS: TUB: Activity did not occur on this shift TRANSFERS: TUB - SCORE: 0-UNK LOCOMOTION: WALK: Activity did not occur on this shift LOCOMOTION: WALK - SCORE: 0-UNK LOCOMOTION: WHEELCHAIR: LOCOMOTION: WHEELCHAIR - STEP 1: Does the patient need help to go 150 feet in a wheelchair? No. LOCOMOTION: WHEELCHAIR - SCORE: 6-NGOC COMPREHENSION: COMPREHENSION: TYPE: Both COMPREHENSION - STEP 1: Does the patient require help from a person or device, or need extra time to understand complex and a bstract ideas (such as current events, finances, discharge planning, medical issues, relationships, e tc)? No. COMPREHENSION - STEP 2: Does the patient need extra time, require an assistive device (such as glasses for visual comprehensi on or a hearing aid for auditory comprehension) or does s/he have mild difficulty understanding compl ex and abstract information? Yes. COMPREHENSION - SCORE: 6-NGOC EXPRESSION EXPRESSION: TYPE: Both EXPRESSION - STEP 1: Does the patient require help from a person or device, or need extra time expressing complex and abst ract ideas (such as current events, finances, discharge planning, medical issues, relationships, etc) ? Yes. EXPRESSION - STEP 2: Does the patient require help to express basic necessities or ideas (such as hunger, thirst, sleep, s afety, daily schedule, room location, or discomfort) half or more of the time? No. EXPRESSION - STEP 3: How often does the patient need help to express directions and conversation about basic needs? Less t esquivel 10% of the time EXPRESSION - SCORE: 5-SUP SOCIAL INTERACTION: SOCIAL INTERACTION - STEP 1: Does the patient require a helper to interact with others in social and therapeutic situations? No. SOCIAL INTERACTION - STEP 2: Does the patient need extra time in social situations, OR does s/he interact with staff, other patien ts, and family members ONLY in structured environments, OR does s/he require medication for social in teraction? No. SOCIAL INTERACTION - SCORE: 7-IND PROBLEM SOLVING: PROBLEM SOLVING - STEP 1: Does the patient need help from a person or device, or need extra time to solve complex problems such as managing a checking account or confronting interpersonal problems? Yes. PROBLEM SOLVING - STEP 2: Does the patient solve basic routine problems half or more of the time? Yes. PROBLEM SOLVING - STEP 3: How often does the patient need help to solve basic routine problems? Less than 10% of the time PROBLEM SOLVING - SCORE: 5-SUP MEMORY: MEMORY - STEP 1: Does the patient need help from a person or device, or need extra time to remember frequently encount ered people, daily routines, and executing requests? No. MEMORY - STEP 2: Does the patient have slight difficulty recognizing frequently encountered people, daily routines, or executing requests without the need for repetition or using self-initiated or environmental cues to remember? Yes. MEMORY - SCORE: 6-NGOC SIGNATURE PANEL: The following modified sections: Eating - Score, Grooming - Score, Bathing - Score, Dressing - Upper Body - Score, Dressing - Lower Body - Score, Toileting - Score, Bladder Management - Score, Bowel Man agement - Score, Transfers: Bed, Chair, Wheelchair - Score, Transfers: Toilet - Score, Transfers: Rosangela wer - Score, Transfers: Tub - Score, Locomotion: Walk - Score, Locomotion: Wheelchair - Score, Compre hension - Score, Expression - Score, Social Interaction - Score, Problem Solving - Score, Memory - Sc ore were [electronically] signed by Isaura Holland C.N.A. on WedDec 20 2018 14:38:48 T-0500 (Centra l Daylight Time)
--- NOTE | 2018-12-20 15:35 | FAST ---
ENCOUNTER DATE AND TIME: 12/16/2018 08:00 (CDT) NAME ELENA NOLAN DATE OF : 1940 DATE OF ADMISSION: 12/06/2018 20:10 (CDT) PHONE: AGE: 78 SSN# [id number] GENDER: Male ENCOUNTER PHYSICIAN: Dr. Sid Cruz M.D. ADMISSION DIAGNOSIS: - Orthopaedic Disorders 08 - Unilateral Hip Fracture (08.11) right femur fx. EATING: Activity did not occur on this shift EATING - SCORE: 0-UNK GROOMING: Activity did not occur on this shift GROOMING - SCORE: 0-UNK BATHING: Activity did not occur on this shift BATHING - SCORE: 0-UNK DRESSING - UPPER BODY: Activity did not occur on this shift Patient is not dressing in public clothing ARTICLES SCORE Total number of steps: 0 DRESSING - UPPER BODY - SCORE: 0-UNK DRESSING - LOWER BODY: Activity did not occur on this shift Patient is not dressing in public clothing ARTICLES SCORE Total number of steps: 0 DRESSING - LOWER BODY - SCORE: 0-UNK TOILETING: Activity did not occur on this shift TOILETING - SCORE: 0-UNK BLADDER MANAGEMENT: Activity did not occur on this shift BLADDER MANAGEMENT - SCORE: 7-IND BOWEL MANAGEMENT: Activity did not occur on this shift BOWEL MANAGEMENT - SCORE: 7-IND TRANSFERS: BED, CHAIR, WHEELCHAIR: TRANSFERS: BED, CHAIR, WHEELCHAIR - STEP 1: Does the patient require assistance of a person or device, or need extra time with bed, chair, or whe elchair transfers? Yes. TRANSFERS: BED, CHAIR, WHEELCHAIR - STEP 2: Does the patient require the assistance of a helper? No. Patient only requires an assistive device fo r bed, chair, wheelchair transfers such as a sliding board, grab bar, or brace, OR s/he takes more th an reasonable time, OR there is a safety concern when s/he performs the transfers TRANSFERS: BED, CHAIR, WHEELCHAIR - SCORE: 6-NGOC TRANSFERS: TOILET: Activity did not occur on this shift TRANSFERS: TOILET - SCORE: 0-UNK TRANSFERS: SHOWER: Activity did not occur on this shift TRANSFERS: SHOWER - SCORE: 0-UNK TRANSFERS: TUB: Activity did not occur on this shift TRANSFERS: TUB - SCORE: 0-UNK LOCOMOTION: WALK: LOCOMOTION: WALK - STEP 1: Does the patient need help from a person or device, or need extra time to walk 150 feet? No. LOCOMOTION: WALK - STEP 2: Does the patient need an assistive device (such as an orthosis, prosthesis, crutches, or walker) to g o 150 feet, OR does s/he take more than reasonable time, OR is there a concern for safety? Yes, the p atient needs an assistive device LOCOMOTION: WALK - SCORE: 6-NGOC LOCOMOTION: WHEELCHAIR: LOCOMOTION: WHEELCHAIR - STEP 1: Does the patient need help to go 150 feet in a wheelchair? No. LOCOMOTION: WHEELCHAIR - SCORE: 6-NGOC LOCOMOTION: STAIRS: LOCOMOTION: STAIRS - STEP 1: Does the patient need help to go up and down 12 to 14 stairs? Yes. LOCOMOTION: STAIRS - STEP 2: How much assistance does the patient need from the helper to go a minimum of 12 to 14 stairs? The pat ient goes less than 12 stairs, but at least 4 stairs LOCOMOTION: STAIRS - SCORE: 2-MAX COMPREHENSION: COMPREHENSION - SCORE: 0-UNK EXPRESSION EXPRESSION - SCORE: 0-UNK SOCIAL INTERACTION: SOCIAL INTERACTION - SCORE: 0-UNK PROBLEM SOLVING: PROBLEM SOLVING - SCORE: 0-UNK MEMORY: MEMORY - SCORE: 0-UNK SIGNATURE PANEL: The following modified sections: Transfers: Bed, Chair, Wheelchair - Score, Transfers: Toilet - Score , Locomotion: Walk - Score, Locomotion: Wheelchair - Score, Locomotion: Stairs - Score were [electron janet] signed by Andriy Tavarez PTA on WedDec 20 2018 15:34:41 GMT-0500 (Central Daylight Time)
--- NOTE | 2018-12-20 15:47 | FAST ---
ENCOUNTER DATE AND TIME: 12/19/2018 08:00 (CDT) NAME ELENA NOLAN DATE OF : 1940 DATE OF ADMISSION: 12/06/2018 20:10 (CDT) PHONE: AGE: 78 SSN# [id number] GENDER: Male ENCOUNTER PHYSICIAN: Dr. Sid Cruz M.D. ADMISSION DIAGNOSIS: - Orthopaedic Disorders 08 - Unilateral Hip Fracture (04.23) right femur fx. EATING: Activity did not occur on this shift EATING - SCORE: 0-UNK GROOMING: Activity did not occur on this shift GROOMING - SCORE: 0-UNK BATHING: Activity did not occur on this shift BATHING - SCORE: 0-UNK DRESSING - UPPER BODY: Activity did not occur on this shift Patient is not dressing in public clothing ARTICLES SCORE Total number of steps: 0 DRESSING - UPPER BODY - SCORE: 0-UNK DRESSING - LOWER BODY: Activity did not occur on this shift Patient is not dressing in public clothing ARTICLES SCORE Total number of steps: 0 DRESSING - LOWER BODY - SCORE: 0-UNK TOILETING: Activity did not occur on this shift TOILETING - SCORE: 0-UNK BLADDER MANAGEMENT: Activity did not occur on this shift BLADDER MANAGEMENT - SCORE: 7-IND BOWEL MANAGEMENT: Activity did not occur on this shift BOWEL MANAGEMENT - SCORE: 7-IND TRANSFERS: BED, CHAIR, WHEELCHAIR: TRANSFERS: BED, CHAIR, WHEELCHAIR - STEP 1: Does the patient require assistance of a person or device, or need extra time with bed, chair, or whe elchair transfers? Yes. TRANSFERS: BED, CHAIR, WHEELCHAIR - STEP 2: Does the patient require the assistance of a helper? No. Patient only requires an assistive device fo r bed, chair, wheelchair transfers such as a sliding board, grab bar, or brace, OR s/he takes more th an reasonable time, OR there is a safety concern when s/he performs the transfers TRANSFERS: BED, CHAIR, WHEELCHAIR - SCORE: 6-NGOC TRANSFERS: TOILET: TRANSFERS: TOILET - STEP 1: Does the patient require the assistance of a person or device, or need extra time with toilet transfe rs? Yes. TRANSFERS: TOILET - STEP 2: Does the patient require the assistance of a helper? No. Patient only requires an assistive device wilkes ch as a grab bar or special seat, OR s/he takes more than reasonable time to perform toilet transfers , OR there is a safety concern when s/he performs toilet transfers. TRANSFERS: TOILET - SCORE: 6-NGOC TRANSFERS: SHOWER: Activity did not occur on this shift TRANSFERS: SHOWER - SCORE: 0-UNK TRANSFERS: TUB: Activity did not occur on this shift TRANSFERS: TUB - SCORE: 0-UNK LOCOMOTION: WALK: LOCOMOTION: WALK - STEP 1: Does the patient need help from a person or device, or need extra time to walk 150 feet? No. LOCOMOTION: WALK - STEP 2: Does the patient need an assistive device (such as an orthosis, prosthesis, crutches, or walker) to g o 150 feet, OR does s/he take more than reasonable time, OR is there a concern for safety? Yes, the p atient needs an assistive device LOCOMOTION: WALK - SCORE: 6-NGOC LOCOMOTION: WHEELCHAIR: LOCOMOTION: WHEELCHAIR - STEP 1: Does the patient need help to go 150 feet in a wheelchair? No. LOCOMOTION: WHEELCHAIR - SCORE: 6-NGOC LOCOMOTION: STAIRS: LOCOMOTION: STAIRS - STEP 1: Does the patient need help to go up and down 12 to 14 stairs? Yes. LOCOMOTION: STAIRS - STEP 2: How much assistance does the patient need from the helper to go a minimum of 12 to 14 stairs? The pat ient goes less than 12 stairs, but at least 4 stairs LOCOMOTION: STAIRS - SCORE: 2-MAX COMPREHENSION: COMPREHENSION - SCORE: 0-UNK EXPRESSION EXPRESSION - SCORE: 0-UNK SOCIAL INTERACTION: SOCIAL INTERACTION - SCORE: 0-UNK PROBLEM SOLVING: PROBLEM SOLVING - SCORE: 0-UNK MEMORY: MEMORY - SCORE: 0-UNK SIGNATURE PANEL: The following modified sections: Transfers: Bed, Chair, Wheelchair - Score, Transfers: Toilet - Score , Locomotion: Walk - Score, Locomotion: Wheelchair - Score, Locomotion: Stairs - Score were [nallely gonzales] signed by Andriy Tavarez PTA on WedDec 20 2018 15:46:51 GMT-0500 (Central Daylight Time)
[2018-12-20] MEDS: VITAMIN D 5,000 UNIT CAP PO SCH (17:10)
--- NOTE | 2018-12-20 18:48 | R.PN ---
ENCOUNTER DATE AND TIME: 12/20/2018 18:44 (CDT) NAME ELENA NOLAN DATE OF : 1940 DATE OF ADMISSION: 12/06/2018 20:10 (CDT) right femur fxCHIEF COMPLAINT: Right hip fracture SUBJECTIVE: Pt denied any depression. Pt denied any Shortness of Breath. Self-propelled wheelchair 500' with modified independence. Ambulated 450' with modified independence using a rolling walker. Ascended 10 steps, bilateral handra ils with modified independence VITAL SIGNS Temperature: 97.6 F SBP/DBP: 128/58 Pulse: 69 Resp: 16 MEDICATION ALLERGIES: No Known Drug Allergies (NKDA) ENVIRONMENTAL ALLERGIES: - Substance Allergies None Known - Other Allergies None Known NURSING: - Shower allowing shower - Skin care per protocol PRECAUTIONS: - Posterior Hip Precaution No adduction across midline No external rotation No hip flexion >90 degrees No internal rotation No wheel chair propulsion - Weight Bearing Precaution WBAT right LE ACTIVITIES OOB only with supervision THERAPIES: - Occupational Therapy Evaluate and Treat. - Physical Therapy Evaluate and Treat. PHYSICAL EXAM - Gen Alert and awake Lying in bed No apparent distress Oriented to: person, time, and place - Skin Right hip incision intact No abnormalities - Eyes No abnormalities - ENMT No abnormalities - Neck No abnormalities - CVS RRR - Chest No abnormalities - Resp Clear to auscultation - Abd +bowel sounds - GI Soft Deferred - No abnormalities - Ext Right foot transmetatarsals amputation. - MSK 4+/5 weakness in right lower extremity - Neuro 4/5 strength right lower extremity - Psych No abnormalities ASSESSMENT: Pt. is a 78 yo Right-handed white male.On 12/01/2018 he was admitted to [facility] and underwent emerg ency surgery for right femur fx (Unilateral Hip Fracture) by Yaniv De La Cruz.Pre-morbidly, Pt. was indep endent/mod-I in Self-Care, Sphincter Control, Transfers Control, Communication, Social Cognition, and Locomotion; and he had good Sphincter Control.Currently, he has deficits of Self-Care, Transfers Con trol, Communication, Social Cognition, Endurance, Balance, Safety Awareness, and Locomotion.Pt. is no w referred to [facility] for acute in-patient rehabilitation in order to maxim ize patient's functional independence in activities of daily living, strength, ROM, and mobility.- Re hab Goal Patient has realistic goal of being discharged at assistance level 6-Ivette to reside at Home with Fam marilia/Relatives. MDM/PLAN: - Physical Therapy Decreased range of motion - to improve, our physical therapists will perform initial evaluation of p t's status upon admission and devise an individualized program for increasing patient's Range of Remy on. Gait dysfunction - to improve, our physical therapists will perform initial evaluation of pt's statu s upon admission and devise an individualized program for Gait Training, and Wheel Chair mobility Inability to transfer - to improve, our physical therapists will perform initial evaluation of pt's status upon admission and devise an individualized program for Bed mobility Need for home safety evaluation - to improve, our physical therapists will perform initial evaluatio n of pt's status upon admission and devise an individualized program for Home Evaluation Need in caregiver upon discharge - to improve, our physical therapists will perform initial evaluati on of pt's status upon admission and devise an individualized program for Caregiver Training New precaution - to improve, our physical therapists will perform initial evaluation of pt's status upon admission and devise an individualized program for Patient precaution education Poor balance - to improve, our physical therapists will perform initial evaluation of pt's status up on admission and devise an individualized program for Balance Training Poor endurance - to improve, our physical therapists will perform initial evaluation of pt's status upon admission and devise an individualized program for Endurance Training Weakness - to improve, our physical therapists will perform initial evaluation of pt's status upon a dmission and devise an individualized program for Aquatic Therapy, Neuromuscular Reeducation, and Str engthening Achieving independence - to improve, our physical therapists will perform initial evaluation of pt's status upon admission and devise an individualized program for Community Reintegration Activities - Occupational Therapy ADL deficits - to improve, our occupation therapists will perform initial evaluation of pt's status upon admission and devise an individualized program for Bathing, Bed mobility, Community Reintegratio n, Cooking, Dressing, Eating, Fine Motor Skills, Grooming, Homemaking, Kitchen Mobility, Laundry, Pat ient Education, Safety Awareness, Splinting - Positioning, Transfers(Toilet, Tub, Shower), and Wheel Chair Management Cognitive deficits - to improve, our occupation therapists will perform initial evaluation of pt's s tatus upon admission and devise an individualized program for Cognition - orientation Need for transitional care liaison - to improve, our occupation therapists will perform initial evaluation of pt's status upon admission and devise an individualized program for Caregiver Training Weakness - to improve, our occupation therapists will perform initial evaluation of pt's status upon admission and devise an individualized program for Aquatic Therapy, Balance, Endurance, UE ROM, and UE strengthening - Anterior Hip Precaution No abduction No active extension No adduction across midline No external rotation No hip flexion >90 degrees No internal rotation - Diet - Liquid Texture Continue Regular - Tube Feed Continue N/A - Diet Type Continue Regular - Posterior Hip Precaution No adduction across midline No external rotation No hip flexion >90 degrees No internal rotation No wheel chair propulsion - Weight Bearing Precaution WBAT right LE - Skin care per protocol - Diet - Solid Texture Continue Regular - Shower allowing shower FUNCTIONAL STATUS: UPDATED AT WEEKLY TEAM CONFERENCE - Bladder Same accident frequency: 7-Ind - No accidents in the past 7 days - Bowel Same accident frequency: 7-Ind - No accidents in the past 7 days - Walking Same score based on distance walked: 2(50-149ft) FUNCTIONAL STATUS: - Self-Care A. Eating sup B. Grooming sup C. Bathing sup D. Dressing - Upper sup E. Dressing - Lower Dep F. Toileting Dep - Sphincter Control G: Bladder control Dep H: Bowel control Dep - Transfers Control I. Bed/Chair/Wheelchair modA J. Toilet modA K. Tub/Shower modA - Locomotion L. Walk/Wheelchair (B) maxA M. Stairs ADNO - Communication N. Comprehension (B) Beckie O. Expression (B) Beckie - Social Cognition P. Social Interaction Beckie Q. Problem Solving Beckie R. Memory Beckie - Endurance Poor - Balance Poor - Safety Awareness Poor CURRENT FUNC. DEFICITS: Self-Care, Transfers Control, Communication, Social Cognition, Endurance, Balance, Safety Awareness, and Locomotion SIGNATURE PANEL: (CDT)
[2018-12-20] MEDS: MELATONIN 3 MG TABLET PO SCH (22:03)
[2018-12-21] MEDS: HOME MED 1 EA UNK PO SCH ×4 (07:21→17:03)
[2018-12-21] MEDS: ENOXAPARIN 40 MG/0.4 ML SQ SCH (07:21)
[2018-12-21] MEDS: LEVOTHYROXINE SOD 0.05 MG TABLET PO SCH (07:22)
[2018-12-21] MEDS: PANTOPRAZOLE 40MG TABLET PO SCH (07:22)
[2018-12-21] MEDS: ALBUTEROL 2.5 MG/3 ML NEB SOL NEB SCH ×3 (07:23→20:00)
[2018-12-21] MEDS: JUVEN PACKET PO SCH ×2 (08:00→19:31)
[2018-12-21] MEDS: LORATADINE 10 MG TAB PO SCH (08:10)
[2018-12-21] MEDS: BACLOFEN 10 MG TAB PO SCH (08:11)
[2018-12-21] MEDS: MAGNESIUM OXIDE 400 MG TAB PO SCH ×2 (08:11→19:32)
[2018-12-21] MEDS: AMIODARONE HCL 200 MG TAB PO SCH (08:12)
[2018-12-21] MEDS: predniSONE 5 MG TAB PO SCH (08:12)
[2018-12-21] MEDS: CRANBERRY FRUIT EXTRACT 200 MG CAP PO SCH ×2 (08:12→19:32)
[2018-12-21] MEDS: CARVEDILOL 6.25 MG TAB PO SCH ×2 (08:12→19:28)
[2018-12-21] MEDS: DOCUSATE NA 100 MG CAP PO SCH ×2 (08:12→19:32)
[2018-12-21] MEDS: ATORVASTATIN 20 MG TAB PO SCH ×2 (08:12→08:17)
[2018-12-21] MEDS: ASPIRIN EC 81 MG TAB PO SCH (08:13)
[2018-12-21] MEDS: LOSARTAN POTASSIUM 50 MG TABLET PO SCH (08:13)
[2018-12-21] MEDS: PROMOD 30 ML DOSE PO SCH ×2 (08:14→19:31)
[2018-12-21] MEDS: HYDROCODONE/APAP 10/325 TAB PO PRN ×2 (08:17→22:14)
[2018-12-21] MEDS: ONDANSETRON 4 MG (ODT) TAB PO PRN (08:17)
--- NOTE | 2018-12-21 09:41 | FAST ---
SHIFT START DATE/TIME: 12/21/2018 07:00 (CDT) SHIFT END DATE/TIME: 12/21/2018 19:00 (CDT) NAME ELENA NOLAN DATE OF : 1940 DATE OF ADMISSION: 12/06/2018 20:10 (CDT) PHONE: AGE: 78 N# [id number] GENDER: Male ENCOUNTER PHYSICIAN: Dr. Sid Cruz M.D. ADMISSION DIAGNOSIS: - Orthopaedic Disorders 08 - Unilateral Hip Fracture (08.11) right femur fx. EATING: EATING - STEP 1: Does the patient require the assistance of a person or device, or need extra time when eating? Yes. EATING - STEP 2: Does the patient require the assistance of a helper? No, patient only requires an assistive device, O R s/he takes more than reasonable time to eat, OR there is a safety concern, OR s/he requires modifie d food consistency EATING - SCORE: 6-NGOC GROOMING: Comb/brush hair Wash, rinse, and dry face Wash, rinse, and dry hands GROOMING - STEP 1: Does the patient require the assistance of a person or device, or need extra time when grooming? Yes. GROOMING - STEP 2: Does the patient require the assistance of a helper? No. The patient only requires an assistive devic e, OR takes more than reasonable time to groom, OR there is a concern for safety as the patient groom s GROOMING - SCORE: 6-NGOC BATHING: Activity did not occur on this shift BATHING - SCORE: 0-UNK DRESSING - UPPER BODY: Activity did not occur on this shift ARTICLES SCORE Total number of steps: 0 DRESSING - UPPER BODY - SCORE: 0-UNK DRESSING - LOWER BODY: Activity did not occur on this shift ARTICLES SCORE Total number of steps: 0 DRESSING - LOWER BODY - SCORE: 0-UNK TOILETING: TOILETING - STEP 1: Does the patient require the assistance of a person or device, or need extra time with toileting? Yes . TOILETING - STEP 2: Does the patient require the assistance of a helper? Yes. TOILETING - STEP 3: How much assistance does the patient require from the helper? Only supervision TOILETING - SCORE: 5-SUP BLADDER MANAGEMENT: BLADDER MANAGEMENT - STEP 1: Does the patient control the bladder completely and intentionally without equipment or devices or med ications, and is always continent? No. BLADDER MANAGEMENT - STEP 2: Does the patient require the assistance of a helper? No, patient requires and independently uses an a ssistive device, such as a urinal, bedpan, bedside commode, catheter, absorbent pad, or collecting de vice BLADDER MANAGEMENT - SCORE: 6-NGOC BOWEL MANAGEMENT: Activity did not occur on this shift BOWEL MANAGEMENT - SCORE: 7-IND TRANSFERS: BED, CHAIR, WHEELCHAIR: TRANSFERS: BED, CHAIR, WHEELCHAIR - STEP 1: Does the patient require assistance of a person or device, or need extra time with bed, chair, or whe elchair transfers? Yes. TRANSFERS: BED, CHAIR, WHEELCHAIR - STEP 2: Does the patient require the assistance of a helper? Yes. TRANSFERS: BED, CHAIR, WHEELCHAIR - STEP 3: How much assistance does the patient require from the helper? Only supervision TRANSFERS: BED, CHAIR, WHEELCHAIR - SCORE: 5-SUP TRANSFERS: TOILET: TRANSFERS: TOILET - STEP 1: Does the patient require the assistance of a person or device, or need extra time with toilet transfe rs? Yes. TRANSFERS: TOILET - STEP 2: Does the patient require the assistance of a helper? Yes. TRANSFERS: TOILET - STEP 3: How much assistance does the patient require from the helper? Only supervision, cuing, coaxing, OR he lp to set out transfer equipment or to lock brakes and/or lift foot rests TRANSFERS: TOILET - SCORE: 5-SUP TRANSFERS: SHOWER: Activity did not occur on this shift TRANSFERS: SHOWER - SCORE: 0-UNK TRANSFERS: TUB: Activity did not occur on this shift TRANSFERS: TUB - SCORE: 0-UNK LOCOMOTION: WALK: Activity did not occur on this shift LOCOMOTION: WALK - SCORE: 0-UNK LOCOMOTION: WHEELCHAIR: Activity did not occur on this shift LOCOMOTION: WHEELCHAIR - SCORE: 0-UNK COMPREHENSION: COMPREHENSION: TYPE: Both COMPREHENSION - STEP 1: Does the patient require help from a person or device, or need extra time to understand complex and a bstract ideas (such as current events, finances, discharge planning, medical issues, relationships, e tc)? No. COMPREHENSION - STEP 2: Does the patient need extra time, require an assistive device (such as glasses for visual comprehensi on or a hearing aid for auditory comprehension) or does s/he have mild difficulty understanding compl ex and abstract information? Yes. COMPREHENSION - SCORE: 6-NGOC COMPREHENSION - COMMENTS: Patient wears glasses EXPRESSION EXPRESSION: TYPE: Both EXPRESSION - STEP 1: Does the patient require help from a person or device, or need extra time expressing complex and abst ract ideas (such as current events, finances, discharge planning, medical issues, relationships, etc) ? No. EXPRESSION - STEP 2: Does the patient need extra time, require an assistive device (such as augmentive communication syste m or a communication board), OR does s/he have mild difficulty expressing complex and abstract ideas (including mild dysarthria or mild word-find problems)? Yes. EXPRESSION - SCORE: 6-NGOC SOCIAL INTERACTION: SOCIAL INTERACTION - STEP 1: Does the patient require a helper to interact with others in social and therapeutic situations? No. SOCIAL INTERACTION - STEP 2: Does the patient need extra time in social situations, OR does s/he interact with staff, other patien ts, and family members ONLY in structured environments, OR does s/he require medication for social in teraction? No. SOCIAL INTERACTION - SCORE: 7-IND PROBLEM SOLVING: PROBLEM SOLVING - STEP 1: Does the patient need help from a person or device, or need extra time to solve complex problems such as managing a checking account or confronting interpersonal problems? No. PROBLEM SOLVING - STEP 2: Does the patient require extra time to make decisions or solve problems, OR does s/he have slight dif ficulty reading, initiating, or self-correcting in unfamiliar situations? Yes, patient needs extra ti me. PROBLEM SOLVING - SCORE: 6-NGOC MEMORY: MEMORY - STEP 1: Does the patient need help from a person or device, or need extra time to remember frequently encount ered people, daily routines, and executing requests? No. MEMORY - STEP 2: Does the patient have slight difficulty recognizing frequently encountered people, daily routines, or executing requests without the need for repetition or using self-initiated or environmental cues to remember? Yes. MEMORY - SCORE: 6-NGOC SIGNATURE PANEL: The following modified sections: Eating - Score, Grooming - Score, Bathing - Score, Dressing - Upper Body - Score, Dressing - Lower Body - Score, Toileting - Score, Bladder Management - Score, Bowel Man agement - Score, Transfers: Bed, Chair, Wheelchair - Score, Transfers: Toilet - Score, Transfers: Rosangela wer - Score, Transfers: Tub - Score, Locomotion: Walk - Score, Locomotion: Wheelchair - Score, Compre hension - Score, Comprehension - Comments:, Expression - Score, Social Interaction - Score, Problem S olving - Score, Memory - Score were [electronically] signed by Anthony Reyes on WedDec 21 2018 09:40:30 GMT-0500 (Central Daylight Time)
[2018-12-21] MEDS: LIDOCAINE 5% PATCH TOP SCH (11:59)
[2018-12-21] MEDS: MEDIHONEY 44 ML TOPICAL TUBE TOP SCH (11:59)
[2018-12-21] MEDS: FE SULF/FA/VIT B COMP & C TAB PO SCH (12:00)
[2018-12-21] MEDS: NYSTATIN PWDR 100000 UNIT/GM TOP SCH ×2 (12:00→19:32)
[2018-12-21] MEDS: ZINC SULFATE 220 MG CAP PO SCH (12:00)
[2018-12-21] MEDS: VITAMIN A 10,000 IU CAP PO SCH (12:01)
[2018-12-21] MEDS: LACTOBACILLUS/ACIDOPHILUS TAB PO SCH (12:01)
[2018-12-21] MEDS: MULTIVIT W/ MINERAL TAB PO SCH (12:01)
[2018-12-21] MEDS: FERROUS SULFATE 325 MG TAB PO SCH (12:01)
[2018-12-21] MEDS: VITAMIN B COMPLEX 1 CAP PO SCH (12:01)
[2018-12-21] MEDS: POLYETHYL GLY 3350 17 GM/DOSE PO PRN (12:17)
--- NOTE | 2018-12-21 14:47 | FAST ---
ENCOUNTER DATE AND TIME: 12/21/2018 08:00 (CDT) NAME ELENA NOLAN DATE OF : 1940 DATE OF ADMISSION: 12/06/2018 20:10 (CDT) PHONE: AGE: 78 SSN# [id number] GENDER: Male ENCOUNTER PHYSICIAN: Dr. Sid Cruz M.D. ADMISSION DIAGNOSIS: - Orthopaedic Disorders 08 - Unilateral Hip Fracture (.) right femur fx. EATING: Activity did not occur on this shift EATING - SCORE: 0-UNK GROOMING: Activity did not occur on this shift GROOMING - SCORE: 0-UNK BATHING: Activity did not occur on this shift BATHING - SCORE: 0-UNK DRESSING - UPPER BODY: Activity did not occur on this shift Patient is not dressing in public clothing ARTICLES SCORE Total number of steps: 0 DRESSING - UPPER BODY - SCORE: 0-UNK DRESSING - LOWER BODY: Activity did not occur on this shift Patient is not dressing in public clothing ARTICLES SCORE Total number of steps: 0 DRESSING - LOWER BODY - SCORE: 0-UNK TOILETING: Activity did not occur on this shift TOILETING - SCORE: 0-UNK BLADDER MANAGEMENT: Activity did not occur on this shift BLADDER MANAGEMENT - SCORE: 7-IND BOWEL MANAGEMENT: Activity did not occur on this shift BOWEL MANAGEMENT - SCORE: 7-IND TRANSFERS: BED, CHAIR, WHEELCHAIR: TRANSFERS: BED, CHAIR, WHEELCHAIR - STEP 1: Does the patient require assistance of a person or device, or need extra time with bed, chair, or whe elchair transfers? Yes. TRANSFERS: BED, CHAIR, WHEELCHAIR - STEP 2: Does the patient require the assistance of a helper? No. Patient only requires an assistive device fo r bed, chair, wheelchair transfers such as a sliding board, grab bar, or brace, OR s/he takes more th an reasonable time, OR there is a safety concern when s/he performs the transfers TRANSFERS: BED, CHAIR, WHEELCHAIR - SCORE: 6-NGOC TRANSFERS: TOILET: Activity did not occur on this shift TRANSFERS: TOILET - SCORE: 0-UNK TRANSFERS: SHOWER: Activity did not occur on this shift TRANSFERS: SHOWER - SCORE: 0-UNK TRANSFERS: TUB: Activity did not occur on this shift TRANSFERS: TUB - SCORE: 0-UNK LOCOMOTION: WALK: LOCOMOTION: WALK - STEP 1: Does the patient need help from a person or device, or need extra time to walk 150 feet? No. LOCOMOTION: WALK - STEP 2: Does the patient need an assistive device (such as an orthosis, prosthesis, crutches, or walker) to g o 150 feet, OR does s/he take more than reasonable time, OR is there a concern for safety? Yes, the p atient needs an assistive device LOCOMOTION: WALK - SCORE: 6-NGOC LOCOMOTION: WHEELCHAIR: LOCOMOTION: WHEELCHAIR - STEP 1: Does the patient need help to go 150 feet in a wheelchair? No. LOCOMOTION: WHEELCHAIR - SCORE: 6-NGOC LOCOMOTION: STAIRS: LOCOMOTION: STAIRS - STEP 1: Does the patient need help to go up and down 12 to 14 stairs? Yes. LOCOMOTION: STAIRS - STEP 2: How much assistance does the patient need from the helper to go a minimum of 12 to 14 stairs? The pat ient goes less than 12 stairs, but at least 4 stairs LOCOMOTION: STAIRS - SCORE: 2-MAX COMPREHENSION: COMPREHENSION - SCORE: 0-UNK EXPRESSION EXPRESSION - SCORE: 0-UNK SOCIAL INTERACTION: SOCIAL INTERACTION - SCORE: 0-UNK PROBLEM SOLVING: PROBLEM SOLVING - SCORE: 0-UNK MEMORY: MEMORY - SCORE: 0-UNK SIGNATURE PANEL: The following modified sections: Transfers: Bed, Chair, Wheelchair - Score, Transfers: Toilet - Score , Locomotion: Walk - Score, Locomotion: Wheelchair - Score, Locomotion: Stairs - Score were [electron ically] signed by Andriy Tavarez PTA on WedDec 21 2018 14:46:19 GMT-0500 (Central Daylight Time)
--- NOTE | 2018-12-21 16:17 | RAD REPORT ---
EXAM DESCRIPTION: RAD - Hip Right 2 View - 12/21/2018 3:45 pm CLINICAL HISTORY: Hip pain, skin redness COMPARISON: None. FINDINGS: AP and frog-leg portable views of the right hip were obtained. There is no fracture or di slocation. No acute findings regarding the bipolar prosthesis. No suspicious soft tissue finding. De nse arterial tree calcifications are present. Multiple stents are seen. There are numerous additional surgical clips present. 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 No fracture or acute bone finding. No acute soft tissue finding identifiable.
[2018-12-21] MEDS: HYDROXYUREA 500 MG CAP PO SCH (17:03)
[2018-12-21] MEDS: VITAMIN D 5,000 UNIT CAP PO SCH (17:03)
[2018-12-21] MEDS: GUAIFENESIN/DM 5 ML UCUP PO PRN (19:38)
[2018-12-21] MEDS: MELATONIN 3 MG TABLET PO SCH (22:14)
--- NOTE | 2018-12-22 01:33 | FAST ---
SHIFT START DATE/TIME: 12/21/2018 19:00 (CDT) SHIFT END DATE/TIME: 12/22/2018 07:00 (CDT) NAME ELENA NOLAN DATE OF : 1940 DATE OF ADMISSION: 12/06/2018 20:10 (CDT) PHONE: AGE: 78 SSN# [id number] GENDER: Male ENCOUNTER PHYSICIAN: Dr. Sid Cruz M.D. ADMISSION DIAGNOSIS: - Orthopaedic Disorders 08 - Unilateral Hip Fracture (08.) right femur fx. EATING: Activity did not occur on this shift EATING - SCORE: 0-UNK GROOMING: Activity did not occur on this shift GROOMING - SCORE: 0-UNK BATHING: Activity did not occur on this shift BATHING - SCORE: 0-UNK DRESSING - UPPER BODY: Activity did not occur on this shift ARTICLES SCORE Total number of steps: 0 DRESSING - UPPER BODY - SCORE: 0-UNK DRESSING - LOWER BODY: Activity did not occur on this shift ARTICLES SCORE Total number of steps: 0 DRESSING - LOWER BODY - SCORE: 0-UNK TOILETING: TOILETING - STEP 1: Does the patient require the assistance of a person or device, or need extra time with toileting? Yes . TOILETING - STEP 2: Does the patient require the assistance of a helper? Yes. TOILETING - STEP 3: How much assistance does the patient require from the helper? Only supervision TOILETING - SCORE: 5-SUP BLADDER MANAGEMENT: BLADDER MANAGEMENT - STEP 1: Does the patient control the bladder completely and intentionally without equipment or devices or med ications, and is always continent? No. BLADDER MANAGEMENT - STEP 2: Does the patient require the assistance of a helper? Yes. BLADDER MANAGEMENT - STEP 3: How much assistance does the patient require from the helper? Only supervision, stand-by, cuing, or c oaxing BLADDER MANAGEMENT - SCORE: 5-SUP BOWEL MANAGEMENT: Activity did not occur on this shift BOWEL MANAGEMENT - SCORE: 7-IND TRANSFERS: BED, CHAIR, WHEELCHAIR: TRANSFERS: BED, CHAIR, WHEELCHAIR - STEP 1: Does the patient require assistance of a person or device, or need extra time with bed, chair, or whe elchair transfers? Yes. TRANSFERS: BED, CHAIR, WHEELCHAIR - STEP 2: Does the patient require the assistance of a helper? Yes. TRANSFERS: BED, CHAIR, WHEELCHAIR - STEP 3: How much assistance does the patient require from the helper? Only supervision TRANSFERS: BED, CHAIR, WHEELCHAIR - SCORE: 5-SUP TRANSFERS: TOILET: TRANSFERS: TOILET - STEP 1: Does the patient require the assistance of a person or device, or need extra time with toilet transfe rs? Yes. TRANSFERS: TOILET - STEP 2: Does the patient require the assistance of a helper? Yes. TRANSFERS: TOILET - STEP 3: How much assistance does the patient require from the helper? Only supervision, cuing, coaxing, OR he lp to set out transfer equipment or to lock brakes and/or lift foot rests TRANSFERS: TOILET - SCORE: 5-SUP TRANSFERS: SHOWER: Activity did not occur on this shift TRANSFERS: SHOWER - SCORE: 0-UNK TRANSFERS: TUB: Activity did not occur on this shift TRANSFERS: TUB - SCORE: 0-UNK LOCOMOTION: WALK: Activity did not occur on this shift LOCOMOTION: WALK - SCORE: 0-UNK LOCOMOTION: WHEELCHAIR: Activity did not occur on this shift LOCOMOTION: WHEELCHAIR - SCORE: 0-UNK COMPREHENSION: COMPREHENSION: TYPE: Both COMPREHENSION - STEP 1: Does the patient require help from a person or device, or need extra time to understand complex and a bstract ideas (such as current events, finances, discharge planning, medical issues, relationships, e tc)? No. COMPREHENSION - STEP 2: Does the patient need extra time, require an assistive device (such as glasses for visual comprehensi on or a hearing aid for auditory comprehension) or does s/he have mild difficulty understanding compl ex and abstract information? Yes. COMPREHENSION - SCORE: 6-NGOC EXPRESSION EXPRESSION: TYPE: Both EXPRESSION - STEP 1: Does the patient require help from a person or device, or need extra time expressing complex and abst ract ideas (such as current events, finances, discharge planning, medical issues, relationships, etc) ? No. EXPRESSION - STEP 2: Does the patient need extra time, require an assistive device (such as augmentive communication syste m or a communication board), OR does s/he have mild difficulty expressing complex and abstract ideas (including mild dysarthria or mild word-find problems)? Yes. EXPRESSION - SCORE: 6-NGOC SOCIAL INTERACTION: SOCIAL INTERACTION - STEP 1: Does the patient require a helper to interact with others in social and therapeutic situations? No. SOCIAL INTERACTION - STEP 2: Does the patient need extra time in social situations, OR does s/he interact with staff, other patien ts, and family members ONLY in structured environments, OR does s/he require medication for social in teraction? No. SOCIAL INTERACTION - SCORE: 7-IND PROBLEM SOLVING: PROBLEM SOLVING - STEP 1: Does the patient need help from a person or device, or need extra time to solve complex problems such as managing a checking account or confronting interpersonal problems? No. PROBLEM SOLVING - STEP 2: Does the patient require extra time to make decisions or solve problems, OR does s/he have slight dif ficulty reading, initiating, or self-correcting in unfamiliar situations? Yes, patient needs extra ti me. PROBLEM SOLVING - SCORE: 6-NGOC MEMORY: MEMORY - STEP 1: Does the patient need help from a person or device, or need extra time to remember frequently encount ered people, daily routines, and executing requests? No. MEMORY - STEP 2: Does the patient have slight difficulty recognizing frequently encountered people, daily routines, or executing requests without the need for repetition or using self-initiated or environmental cues to remember? No. MEMORY - SCORE: 7-IND SIGNATURE PANEL: The following modified sections: Eating - Score, Grooming - Score, Bathing - Score, Dressing - Upper Body - Score, Dressing - Lower Body - Score, Toileting - Score, Bladder Management - Score, Bowel Man agement - Score, Transfers: Bed, Chair, Wheelchair - Score, Transfers: Toilet - Score, Transfers: Rosangela wer - Score, Transfers: Tub - Score, Locomotion: Walk - Score, Locomotion: Wheelchair - Score, Compre hension - Score, Expression - Score, Social Interaction - Score, Problem Solving - Score, Memory - Sc ore were [electronically] signed by Sandra Lay RN on WedDec 22 2018 01:32:34 T-0500 (Formerly [facility] Time)
[2018-12-22] MEDS: GUAIFENESIN/DM 5 ML UCUP PO PRN ×2 (05:09→13:09)
[2018-12-22 06:08] LABS: Absolute Monocytes 0.6 K/uL (0.1-1.3); Absolute Neutrophil 7.7 K/uL (1.8-8.0); Basophils % 0.4 % (0-1.3); Eosinophils % 1.1 % (0-4.4); Hematocrit 34.4 % (39.6-49.0); Lymphocytes % 10.8 % (15.3-44.8); MPV 9.6 fL (7.6-11.3); Monocytes % 6.7 % (3.3-12.3); RBC Red Blood Cell Count 3.62 M/uL (4.33-5.43)
[2018-12-22 06:18] LABS: Albumin 2.5 g/dL (3.4-5.0); Potassium 4.1 mmol/L (3.5-5.1); Prealbumin 11.4 mg/dL (20-40)
[2018-12-22] MEDS: ONDANSETRON 4 MG (ODT) TAB PO PRN ×2 (07:12→16:30)
[2018-12-22] MEDS: LEVOTHYROXINE SOD 0.05 MG TABLET PO SCH (07:12)
[2018-12-22] MEDS: HOME MED 1 EA UNK PO SCH ×4 (07:12→16:31)
[2018-12-22] MEDS: ENOXAPARIN 40 MG/0.4 ML SQ SCH (07:12)
[2018-12-22] MEDS: LIDOCAINE 5% PATCH TOP SCH (07:13)
[2018-12-22] MEDS: MEDIHONEY 44 ML TOPICAL TUBE TOP SCH (07:13)
[2018-12-22] MEDS: PANTOPRAZOLE 40MG TABLET PO SCH (07:13)
[2018-12-22] MEDS: NYSTATIN PWDR 100000 UNIT/GM TOP SCH ×2 (07:15→19:16)
[2018-12-22] MEDS: CARVEDILOL 6.25 MG TAB PO SCH ×2 (08:00→19:04)
[2018-12-22] MEDS: JUVEN PACKET PO SCH ×2 (08:00→19:05)
[2018-12-22] MEDS: CRANBERRY FRUIT EXTRACT 200 MG CAP PO SCH ×2 (08:07→19:15)
[2018-12-22] MEDS: ASPIRIN EC 81 MG TAB PO SCH (08:07)
[2018-12-22] MEDS: predniSONE 5 MG TAB PO SCH (08:08)
[2018-12-22] MEDS: BACLOFEN 10 MG TAB PO SCH ×2 (08:08→19:15)
[2018-12-22] MEDS: LOSARTAN POTASSIUM 50 MG TABLET PO SCH (08:08)
[2018-12-22] MEDS: DOCUSATE NA 100 MG CAP PO SCH ×2 (08:08→19:14)
[2018-12-22] MEDS: MAGNESIUM OXIDE 400 MG TAB PO SCH ×2 (08:08→19:15)
[2018-12-22] MEDS: ATORVASTATIN 20 MG TAB PO SCH (08:09)
[2018-12-22] MEDS: HYDROCODONE/APAP 10/325 TAB PO PRN ×2 (08:09→22:11)
[2018-12-22] MEDS: LORATADINE 10 MG TAB PO SCH (08:09)
[2018-12-22] MEDS: AMIODARONE HCL 200 MG TAB PO SCH (08:13)
[2018-12-22] MEDS: PROMOD 30 ML DOSE PO SCH ×2 (08:14→19:05)
[2018-12-22] MEDS: ALBUTEROL 2.5 MG/3 ML NEB SOL NEB SCH ×3 (09:24→20:27)
--- NOTE | 2018-12-22 09:25 | FAST ---
SHIFT START DATE/TIME: 12/22/2018 07:00 (CDT) SHIFT END DATE/TIME: 12/22/2018 19:00 (CDT) NAME ELENA NOLAN DATE OF : 1940 DATE OF ADMISSION: 12/06/2018 20:10 (CDT) PHONE: AGE: 78 N# [id number] GENDER: Male ENCOUNTER PHYSICIAN: Dr. Sid Cruz M.D. ADMISSION DIAGNOSIS: - Orthopaedic Disorders 08 - Unilateral Hip Fracture (08.11) right femur fx. EATING: EATING - STEP 1: Does the patient require the assistance of a person or device, or need extra time when eating? Yes. EATING - STEP 2: Does the patient require the assistance of a helper? Yes. EATING - STEP 3: Does the patient perform half or more of the eating tasks? Yes. EATING - STEP 4: Does the patient need only supervision, cuing, coaxing OR help to apply an orthosis OR help to cut fo od, open containers, pour liquids, or butter bread? Yes. EATING - SCORE: 5-SUP GROOMING: Comb/brush hair Oral care Wash, rinse, and dry face Wash, rinse, and dry hands GROOMING - STEP 1: Does the patient require the assistance of a person or device, or need extra time when grooming? Yes. GROOMING - STEP 2: Does the patient require the assistance of a helper? No. The patient only requires an assistive devic e, OR takes more than reasonable time to groom, OR there is a concern for safety as the patient groom s GROOMING - SCORE: 6-NGOC BATHING: Activity did not occur on this shift BATHING - SCORE: 0-UNK DRESSING - UPPER BODY: Activity did not occur on this shift ARTICLES SCORE Total number of steps: 0 DRESSING - UPPER BODY - SCORE: 0-UNK DRESSING - LOWER BODY: Activity did not occur on this shift ARTICLES SCORE Total number of steps: 0 DRESSING - LOWER BODY - SCORE: 0-UNK TOILETING: TOILETING - STEP 1: Does the patient require the assistance of a person or device, or need extra time with toileting? Yes . TOILETING - STEP 2: Does the patient require the assistance of a helper? Yes. TOILETING - STEP 3: How much assistance does the patient require from the helper? Hands-on assistance from the helper TOILETING - STEP 4: Of the 3 tasks: 1) Adjusting clothing prior to use, 2) Cleansing of perineal area, 3) Adjusting clot neyda after use; How many tasks does the patient perform WITHOUT assistance of the helper? Three tasks with steadying assistance from the helper TOILETING - SCORE: 4-MIN BLADDER MANAGEMENT: BLADDER MANAGEMENT - STEP 1: Does the patient control the bladder completely and intentionally without equipment or devices or med ications, and is always continent? No. BLADDER MANAGEMENT - STEP 2: Does the patient require the assistance of a helper? No, patient requires and independently uses an a ssistive device, such as a urinal, bedpan, bedside commode, catheter, absorbent pad, or collecting de vice BLADDER MANAGEMENT - SCORE: 6-NGOC BOWEL MANAGEMENT: Activity did not occur on this shift BOWEL MANAGEMENT - SCORE: 7-IND TRANSFERS: BED, CHAIR, WHEELCHAIR: TRANSFERS: BED, CHAIR, WHEELCHAIR - STEP 1: Does the patient require assistance of a person or device, or need extra time with bed, chair, or whe elchair transfers? Yes. TRANSFERS: BED, CHAIR, WHEELCHAIR - STEP 2: Does the patient require the assistance of a helper? Yes. TRANSFERS: BED, CHAIR, WHEELCHAIR - STEP 3: How much assistance does the patient require from the helper? Steadying/guiding assistance TRANSFERS: BED, CHAIR, WHEELCHAIR - SCORE: 4-MIN TRANSFERS: TOILET: TRANSFERS: TOILET - STEP 1: Does the patient require the assistance of a person or device, or need extra time with toilet transfe rs? Yes. TRANSFERS: TOILET - STEP 2: Does the patient require the assistance of a helper? Yes. TRANSFERS: TOILET - STEP 3: How much assistance does the patient require from the helper? Patient performs half or more of the tr ansferring tasks TRANSFERS: TOILET - STEP 4: Does the patient need only incidental help such as contact guard or steadying during toilet transfer? Yes. TRANSFERS: TOILET - SCORE: 4-MIN TRANSFERS: SHOWER: Activity did not occur on this shift TRANSFERS: SHOWER - SCORE: 0-UNK TRANSFERS: TUB: Activity did not occur on this shift TRANSFERS: TUB - SCORE: 0-UNK LOCOMOTION: WALK: Activity did not occur on this shift LOCOMOTION: WALK - SCORE: 0-UNK LOCOMOTION: WHEELCHAIR: Activity did not occur on this shift LOCOMOTION: WHEELCHAIR - SCORE: 0-UNK COMPREHENSION: COMPREHENSION: TYPE: Both COMPREHENSION - STEP 1: Does the patient require help from a person or device, or need extra time to understand complex and a bstract ideas (such as current events, finances, discharge planning, medical issues, relationships, e tc)? No. COMPREHENSION - STEP 2: Does the patient need extra time, require an assistive device (such as glasses for visual comprehensi on or a hearing aid for auditory comprehension) or does s/he have mild difficulty understanding compl ex and abstract information? Yes. COMPREHENSION - SCORE: 6-NGOC EXPRESSION EXPRESSION: TYPE: Both EXPRESSION - STEP 1: Does the patient require help from a person or device, or need extra time expressing complex and abst ract ideas (such as current events, finances, discharge planning, medical issues, relationships, etc) ? No. EXPRESSION - STEP 2: Does the patient need extra time, require an assistive device (such as augmentive communication syste m or a communication board), OR does s/he have mild difficulty expressing complex and abstract ideas (including mild dysarthria or mild word-find problems)? Yes. EXPRESSION - SCORE: 6-NGOC SOCIAL INTERACTION: SOCIAL INTERACTION - STEP 1: Does the patient require a helper to interact with others in social and therapeutic situations? No. SOCIAL INTERACTION - STEP 2: Does the patient need extra time in social situations, OR does s/he interact with staff, other patien ts, and family members ONLY in structured environments, OR does s/he require medication for social in teraction? Yes, patient needs extra time SOCIAL INTERACTION - SCORE: 6-NGOC PROBLEM SOLVING: PROBLEM SOLVING - STEP 1: Does the patient need help from a person or device, or need extra time to solve complex problems such as managing a checking account or confronting interpersonal problems? No. PROBLEM SOLVING - STEP 2: Does the patient require extra time to make decisions or solve problems, OR does s/he have slight dif ficulty reading, initiating, or self-correcting in unfamiliar situations? Yes, patient needs extra ti me. PROBLEM SOLVING - SCORE: 6-NGOC MEMORY: MEMORY - STEP 1: Does the patient need help from a person or device, or need extra time to remember frequently encount ered people, daily routines, and executing requests? No. MEMORY - STEP 2: Does the patient have slight difficulty recognizing frequently encountered people, daily routines, or executing requests without the need for repetition or using self-initiated or environmental cues to remember? Yes. MEMORY - SCORE: 6-NGOC SIGNATURE PANEL: The following modified sections: Eating - Score, Grooming - Score, Bathing - Score, Dressing - Upper Body - Score, Dressing - Lower Body - Score, Toileting - Score, Bladder Management - Score, Bowel Man agement - Score, Transfers: Bed, Chair, Wheelchair - Score, Transfers: Toilet - Score, Transfers: Rosangela wer - Score, Transfers: Tub - Score, Locomotion: Walk - Score, Locomotion: Wheelchair - Score, Compre hension - Score, Expression - Score, Social Interaction - Score, Problem Solving - Score, Memory - Sc ore were [electronically] signed by Anthony Reyes on WedDec 22 2018 09:24:16 GMT-0500 (Central Daylight Time)
--- NOTE | 2018-12-22 10:55 | RAD REPORT ---
EXAM DESCRIPTION: Ashley Santos And Ibis (2 Views)12/22/2018 10:26 am CLINICAL HISTORY: Cough COMPARISON: November 2018 FINDINGS: Interstitial lung opacities bilaterally appear chronic. Lungs appear clear of acute infiltrate. Lungs are hyperaerated. The heart is mildly enlarged IMPRESSION: No acute abnormalities displayed
[2018-12-22] MEDS: VITAMIN A 10,000 IU CAP PO SCH (12:05)
[2018-12-22] MEDS: MULTIVIT W/ MINERAL TAB PO SCH (12:05)
[2018-12-22] MEDS: FERROUS SULFATE 325 MG TAB PO SCH (12:05)
[2018-12-22] MEDS: VITAMIN B COMPLEX 1 CAP PO SCH (12:06)
[2018-12-22] MEDS: ZINC SULFATE 220 MG CAP PO SCH (12:06)
[2018-12-22] MEDS: LACTOBACILLUS/ACIDOPHILUS TAB PO SCH (12:06)
[2018-12-22] MEDS: FE SULF/FA/VIT B COMP & C TAB PO SCH (12:06)
[2018-12-22] MEDS: TRAMADOL HCL 50 MG TAB PO PRN (13:08)
[2018-12-22] MEDS: VITAMIN D 5,000 UNIT CAP PO SCH (16:30)
--- NOTE | 2018-12-22 18:26 | R.PN ---
ENCOUNTER DATE AND TIME: 12/22/2018 18:24 (CDT) NAME ELENA NOLAN DATE OF : 1940 DATE OF ADMISSION: 12/06/2018 20:10 (CDT) right femur fxCHIEF COMPLAINT: Right hip fracture SUBJECTIVE: Pt denied any depression. Pt denied any Shortness of Breath. Self-propelled wheelchair 500' with modified independence. Ambulated 450' with modified independence using a rolling walker. Ascended 10 steps, bilateral handra ils with modified independence WBC 9.6, Hgb 11.3, prealbumin 11.4. VITAL SIGNS Temperature: 97.6 F SBP/DBP: 117/57 Pulse: 68 Resp: 16 MEDICATION ALLERGIES: No Known Drug Allergies (NKDA) ENVIRONMENTAL ALLERGIES: - Substance Allergies None Known - Other Allergies None Known NURSING: - Shower allowing shower - Skin care per protocol PRECAUTIONS: - Posterior Hip Precaution No adduction across midline No external rotation No hip flexion >90 degrees No internal rotation No wheel chair propulsion - Weight Bearing Precaution WBAT right LE ACTIVITIES OOB only with supervision THERAPIES: - Occupational Therapy Evaluate and Treat. - Physical Therapy Evaluate and Treat. PHYSICAL EXAM - Gen Alert and awake Lying in bed No apparent distress Oriented to: person, time, and place - Skin Right hip incision intact No abnormalities - Eyes No abnormalities - ENMT No abnormalities - Neck No abnormalities - CVS RRR - Chest No abnormalities - Resp Clear to auscultation - Abd +bowel sounds - GI Soft Deferred - No abnormalities - Ext Right foot transmetatarsals amputation. - MSK 4+/5 weakness in right lower extremity - Neuro 4/5 strength right lower extremity - Psych No abnormalities ASSESSMENT: Pt. is a 78 yo Right-handed white male.On 12/01/2018 he was admitted to [facility] and underwent emerg ency surgery for right femur fx (Unilateral Hip Fracture) by Yaniv De La Cruz.Pre-morbidly, Pt. was indep endent/mod-I in Self-Care, Sphincter Control, Transfers Control, Communication, Social Cognition, and Locomotion; and he had good Sphincter Control.Currently, he has deficits of Self-Care, Transfers Con trol, Communication, Social Cognition, Endurance, Balance, Safety Awareness, and Locomotion.Pt. is no w referred to [facility] for acute in-patient rehabilitation in order to maxim ize patient's functional independence in activities of daily living, strength, ROM, and mobility.- Re hab Goal Patient has realistic goal of being discharged at assistance level 6-Ivette to reside at Home with Fam marilia/Relatives. MDM/PLAN: - Physical Therapy Decreased range of motion - to improve, our physical therapists will perform initial evaluation of p t's status upon admission and devise an individualized program for increasing patient's Range of Remy on. Gait dysfunction - to improve, our physical therapists will perform initial evaluation of pt's statu s upon admission and devise an individualized program for Gait Training, and Wheel Chair mobility Inability to transfer - to improve, our physical therapists will perform initial evaluation of pt's status upon admission and devise an individualized program for Bed mobility Need for home safety evaluation - to improve, our physical therapists will perform initial evaluatio n of pt's status upon admission and devise an individualized program for Home Evaluation Need in caregiver upon discharge - to improve, our physical therapists will perform initial evaluati on of pt's status upon admission and devise an individualized program for Caregiver Training New precaution - to improve, our physical therapists will perform initial evaluation of pt's status upon admission and devise an individualized program for Patient precaution education Poor balance - to improve, our physical therapists will perform initial evaluation of pt's status up on admission and devise an individualized program for Balance Training Poor endurance - to improve, our physical therapists will perform initial evaluation of pt's status upon admission and devise an individualized program for Endurance Training Weakness - to improve, our physical therapists will perform initial evaluation of pt's status upon a dmission and devise an individualized program for Aquatic Therapy, Neuromuscular Reeducation, and Str engthening Achieving independence - to improve, our physical therapists will perform initial evaluation of pt's status upon admission and devise an individualized program for Community Reintegration Activities - Occupational Therapy ADL deficits - to improve, our occupation therapists will perform initial evaluation of pt's status upon admission and devise an individualized program for Bathing, Bed mobility, Community Reintegratio n, Cooking, Dressing, Eating, Fine Motor Skills, Grooming, Homemaking, Kitchen Mobility, Laundry, Pat ient Education, Safety Awareness, Splinting - Positioning, Transfers(Toilet, Tub, Shower), and Wheel Chair Management Cognitive deficits - to improve, our occupation therapists will perform initial evaluation of pt's s tatus upon admission and devise an individualized program for Cognition - orientation Need for career portals teacher - to improve, our occupation therapists will perform initial evaluation of pt's status upon admission and devise an individualized program for Caregiver Training Weakness - to improve, our occupation therapists will perform initial evaluation of pt's status upon admission and devise an individualized program for Aquatic Therapy, Balance, Endurance, UE ROM, and UE strengthening - Anterior Hip Precaution No abduction No active extension No adduction across midline No external rotation No hip flexion >90 degrees No internal rotation - Diet - Liquid Texture Continue Regular - Tube Feed Continue N/A - Diet Type Continue Regular - Posterior Hip Precaution No adduction across midline No external rotation No hip flexion >90 degrees No internal rotation No wheel chair propulsion - Weight Bearing Precaution WBAT right LE - Skin care per protocol - Diet - Solid Texture Continue Regular - Shower allowing shower FUNCTIONAL STATUS: UPDATED AT WEEKLY TEAM CONFERENCE - Bladder Same accident frequency: 7-Ind - No accidents in the past 7 days - Bowel Same accident frequency: 7-Ind - No accidents in the past 7 days - Walking Same score based on distance walked: 2(50-149ft) FUNCTIONAL STATUS: - Self-Care A. Eating sup B. Grooming sup C. Bathing sup D. Dressing - Upper sup E. Dressing - Lower Dep F. Toileting Dep - Sphincter Control G: Bladder control Dep H: Bowel control Dep - Transfers Control I. Bed/Chair/Wheelchair modA J. Toilet modA K. Tub/Shower modA - Locomotion L. Walk/Wheelchair (B) maxA M. Stairs ADNO - Communication N. Comprehension (B) Beckie O. Expression (B) Beckie - Social Cognition P. Social Interaction Beckei Q. Problem Solving Beckie R. Memory Beckie - Endurance Poor - Balance Poor - Safety Awareness Poor CURRENT FUNC. DEFICITS: Self-Care, Transfers Control, Communication, Social Cognition, Endurance, Balance, Safety Awareness, and Locomotion SIGNATURE PANEL: (CDT)
[2018-12-22] MEDS: MELATONIN 3 MG TABLET PO SCH (22:11)
--- NOTE | 2018-12-23 01:30 | FAST ---
SHIFT START DATE/TIME: 12/22/2018 19:00 (CDT) SHIFT END DATE/TIME: 12/23/2018 07:00 (CDT) NAME ELENA NOLAN DATE OF : 1940 DATE OF ADMISSION: 12/06/2018 20:10 (CDT) PHONE: AGE: 78 N# [id number] GENDER: Male ENCOUNTER PHYSICIAN: Dr. Sid Cruz M.D. ADMISSION DIAGNOSIS: - Orthopaedic Disorders 08 - Unilateral Hip Fracture (08.) right femur fx. EATING: Activity did not occur on this shift EATING - SCORE: 0-UNK GROOMING: Oral care Wash, rinse, and dry hands GROOMING - STEP 1: Does the patient require the assistance of a person or device, or need extra time when grooming? Yes. GROOMING - STEP 2: Does the patient require the assistance of a helper? Yes. GROOMING - STEP 3: How much assistance does the patient require from the helper? Only prior equipment preparation/set up from the helper GROOMING - SCORE: 5-SUP BATHING: Activity did not occur on this shift BATHING - SCORE: 0-UNK DRESSING - UPPER BODY: Patient is not dressing in public clothing ARTICLES SCORE Total number of steps: 0 DRESSING - UPPER BODY - SCORE: 0-UNK DRESSING - LOWER BODY: Patient is not dressing in public clothing ARTICLES SCORE Total number of steps: 0 DRESSING - LOWER BODY - SCORE: 0-UNK TOILETING: TOILETING - STEP 1: Does the patient require the assistance of a person or device, or need extra time with toileting? Yes . TOILETING - STEP 2: Does the patient require the assistance of a helper? Yes. TOILETING - STEP 3: How much assistance does the patient require from the helper? Only supervision TOILETING - SCORE: 5-SUP BLADDER MANAGEMENT: [place] removes incontinent device (Depends, pull ups, etc.); cleans the patient after accident / inco ntinent episode; and, applies new incontinent device. BLADDER MANAGEMENT - SCORE: 1-DEP BOWEL MANAGEMENT: [place] removes incontinent device (depends, pull ups, etc.); cleans the patient after accident / inco ntinent episode; and, applies new device (depends, pull-ups, padding, etc.). BOWEL MANAGEMENT - SCORE: 1-DEP TRANSFERS: BED, CHAIR, WHEELCHAIR: TRANSFERS: BED, CHAIR, WHEELCHAIR - STEP 1: Does the patient require assistance of a person or device, or need extra time with bed, chair, or whe elchair transfers? Yes. TRANSFERS: BED, CHAIR, WHEELCHAIR - STEP 2: Does the patient require the assistance of a helper? Yes. TRANSFERS: BED, CHAIR, WHEELCHAIR - STEP 3: How much assistance does the patient require from the helper? Only supervision TRANSFERS: BED, CHAIR, WHEELCHAIR - SCORE: 5-SUP TRANSFERS: TOILET: TRANSFERS: TOILET - STEP 1: Does the patient require the assistance of a person or device, or need extra time with toilet transfe rs? Yes. TRANSFERS: TOILET - STEP 2: Does the patient require the assistance of a helper? Yes. TRANSFERS: TOILET - STEP 3: How much assistance does the patient require from the helper? Only supervision, cuing, coaxing, OR he lp to set out transfer equipment or to lock brakes and/or lift foot rests TRANSFERS: TOILET - SCORE: 5-SUP TRANSFERS: SHOWER: Activity did not occur on this shift TRANSFERS: SHOWER - SCORE: 0-UNK TRANSFERS: TUB: Activity did not occur on this shift TRANSFERS: TUB - SCORE: 0-UNK LOCOMOTION: WALK: Activity did not occur on this shift LOCOMOTION: WALK - SCORE: 0-UNK LOCOMOTION: WHEELCHAIR: Activity did not occur on this shift LOCOMOTION: WHEELCHAIR - SCORE: 0-UNK COMPREHENSION: COMPREHENSION: TYPE: Both COMPREHENSION - STEP 1: Does the patient require help from a person or device, or need extra time to understand complex and a bstract ideas (such as current events, finances, discharge planning, medical issues, relationships, e tc)? No. COMPREHENSION - STEP 2: Does the patient need extra time, require an assistive device (such as glasses for visual comprehensi on or a hearing aid for auditory comprehension) or does s/he have mild difficulty understanding compl ex and abstract information? Yes. COMPREHENSION - SCORE: 6-NGOC EXPRESSION EXPRESSION: TYPE: Both EXPRESSION - STEP 1: Does the patient require help from a person or device, or need extra time expressing complex and abst ract ideas (such as current events, finances, discharge planning, medical issues, relationships, etc) ? No. EXPRESSION - STEP 2: Does the patient need extra time, require an assistive device (such as augmentive communication syste m or a communication board), OR does s/he have mild difficulty expressing complex and abstract ideas (including mild dysarthria or mild word-find problems)? Yes. EXPRESSION - SCORE: 6-NGOC SOCIAL INTERACTION: SOCIAL INTERACTION - STEP 1: Does the patient require a helper to interact with others in social and therapeutic situations? No. SOCIAL INTERACTION - STEP 2: Does the patient need extra time in social situations, OR does s/he interact with staff, other patien ts, and family members ONLY in structured environments, OR does s/he require medication for social in teraction? Yes, patient needs extra time SOCIAL INTERACTION - SCORE: 6-NGOC PROBLEM SOLVING: PROBLEM SOLVING - STEP 1: Does the patient need help from a person or device, or need extra time to solve complex problems such as managing a checking account or confronting interpersonal problems? No. PROBLEM SOLVING - STEP 2: Does the patient require extra time to make decisions or solve problems, OR does s/he have slight dif ficulty reading, initiating, or self-correcting in unfamiliar situations? Yes, patient needs extra ti me. PROBLEM SOLVING - SCORE: 6-NGOC MEMORY: MEMORY - STEP 1: Does the patient need help from a person or device, or need extra time to remember frequently encount ered people, daily routines, and executing requests? No. MEMORY - STEP 2: Does the patient have slight difficulty recognizing frequently encountered people, daily routines, or executing requests without the need for repetition or using self-initiated or environmental cues to remember? No. MEMORY - SCORE: 7-IND SIGNATURE PANEL: The following modified sections: Eating - Score, Grooming - Score, Bathing - Score, Dressing - Upper Body - Score, Dressing - Lower Body - Score, Toileting - Score, Bladder Management - Score, Bowel Man agement - Score, Transfers: Bed, Chair, Wheelchair - Score, Transfers: Toilet - Score, Transfers: Rosangela wer - Score, Transfers: Tub - Score, Locomotion: Walk - Score, Locomotion: Wheelchair - Score, Compre hension - Score, Expression - Score, Social Interaction - Score, Problem Solving - Score, Memory - Sc ore were [electronically] signed by Sandra Lay RN on WedDec 23 2018 01:29:29 T[facility]0500 [facility]
[2018-12-23] MEDS: GUAIFENESIN/DM 5 ML UCUP PO PRN (04:03)
[2018-12-23] MEDS: LEVOTHYROXINE SOD 0.05 MG TABLET PO SCH (06:27)
[2018-12-23] MEDS: HOME MED 1 EA UNK PO SCH ×2 (06:28→08:01)
[2018-12-23] MEDS: PANTOPRAZOLE 40MG TABLET PO SCH (06:29)
[2018-12-23] MEDS: LIDOCAINE 5% PATCH TOP SCH (07:06)
[2018-12-23] MEDS: ENOXAPARIN 40 MG/0.4 ML SQ SCH (07:06)
[2018-12-23] MEDS: JUVEN PACKET PO SCH (08:00)
[2018-12-23] MEDS: CARVEDILOL 6.25 MG TAB PO SCH (08:00)
[2018-12-23] MEDS: LOSARTAN POTASSIUM 50 MG TABLET PO SCH (08:00)
[2018-12-23] MEDS: MEDIHONEY 44 ML TOPICAL TUBE TOP SCH (08:00)
[2018-12-23] MEDS: NYSTATIN PWDR 100000 UNIT/GM TOP SCH (08:00)
[2018-12-23] MEDS: PROMOD 30 ML DOSE PO SCH (08:00)
[2018-12-23] MEDS: CRANBERRY FRUIT EXTRACT 200 MG CAP PO SCH (08:02)
[2018-12-23] MEDS: ASPIRIN EC 81 MG TAB PO SCH (08:02)
[2018-12-23] MEDS: MAGNESIUM OXIDE 400 MG TAB PO SCH (08:03)
[2018-12-23] MEDS: ATORVASTATIN 20 MG TAB PO SCH (08:03)
[2018-12-23] MEDS: predniSONE 5 MG TAB PO SCH (08:03)
[2018-12-23] MEDS: BACLOFEN 10 MG TAB PO SCH (08:03)
[2018-12-23] MEDS: LORATADINE 10 MG TAB PO SCH (08:04)
[2018-12-23] MEDS: ONDANSETRON 4 MG (ODT) TAB PO PRN ×2 (08:07→13:27)
[2018-12-23] MEDS: DOCUSATE NA 100 MG CAP PO SCH (08:07)
[2018-12-23] MEDS: HYDROCODONE/APAP 10/325 TAB PO PRN (08:07)
[2018-12-23] MEDS: AMIODARONE HCL 200 MG TAB PO SCH (08:07)
[2018-12-23 08:09] VITALS: BP 103/63
[2018-12-23] MEDS: POLYETHYL GLY 3350 17 GM/DOSE PO PRN (08:29)
[2018-12-23 08:52] VITALS: TEMP 97
[2018-12-23] MEDS: ALBUTEROL 2.5 MG/3 ML NEB SOL NEB SCH (09:02)
--- NOTE | 2018-12-23 09:50 | P.RH.PN ---
Estimated Length of Stay: 18 Expected Discharge Date: 12/23/18 Discharge Disposition Plan: Home Family Support: Yes Mcfp Goal: Mobility, Transfers, Self Care Vital Signs: Last Vital Signs Temp 97.0 F 12/23/18 06:55 Pulse 74 12/23/18 08:00 Resp 16 12/23/18 06:55 BP 103/63 12/23/18 08:00 Pulse Ox 96 12/23/18 06:55 Laboratory: Laboratory Last Values WBC 9.6 K/uL (4.3-10.9) D 12/22/18 05:36 RBC 3.62 M/uL (4.33-5.43) L 12/22/18 05:36 Hgb 11.3 g/dL (13.6-17.9) L 12/22/18 05:36 Hct 34.4 % (39.6-49.0) L 12/22/18 05:36 MCV 95.0 fL (80-100) 12/22/18 05:36 MCH 31.1 pg (27.0-35.0) 12/22/18 05:36 MCHC 32.7 g/dL (32.0-36.0) 12/22/18 05:36 RDW 17.6 % (12.1-15.2) H 12/22/18 05:36 Plt Count 384 K/uL (152-406) 12/22/18 05:36 MPV 9.6 fL (7.6-11.3) 12/22/18 05:36 Neutrophils % 81.0 % (41.7-73.7) H 12/22/18 05:36 Lymphocytes % 10.8 % (15.3-44.8) L 12/22/18 05:36 Monocytes % 6.7 % (3.3-12.3) 12/22/18 05:36 Eosinophils % 1.1 % (0-4.4) 12/22/18 05:36 Basophils % 0.4 % (0-1.3) 12/22/18 05:36 Absolute Neutrophils 7.7 K/uL (1.8-8.0) 12/22/18 05:36 Absolute Lymphocytes 1.0 K/uL (0.7-4.9) 12/22/18 05:36 Absolute Monocytes 0.6 K/uL (0.1-1.3) 12/22/18 05:36 Absolute Eosinophils 0.1 K/uL (0-0.5) 12/22/18 05:36 Absolute Basophils 0.0 K/uL (0-0.5) 12/22/18 05:36 Sodium 142 mmol/L (136-145) 12/22/18 05:36 Potassium 4.1 mmol/L (3.5-5.1) 12/22/18 05:36 Chloride 109 mmol/L (98-107) H 12/22/18 05:36 Carbon Dioxide 28 mmol/L (21-32) 12/22/18 05:36 BUN 40 mg/dL (7-18) H 12/22/18 05:36 Creatinine 1.17 mg/dL (0.55-1.3) 12/22/18 05:36 Estimated GFR 60 mL/min (=/>90) L 12/22/18 05:36 Glucose 92 mg/dL (74-106) 12/22/18 05:36 Calcium 7.9 mg/dL (8.5-10.1) L 12/22/18 05:36 Magnesium 2.0 mg/dL (1.8-2.4) 12/15/18 05:54 Albumin 2.5 g/dL (3.4-5.0) L 12/22/18 05:36 Prealbumin 11.4 mg/dL (20-40) L 12/22/18 05:36 Urine Color Yellow 12/15/18 19:40 Urine Appearance Clear 12/15/18 19:40 Urine pH 6.5 (5.0-7.0) 12/15/18 19:40 Ur Specific [place] 1.015 (1.005-1.030) 12/15/18 19:40 Urine Ketones Negative (NEG) 12/15/18 19:40 Urine Blood Negative (NEG) 12/15/18 19:40 Urine Nitrite Negative (NEG) 12/15/18 19:40 Urine Bilirubin Negative (NEG) 12/15/18 19:40 Urine Urobilinogen 1.0 mg/dL (0.2-1.0) 12/15/18 19:40 Ur Leukocyte Esterase Negative (NEG) 12/15/18 19:40 Urine RBC 5-10 /HPF (NONE SEEN) H 12/13/18 05:55 Urine WBC <5 /HPF (<5) 12/13/18 05:55 Ur Squamous Epith Cells <5 /HPF (NONE SEEN) 12/13/18 05:55 Ur Urothelial Cells <5 /HPF (NONE SEEN) 12/06/18 22:00 Urine Bacteria None seen /HPF (NONE SEEN) 12/13/18 05:55 Urine Culture Reflexed Not needed 12/13/18 05:55 Urine Glucose Negative (NEG) 12/15/18 19:40 Urine Total Protein Negative (NEG) 12/15/18 19:40 Weight: 155 lb 1.6 oz Wound Present: Yes Closed Surgical Incision Present: Yes Negative Pressure Wound Therapy Present: No Physician Update: His blood work is essentially normal. His is modified independent with his ADLs and physical therapy. He may be disharged home today since home O2 will not be needed. He was 92% and rest and 97% with activity on room air. Pain Issues: Sasser 10/325mg Q6H PRN. Lidoderm patch 5% Daily Comment: laceration over left 5th finger that occurred during fall- stitch removed- site scabbed. left lower back wound- 2nd degree burn using heating pad- has scab and dressing in place. Functional Improvement: Patient has met all short-term and long-term goals at this time, w/ the exception of stairs tx. Patient shows good overall technique and safety awareness. Functional Improvement Occupational Therapy: pt can benifit with further therapy to address pt's overall weakness, safety and endurance for all adl tasks. Cont to educate and train the pt on energy conservation techniques and safety and maintiang pt's UB strength/endurance. Cont with the Goals by the supervising OTR. Speech Therapy Update: Patient is at MOD I for Auditory Comprehension (due to hearing impairment), MOD I for Verbal Expression, MOD I for Social Interaction, SUPV for Problem Solving and SUPV for Memory. Summary: Patient's care plan and snf goals have been reviewed and revised as necessary. Please see the Rehabilitation Signature page for all necessary signatures.
[2018-12-23 11:40] VITALS: O2SAT 93
[2018-12-23] MEDS: LACTOBACILLUS/ACIDOPHILUS TAB PO SCH (12:21)
[2018-12-23] MEDS: MULTIVIT W/ MINERAL TAB PO SCH (12:21)
[2018-12-23] MEDS: FERROUS SULFATE 325 MG TAB PO SCH (12:21)
[2018-12-23] MEDS: FE SULF/FA/VIT B COMP & C TAB PO SCH (12:21)
[2018-12-23] MEDS: ZINC SULFATE 220 MG CAP PO SCH (12:21)
[2018-12-23] MEDS: VITAMIN B COMPLEX 1 CAP PO SCH (12:21)
[2018-12-23] MEDS: VITAMIN A 10,000 IU CAP PO SCH (12:24)
--- NOTE | 2018-12-23 15:05 | FAST ---
SHIFT START DATE/TIME: 12/23/2018 07:00 (CDT) SHIFT END DATE/TIME: 12/23/2018 19:00 (CDT) NAME ELENA NOLAN DATE OF : 1940 DATE OF ADMISSION: 12/06/2018 20:10 (CDT) PHONE: AGE: 78 N# [id number] GENDER: Male ENCOUNTER PHYSICIAN: Dr. Sid Cruz M.D. ADMISSION DIAGNOSIS: - Orthopaedic Disorders 08 - Unilateral Hip Fracture (08.11) right femur fx. EATING: EATING - STEP 1: Does the patient require the assistance of a person or device, or need extra time when eating? No. EATING - SCORE: 7-IND GROOMING: Comb/brush hair Wash, rinse, and dry face Wash, rinse, and dry hands GROOMING - STEP 1: Does the patient require the assistance of a person or device, or need extra time when grooming? No. GROOMING - SCORE: 7-IND BATHING: Activity did not occur on this shift BATHING - SCORE: 0-UNK DRESSING - UPPER BODY: Activity did not occur on this shift ARTICLES SCORE Total number of steps: 0 DRESSING - UPPER BODY - SCORE: 0-UNK DRESSING - LOWER BODY: Activity did not occur on this shift ARTICLES SCORE Total number of steps: 0 DRESSING - LOWER BODY - SCORE: 0-UNK TOILETING: TOILETING - STEP 1: Does the patient require the assistance of a person or device, or need extra time with toileting? Yes . TOILETING - STEP 2: Does the patient require the assistance of a helper? No. TOILETING - SCORE: 6-NGOC BLADDER MANAGEMENT: BLADDER MANAGEMENT - STEP 1: Does the patient control the bladder completely and intentionally without equipment or devices or med ications, and is always continent? Yes. BLADDER MANAGEMENT - SCORE: 7-IND BLADDER MANAGEMENT - FREQUENCY OF ACCIDENTS: BLADDER MANAGEMENT(FA) - STEP 1: How many accidents has the patient had during the current shift? 0 BOWEL MANAGEMENT: BOWEL MANAGEMENT - STEP 1: Does the patient control bowels completely and intentionally without equipment devices or medications AND is always continent? No. BOWEL MANAGEMENT - STEP 2: Does the patient require the assistance of a helper? No, patient requires and manages independently a n assistive device such as a bedpan, bedside commode, absorbent pad, incontinent device, or collectin g device BOWEL MANAGEMENT - SCORE: 6-NGOC BOWEL MANAGEMENT - FREQUENCY OF ACCIDENTS: BOWEL MANAGEMENT(FA) - STEP 1: How many accidents has the patient had during the current shift? 2 TRANSFERS: BED, CHAIR, WHEELCHAIR: TRANSFERS: BED, CHAIR, WHEELCHAIR - STEP 1: Does the patient require assistance of a person or device, or need extra time with bed, chair, or whe elchair transfers? Yes. TRANSFERS: BED, CHAIR, WHEELCHAIR - STEP 2: Does the patient require the assistance of a helper? Yes. TRANSFERS: BED, CHAIR, WHEELCHAIR - STEP 3: How much assistance does the patient require from the helper? Only supervision TRANSFERS: BED, CHAIR, WHEELCHAIR - SCORE: 5-SUP TRANSFERS: TOILET: TRANSFERS: TOILET - STEP 1: Does the patient require the assistance of a person or device, or need extra time with toilet transfe rs? Yes. TRANSFERS: TOILET - STEP 2: Does the patient require the assistance of a helper? Yes. TRANSFERS: TOILET - STEP 3: How much assistance does the patient require from the helper? Only supervision, cuing, coaxing, OR he lp to set out transfer equipment or to lock brakes and/or lift foot rests TRANSFERS: TOILET - SCORE: 5-SUP TRANSFERS: SHOWER: Activity did not occur on this shift TRANSFERS: SHOWER - SCORE: 0-UNK TRANSFERS: TUB: Activity did not occur on this shift TRANSFERS: TUB - SCORE: 0-UNK LOCOMOTION: WALK: Activity did not occur on this shift LOCOMOTION: WALK - SCORE: 0-UNK LOCOMOTION: WHEELCHAIR: Activity did not occur on this shift LOCOMOTION: WHEELCHAIR - SCORE: 0-UNK COMPREHENSION: COMPREHENSION - SCORE: 0-UNK EXPRESSION EXPRESSION - SCORE: 0-UNK SOCIAL INTERACTION: SOCIAL INTERACTION - SCORE: 0-UNK PROBLEM SOLVING: PROBLEM SOLVING - SCORE: 0-UNK MEMORY: MEMORY - SCORE: 0-UNK SIGNATURE PANEL: The following modified sections: Eating - Score, Grooming - Score, Bathing - Score, Dressing - Upper Body - Score, Dressing - Lower Body - Score, Toileting - Score, Bladder Management - Score, Bowel Man agement - Score, Transfers: Bed, Chair, Wheelchair - Score, Transfers: Toilet - Score, Transfers: Rosangela wer - Score, Transfers: Tub - Score, Locomotion: Walk - Score, Locomotion: Wheelchair - Score, Compre hension - Score, Expression - Score, Social Interaction - Score, Problem Solving - Score, Memory - Sc ore were [electronically] signed by Nissa Moreland CNA on WedDec 23 2018 15:04:31 T-0500 ([facility])
--- NOTE | 2018-12-23 15:52 | FAST ---
ENCOUNTER DATE AND TIME: 12/22/2018 08:00 (CDT) NAME ELENA NOLAN DATE OF : 1940 DATE OF ADMISSION: 12/06/2018 20:10 (CDT) PHONE: AGE: 78 SSN# [id number] GENDER: Male ENCOUNTER PHYSICIAN: Dr. Sid Cruz M.D. ADMISSION DIAGNOSIS: - Orthopaedic Disorders 08 - Unilateral Hip Fracture (04.23) right femur fx. EATING: Activity did not occur on this shift EATING - SCORE: 0-UNK GROOMING: Activity did not occur on this shift GROOMING - SCORE: 0-UNK BATHING: Activity did not occur on this shift BATHING - SCORE: 0-UNK DRESSING - UPPER BODY: Activity did not occur on this shift Patient is not dressing in public clothing ARTICLES SCORE Total number of steps: 0 DRESSING - UPPER BODY - SCORE: 0-UNK DRESSING - LOWER BODY: Activity did not occur on this shift Patient is not dressing in public clothing ARTICLES SCORE Total number of steps: 0 DRESSING - LOWER BODY - SCORE: 0-UNK TOILETING: Activity did not occur on this shift TOILETING - SCORE: 0-UNK BLADDER MANAGEMENT: Activity did not occur on this shift BLADDER MANAGEMENT - SCORE: 7-IND BOWEL MANAGEMENT: Activity did not occur on this shift BOWEL MANAGEMENT - SCORE: 7-IND TRANSFERS: BED, CHAIR, WHEELCHAIR: TRANSFERS: BED, CHAIR, WHEELCHAIR - STEP 1: Does the patient require assistance of a person or device, or need extra time with bed, chair, or whe elchair transfers? Yes. TRANSFERS: BED, CHAIR, WHEELCHAIR - STEP 2: Does the patient require the assistance of a helper? No. Patient only requires an assistive device fo r bed, chair, wheelchair transfers such as a sliding board, grab bar, or brace, OR s/he takes more th an reasonable time, OR there is a safety concern when s/he performs the transfers TRANSFERS: BED, CHAIR, WHEELCHAIR - SCORE: 6-NGOC TRANSFERS: TOILET: Activity did not occur on this shift TRANSFERS: TOILET - SCORE: 0-UNK TRANSFERS: SHOWER: Activity did not occur on this shift TRANSFERS: SHOWER - SCORE: 0-UNK TRANSFERS: TUB: Activity did not occur on this shift TRANSFERS: TUB - SCORE: 0-UNK LOCOMOTION: WALK: LOCOMOTION: WALK - STEP 1: Does the patient need help from a person or device, or need extra time to walk 150 feet? No. LOCOMOTION: WALK - STEP 2: Does the patient need an assistive device (such as an orthosis, prosthesis, crutches, or walker) to g o 150 feet, OR does s/he take more than reasonable time, OR is there a concern for safety? Yes, the p atient needs an assistive device LOCOMOTION: WALK - SCORE: 6-NGOC LOCOMOTION: WHEELCHAIR: LOCOMOTION: WHEELCHAIR - STEP 1: Does the patient need help to go 150 feet in a wheelchair? No. LOCOMOTION: WHEELCHAIR - SCORE: 6-NGOC LOCOMOTION: STAIRS: Activity did not occur on this shift LOCOMOTION: STAIRS - SCORE: 0-UNK COMPREHENSION: COMPREHENSION - SCORE: 0-UNK EXPRESSION EXPRESSION - SCORE: 0-UNK SOCIAL INTERACTION: SOCIAL INTERACTION - SCORE: 0-UNK PROBLEM SOLVING: PROBLEM SOLVING - SCORE: 0-UNK MEMORY: MEMORY - SCORE: 0-UNK SIGNATURE PANEL: The following modified sections: Transfers: Bed, Chair, Wheelchair - Score, Transfers: Toilet - Score , Locomotion: Walk - Score, Locomotion: Wheelchair - Score, Locomotion: Stairs - Score were [electron ically] signed by Andriy Tavarez PTA on WedDec 23 2018 15:52:18 GMT-0500 (Central Daylight Time)
--- NOTE | 2018-12-24 13:46 | FAST ---
ENCOUNTER DATE AND TIME: 12/23/2018 08:00 (CDT) NAME ELENA NOLAN DATE OF : 1940 DATE OF ADMISSION: 12/06/2018 20:10 (CDT) PHONE: AGE: 78 SSN# [id number] GENDER: Male ENCOUNTER PHYSICIAN: Dr. Sid Cruz M.D. ADMISSION DIAGNOSIS: - Orthopaedic Disorders 08 - Unilateral Hip Fracture (08.11) right femur fx. EATING: Activity did not occur on this shift EATING - SCORE: 0-UNK GROOMING: Activity did not occur on this shift GROOMING - SCORE: 0-UNK BATHING: Activity did not occur on this shift BATHING - SCORE: 0-UNK DRESSING - UPPER BODY: Activity did not occur on this shift Patient is not dressing in public clothing ARTICLES SCORE Total number of steps: 0 DRESSING - UPPER BODY - SCORE: 0-UNK DRESSING - LOWER BODY: Activity did not occur on this shift Patient is not dressing in public clothing ARTICLES SCORE Total number of steps: 0 DRESSING - LOWER BODY - SCORE: 0-UNK TOILETING: Activity did not occur on this shift TOILETING - SCORE: 0-UNK BLADDER MANAGEMENT: Activity did not occur on this shift BLADDER MANAGEMENT - SCORE: 7-IND BOWEL MANAGEMENT: Activity did not occur on this shift BOWEL MANAGEMENT - SCORE: 7-IND TRANSFERS: BED, CHAIR, WHEELCHAIR: TRANSFERS: BED, CHAIR, WHEELCHAIR - STEP 1: Does the patient require assistance of a person or device, or need extra time with bed, chair, or whe elchair transfers? Yes. TRANSFERS: BED, CHAIR, WHEELCHAIR - STEP 2: Does the patient require the assistance of a helper? No. Patient only requires an assistive device fo r bed, chair, wheelchair transfers such as a sliding board, grab bar, or brace, OR s/he takes more th an reasonable time, OR there is a safety concern when s/he performs the transfers TRANSFERS: BED, CHAIR, WHEELCHAIR - SCORE: 6-NGOC TRANSFERS: TOILET: Activity did not occur on this shift TRANSFERS: TOILET - SCORE: 0-UNK TRANSFERS: SHOWER: Activity did not occur on this shift TRANSFERS: SHOWER - SCORE: 0-UNK TRANSFERS: TUB: Activity did not occur on this shift TRANSFERS: TUB - SCORE: 0-UNK LOCOMOTION: WALK: LOCOMOTION: WALK - STEP 1: Does the patient need help from a person or device, or need extra time to walk 150 feet? No. LOCOMOTION: WALK - STEP 2: Does the patient need an assistive device (such as an orthosis, prosthesis, crutches, or walker) to g o 150 feet, OR does s/he take more than reasonable time, OR is there a concern for safety? Yes, the p atient needs an assistive device LOCOMOTION: WALK - SCORE: 6-NGOC LOCOMOTION: WHEELCHAIR: Activity did not occur on this shift LOCOMOTION: WHEELCHAIR - SCORE: 0-UNK LOCOMOTION: STAIRS: LOCOMOTION: STAIRS - STEP 1: Does the patient need help to go up and down 12 to 14 stairs? No. LOCOMOTION: STAIRS - STEP 2: Does the patient require an assistive device - such as handrails or cane - to go up and down one flig ht of stairs, OR does s/he take more than reasonable time, OR is there a concern for safety? Yes, the patient requires an assistive device LOCOMOTION: STAIRS - SCORE: 6-NGOC COMPREHENSION: COMPREHENSION - SCORE: 0-UNK EXPRESSION EXPRESSION - SCORE: 0-UNK SOCIAL INTERACTION: SOCIAL INTERACTION - SCORE: 0-UNK PROBLEM SOLVING: PROBLEM SOLVING - SCORE: 0-UNK MEMORY: MEMORY - SCORE: 0-UNK SIGNATURE PANEL: The following modified sections: Transfers: Bed, Chair, Wheelchair - Score, Transfers: Toilet - Score , Locomotion: Walk - Score, Locomotion: Wheelchair - Score, Locomotion: Stairs - Score were [nallely [email or web address]] signed by Baltazar Mann PT on Sat Dec 24 2018 13:45:56 T-0500 (Central Daylight Time)
== END 2018-12-23 14:35 | disposition home health service (06) | DRG 561 ==
LOC: 5TH 20:13
PROVIDERS: ADMIT Psychiatry & Neurology Neurology with Special Qualifications in Child Neurology; ATTEND Psychiatry & Neurology Neurology with Special Qualifications in Child Neurology
DX: S72.91XD Unspecified fracture of right femur, subsequent encounter for closed fracture with routine healing (principal); I48.0 Paroxysmal atrial fibrillation; I10 Essential (primary) hypertension; K21.9 Gastro-esophageal reflux disease without esophagitis; E78.5 Hyperlipidemia, unspecified; I73.9 Peripheral vascular disease, unspecified
CPT/HCPCS: 36415; 71046; 80048; 81001; 81003; 81015; 82040; 83735; 84134; 85025; 87077; 87086; 87088; 87186; 87804; 92507; 92523; 94640; 97110; 97116; 97150; 97163; 97167; 97530; 97542; J1650; J7512